=== PATIENT | male | born 1950 | race Caucasian/White ===

== ENCOUNTER 2018-08-20 12:26 | Inpatient (IN) ==
[2018-08-20] MEDS ORDERED: MoRPHine SULFATE 4 MG/ML 1 ML CARP\\VIAL IV STA (13:05)
[2018-08-20 13:11] LABS: Basophils # (auto) 0.02 K/uL (0-0.2); Basophils % (auto) 0.1 %; Eosinophils # (auto) 0.03 K/uL (0-0.5); Eosinophils % (auto) 0.2 %; Hematocrit (blood only) 45.1 % (42-52); Hemoglobin 15.3 g/dL (14.0-18.0); Immature Granulocytes # (auto) 0.03 K/uL (0.00-0.02); Immature Granulocytes % (auto) 0.2 %; Lymphocytes # (auto) 1.72 K/uL (1.2-3.4); Lymphocytes % (auto) 11.3 %; Mean Corpuscular Hgb Conc 33.9 g/dL (32-36); Mean Corpuscular Volume 96.8 fL (80-100); Mean Platelet Volume 10.2 fL (7.4-10.4); Monocytes % (auto) 5.9 %; Neutrophils # (auto) 12.49 K/uL (1.4-6.5); Neutrophils % (auto) 82.3 %; Platelet Count 286 K/uL (130-400); RDW Coefficient of Variation 13.5 % (11.5-14.5); RDW Standard Deviation 47.3 fL (36.4-46.3); Red Blood Count 4.66 M/uL (4.7-6.1); White Blood Count 15.19 K/uL (4.8-10.8)
[2018-08-20 13:22] LABS: Partial Thromboplastin Ratio 0.8; Partial Thromboplastin Time 21.7 Seconds (21.0-31.0); Prothrombin Time 10.6 Seconds (9.0-12.0)
[2018-08-20 13:24] LABS: BUN Creatinine Ratio 15.1 (10-20); Calcium 9.3 mg/dl (8.5-10.1); Est GFR (African American) 79.2; Est GFR (Non-African American) 68.3; Potassium 3.8 mmol/L (3.5-5.1)
[2018-08-20] MEDS ORDERED: HYDROmorphone INJ 0.5 MG/0.5 ML SYR IV STA (14:16)
[2018-08-20] MEDS ORDERED: HEPARIN 25000 UNIT/500 ML D5W IV ONE (14:28)
[2018-08-20] MEDS ORDERED: HEPARIN SOD 5,000 UNIT/0.5 ML VIAL ONE (14:29)
[2018-08-20] MEDS ORDERED: HEPARIN SOD (PORCINE) 1000 UNIT/ML 10 ML VIAL ONE ×2 (14:36→20:39)
--- NOTE | 2018-08-20 14:59 | Ultrasound Report ---
US arterial duplex LE RT CLINICAL HISTORY: h/o ?fem/pop stent, right leg numbness present COMPARISON STUDY: Right lower arterial Doppler study 02/02/2018. FINDINGS: The right common femoral artery is patent and demonstrates normal triphasic waveforms. The right profunda femoris artery is also patent and demonstrate normal triphasic waveforms. The proximal right superficial femoral artery is patent and demonstrates normal velocity triphasic waveforms. The re appears to be a stent within the mid right superficial femoral artery through the popliteal artery . This is completely occluded. There is an arterial collateral extending from the proximal right supe rficial femoral artery immediately proximal to the occluded stent. There may be trace flow within the right posterior tibial artery. No flow identified within the peroneal or dorsalis pedis arteries. Th e anterior tibial artery was not identified. IMPRESSION: Complete occlusion of the stent located within the right superficial femoral artery and popliteal artery. The majority of the calf arteries are also occluded. There may be trace flow within the posterior tibial artery. Electronically signed by: Kevin Poon M.D. 08/20/2018 2:58 PM
--- NOTE | 2018-08-20 15:33 | Emergency Department Note ---
Entered by Irasema Fernandez acting as a scribe for History of Present Illness General Chief complaint: Foot Injury/Pain Stated complaint: R FOOT NUMBNESS Time Seen by Provider: 08/20/18 12:44 Source: patient History of Present Illness Onset (ago): hour(s) 2 Location: right (foot) Radiation: other (just inferior to his right knee) Maximum Pain Intensity: 8 Quality: + other (right foot numbness) Associated symptoms: + other (Positive of tenderness to palpation over the right anterior side of his calf, coldness to his RLE. 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 He reports that 2 hours ago, he began having numbness in his RLE over his foot that has progressed up just inferior to his right knee. He complaints of tenderness to palpation over the right anterior side of his calf. He notes his RLE is cold. [facility] they were unable to obtain pulses using a Doppler ultrasound. 6 months ago he was evaluated at [facility] with a Doppler ultrasound showing a clot in the right leg. Pt was then referred to [facility] for stenting although there are no records at this time. All history is per the patient. He discontinued Plavix 1 week ago and has been on baby aspirin. Home Medications Home Medications Medication Instructions Recorded Confirmed Type aspirin 81 mg PO QAM 08/20/18 08/20/18 History atorvastatin 80 mg PO HS 08/20/18 08/20/18 History lisinopril-hydrochlorothiazide 1 tab PO QAM 08/20/18 08/20/18 History Allergies Allergy/AdvReac Type Severity Reaction Status Date / Time codeine Allergy Unknown Unknown Unverified 08/20/18 13:24 Past Med/Surg History Medical History H/O: HTN (hypertension) (Chronic) HLD (hyperlipidemia) (Chronic) Family History Other Family history non-contributory Social History Current Living Situation: Other Current Living Situation Comment: Care Home Feels Safe at Home: Yes Smoking Status: Current every day smoker Review of Systems See HPI for pertinent positives & negatives. and A total of 10 systems reviewed and were otherwise negative Physical Exam Vital Signs Vital Signs - 24 hr 08/20/18 12:29 08/20/18 14:27 Temperature 36.8 C Temperature Source Oral Sepsis Recent Fever Within 48 Hours No Sepsis New/Unexplained Change in Mental Status No Sepsis Action Taken by Nursing No Action Required Pulse Rate 101 H Pulse Rate [Apical] 89 Pulse Rhythm Regular Pulse Strength Normal Respiratory Rate 20 20 Respiratory Effort / Characteristics Non-Labored Spontaneous Respiratory Depth Normal Respiratory Pattern Regular Blood Pressure 168/90 H Blood Pressure [Right Arm] 133/87 Blood Pressure Mean 116 Blood Pressure Mean [Right Arm] 102 Pulse Oximetry 96 99 Oxygen Delivery Method Room Air Room Air GENERAL: Well appearing, well nourished, NAD, non-toxic. Wearing glasses. EYE EXAM: Normal conjunctiva. PERRL, no anisocoria and EOM's grossly intact w/o pain OROPHARYNX: Moist MM. NECK: Supple, no nuchal rigidity, no adenopathy, non-tender. No signs of meningismus LUNGS: Clear to auscultation. Normal chest wall mechanics. HEART: NSR, no MRG ABDOMEN: Abdomen soft, non-tender, normo-active bowel sounds, no masses, no rebound or guarding. BACK: No CVA TTP SKIN: No rashes and no bruising. UPPER EXTREMITIES: Upper extremities are grossly normal. LOWER EXTREMITIES: RLE cooler to touch compared to LLE. Pulses not palpable nor dopplerable. Decreased sensation to the DP/SP/TIB nerves. Good flexion and extension of the ankle and knee. NEURO EXAM: A and O x3. GCS 15. Moves all 4 extremities. Course 1316: Past medical records reviewed. The patient was evaluated in room A11, and a complete history and physical examination were performed. 1503: I reviewed the patient's case with Dr. Huerta, Vascular Surgery. He states the patient should be admitted and started on Heparin. Recommends a CTA of the RLE. 1511: I reviewed the patient's [facility] He will evaluate the patient for further management. Consultations Consultation #1: I reviewed the patient's case with Dr. Huerta, Vascular Surgery. He states the patient should be admitted and started on Heparin. Recommends a CTA of the RLE. Time: 15:03 Consultation #2: I reviewed the patient's case with Dr. Angy Harrison spitalist. He will evaluate the patient for further management. Time: 15:11 Administered Medications Discontinued Medications Heparin Sodium (Porcine) (Heparin Sodium (Porcine)) Confirm Administered Dose 10,000 units .ROUTE .STK-MED ONE Stop: 08/20/18 14:30 Last Admin: 08/20/18 14:45 Dose: Not Given Documented by: [id number] Heparin Sodium (Porcine) (Heparin Iv Bolus) Confirm Administered Dose 10,000 units .ROUTE .STK-MED ONE Stop: 08/20/18 14:37 Last Admin: 08/20/18 14:43 Dose: 6,000 units Documented by: [id number] Cosigned by: [id number] Heparin Sodium/Dextrose () 1 ea IV NOW STA; Protocol Stop: 08/20/18 14:17 Last Admin: 08/20/18 15:15 Dose: Not Given Documented by: [id number] Heparin Sodium/Dextrose (Heparin Sodium/Dextrose) Confirm Administered Dose 25,000 units IV .STK-MED ONE Stop: 08/20/18 14:29 Last Admin: 08/20/18 14:42 Dose: 1,450 units Documented by: [id number] Cosigned by: [id number] Hydromorphone HCl (Dilaudid) 0.5 mg IV NOW STA Stop: 08/20/18 14:17 Last Admin: 08/20/18 15:15 Dose: 0.5 mg Documented by: [id number] Morphine Sulfate (Morphine Sulfate) 4 mg IV NOW STA Stop: 08/20/18 13:06 Last Admin: 08/20/18 13:13 Dose: 4 mg Documented by: [id number] Medical Decision Making Medical Records Attestation: I reviewed the patient's medical records. Home Medications Current Medication List: was personally reviewed by me Laboratory Data Attestation: I reviewed the patient's lab results. Result diagrams: 08/20/18 12:30 08/20/18 12:30 Lab Results 08/20/18 08/20/18 08/20/18 Range/Units 12:30 12:30 12:30 WBC 15.19 H (4.8-10.8) K/uL RBC 4.66 L (4.7-6.1) M/uL Hgb 15.3 (14.0-18.0) g/dL Hct 45.1 (42-52) % MCV 96.8 (80-100) fL MCH 32.8 (25-34) pg MCHC 33.9 (32-36) g/dL RDW Std Deviation 47.3 H (36.4-46.3) fL RDW Coeff of Rinku 13.5 (11.5-14.5) % Plt Count 286 (130-400) K/uL MPV 10.2 (7.4-10.4) fL Immature Gran % (Auto) 0.2 % Neut % (Auto) 82.3 % Lymph % (Auto) 11.3 % Harper % (Auto) 5.9 % Eos % (Auto) 0.2 % Baso % (Auto) 0.1 % Immature Gran # (Auto) 0.03 H (0.00-0.02) K/uL Neut # (Auto) 12.49 H (1.4-6.5) K/uL Lymph # (Auto) 1.72 (1.2-3.4) K/uL Harper # (Auto) 0.90 H (0.11-0.59) K/uL Eos # (Auto) 0.03 (0-0.5) K/uL Baso # (Auto) 0.02 (0-0.2) K/uL PT 10.6 (9.0-12.0) Seconds INR 1.0 (0.9-1.1) APTT 21.7 (21.0-31.0) Seconds PTT Ratio 0.8 Sodium 139 (136-145) mmol/L Potassium 3.8 (3.5-5.1) mmol/L Chloride 105 (98-107) mmol/L Carbon Dioxide 27 (21-32) mmol/L Anion Gap 7.0 (3-11) BUN 17 (7-18) mg/dl Creatinine 1.11 (0.6-1.4) mg/dl Est Cr Clr Drug Dosing 73.0 ml/min Est GFR ( Amer) 79.2 Est GFR (Non-Af Amer) 68.3 BUN/Creatinine Ratio 15.1 (10-20) Glucose 115 H (70-99) mg/dl Calcium 9.3 (8.5-10.1) mg/dl Imaging Data Radiologist's Impression: Radiology results as stated below per my review and the radiologist's interpretation: US arterial duplex LE RT CLINICAL HISTORY: h/o ?fem/pop stent, right leg numbness present COMPARISON STUDY: Right lower arterial Doppler study 02/02/2018. FINDINGS: The right common femoral artery is patent and demonstrates normal triphasic waveforms. The right profunda femoris artery is also patent and demonstrate normal triphasic waveforms. The proximal right superficial femoral artery is patent and demonstrates normal velocity triphasic waveforms. There appears to be a stent within the mid right superficial femoral artery through the popliteal artery. This is completely occluded. There is an arterial co llateral extending from the proximal right superficial femoral artery immediately proximal to the occluded stent. There may be trace flow within the right posterior tibial artery. No flow identified within the peroneal or dorsalis pedis arteries. The anterior tibial artery was not identified. IMPRESSION: Complete occlusion of the stent located within the right superficial femoral artery and popliteal artery. The majority of the calf arteries are also occluded. There may be trace flow within the posterior tibial artery. Electronically signed by: Kevin Poon M.D. 08/20/2018 2:58 PM Blood Pressure Blood Pressure Findings: Elevated blood pressure Blood Pressure Disposition: further management by hospitalist [facility] Narrative Prior records/ancillary studies reviewed. Triage nursing notes reviewed. 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 Differential diagnosis: Etiologies such as arterial clot , DVT, musculoskeletal, infection, joint ef fusion, trauma, lymphedema, idiopathic, CHF, as well as others were entertained. Patient was seen and evaluated the bedside after being seen and evaluated by the resident physician. The patient does have a prior history of a femoral artery stent placed approximately 6 months prior. The patient reportedly was recently taken off Plavix for epistaxis. The patient noted that he was having some dec reased sensation and associated coolness to the right lower extremity. Pulses are not palpable and not dopplerable. The patient does have a cool right lower extremity compared to the left. The left is warm well perfused with good DP pulses. The patient does have some decreased sensation but does still have sensation intact to the DP, SP, and tibialis nerves. Patient did a blood work completed along with an an arterial ultrasound of the right lower extremity. Patient's blood work shows a white count of 15. The patient's coags are unremarkable. Platelet count within normal limits with a normal H&H. The patient has normal kidney function. Patient's ultrasound showed an occlusion of his stent with only trace flow potentially in the posterior tibial artery. Patient was placed on heparin. Vascular surgery was consulted who recommended heparin pain control and admission with a likely CT angios upon admission. I did speak the on-call hospitalist and relay vascular surgery's recommendations. The patient was subsequently admitted to the medicine service. Impression & Plan Femoral artery occlusion Critical Care Time I have personally spent greater than 55 minutes of critical care time in the direct management of this patient. This includes bedside care, interpretation of diagnostic studies, and testing, discussion with consultants, patient, and family members, and other required patient management activities. This 55 minutes is in excess of all separately billable procedures. Critical Care Time: Yes Total Critical Care Time: 55 Discharge Plan Visit Data Chief Complaint: Foot Injury/Pain Stated Complaint: R FOOT NUMBNESS ED Provider: Mayo Miranda ED Midlevel Provider: Micheal Miles Discharge Problem: Femoral artery occlusion Patient Disposition: Being Evaluated by Hospitalist Discharge Instructions Krames/Other Patient Handouts: ED Diet Soft, ED Abd Pain Gallstones W Colic Conf Activity Restrictions/Additional Instructions: Please call [facility] General Surgery to arrange an appointment for follow up- Forms Stand Alone Forms: My [facility] Prescriptions Prescriptions: No Action atorvastatin 80 mg Tablet 80 mg PO HS RF: 0 aspirin 81 mg Tablet,Chewable 81 mg PO QAM RF: 0 lisinopril-hydrochlorothiazide 10-12.5 mg Tablet 1 tab PO QAM RF: 0 Referrals Referrals: Hernesto S[facility] [Primary Care Provider] - The scribe's documentation has been prepared under my direction and personally reviewed by me in its entirety. I confirm that the note above accurately reflects all work, treatment, procedures, and medical decision making performed by me.
--- NOTE | 2018-08-20 15:48 | History & Physical Report ---
Date of Service August 20, 2018 Assessment & Plan (1) Femoral artery occlusion: Dr. Huerta has been consulted, heparin drip, CT angios of the aorta with runoff, n.p.o. except sips chips and meds. (2) Epistaxis: Continue aspirin, Plavix, and IV heparin, monitor for epistaxis (3) Hypertension: Continue lisinopril HCTZ (4) Peripheral arterial disease: CT of the aorta with runoff, aspirin, Plavix, IV heparin, vascular evaluation. (5) Hyperlipidemia: Patient on Lipitor (6) Leukocytosis: Likely reactive, will monitor History of Present Illness Primary Care Provider: [facility] Chief complaint: Cold and painful right lower extremity 68-year-old male with past medical history of hypertension and peripheral arterial disease who is on aspirin and Plavix, Plavix currently held for epistaxis presents the ER today with a cold right lower extremity. He said he started to get right foot numbness this morning. It then progressed to his RLE over his foot and his right knee. He also complaint of tenderness to palpation over the right calf. He said his RLE is now cold. While in the [facility] at the [facility], they were unable to obtain pulses using a Doppler ultrasound. 6 months ago he was evaluated at [facility] with a Doppler ultrasound showing a clot in the right leg. Pt was then referred to [facility] for stenting although there are no records at this time. He discontinued Plavix 1 week ago and has been on baby aspirin. A duplex scan of the lower extremity revealed complete occlusion of the stent located within the right superficial femoral artery and popliteal artery. The majority of the calf arteries are also occluded. There may be trace flow within the posterior tibial artery. Dr. Huerta from vascular surgery has been consulted, I was asked to admit the patient and order a CTA with runoff. ROS-No Headache, No Visual Changes, No Fever, No Chills, No Neck Pain or Stiffness, No Chest Pain, No Palpitations, No SOB, No WRIGHT, No Cough, No Sputum, No Wheezing, No Abdominal Pain, No Diarrhea, No Hematemesis, No Hemoptysis, No Unexpected Weight Loss, No Flank pain, No Melena, No Hematochezia, No Frequency, No Urgency, No Burning, No Hematuria, No Rashes, No Diaphoresis. Appetite is Normal, complains of painful right lower extremity from the tibial tuberosity down into the foot, complains of cold right lower extremity as well. Complains of numbness of the right lower extremity. Physical Exam Gen-AAO x 3, NAD, Afebrile Head-NCAT, EOMI, PERRLA, Anicteric Sclera, No Posterior Pharyngeal Erythema Neck-Supple, No JVD, No Thyromegaly, No Masses, No LAD, No Bruits Lungs-Clear to Auscultation Bilaterally, No Rales, No Rhonchi, No Wheezing, No Crepitus Chest-No S4, +S1, +S2, No S3, No Murmurs, No Rubs, No Gallops, No Ectopy Abdomen-Soft, Bowel Sounds Present, Non Tender, Non Distended, No Hepatomegaly, No Splenomegaly, No Palpable Masses, No Rebound, No Rigidity, No Guarding Musculoskeletal-Full Range of Motion Bilaterally, No CVAT Extremities-positive cold right lower extremity, tender, mildly cyanotic, mild mottling in the right foot, no Clubbing, No Edema positive capillary Refill Nuero-Cranial Nerves II-XII grossly intact, Motor WNL, DTRs WNL, Strength WNL, No Focal Psych-Normal Mood PMH-hypertension, peripheral arterial disease, epistaxis, hyperlipidemia, renal stones AIM-fwdloel-alqvfiofs stent right lower extremity, renal stones, hernia repair, vasectomy, nasal septoplasty FH-has 2 daughters are healthy, 2 brothers that are healthy and one sister is healthy, denies IV drug abuse SH-Inmate at [facility], pack a day smoker for 50 years, . Meds reviewed and Reconciled Labs Reviewed Allergies Allergy/AdvReac Type Severity Reaction Status Date / Time codeine Allergy Unknown Unknown Unverified 08/20/18 13:24 Home Medications Home Medications Medication Instructions Recorded Confirmed Type aspirin 81 mg PO QAM 08/20/18 08/20/18 History atorvastatin 80 mg PO HS 08/20/18 08/20/18 History lisinopril-hydrochlorothiazide 1 tab PO QAM 08/20/18 08/20/18 History Past Med/Surg History Medical History H/O: HTN (hypertension) (Chronic) HLD (hyperlipidemia) (Chronic) Family History Other Family history non-contributory Social History Current Living Situation: Other Current Living Situation Comment: Alf Feels Safe at Home: Yes Smoking Status: Current every day smoker Physical Exam Vital Signs (Past 24 Hours): Last Vital Signs Temp 36.8 C 08/20/18 12:29 Pulse 89 08/20/18 14:27 Resp 20 08/20/18 14:27 BP 133/87 08/20/18 14:27 Pulse Ox 99 08/20/18 14:27 Results & Data Laboratory Results Allergies codeine Allergy (Unknown, Unverified 08/20/18 13:24) Unknown Height/Weight/Isolation Height 6 ft 1 in Weight 82 kg Chemistry 08/20/18 12:30 Sodium 139 Potassium 3.8 Chloride 105 Carbon Dioxide 27 Anion Gap 7.0 BUN 17 Creatinine 1.11 Glucose 115 H
[2018-08-20] MEDS ORDERED: POLYETHYLENE (MIRALAX) 17 GM PACK PO PRN (16:48)
[2018-08-20] MEDS ORDERED: ONDANSETRON INJ 2 MG/ML 2 ML VIAL IV PRN ×2 (16:48→20:01)
[2018-08-20] MEDS ORDERED: ATORVASTATIN 40 MG TAB PO SCH (16:48)
[2018-08-20] MEDS ORDERED: OPTIRAY 320 125ml IV PRN (17:40)
[2018-08-20] MEDS: ASPIRIN 81 MG ECTAB PO SCH (18:07)
[2018-08-20] MEDS: LISINOPRIL/HCTZ 10/12.5MG TAB PO SCH (18:07)
[2018-08-20] MEDS: ACETAMINOPHEN 325 MG TAB PO PRN (18:08)
--- NOTE | 2018-08-20 18:27 | CT Scan Report ---
CT angio abd aorta runoff w con HISTORY: Right leg superficial femoral artery occlusion. TECHNIQUE: Multiaxial CT images of the abdomen, pelvis, bilateral lower extremities were performed fo llowing the use intravenous contrast to evaluate the arterial structures. Maximal intensity projectio n images were also obtained. COMPARISON STUDY: Right leg arterial Doppler study 08/20/2018. FINDINGS: Groundglass densities at the lung bases posteriorly favor dependent change/atelectasis. No fractures within the visualized osseous structures. The liver, gallbladder, pancreas, and spleen are unremarkable. Bilateral nephrolithiasis. No hydronephrosis. Left adrenal gland thickening. There are 2 hypodense nodules within the right adrenal gland with the largest measuring 9 mm. These are technic ally indeterminate. No retroperitoneal lymphadenopathy. Normal appendix. The bladder is unremarkable. No bowel wall thickening or obstruction. Moderate atherosclerotic plaque within the abdominal aorta. No abdominal aortic aneurysm. There is al so moderate atherosclerotic plaque within the bilateral common iliac arteries without significant kingsley nosis. The bilateral external iliac arteries are patent. Mild aneurysmal dilatation of the distal rig ht common iliac artery measuring 1.5 cm and the proximal left common iliac artery measuring 1.4 cm. T he celiac, superior mesenteric, and inferior mesenteric arteries are widely patent. No significant st enosis within the renal arteries. There is a beaded appearance to the mid right renal artery consiste nt with fibromuscular dysplasia. No evidence for dissection. No significant stenosis or occlusion wit hin the opacified left lower externally arterial system. Diminished flow within the distal calf arter ies may be due to the timing of contrast. The right common femoral and proximal right superficial fem oral arteries are patent. There is complete occlusion of the right superficial femoral artery and pop liteal artery stent. There appears to be reconstitution of flow within the distal popliteal artery du e to a small arterial collateral likely extending from the patent profunda femoris artery. The the pr oximal anterior tibial artery is small in caliber but patent. No contrast within a focus within the m id to distal right anterior tibia artery. Diminished flow within the distal peroneal and posterior ti bial artery arteries maybe due to the timing of contrast. No significant stenosis within the proximal to mid right peroneal and posterior tibial arteries. IMPRESSION: 1. There is complete occlusion of the right superficial femoral artery and popliteal artery stent. Th ere appears to be reconstitution of flow within the distal popliteal artery due to a small arterial c ollateral likely extending from the patent profunda femoris artery.. 2. There is a beaded appearance to the mid right renal artery consistent with fibromuscular dysplasia . No evidence for dissection or significant stenosis. 3. Bilateral nephrolithiasis. No hydronephrosis. 4. 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 5. No significant stenosis or occlusion within the visualized left lower extremity arterial structure s. Diminished flow within the distal left calf arteries may be due to the timing of contrast. 6. Additional findings as described above. Electronically signed by: Kevin Poon M.D. 08/20/2018 6:25 PM
[2018-08-20] MEDS ORDERED: HEPARIN (PORCINE) 1000 UNIT/ML 10 ML (CATH LAB USE ONLY) ONE (19:21)
[2018-08-20] MEDS ORDERED: CEFAZOLIN 250 MG/ML 1 GM VIAL ONE ×2 (19:22→20:14)
[2018-08-20] MEDS ORDERED: PAPAVERINE HCL INJ 30 MG/ML 2 ML VIAL ONE (19:22)
[2018-08-20] MEDS ORDERED: GELATIN SPONGE SZ 100 ONE (19:22)
[2018-08-20] MEDS ORDERED: THROMBIN 5000 UNITS KIT ONE (19:22)
[2018-08-20] MEDS ORDERED: LIDOCAINE HCL 1% 20 ML VIAL ONE (19:22)
[2018-08-20] MEDS ORDERED: BUPIVACAINE/EPINEPHRINE 0.5% MPF 1:200,000 30 ML VIAL ONE (19:22)
[2018-08-20] MEDS ORDERED: CEFAZOLIN 1000MG 1,000 MG/7.5 ML SYR IV ONE ×2 (19:27→19:30)
--- NOTE | 2018-08-20 19:27 | Consultation ---
Date of Consultation August 20, 2018 Assessment & Plan (1) Pain of right lower extremity due to ischemia: Doppler signals heard in the right foot. CTA shows occlusion of the stents in the right superficial femoral artery down through the distal popliteal.There may be a peroneal artery open beyond.At this point we recommend emergent revascularization.We will attempt to do endovascularly.If this does not accomplish it then we may need to go to a femoropopliteal bypass. I have discussed the risks options and benefits of the procedure with the patient. The patient understands the risks options and benefits and agrees to the procedure. History of Present Illness Reason for Consultation: Right leg pain Attending Physician: Kirill Travis DO History of Present Illness This is a 68-year-old gentleman who 6 months ago had stenting of his right superficial femoral and popliteal arteries. A little of a clock this morning he developed pain of his right lower extremity and foot. This came on suddenly. It got progressively worse. He did have numbness and tingling at that time in the foot.The numbness and tingling has resolved.The pain is much better at this point. The foot was also discolored at that time but has improved slightly.He was on Plavix and aspirin prior to this. Allergies Allergy/AdvReac Type Severity Reaction Status Date / Time codeine Allergy Unknown Unknown Unverified 08/20/18 13:24 Home Medications Home Medications Medication Instructions Recorded Confirmed Type aspirin 81 mg PO QAM 08/20/18 08/20/18 History atorvastatin 80 mg PO HS 08/20/18 08/20/18 History lisinopril-hydrochlorothiazide 1 tab PO QAM 08/20/18 08/20/18 History Patient History Medical History H/O: HTN (hypertension) (Chronic) HLD (hyperlipidemia) (Chronic) Family History Other Family history non-contributory Social History Preferred Language: Northern Irish Communication Ability: Effective Contact Clerk Required: No Beliefs That Will Affect Care: None Current Living Situation: Other Current Living Situation Comment: [facility]; [facility] Other Information That Helps Us Care for You: No Feels Safe at Home: Yes Smoking Status: Current every day smoker Hx Alcohol Use: No Hx Substance Use: No Review of Systems Other than the HPI the review of systems of 10 systems is negative. Physical Exam Vital Signs (Past 24 Hours): Last Vital Signs Temp 36.9 C 08/20/18 17:00 Pulse 76 08/20/18 17:00 Resp 18 08/20/18 17:00 BP 158/86 H 08/20/18 17:00 Pulse Ox 95 08/20/18 17:00 Constitutional: WD/WN, vitals as above well developed and well nourished; no acute distress Respiratory: normal respiratory effort, lungs clear to auscultation Cardiovascular: RRR, no murmur, no edema Vessels: posterior tibial pulses present (None on the Right) and dorsalis pedis pulses present (None on the right) Gastrointestinal (Abdomen): normal bowel sounds, soft, nontender, no hepatosplenomegaly Musculoskeletal: Extremities: extremities normal to inspection and strength 5/5 throughout Neurologic: normal touch/pain/proprioception and moves all extremities Psychiatric: Orientation: alert and oriented x 3
[2018-08-20] MEDS ORDERED: MIDAZOLAM HCL 1 MG/ML 2ML VIAL ONE (19:38)
[2018-08-20] MEDS ORDERED: PROPOFOL IV EMULSION 10 MG/ML 20 ML VIAL IV ONE (19:39)
[2018-08-20] MEDS ORDERED: fentaNYL citrate 100 MCG/2 ML VIAL ONE (19:39)
[2018-08-20] MEDS ORDERED: LIDOCAINE HCL 2% 2 ML VIAL/AMP(20MG/ML) INFIL ONE (19:39)
--- NOTE | 2018-08-20 19:50 | Anesthesiology Consultation ---
Date of Service August 20, 2018 Assessment & Plan (1) H/O: HTN (hypertension): (2) Encounter for pre-operative examination: Chart Review Chart Review: Acceptable Risk for Surgery and Patient NOT seen in Pre Admission Testing Consults Requested none ASA [id number] Proposed Anesthesia Anesthesia Type: MAC (consented for general as backup) Anesthesia Line Insertion: Arterial line (consented) Risk / Benefits Reviewed With: PT / POA / Parent / Guardian, Accepts Plan and Informed Consent Obtained NPO Date Last Intake of Fluids: 08/20/18 Time Last Intake of Fluids: 08:00 Last Intake of Fluids Comment: sips since admission Date Last Intake of Solids: 08/20/18 Time Last Intake of Solids: 08:00 History Surgery Operation Date: 08/20/18 19:10 Proposed Procedures p Femoral Popliteal Bypass Graft - Robinson Huerta MD Height/Weight Height: 6 ft 1 in Weight: 89 kg Allergies Allergy/AdvReac Type Severity Reaction Status Date / Time codeine Allergy Unknown Unknown Unverified 08/20/18 13:24 Medications Home Medications Medication Instructions Recorded Confirmed Last Taken aspirin 81 mg PO QAM 08/20/18 08/20/18 08/20/18 atorvastatin 80 mg PO HS 08/20/18 08/20/18 08/19/18 lisinopril-hydrochlorothiazide 1 tab PO QAM 08/20/18 08/20/18 08/20/18 Active Medications Generic Name Dose Route Start Last Admin Trade Name Freq PRN Reason Stop Dose Admin Acetaminophen 650 mg 08/20/18 16:48 08/20/18 18:08 Tylenol PO 09/19/18 16:47 650 mg Q4H PRN Administration pain/fever Aspirin 81 mg 08/20/18 17:15 08/20/18 18:07 Ecotrin Ectab PO 09/19/18 17:14 81 mg QAM TOOTIE Administration Lisinopril/HCTZ 1 tab 08/20/18 17:30 08/20/18 18:07 Prinzide 10/12.5mg PO 09/19/18 17:29 1 tab QAM TOOTIE Administration Ioversol 120 ml 08/20/18 17:40 08/20/18 17:40 Optiray 320 125ml IV 08/24/18 17:39 120 ml ONCE PRN Administration Interaction Checking Past Medical History Medical History H/O: HTN (hypertension) (Chronic) HLD (hyperlipidemia) (Chronic) Hernia Smoker Past Family History Family History Other Family history non-contributory Past Surgical History Surgical History H/O vasectomy History of vascular surgery R SFA stent, six months ago Past Anesthesia History No Hx of Anesthesia Complications and No Family Hx of Anesthesia Complications History of PONV No Motion Sickness Screening History of Motion Sickness: No Social History Smoking Status: Current every day smoker tobacco type: cigarettes Do You Dip or Chew Tobacco: No Hx Alcohol Use: No Hx Substance Use: No Exercise / Class Metabolic Activity II 4-5 Yardwork/Stairs/Walk up hill Review of Systems no chest pain or sob, patient complains of "cold R leg" Physical Exam Vital Signs Last Vital Signs Temp 36.9 C 08/20/18 17:00 Pulse 76 08/20/18 17:00 Resp 18 08/20/18 17:00 BP 158/86 H 08/20/18 17:00 Pulse Ox 95 08/20/18 17:00 ENMT Mouth: + dental caries and + poor dentition Thyromental Distance: > or= 3.5 Finger Breadths Mallampati Class: II Neck normal visual inspection Respiratory normal respiratory effort Cardiovascular Rate/Rhythm: regular rate and regular rhythm Musculoskeletal Spine: no pain with cervical ROM Neurologic moves all extremities Motor/Sensory: + sensory deficit (sensation loss R foot) Psychiatric Orientation: alert and oriented x 3 Testing Electrocardiogram Date: 08/20/18 Findings: + NSR @ (70 sinus arrhythmia) Laboratory Results 08/20/18 12:30 08/20/18 12:30 PT 10.6 Seconds (9.0-12.0) 08/20/18 12:30 INR 1.0 (0.9-1.1) 08/20/18 12:30 APTT 21.7 Seconds (21.0-31.0) 08/20/18 12:30
[2018-08-20] MEDS ORDERED: HEPARIN SOD (PORCINE) 5,000 UNITS/ML VIAL ONE (19:53)
[2018-08-20] MEDS ORDERED: LABETALOL HCL IV 5 MG/ML 20ML IV PRN (20:01)
[2018-08-20] MEDS ORDERED: HYDROmorphone INJ 1 MG/ML SYRINGE IV PRN (20:01)
[2018-08-20] MEDS ORDERED: PHENYLEPHRINE 100MCG/ML 5ML SYR IV PRN (20:01)
[2018-08-20] MEDS ORDERED: ATROPINE SULFATE 0.1 MG/ML 10ML SYR IV PRN (20:01)
[2018-08-20] MEDS ORDERED: MEPERIDINE HCL 25 MG/ML CARP IV PRN (20:01)
[2018-08-20] MEDS ORDERED: fentaNYL citrate 100 MCG/2 ML VIAL IV PRN (20:01)
[2018-08-20] MEDS ORDERED: ePHEDrine sulfate 50 MG/ML AMP IV PRN (20:01)
[2018-08-20] MEDS ORDERED: VISIPAQUE IV PRN (21:09)
--- NOTE | 2018-08-20 21:13 | Anesthesiology Progress Note ---
Date of Service August 20, 2018 Anesthesia Post Procedure Vital Signs Vital Signs: Temp Pulse Pulse Pulse Resp BP BP 08/20/18 17:00 36.9 C 76 18 178/106 H 08/20/18 15:58 92 H 20 140/89 08/20/18 14:27 89 20 08/20/18 12:29 36.8 C 101 H 20 168/90 H BP Pulse Ox 08/20/18 17:00 158/86 H 95 08/20/18 15:58 99 08/20/18 14:27 133/87 99 08/20/18 12:29 96 Pain Intensity Right Leg: Pain Intensity: 4 Notes Mental Status: alert / awake / arousable Patient Amnestic to Procedure: Yes Nausea / Vomiting: adequately controlled Pain: adequately controlled Airway Patency, RR, SpO2: stable & adequate BP & HR: stable & adequate Hydration State: stable & adequate Anesthetic Complications: no major complications apparent and Pt Satisfied with anesthetic care Notes: The patient is awake and his vitals are stable in the ICU. He has some mild leg pain over the surgical site.
--- NOTE | 2018-08-20 21:26 | Post Operative Brief Note ---
Immediate Post Op Note v1 Date of Surgery August 20, 2018 Pre & Post Diagnosis Operation Date: 08/20/18 19:10 Pre-Op Diagnosis: Ischemic Right Leg Post-Op Diagnosis: Ischemic Right Leg Operation Date: 08/21/18 08:00 <No data on this case meets the specified criteria> Procedure Operation Date: 08/20/18 19:10 Actual Procedures p Right Lower Extremity Angiogram, Infusion of thrombolytics(Right) - Robinson Huerta MD Operation Date: 08/21/18 08:00 <No data on this case meets the specified criteria> Surgeon Robinson Huerta MD Human Services Worker none Estimated Blood Loss 5 Findings Consistent with Post-Op Diagnosis Anesthesia Type MAC Complications none Disposition Accompanied Patient To Recovery: No Disposition: Recovery Room
--- NOTE | 2018-08-20 21:31 | Operative Report ---
Post Operative Report Pre & Post Diagnosis Operation Date: 08/20/18 19:10 Pre-Op Diagnosis: Ischemic Right Leg Post-Op Diagnosis: Ischemic Right Leg Operation Date: 08/21/18 08:00 <No data on this case meets the specified criteria> Procedure Operation Date: 08/20/18 19:10 Actual Procedures p Right Lower Extremity Angiogram, Infusion of thrombolytics(Right) - Robinson Huerta MD Operation Date: 08/21/18 08:00 <No data on this case meets the specified criteria> Surgeon Robinson Huerta MD Rn Infusion none Estimated Blood Loss 5 Findings Consistent with Post-Op Diagnosis Specimens None Anesthesia Type MAC Complications none Disposition Accompanied Patient To Recovery: No Disposition: Surgical ICU Indications This patient is a 68-year-old male who had stents placed in his right leg 6 months ago. Earlier this morning he developed pain of sudden onset in the right lower extremity with color changes. He was found to have occlusion of the stents. Intervention was recommended. I have discussed the risks options and benefits of the procedure with the patient. The patient understands the risks options and benefits and agrees to the procedure. Description of Procedure The patient was taken to the angiogram suite placed in supine position. Both groins were prepped and draped in a sterile manner. Patient was identified and a timeout was performed. Local anesthetic was administered to the left groin and percutaneous puncture was made in the left common femoral artery. Wire was inserted followed by a 5 Slovak sheath. Using a rim catheter notify wire in the right iliac was Cannulated from the left side. The rim catheter was advanced down into the external iliac. An injection was done at that point. The iliac and common femoral arteries as well as the profunda and superficial femoral artery origins were patent. There is occlusion of the stents. Wire was then advanced down through the rim catheter. Quick cross was inserted. This was passed down through the stents to the distal end of the stent. Wire was exchanged for a stiff Glidewire. The quick cross was removed. A 7 Slovak destination sheath was inserted and placed into the right common femoral from the left side. A longer quick cross was then inserted over the wire. Is placed in the infrapopliteal arteries. Hand injection showed no named vessels below the popliteal. There may have been a hint of a peroneal faintly visible in the mid calf. At this point it was decided to infuse TPA. The stiffening wire was reinserted. The quick cross was removed. 50 cm long catheter was then inserted and placed with the tip in the distal popliteal artery. The proximal portion of the infusion catheter was just above the beginning of the stent. Sterile dressings are applied to the wounds. Heparin was attached to the sheath and TPA will be running through the infusion catheter.The patient left the operation room in satisfactory condition and tolerated the procedure well. All needle and sponge counts were correct at the end of the procedure. I attest to the content of the Intraoperative Record and any orders documented therein. Any exceptions are noted below.
[2018-08-20 21:56] LABS: Basophils # (auto) 0.02 K/uL (0-0.2); Basophils % (auto) 0.2 %; Eosinophils # (auto) 0.08 K/uL (0-0.5); Eosinophils % (auto) 0.8 %; Hematocrit (blood only) 41.2 % (42-52); Hemoglobin 13.9 g/dL (14.0-18.0); Immature Granulocytes # (auto) 0.03 K/uL (0.00-0.02); Immature Granulocytes % (auto) 0.3 %; Lymphocytes # (auto) 3.33 K/uL (1.2-3.4); Lymphocytes % (auto) 32.8 %; Mean Corpuscular Volume 97.4 fL (80-100); Mean Platelet Volume 9.9 fL (7.4-10.4); Monocytes # (auto) 0.93 K/uL (0.11-0.59); Monocytes % (auto) 9.2 %; Neutrophils # (auto) 5.75 K/uL (1.4-6.5); Neutrophils % (auto) 56.7 %; Platelet Count 229 K/uL (130-400); RDW Coefficient of Variation 13.4 % (11.5-14.5); RDW Standard Deviation 47.5 fL (36.4-46.3); Red Blood Count 4.23 M/uL (4.7-6.1); White Blood Count 10.14 K/uL (4.8-10.8)
[2018-08-20] MEDS ORDERED: ALTEPLASE IV ONE (22:00)
[2018-08-20] MEDS ORDERED: HEPARIN SODIUM/DEXTROSE 25,000 UNIT/500 ML BAG IV SCH (22:00)
[2018-08-20] MEDS ORDERED: SODIUM CHLORIDE 0.9% IV ONE (22:00)
[2018-08-20] MEDS ORDERED: RECOMBINANT IV ONE (22:00)
[2018-08-20 22:05] LABS: Mean Corpuscular Hgb Conc 33.7 g/dL (32-36)
[2018-08-20] MEDS: HYDROmorphone INJ 1 MG/ML SYRINGE IV PRN (22:28)
--- NOTE | 2018-08-20 22:37 | Critical Care Consultation ---
Date of Consultation August 20, 2018 Assessment & Plan (1) Admitted to intensive care unit: Reason Critically Ill: 68-year-old male with acute arterial occlusion of a RIGHT sided femoral-popliteal bypass graft status post vascular intervention with TPA and heparin infusions running. NEURO - * CAM ICU: NEGATIVE * Monitor closely for any neurological changes in the setting of TPA/heparin drips. CARDIAC/VASCULAR - * Acute occlusion of RIGHT femoropopliteal bypass graft status post vascular intervention: * Currently with TPA and heparin infusing directly at site. * No dopplerable pulses to the RIGHT lower extremity. * Plan for repeat evaluation tomorrow and more extensive intervention if nec essary. * Defer to vascular surgery at this time. * Hypertension: * Continue home medications as tolerated. * Hyperlipidemia: * Continue home medications. * Monitor on telemetry. RESPIRATORY - * Daily smoker - smoking cessation encouraged. * Supplemental O2 as needed. GI/NUTRITION - * N.p.o. with intent for possible intervention tomorrow. * Prophylaxis: Will add Protonix RENAL/LYTES - * No significant electrolyte derangements. * Will monitor closely. Replace as necessary. - * No concerns at this time. ENDO - * No history of diabetes or thyroid disease. * BSGs per unit protocol. ISS --> gtt per unit policy. HEME - * Stable H&H. * Will monitor close for signs/symptoms of bleeding in the setting of TPA/heparin drips. * PTT per protocol. Defer to vascular surgery for desired infusion rate. ID - * Postoperative antibiotics to include Cefzil and. LINES/IV ACCESS - * PIVs x2 * LEFT femoral sheath. DVT PROPHYLAXIS - * Will hold on chemoprophylaxis in the setting of TPA/heparin drips. * SCDs I have personally spent 35 minutes of critical care time in the direct management of this patient. This is a life/limb threatening event. This includes time spent evaluating patient, direct bedside care, chart review, placing orders, interpretation of diagnostic studies, discussion with consultants, patient, and family members, as well as other required patient management activities. This time is exclusive of all separately billable procedures, and teaching time and separate from and in addition to any other critical care service time. Thank you for allowing us to participate in the care of this patient. Please refer to my attending physician's documentation for any further recommendations. (2) Femoral-popliteal bypass graft occlusion, right: (3) Pain of right lower extremity due to ischemia: (4) Hyperlipidemia: (5) Leukocytosis: (6) Peripheral arterial disease: (7) Hypertension: Supervising Physician Co-Signing Physician Notes I have seen and examined this patient with Misael Pickering. and agree with his assessment and plan of care. We are going to continue with current plan of care as prescribed. The patient currently overall remains stable and is not in any acute distress. Getting ready for the Fem-Popliteal Bypass this morning. In the mean time will continue with current plan of care as recommended. Dr. Brenda Waller. History of Present Illness Attending Physician: Kirill Travis DO Patient is a 68-year-old male with a significant past medical history of peripheral arterial disease, hypertension, and long-standing smoking history who had previously undergone RIGHT-sided femoropopliteal bypass approximately 6 months ago at [facility] for an acute arterial occlusion presented to the emergency department today with new acute occlusion of the grafting. Patient had diagnostic images including CTA and arterial Dopplers which were concerning for acute complete occlusion. Patient was taken to the OR where the lesion was explored. Sheath was placed and continued drips of heparin and TPA are directly instilled into the affected extremity per vascular surgery. Patient to be monitored overnight with the intent for reassessment tomorrow with possible need for graft repair versus possible eventual amputation. Upon arrival in the ICU, the patient is awake, alert, and oriented. He reports that previously he had little to no feeling in the RIGHT lower extremity, but at this point he is experiencing burning and pain to the foot and calf. He denies any current headaches, dizziness, lightheadedness, chest pain, palpitations, abdominal pain, nausea, vomiting, or other extremity pain. Allergies Allergy/AdvReac Type Severity Reaction Status Date / Time codeine Allergy Unknown Unknown Unverified 08/20/18 13:24 Home Medications Home Medications Medication Instructions Recorded Confirmed Type aspirin 81 mg PO QAM 08/20/18 08/20/18 History atorvastatin 80 mg PO HS 08/20/18 08/20/18 History lisinopril-hydrochlorothiazide 1 tab PO QAM 08/20/18 08/20/18 History Patient History Medical History H/O: HTN (hypertension) (Chronic) HLD (hyperlipidemia) (Chronic) COPD (chronic obstructive pulmonary disease) CVA (cerebral vascular accident) Hernia PVD (peripheral vascular disease) Smoker Surgical History H/O vasectomy History of vascular surgery R SFA stent, six months ago Family History Other Family history non-contributory Social History Preferred Language: Kiswahili Communication Ability: Effective Channel Opener Required: No Beliefs That Will Affect Care: None Current Living Situation: Other Current Living Situation Comment: [facility]; [place] Other Information That Helps Us Care for You: No Feels Safe at Home: Yes Smoking Status: Current every day smoker Hx Alcohol Use: No Hx Substance Use: No Review of Systems A complete 10 point review of systems was reviewed with the patient with pertinent positives and negatives as per history of present illness. All else were negative. Physical Exam Vital Signs (Past 24 Hours): Last Vital Signs Temp 36.9 C 08/20/18 21:35 Pulse 59 L 08/20/18 21:35 Resp 16 08/20/18 21:35 BP 120/80 08/20/18 21:35 Pulse Ox 95 08/20/18 21:35 Physical Exam: VITAL SIGNS - Vital signs and nursing notes were reviewed. GENERAL - 68-year-old male appearing his stated age who is in no acute distress. Communicates well with provider and answers questions appropriately. SKIN - Without rashes. Mottling of the RIGHT lower extremity from the knee down appreciated. HEAD - NC/AT. EYES - PERRL with EOMI bilaterally. Sclera anicteric. EARS - No deformities of external structures noted on gross examination bilaterally. NOSE - Midline and without cyanosis. No epistaxis or purulent drainage noted. MOUTH/OROPHARYNX - Without perioral cyanosis. Buccal mucosa pink and moist and without leukoplakia. NECK - Neck with FROM. LUNGS - Chest wall symmetric without accessory muscle use, intercostals retractions, or central cyanosis. Normal vesicular breath sounds CTA B/L. No wheezes, rales, or rhonchi appreciated. CARDIAC - RRR with S1/S2. No murmur, rubs, or gallops appreciated. ABDOMEN - Abdominal contour flat without pulsations or visible masses. BS normoactive all four quadrants. No tenderness, palpable masses, hepatosplenomegaly, or ascites noted. EXTREMITIES -mottling of the RIGHT lower extremity from the foot extending proxi ganesh to just below the knee. No dopplerable pulses appreciated to the RIGHT lower extremity. LEFT lower extremity without clubbing. Dopplerable pulses to the LEFT foot and posterior tibial area appreciated. NEUROLOGIC - Cranial nerves II through XII grossly intact. Little sensation appreciated to the RIGHT foot. Full sensation noted to the LEFT lower extremity and throughout the remaining body surface area. PSYCH - A&Ox3 and cooperates fully with examiner. Pt is very pleasant and interacts well with examiner.
[2018-08-20 23:01] LABS: Fibrinogen 319 mg/dl (184-400)
[2018-08-20 23:05] LABS: Partial Thromboplastin Time 136.2 Seconds (21.0-31.0)
[2018-08-20] MEDS: ATORVASTATIN 40 MG TAB PO SCH (23:58)
[2018-08-21] MEDS: HYDROmorphone INJ 1 MG/ML SYRINGE IV PRN (00:06)
[2018-08-21] MEDS ORDERED: LIDOCAINE 2% JELLY 5 ML TUBE EXT ONE (01:45)
[2018-08-21] MEDS: HYDROmorphone INJ 2 MG/ML SYR/VIAL IV PRN ×3 (01:49→23:15)
[2018-08-21 04:37] LABS: Basophils # (auto) 0.01 K/uL (0-0.2); Basophils % (auto) 0.1 %; Eosinophils # (auto) 0.01 K/uL (0-0.5); Eosinophils % (auto) 0.1 %; Hematocrit (blood only) 41.3 % (42-52); Immature Granulocytes # (auto) 0.04 K/uL (0.00-0.02); Immature Granulocytes % (auto) 0.3 %; Lymphocytes # (auto) 2.09 K/uL (1.2-3.4); Lymphocytes % (auto) 14.5 %; Mean Corpuscular Hgb Conc 33.9 g/dL (32-36); Mean Corpuscular Volume 98.1 fL (80-100); Mean Platelet Volume 9.9 fL (7.4-10.4); Monocytes # (auto) 1.09 K/uL (0.11-0.59); Monocytes % (auto) 7.5 %; Neutrophils # (auto) 11.22 K/uL (1.4-6.5); Neutrophils % (auto) 77.5 %; Platelet Count 248 K/uL (130-400); RDW Coefficient of Variation 13.4 % (11.5-14.5); Red Blood Count 4.21 M/uL (4.7-6.1); White Blood Count 14.46 K/uL (4.8-10.8)
[2018-08-21 04:57] LABS: BUN Creatinine Ratio 16.5 (10-20); Calcium 8.2 mg/dl (8.5-10.1); Creatinine Clr Calc Pharmacy 82.7 ml/min; Est GFR (African American) 92.1; Est GFR (Non-African American) 79.5; Magnesium 1.8 mg/dl (1.8-2.4)
[2018-08-21 04:58] LABS: Phosphorus 3.7 mg/dl (2.5-4.9)
[2018-08-21 04:59] LABS: Fibrinogen 341 mg/dl (184-400)
[2018-08-21 05:02] LABS: Partial Thromboplastin Ratio 1.2
--- NOTE | 2018-08-21 07:21 | Surgery Progress Note ---
Date of Service August 21, 2018 Assessment & Plan (1) Pain of right lower extremity due to ischemia: Patient for recheck of TPA with possible intervention and possible bypass. I have discussed the risks options and benefits of the procedure with the patient. The patient understands the risks options and benefits and agrees to the procedure. Subjective Patient having significant pain in right lower leg and foot. Physical Exam Vital Signs (Past 24 Hours): Last Vital Signs Temp 37.3 C 08/21/18 04:00 Pulse 64 08/21/18 06:00 Resp 18 08/21/18 06:00 BP 157/81 H 08/21/18 06:00 Pulse Ox 92 08/21/18 06:00 Right foot cyanotic and cool there is a doppler pulse now present in the right popliteal. No pedal pulses heard with doppler.
[2018-08-21] MEDS ORDERED: IODIXANOL (VISIPAQUE) 270 MG/ML 50ML ONE (07:43)
[2018-08-21] MEDS ORDERED: THROMBIN 5000 UNITS KIT ONE (07:43)
[2018-08-21] MEDS ORDERED: BUPIVACAINE/EPINEPHRINE 0.5% MPF 1:200,000 30 ML VIAL ONE (07:43)
[2018-08-21] MEDS ORDERED: PAPAVERINE HCL INJ 30 MG/ML 2 ML VIAL ONE (07:43)
[2018-08-21] MEDS ORDERED: CEFAZOLIN 250 MG/ML 1 GM VIAL ONE (07:43)
[2018-08-21] MEDS ORDERED: LIDOCAINE HCL 1% 20 ML VIAL ONE (07:43)
[2018-08-21] MEDS ORDERED: HEPARIN (PORCINE) 1000 UNIT/ML 10 ML (CATH LAB USE ONLY) ONE (07:43)
[2018-08-21] MEDS ORDERED: GELATIN SPONGE SZ 100 ONE (07:44)
--- NOTE | 2018-08-21 07:47 | Anesthesiology Consultation ---
Date of Service August 21, 2018 Assessment & Plan ASA ASA4E Proposed Anesthesia Anesthesia Type: General Anesthesia Line Insertion: Arterial line Risk / Benefits Reviewed With: PT / POA / Parent / Guardian, Accepts Plan and Informed Consent Obtained NPO Date Last Intake of Fluids: 08/20/18 Time Last Intake of Fluids: 08:00 Last Intake of Fluids Comment: sips since admission Date Last Intake of Solids: 08/20/18 Time Last Intake of Solids: 08:00 History Surgery Operation Date: 08/20/18 19:10 Proposed Procedures p Femoral Popliteal Bypass Graft - Robinson Huerta MD Operation Date: 08/21/18 08:00 Proposed Procedures p Angiogram Extremity Unilateral - Robinson Huerta MD Height/Weight Height: 6 ft 1 in Weight: 89 kg Allergies Allergy/AdvReac Type Severity Reaction Status Date / Time codeine Allergy Unknown Unknown Unverified 08/20/18 13:24 Medications Home Medications Medication Instructions Recorded Confirmed Last Taken aspirin 81 mg PO QAM 08/20/18 08/20/18 08/20/18 atorvastatin 80 mg PO HS 08/20/18 08/20/18 08/19/18 lisinopril-hydrochlorothiazide 1 tab PO QAM 08/20/18 08/20/18 08/20/18 Active Medications Generic Name Dose Route Start Last Admin Trade Name Freq PRN Reason Stop Dose Admin Acetaminophen 650 mg 08/20/18 16:48 08/20/18 18:08 Tylenol PO 09/19/18 16:47 650 mg Q4H PRN Administration pain/fever Aspirin 81 mg 08/20/18 17:15 08/20/18 18:07 Ecotrin Ectab PO 09/19/18 17:14 81 mg QAM TOOTIE Administration Atorvastatin Calcium 80 mg 08/20/18 21:00 08/20/18 23:58 Lipitor PO 09/19/18 20:59 Not Given HS TOOTIE Lisinopril/HCTZ 1 tab 08/20/18 17:30 08/20/18 18:07 Prinzide 10/12.5mg PO 09/19/18 17:29 1 tab QAM TOOTIE Administration Hydromorphone HCl 1 - 2 mg 08/21/18 01:26 08/21/18 07:27 Dilaudid IV 09/03/18 16:47 2 mg Q1H PRN Administration Pain Alteplase, Recombinant 14 mg/ 280 mls @ 20 mls/hr 08/20/18 22:00 08/21/18 07:16 Sodium Chloride IV 08/21/18 11:59 19 mls/hr NOW ONE Infusion Heparin Sodium/Dextrose 25,000 unit in 500 mls @ 12 mls/hr 08/20/18 22:00 08/21/18 07:16 Heparin Sodium/Dextrose IV 09/19/18 21:59 600 units/hr .Q24H TOOTIE 12 mls/hr Infusion 600 UNITS/HR Past Medical History Medical History H/O: HTN (hypertension) (Chronic) HLD (hyperlipidemia) (Chronic) COPD (chronic obstructive pulmonary disease) CVA (cerebral vascular accident) Hernia PVD (peripheral vascular disease) Smoker Past Family History Family History Other Family history non-contributory Past Surgical History Surgical History H/O vasectomy History of vascular surgery R SFA stent, six months ago Past Anesthesia History No Hx of Anesthesia Complications and No Family Hx of Anesthesia Complications History of PONV No Motion Sickness Screening History of Motion Sickness: No Social History Smoking Status: Current every day smoker tobacco type: cigarettes Do You Dip or Chew Tobacco: No Hx Alcohol Use: No Hx Substance Use: No Exercise / Class Metabolic Activity III < 4 Walking/Shop/Light housework Physical Exam Vital Signs Last Vital Signs Temp 37.3 C 08/21/18 04:00 Pulse 64 08/21/18 06:00 Resp 18 08/21/18 06:00 BP 157/81 H 08/21/18 06:00 Pulse Ox 92 08/21/18 06:00 Constitutional not obese ENMT Mouth: + dentition abnormality and + poor dentition Thyromental Distance: > or= 3.5 Finger Breadths Mallampati Class: II Neck normal visual inspection, trachea midline and + facial hair; neck extension not limited Respiratory normal respiratory effort Auscultation: lungs clear to auscultation bilaterally and + diminished lung sounds Cardiovascular Rate/Rhythm: regular rate and regular rhythm Heart Sounds: no murmur Vessels: + carotid bruit Musculoskeletal Spine: normal cervical ROM Neurologic moves all extremities Motor/Sensory: no sensory deficit Psychiatric Orientation: alert and oriented x 3 Testing Electrocardiogram Date: 08/20/18 Findings: + NSR @ (with sinus arrhythmia at 70) Laboratory Results 08/21/18 04:18 08/21/18 04:18 PT 10.6 Seconds (9.0-12.0) 08/20/18 12:30 INR 1.0 (0.9-1.1) 08/20/18 12:30 APTT 32.0 Seconds (21.0-31.0) H 08/21/18 04:18
[2018-08-21] MEDS ORDERED: CEFAZOLIN 1000MG 1,000 MG/7.5 ML SYR IV SCH (08:00)
[2018-08-21] MEDS ORDERED: LIDOCAINE HCL 2% 2 ML VIAL/AMP(20MG/ML) INFIL ONE (08:01)
[2018-08-21] MEDS ORDERED: ONDANSETRON INJ 2 MG/ML 2 ML VIAL ONE (08:01)
[2018-08-21] MEDS ORDERED: MIDAZOLAM HCL 1 MG/ML 2ML VIAL ONE (08:01)
[2018-08-21] MEDS ORDERED: PROPOFOL IV EMULSION 10 MG/ML 20 ML VIAL IV ONE (08:01)
[2018-08-21] MEDS ORDERED: ROCURONIUM BROMIDE 10 MG/ML 5 ML VIAL ONE (08:01)
[2018-08-21] MEDS ORDERED: fentaNYL citrate 100 MCG/2 ML VIAL ONE (08:02)
--- NOTE | 2018-08-21 08:35 | Critical Care Progress Note ---
Date of Service August 21, 2018 Assessment & Plan (1) Admitted to intensive care unit: The the patient was brought into the ICU for overnight monitoring after he was given TPA for his right sided femoral popliteal bypass graft occlusion. He has been receiving TPA and heparin. Currently he is going for the femoral- popliteal bypass surgery to the OR. Hemodynamically he is stable. He does not have any pulses in the right lower extremity. We will follow the recommendations from the surgery. The patient also continued to smoke. He is oxygenating well and not in any respiratory distress. He was strongly recommended to stop smoking. We also going to monitor his glucose with ICU glycemic protocol. He is not febrile nor elevated white count. He is on Cefzil which will be continued. For DVT prophylaxis currently he is on TPA as well as heparin drips. He is also on SCD on the left leg. I have spent greater than 35 minutes of critical care time. (2) Femoral-popliteal bypass graft occlusion, right: (3) Pain of right lower extremity due to ischemia: (4) Hyperlipidemia: (5) Leukocytosis: (6) Peripheral arterial disease: (7) Hypertension: Subjective From Ladan Douglas's Note. Patient is a 68-year-old male with a significant past medical history of peripheral arterial disease, hypertension, and long-standing smoking history who had previously undergone RIGHT-sided femoropopliteal bypass approximately 6 months ago at [facility] [address] for an acute arterial occlusion presented to the emergency department today with new acute occlusion of the grafting. Patient had diagnostic images including CTA and arterial Dopplers which were concerning for acute complete occlusion. Patient was taken to the OR where the lesion was explored. Sheath was placed and continued drips of heparin and TPA are directly instilled into the affected extremity per vascular surgery. Patient to be monitored overnight with the intent for reassessment tomorrow with possible need for graft repair versus possible eventual amputation. Upon arrival in the ICU, the patient is awake, alert, and oriented. He reports that previously he had little to no feeling in the RIGHT lower extremity, but at this point he is experiencing burning and pain to the foot and calf. He denies any current headaches, dizziness, lightheadedness, chest pain, palpitations, abdominal pain, nausea, vomiting, or other extremity pain. The patient is going for the surgery now. Physical Exam Vital Signs (Past 24 Hours): Last Vital Signs Temp 36.7 C 08/21/18 08:01 Pulse 67 08/21/18 08:01 Resp 13 08/21/18 08:01 BP 132/74 08/21/18 08:01 Pulse Ox 98 08/21/18 08:01 Physical Exam: VITAL SIGNS - Vital signs and nursing notes were reviewed. GENERAL - 68-year-old male appearing his stated age who is in no acute distress. Communicates well with provider and answers questions appropriately. SKIN - Without rashes. Mottling of the RIGHT lower extremity from the knee down appreciated. HEAD - NC/AT. EYES - PERRL with EOMI bilaterally. Sclera anicteric. Pupils equally reactive to light. EARS - No deformities of external structures noted on gross examination bilaterally. NOSE - No drainage or bleeding. MOUTH/OROPHARYNX - Without perioral cyanosis. Buccal mucosa pink and moist and without leukoplakia. NECK - Neck supple, no JVD or cervical or supraclavicular adenopathy. LUNGS - Bilaterally coarse breathing, no wheeze or rhonchi or crackles heard. CARDIAC - RRR with S1/S2. No murmur, rubs, or gallops appreciated. ABDOMEN - Abdominal contour flat without pulsations or visible masses. BS normoactive all four quadrants. No tenderness, palpable masses, hepatosplenomegaly, or ascites noted. EXTREMITIES -mottling of the RIGHT lower extremity from the foot extending proximally to just below the knee. No dopplerable pulses appreciated to the RIGHT lower extremity. LEFT lower extremity without clubbing. Dopplerable pulses to the LEFT foot and posterior tibial area appreciated. NEUROLOGIC - Cranial nerves II through XII grossly intact. Little sensation appreciated to the RIGHT foot. Full sensation noted to the LEFT lower extremity and throughout the remaining body surface area. He is moving all the extremities. PSYCH - A&Ox3 and cooperates fully with examiner. Results & Data Laboratory Results Abnormal lab results 08/20/18 08/20/18 08/20/18 Range/Units 12:30 12:30 21:48 WBC 15.19 H (4.8-10.8) K/uL RBC 4.66 L (4.7-6.1) M/uL Hgb (14.0-18.0) g/dL Hct (42-52) % RDW Std Deviation 47.3 H (36.4-46.3) fL Immature Gran # (Auto) 0.03 H (0.00-0.02) K/uL Neut # (Auto) 12.49 H (1.4-6.5) K/uL Williamson # (Auto) 0.90 H (0.11-0.59) K/uL APTT 136.2 H* (21.0-31.0) Seconds Glucose 115 H (70-99) mg/dl Calcium (8.5-10.1) mg/dl 08/20/18 08/21/18 08/21/18 Range/Units 21:49 04:18 04:18 WBC 14.46 H (4.8-10.8) K/uL RBC 4.23 L 4.21 L (4.7-6.1) M/uL Hgb 13.9 L (14.0-18.0) g/dL Hct 41.2 L 41.3 L (42-52) % RDW Std Deviation 47.5 H 48.0 H (36.4-46.3) fL Immature Gran # (Auto) 0.03 H 0.04 H (0.00-0.02) K/uL Neut # (Auto) 11.22 H (1.4-6.5) K/uL Williamson # (Auto) 0.93 H 1.09 H (0.11-0.59) K/uL APTT 32.0 H (21.0-31.0) Seconds Glucose (70-99) mg/dl Calcium (8.5-10.1) mg/dl 08/21/18 Range/Units 04:18 WBC (4.8-10.8) K/uL RBC (4.7-6.1) M/uL Hgb (14.0-18.0) g/dL Hct (42-52) % RDW Std Deviation (36.4-46.3) fL Immature Gran # (Auto) (0.00-0.02) K/uL Neut # (Auto) (1.4-6.5) K/uL Williamson # (Auto) (0.11-0.59) K/uL APTT (21.0-31.0) Seconds Glucose 141 H (70-99) mg/dl Calcium 8.2 L (8.5-10.1) mg/dl Diagnostic Findings CT ANGIO ABD AORTA RUNOFF W CONTRAST. IMPRESSION: 1. There is complete occlusion of the right superficial femoral artery and popliteal artery stent. There appears to be reconstitution of flow within the distal popliteal artery due to a small arterial collateral likely extending from the patent profunda femoris artery.. 2. There is a beaded appearance to the mid right renal artery consistent with fibromuscular dysplasia. No evidence for dissection or significant stenosis. 3. Bilateral nephrolithiasis. No hydronephrosis. 4. 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 5. No significant stenosis or occlusion within the visualized left lower extremity arterial structures. Diminished flow within the distal left calf arteries may be due to the timing of contrast. 6. Additional findings as described above. Electronically signed by: Kevin Poon M.D. 08/20/2018 6:25 PM US ARTERIAL DUPLEX LE RT: CLINICAL HISTORY: h/o ?fem/pop stent, right leg numbness present COMPARISON STUDY: Right lower arterial Doppler study 02/02/2018. FINDINGS: The right common femoral artery is patent and demonstrates normal triphasic waveforms. The right profunda femoris artery is also patent and demonstrate normal triphasic waveforms. The proximal right superficial femoral artery is patent and demonstrates normal velocity triphasic waveforms. There appears to be a stent within the mid right superficial femoral artery through the popliteal artery. This is completely occluded. There is an arterial collateral extending from the proximal right superficial femoral artery immediately proximal to the occluded stent. There may be trace flow within the right posterior tibial artery. No flow identified within the peroneal or dorsalis pedis arteries. The anterior tibial artery was not identified. IMPRESSION: Complete occlusion of the stent located within the right superficial femoral artery and popliteal artery. The majority of the calf arteries are also occluded. There may be trace flow within the posterior tibial artery. Electronically signed by: Kevin Poon M.D. 08/20/2018 2:58 PM Medications Administered Current Inpatient Medications Acetaminophen (Tylenol) 650 mg PO Q4H PRN PRN Reason: pain/fever Stop: 09/19/18 16:47 Last Admin: 08/20/18 18:08 Dose: 650 mg Documented by: Aspirin (Ecotrin Ectab) [facility] [place] Stop: 09/19/18 17:14 Last Admin: 08/20/18 18:07 Dose: 81 mg Documented by: Atorvastatin Calcium (Lipitor) 80 mg PO HS TOOTIE Stop: 09/19/18 20:59 Last Admin: 08/20/18 23:58 Dose: Not Given Documented by: Lisinopril/HCTZ (Prinzide 10/12.5mg) 1 tab PO QAM TOOTIE Stop: 09/19/18 17:29 Last Admin: 08/20/18 18:07 Dose: 1 tab Documented by: Hydromorphone HCl (Dilaudid) 1 - 2 mg IV Q1H PRN PRN Reason: Pain Stop: 09/03/18 16:47 Last Admin: 08/21/18 07:27 Dose: 2 mg Documented by: Alteplase, Recombinant 14 mg/ (Sodium Chloride) 280 mls @ 20 mls/hr IV NOW ONE Stop: 08/21/18 11:59 Last Infusion: 08/21/18 07:16 Dose: 19 mls/hr Documented by: Heparin Sodium/Dextrose (Heparin Sodium/Dextrose) 25,000 unit in 500 mls @ 12 mls/hr IV .Q24H TOOTIE Stop: 09/19/18 21:59 Last Infusion: 08/21/18 07:16 Dose: 600 units/hr, 12 mls/hr Documented by: Cefazolin Sodium (Ancef 1000mg) 1,000 mg in 7.5 mls @ 2.5 mls/min IV PREOP TOOTIE Stop: 08/21/18 23:59 Ondansetron HCl (Zofran) 4 mg IV Q6H PRN PRN Reason: Nausea Stop: 09/19/18 16:47 Polyethylene Glycol (Miralax Powder Packet) 17 gm PO DAILY PRN PRN Reason: Constipation Stop: 09/19/18 16:47
[2018-08-21] MEDS ORDERED: HEPARIN SOD (PORCINE) 5,000 UNITS/ML VIAL ONE (08:45)
--- NOTE | 2018-08-21 09:07 | Hospitalist Progress Note ---
Date of Service August 21, 2018 Assessment & Plan (1) Femoral artery occlusion: Dr. Huerta has seen the patient, heparin drip, CT angio of the aorta with runoff, n.p.o. for OR today, Alteplase CTA-Impression 1. There is complete occlusion of the right superficial femoral artery and popliteal artery stent. There appears to be reconstitution of flow within the distal popliteal artery due to a small arterial collateral likely extending from the patent profunda femoris artery.. 2. There is a beaded appearance to the mid right renal artery consistent with fibromuscular dysplasia. No evidence for dissection or significant stenosis. 3. Bilateral nephrolithiasis. No hydronephrosis. 4. 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 5. No significant stenosis or occlusion within the visualized left lower extremity arterial structures. Diminished flow within the distal left calf arteries may be due to the timing of contrast. 6. Additional findings as described above. (2) Epistaxis: Continue aspirin, Off Plavix, on IV heparin, monitor for epistaxis (3) Hypertension: Continue lisinopril/HCTZ (4) Peripheral arterial disease: CT of the aorta with runoff noted above, aspirin, IV heparin, vascular on case. (5) Hyperlipidemia: Patient on Lipitor (6) Leukocytosis: Likely reactive, still elevated, on Ancef Subjective 68-year-old male with past medical history of hypertension and peripheral arterial disease who is on aspirin and Plavix, Plavix currently held for epistaxis presents the ER today with a cold right lower extremity. He said he started to get right foot numbness this morning. It then progressed to his RLE over his foot and his right knee. He also complaint of tenderness to palpation over the right calf. He said his RLE is now cold. While in the infirmary at the [facility], they were unable to obtain pulses using a Doppler ultrasound. 6 months ago he was evaluated at [facility] with a Doppler ultrasound showing a clot in the right leg. Pt was then referred to [place] for stenting although there are no records at this time. He discontinued Plavix 1 week ago and has been on baby aspirin. A duplex scan of the lower extremity revealed complete occlusion of the stent located within the right superficial femoral artery and popliteal artery. The majority of the calf arteries are also occluded. There may be trace flow within the posterior tibial artery. Dr. Huerta from vascular surgery has been consulted, I was asked to admit the patient and order a CTA with runoff. ROS-No Headache, No Visual Changes, No Fever, No Chills, No Neck Pain or Stiffness, No Chest Pain, No Palpitations, No SOB, No WRIGHT, No Cough, No Sputum, No Wheezing, No Abdominal Pain, No Diarrhea, No Hematemesis, No Hemoptysis, No Unexpected Weight Loss, No Flank pain, No Melena, No Hematochezia, No Frequency, No Urgency, No Burning, No Hematuria, No Rashes, No Diaphoresis. Appetite is Normal, complains of painful right lower extremity from the tibial tuberosity down into the foot, complains of cold right lower extremity as well. Complains of numbness of the right lower extremity. Still c same issues Physical Exam Gen-AAO x 3, NAD, Afebrile Head-NCAT, EOMI, PERRLA, Anicteric Sclera, No Posterior Pharyngeal Erythema Neck-Supple, No JVD, No Thyromegaly, No Masses, No LAD, No Bruits Lungs-Clear to Auscultation Bilaterally, No Rales, No Rhonchi, No Wheezing, No Crepitus Chest-No S4, +S1, +S2, No S3, No Murmurs, No Rubs, No Gallops, No Ectopy Abdomen-Soft, Bowel Sounds Present, Non Tender, Non Distended, No Hepatomegaly, No Splenomegaly, No Palpable Masses, No Rebound, No Rigidity, No Guarding Musculoskeletal-Full Range of Motion Bilaterally, No CVAT Extremities-positive cold right lower extremity, tender, cyanotic, mottling in the right foot, no Clubbing, No Edema, decreased capillary Refill Nuero-Cranial Nerves II-XII grossly intact, Motor WNL, DTRs WNL, Strength WNL, No Focal Psych-Normal Mood Physical Exam Vital Signs (Past 24 Hours): Last Vital Signs Temp 36.7 C 08/21/18 08:01 Pulse 67 08/21/18 08:01 Resp 13 08/21/18 08:01 BP 132/74 08/21/18 08:01 Pulse Ox 98 08/21/18 08:01 Results & Data Laboratory Results Reviewed
[2018-08-21] MEDS ORDERED: HEPARIN SOD (PORCINE) 1000 UNIT/ML 10 ML VIAL ONE (11:25)
[2018-08-21] MEDS ORDERED: NEOSTIGMINE METHYLSULFATE 5 MG/5 ML SYR ONE (11:25)
[2018-08-21] MEDS ORDERED: PHENYLEPHRINE HCL 10 MG/ML VIAL ONE (11:25)
[2018-08-21] MEDS ORDERED: GLYCOPYRROLATE 0.2 MG/ML VIAL ONE (11:25)
--- NOTE | 2018-08-21 12:01 | Post Operative Brief Note ---
Immediate Post Op Note v1 Date of Surgery August 21, 2018 Pre & Post Diagnosis Operation Date: 08/20/18 19:10 Pre-Op Diagnosis: Ischemic Right Leg Post-Op Diagnosis: Ischemic Right Leg Operation Date: 08/21/18 08:00 Pre-Op Diagnosis: COLD RIGHT LOWER EXTREMITY,SFA STEND OCCLUDED Post-Op Diagnosis: COLD RIGHT LOWER EXTREMITY ,SFA STEND OCCLUDED Procedure Operation Date: 08/20/18 19:10 Actual Procedures p Right Lower Extremity Angiogram, Infusion of thrombolytics(Right) - Robinson Huerta MD Operation Date: 08/21/18 08:00 Actual Procedures p Recheck thrombolytics, Right Femoral Peroneal Prosthetic bypass mechanical c losure Left Femoral Artery - Robinson Huerta MD Surgeon Robinson Huerta MD Arc Trimmer none Estimated Blood Loss 200 Findings Consistent with Post-Op Diagnosis Anesthesia Type General Complications none Disposition Accompanied Patient To Recovery: No Disposition: Surgical ICU
[2018-08-21] MEDS ORDERED: FLUMAZENIL 0.1 MG/1 ML 10 ML VIAL IV PRN (12:11)
[2018-08-21] MEDS ORDERED: PROMETHAZINE HCL 12.5 MG in SODIUM CHLORIDE 0.9% 50 ML IV PRN (12:11)
[2018-08-21] MEDS ORDERED: fentaNYL citrate 100 MCG/2 ML VIAL IV PRN (12:11)
[2018-08-21] MEDS ORDERED: ONDANSETRON INJ 2 MG/ML 2 ML VIAL IV PRN (12:11)
[2018-08-21] MEDS ORDERED: ATROPINE SULFATE 0.1 MG/ML 10ML SYR IV PRN (12:11)
[2018-08-21] MEDS ORDERED: ePHEDrine sulfate 50 MG/ML AMP IV PRN (12:11)
[2018-08-21] MEDS ORDERED: NALOXONE HCL 0.4 MG/1 ML VIAL/CARP IV PRN (12:11)
[2018-08-21] MEDS ORDERED: CLOPIDOGREL BISULFATE 300 MG TAB PO STA (12:47)
[2018-08-21 13:22] LABS: Basophils # (auto) 0.01 K/uL (0-0.2); Basophils % (auto) 0.1 %; Eosinophils # (auto) 0.01 K/uL (0-0.5); Eosinophils % (auto) 0.1 %; Hematocrit (blood only) 38.8 % (42-52); Hemoglobin 12.9 g/dL (14.0-18.0); Immature Granulocytes # (auto) 0.02 K/uL (0.00-0.02); Immature Granulocytes % (auto) 0.2 %; Lymphocytes # (auto) 2.15 K/uL (1.2-3.4); Lymphocytes % (auto) 17.8 %; Mean Corpuscular Hgb Conc 33.2 g/dL (32-36); Mean Corpuscular Volume 98.2 fL (80-100); Mean Platelet Volume 9.7 fL (7.4-10.4); Monocytes # (auto) 1.29 K/uL (0.11-0.59); Monocytes % (auto) 10.7 %; Neutrophils # (auto) 8.63 K/uL (1.4-6.5); Neutrophils % (auto) 71.1 %; Platelet Count 225 K/uL (130-400); RDW Coefficient of Variation 13.6 % (11.5-14.5); RDW Standard Deviation 48.7 fL (36.4-46.3); Red Blood Count 3.95 M/uL (4.7-6.1); White Blood Count 12.11 K/uL (4.8-10.8)
--- NOTE | 2018-08-21 13:36 | Anesthesiology Progress Note ---
Date of Service August 21, 2018 Anesthesia Post Procedure Vital Signs Vital Signs: Temp Pulse Pulse Pulse Resp BP BP 08/21/18 12:40 36.3 C L 61 16 120/72 08/21/18 12:35 36.3 C L 81 19 119/87 08/21/18 12:30 74 14 107/82 08/21/18 12:28 36.4 C L 71 19 119/72 08/21/18 12:20 80 13 122/74 08/21/18 12:10 36.6 C 74 20 106/67 08/21/18 08:01 36.7 C 67 13 132/74 08/21/18 07:00 61 14 143/77 H 08/21/18 06:00 64 64 18 157/81 H 08/21/18 05:00 61 61 18 139/78 08/21/18 04:00 37.3 C 81 81 18 134/84 08/21/18 03:00 69 69 20 149/81 H 08/21/18 01:00 78 78 20 148/87 H 08/21/18 00:00 64 64 16 157/89 H 08/20/18 23:00 36.6 C 58 L 58 L 18 145/80 H 08/20/18 22:00 68 68 18 169/101 H 08/20/18 21:35 36.6 C 64 64 18 148/99 H 08/20/18 21:26 65 18 134/84 08/20/18 21:16 83 18 133/90 08/20/18 21:14 36.7 C 72 18 133/85 08/20/18 17:00 36.9 C 76 18 178/106 H 08/20/18 15:58 92 H 20 140/89 08/20/18 14:27 89 20 BP Pulse Ox 08/21/18 12:40 99 08/21/18 12:35 99 08/21/18 12:30 99 08/21/18 12:28 99 08/21/18 12:20 100 08/21/18 12:10 100 08/21/18 08:01 98 08/21/18 07:00 97 08/21/18 06:00 157/81 H 92 08/21/18 05:00 96 08/21/18 04:00 134/84 95 08/21/18 03:00 149/81 H 87 L 08/21/18 01:00 148/87 H 91 08/21/18 00:00 91 08/20/18 23:00 99 08/20/18 22:00 95 08/20/18 21:35 120/80 95 08/20/18 21:26 96 08/20/18 21:16 96 08/20/18 21:14 97 08/20/18 17:00 158/86 H 95 08/20/18 15:58 99 08/20/18 14:27 133/87 99 Pain Intensity Right Leg: Pain Intensity: 0 Notes Mental Status: alert / awake / arousable Patient Amnestic to Procedure: Yes Nausea / Vomiting: adequately controlled Pain: adequately controlled Airway Patency, RR, SpO2: stable & adequate BP & HR: stable & adequate Hydration State: stable & adequate Anesthetic Complications: no major complications apparent
[2018-08-21] MEDS: ASPIRIN 81 MG ECTAB PO SCH (14:08)
[2018-08-21] MEDS: LISINOPRIL/HCTZ 10/12.5MG TAB PO SCH (14:08)
[2018-08-21] MEDS: ACETAMINOPHEN 325 MG TAB PO PRN (17:36)
[2018-08-21] MEDS: CEFAZOLIN 2000MG 2,000 MG/15 ML SYR IV SCH (17:36)
[2018-08-21] MEDS ORDERED: SODIUM CHLORIDE 0.9% 500 ML IV SCH (18:45)
[2018-08-21] MEDS: SODIUM CHLORIDE 0.9% 1000ML 1,000 ML IV SCH (18:49)
[2018-08-21] MEDS: ATORVASTATIN 40 MG TAB PO SCH (20:29)
[2018-08-21] MEDS: OXYCODONE/ACETAMINOPHEN 5mg/325mg TAB PO PRN (20:29)
[2018-08-22] MEDS: CEFAZOLIN 2000MG 2,000 MG/15 ML SYR IV SCH ×2 (01:34→08:19)
[2018-08-22] MEDS: SODIUM CHLORIDE 0.9% 1000ML 1,000 ML IV SCH ×2 (04:13→08:20)
[2018-08-22 04:33] LABS: Basophils # (auto) 0.01 K/uL (0-0.2); Basophils % (auto) 0.1 %; Hematocrit (blood only) 34.3 % (42-52); Hemoglobin 11.2 g/dL (14.0-18.0); Immature Granulocytes # (auto) 0.04 K/uL (0.00-0.02); Immature Granulocytes % (auto) 0.3 %; Lymphocytes # (auto) 1.38 K/uL (1.2-3.4); Lymphocytes % (auto) 11.5 %; Mean Corpuscular Hgb Conc 32.7 g/dL (32-36); Mean Corpuscular Volume 97.7 fL (80-100); Mean Platelet Volume 10.1 fL (7.4-10.4); Monocytes % (auto) 11.7 %; Neutrophils # (auto) 9.17 K/uL (1.4-6.5); Neutrophils % (auto) 76.4 %; Platelet Count 196 K/uL (130-400); RDW Coefficient of Variation 13.8 % (11.5-14.5); RDW Standard Deviation 49.1 fL (36.4-46.3); Red Blood Count 3.51 M/uL (4.7-6.1)
[2018-08-22 04:56] LABS: BUN Creatinine Ratio 15.6 (10-20); Calcium 7.5 mg/dl (8.5-10.1); Creatinine Clr Calc Pharmacy 50.3 ml/min; Est GFR (African American) 50.5; Est GFR (Non-African American) 43.6; Magnesium 1.8 mg/dl (1.8-2.4); Phosphorus 3.3 mg/dl (2.5-4.9)
--- NOTE | 2018-08-22 07:18 | Critical Care Progress Note ---
Date of Service August 22, 2018 Physical Exam Vital Signs (Past 24 Hours): Last Vital Signs Temp 37 C 08/22/18 01:00 Pulse 86 08/22/18 06:00 Resp 18 08/22/18 06:00 BP 117/88 08/22/18 06:00 Pulse Ox 95 08/22/18 06:00
--- NOTE | 2018-08-22 07:44 | Anesthesiology Progress Note ---
Date of Service August 22, 2018 Anesthesia Post Procedure Vital Signs Vital Signs: Temp Pulse Pulse Pulse Resp BP BP 08/22/18 06:00 86 86 18 117/88 08/22/18 05:00 82 82 18 117/66 08/22/18 04:00 75 75 20 113/67 08/22/18 01:00 37 C 83 83 16 108/63 08/21/18 23:59 08/21/18 20:00 37 C 78 78 18 127/68 08/21/18 19:00 37.1 C 86 86 21 127/68 08/21/18 18:00 79 17 98/61 L 08/21/18 17:10 86 16 105/66 08/21/18 16:10 105 H 13 103/64 08/21/18 15:00 75 14 102/70 08/21/18 14:30 64 14 121/69 08/21/18 14:01 94 H 14 107/79 08/21/18 13:31 94 H 18 95/55 L 08/21/18 13:16 77 17 109/71 08/21/18 13:05 76 18 128/77 08/21/18 13:00 66 15 109/55 L 08/21/18 12:40 36.3 C L 61 16 120/72 08/21/18 12:35 36.3 C L 81 19 119/87 08/21/18 12:30 74 14 107/82 08/21/18 12:28 36.4 C L 71 19 119/72 08/21/18 12:20 80 13 122/74 08/21/18 12:10 36.6 C 74 20 106/67 08/21/18 08:01 36.7 C 67 13 132/74 BP Pulse Ox Pulse Ox 08/22/18 06:00 95 08/22/18 05:00 94 08/22/18 04:00 97 08/22/18 01:00 94 08/21/18 23:59 95 08/21/18 20:00 95 08/21/18 19:00 127/68 95 08/21/18 18:00 95 08/21/18 17:10 92 08/21/18 16:10 96 08/21/18 15:00 99 08/21/18 14:30 100 08/21/18 14:01 96 08/21/18 13:31 99 08/21/18 13:16 98 08/21/18 13:05 99 08/21/18 13:00 99 08/21/18 12:40 99 08/21/18 12:35 99 08/21/18 12:30 99 08/21/18 12:28 99 08/21/18 12:20 100 08/21/18 12:10 100 08/21/18 08:01 98 Pain Intensity Right Leg: Pain Intensity: 6 Notes Mental Status: alert / awake / arousable and participated in evaluation Patient Amnestic to Procedure: Yes Nausea / Vomiting: adequately controlled Pain: adequately controlled Airway Patency, RR, SpO2: stable & adequate BP & HR: stable & adequate Hydration State: stable & adequate Anesthetic Complications: no major complications apparent and Pt Satisfied with anesthetic care
--- NOTE | 2018-08-22 07:48 | Surgery Progress Note ---
Date of Service August 22, 2018 Assessment & Plan (1) Pain of right lower extremity due to ischemia: Patient for recheck of TPA with possible intervention and possible bypass. I have discussed the risks options and benefits of the procedure with the patient. The patient understands the risks options and benefits and agrees to the procedure. Subjective Complaining of mild numbness of right foot. No pain or motion deficits. Physical Exam Vital Signs (Past 24 Hours): Last Vital Signs Temp 37 C 08/22/18 01:00 Pulse 86 08/22/18 06:00 Resp 18 08/22/18 06:00 BP 117/88 08/22/18 06:00 Pulse Ox 95 08/22/18 06:00 Incisions all dry and clean. Excellent right DP to doppler and palpable. Urine output has picked up after fluid bolus
[2018-08-22] MEDS: ASPIRIN 81 MG ECTAB PO SCH (08:19)
[2018-08-22] MEDS: LISINOPRIL/HCTZ 10/12.5MG TAB PO SCH (08:19)
[2018-08-22] MEDS: CLOPIDOGREL BISULFATE 75 MG TAB PO SCH (08:19)
[2018-08-22] MEDS: ENOXAPARIN INJ 30 MG/0.3 ML SYR SQ SCH ×2 (08:19→20:15)
--- NOTE | 2018-08-22 09:33 | Hospitalist Progress Note ---
Date of Service August 22, 2018 Assessment & Plan (1) Femoral artery occlusion: Dr. Huerta is on the case, heparin drip, CT angio of the aorta with runoff, n.p.o. post op Fem Peroneal bypass 08/21, s/p Alteplase CTA-Impression 1. There is complete occlusion of the right superficial femoral artery and popliteal artery stent. There appears to be reconstitution of flow within the distal popliteal artery due to a small arterial collateral likely extending from the patent profunda femoris artery.. 2. There is a beaded appearance to the mid right renal artery consistent with fibromuscular dysplasia. No evidence for dissection or significant stenosis. 3. Bilateral nephrolithiasis. No hydronephrosis. 4. 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 5. No significant stenosis or occlusion within the visualized left lower extremity arterial structures. Diminished flow within the distal left calf arteries may be due to the timing of contrast. 6. Additional findings as described. (2) Epistaxis: Continue aspirin and Plavix, off IV heparin, monitor for epistaxis (3) Hypertension: Continue lisinopril/HCTZ (4) Peripheral arterial disease: CT of the aorta with runoff noted above, aspirin, Plavix, vascular on case. (5) Hyperlipidemia: Patient on Lipitor (6) Leukocytosis: Likely reactive, still elevated, on Ancef Physical Exam Vital Signs (Past 24 Hours): Last Vital Signs Temp 36.5 C 08/22/18 08:00 Pulse 78 08/22/18 08:00 Resp 16 08/22/18 08:00 BP 132/67 08/22/18 08:00 Pulse Ox 97 08/22/18 08:00 Results & Data Laboratory Results Reviewed
[2018-08-22 10:21] LABS: INR 1.1 (0.9-1.1); Prothrombin Time 11.6 Seconds (9.0-12.0)
[2018-08-22] MEDS ORDERED: WARFARIN SOD 10 MG TAB PO ONE (10:30)
[2018-08-22] MEDS: OXYCODONE/ACETAMINOPHEN 5mg/325mg TAB PO PRN ×2 (10:44→15:21)
[2018-08-22] MEDS: ATORVASTATIN 40 MG TAB PO SCH (20:17)
[2018-08-23] MEDS: OXYCODONE/ACETAMINOPHEN 5mg/325mg TAB PO PRN ×2 (04:25→08:58)
--- NOTE | 2018-08-23 08:46 | Hospitalist Progress Note ---
Date of Service August 23, 2018 Assessment & Plan (1) Femoral artery occlusion: Dr. Huerta is on the case, BID Lovenox, Warfarin started 08/22, post op Fem Peroneal bypass 08/21, s/p Alteplase CTA-Impression 1. There is complete occlusion of the right superficial femoral artery and popliteal artery stent. There appears to be reconstitution of flow within the distal popliteal artery due to a small arterial collateral likely extending from the patent profunda femoris artery.. 2. There is a beaded appearance to the mid right renal artery consistent with fibromuscular dysplasia. No evidence for dissection or significant stenosis. 3. Bilateral nephrolithiasis. No hydronephrosis. 4. 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 5. No significant stenosis or occlusion within the visualized left lower extremity arterial structures. Diminished flow within the distal left calf arteries may be due to the timing of contrast. 6. Additional findings as described. (2) Epistaxis: Continue aspirin and Plavix, off IV heparin, On Lovenox and Warfarin, monitor for epistaxis (3) Hypertension: Continue lisinopril/HCTZ (4) Peripheral arterial disease: As above (5) Hyperlipidemia: Patient on Lipitor (6) Leukocytosis: Likely reactive, still elevated, off Ancef Subjective 68-year-old male with past medical history of hypertension and peripheral arterial disease who is on aspirin and Plavix, Plavix currently held for epistaxis presents the ER today with a cold right lower extremity. He said he started to get right foot numbness this morning. It then progressed to his RLE over his foot and his right knee. He also complaint of tenderness to palpation over the right calf. He said his RLE is now cold. While in the infirmary at the [facility], they were unable to obtain pulses using a Doppler ultrasound. 6 months ago he was evaluated at [facility] with a Doppler ultrasound showing a clot in the right leg. Pt was then referred to [place] for stenting although there are no records at this time. He discontinued Plavix 1 week ago and has been on baby aspirin. A duplex scan of the lower extremity revealed complete occlusion of the stent located within the right superficial femoral artery and popliteal artery. The majority of the calf arteries are also occluded. There may be trace flow within the posterior tibial artery. Dr. Huerta from vascular surgery has been consulted, I was asked to admit the patient and order a CTA with runoff. On 08/21 he went to the OR c Dr Huerta for a Fem-Peroneal bypass, the flow was restored and his symptoms are slowly resolving. He is currently on a Lovenox/Warfarin Bridge ROS-No Headache, No Visual Changes, No Fever, No Chills, No Neck Pain or Stiffness, No Chest Pain, No Palpitations, No SOB, No WRIGHT, No Cough, No Sputum, No Wheezing, No Abdominal Pain, No Diarrhea, No Hematemesis, No Hemoptysis, No Unexpected Weight Loss, No Flank pain, No Melena, No Hematochezia, No Frequency, No Urgency, No Burning, No Hematuria, No Rashes, No Diaphoresis. Appetite is Normal, Complains of numbness, but better, of the right lower extremity. Physical Exam Gen-AAO x 3, NAD, Afebrile Head-NCAT, EOMI, PERRLA, Anicteric Sclera, No Posterior Pharyngeal Erythema Neck-Supple, No JVD, No Thyromegaly, No Masses, No LAD, No Bruits Lungs-Clear to Auscultation Bilaterally, No Rales, No Rhonchi, No Wheezing, No Crepitus Chest-No S4, +S1, +S2, No S3, No Murmurs, No Rubs, No Gallops, No Ectopy Abdomen-Soft, Bowel Sounds Present, Non Tender, Non Distended, No Hepatomegaly, No Splenomegaly, No Palpable Masses, No Rebound, No Rigidity, No Guarding Musculoskeletal-Full Range of Motion Bilaterally, No CVAT Extremities-positive warm right lower extremity, less tender, no Clubbing, No Edema, better capillary Refill Nuero-Cranial Nerves II-XII grossly intact, Motor WNL, DTRs WNL, Strength WNL, No Focal Psych-Normal Mood Physical Exam Vital Signs (Past 24 Hours): Last Vital Signs Temp 37.0 C 08/23/18 07:15 Pulse 95 H 08/23/18 07:15 Resp 18 08/23/18 07:15 BP 115/77 08/23/18 07:15 Pulse Ox 94 08/23/18 07:15 Results & Data Laboratory Results reviewed
[2018-08-23] MEDS: ENOXAPARIN INJ 30 MG/0.3 ML SYR SQ SCH (08:47)
[2018-08-23] MEDS: LISINOPRIL/HCTZ 10/12.5MG TAB PO SCH (08:47)
[2018-08-23] MEDS: CLOPIDOGREL BISULFATE 75 MG TAB PO SCH (08:47)
[2018-08-23] MEDS: ASPIRIN 81 MG ECTAB PO SCH (08:47)
[2018-08-23 09:36] LABS: Hematocrit (blood only) 33.6 % (42-52); Hemoglobin 11.2 g/dL (14.0-18.0); Mean Corpuscular Hgb Conc 33.3 g/dL (32-36); Mean Corpuscular Volume 96.6 fL (80-100); Mean Platelet Volume 10.4 fL (7.4-10.4); Platelet Count 195 K/uL (130-400); RDW Coefficient of Variation 13.7 % (11.5-14.5); RDW Standard Deviation 47.4 fL (36.4-46.3); Red Blood Count 3.48 M/uL (4.7-6.1)
[2018-08-23 09:46] LABS: INR 1.9 (0.9-1.1); Prothrombin Time 18.7 Seconds (9.0-12.0)
[2018-08-23 10:23] LABS: BUN Creatinine Ratio 14.7 (10-20); Calcium 8.2 mg/dl (8.5-10.1); Creatinine Clr Calc Pharmacy 67.5 ml/min; Est GFR (African American) 72.1; Est GFR (Non-African American) 62.2; Potassium 3.7 mmol/L (3.5-5.1)
--- NOTE | 2018-08-23 11:12 | Surgery Progress Note ---
Date of Service August 23, 2018 Assessment & Plan (1) S/P femoral-popliteal bypass surgery: Pt doing well pos top, witih palpable pulses distally. Stable for d/c to DOC today. Will need coumadin lifelong to maintain patency of BPG. Recommend plavix x 2 weeks. Will see in office in 2 weeks for staple removal. Present on Admission?: No (2) Femoral artery occlusion: Pt now s/p RLE fem-peroneal BPG. Doing well. Present on Admission?: Yes Subjective 68 yo m with hx of HTN, POD #2 after RLE fem-peroneal prosthetic BPG d/t RLE arterial occlusion that was not responsive to TPA, seen in f/u today. Pt admits pain in RLE, but states is tolerable with medications. Has been ambulating with walker. Denies any other new complaints and states is ready for d/c. Physical Exam Vital Signs (Past 24 Hours): Last Vital Signs Temp 37.0 C 08/23/18 07:15 Pulse 95 H 08/23/18 07:15 Resp 18 08/23/18 07:15 BP 115/77 08/23/18 07:15 Pulse Ox 94 08/23/18 07:15 Constitutional: WD/WN, vitals as above Respiratory: normal respiratory effort, lungs clear to auscultation Cardiovascular: RRR, no murmur, no edema Vessels: femoral pulses present, posterior tibial pulses present and dorsalis pedis pulses present Extr emities: + edema (RLE) Incisions C/D/I with axel. + local tenderness and edema. No ecchymosis, erythema or drainage noted. Gastrointestinal (Abdomen): normal bowel sounds, soft, nontender, no hepatosplenomegaly Musculoskeletal: no cyanosis or clubbing, extremities motor strength 5/5 Skin: no rashes, warm and dry
--- NOTE | 2018-08-23 11:50 | Discharge Summary ---
Date of Service August 23, 2018 Admission HPI Per Admitting Provider 68-year-old male with past medical history of hypertension and peripheral arterial disease who is on aspirin and Plavix, Plavix currently held for epistaxis presents the ER today with a cold right lower extremity. He said he started to get right foot numbness this morning. It then progressed to his RLE over his foot and his right knee. He also complaint of tenderness to palpation over the right calf. He said his RLE is now cold. While in the infirmary at the [facility], they were unable to obtain pulses using a Doppler ultrasound. 6 months ago he was evaluated at [facility] with a Doppler ultrasound showing a clot in the right leg. Pt was then referred to [place] for stenting although there are no records at this time. He discontinued Plavix 1 week ago and has been on baby aspirin. A duplex scan of the lower extremity revealed complete occlusion of the stent located within the right superficial femoral artery and popliteal artery. The majority of the calf arteries are also occluded. There may be trace flow within the posterior tibial artery. Dr. Huerta from vascular surgery has been consulted, I was asked to admit the patient and order a CTA with runoff. ROS-No Headache, No Visual Changes, No Fever, No Chills, No Neck Pain or Stiffness, No Chest Pain, No Palpitations, No SOB, No WRIGHT, No Cough, No Sputum, No Wheezing, No Abdominal Pain, No Diarrhea, No Hematemesis, No Hemoptysis, No Unexpected Weight Loss, No Flank pain, No Melena, No Hematochezia, No Frequency, No Urgency, No Burning, No Hematuria, No Rashes, No Diaphoresis. Appetite is Normal, complains of painful right lower extremity from the tibial tuberosity down into the foot, complains of cold right lower extremity as well. Complains of numbness of the right lower extremity. Physical Exam Gen-AAO x 3, NAD, Afebrile Head-NCAT, EOMI, PERRLA, Anicteric Sclera, No Posterior Pharyngeal Erythema Neck-Supple, No JVD, No Thyromegaly, No Masses, No LAD, No Bruits Lungs-Clear to Auscultation Bilaterally, No Rales, No Rhonchi, No Wheezing, No Crepitus Chest-No S4, +S1, +S2, No S3, No Murmurs, No Rubs, No Gallops, No Ectopy Abdomen-Soft, Bowel Sounds Present, Non Tender, Non Distended, No Hepatomegaly, No Splenomegaly, No Palpable Masses, No Rebound, No Rigidity, No Guarding Musculoskeletal-Full Range of Motion Bilaterally, No CVAT Extremities-positive cold right lower extremity, tender, mildly cyanotic, mild mottling in the right foot, no Clubbing, No Edema positive capillary Refill Nuero-Cranial Nerves II-XII grossly intact, Motor WNL, DTRs WNL, Strength WNL, No Focal Psych-Normal Mood PMH-hypertension, peripheral arterial disease, epistaxis, hyperlipidemia, renal stones LLT-gqwzthw-rpougxeno stent right lower extremity, renal stones, hernia repair, vasectomy, nasal septoplasty FH-has 2 daughters are healthy, 2 brothers that are healthy and one sister is healthy, denies IV drug abuse SH-Inmate at [facility], pack a day smoker for 50 years, . Meds reviewed and Reconciled Labs Reviewed Admission Exam Per Admitting Provider Constitutional: WD/WN, vitals as above well developed and well nourished; no acute distress Respiratory: normal respiratory effort, lungs clear to auscultation Cardiovascular: RRR, no murmur, no edema Vessels: posterior tibial pulses present (None on the Right) and dorsalis pedis pulses present (None on the right) Gastrointestinal (Abdomen): normal bowel sounds, soft, nontender, no hepatosplenomegaly Musculoskeletal: Extremities: extremities normal to inspection and strength 5/5 throughout Neurologic: normal touch/pain/proprioception and moves all extremities Psychiatric: Orientation: alert and oriented x 3 Principal Diagnosis 1. s/p RLE fem-peroneal prosthetic BPG 2. RLE angio with attempted thrombolysis 3. Acute arterial occlusion RLE Discharge Exam Constitutional WD/WN, vitals as above Respiratory normal respiratory effort, lungs clear to auscultation Cardiovascular RRR, no murmur, no edema Vessels: femoral pulses present, posterior tibial pulses present and dorsalis pedis pulses present Extremities: + edema (RLE) Gastrointestinal (Abdomen) normal bowel sounds, soft, nontender, no hepatosplenomegaly Musculoskeletal no cyanosis or clubbing, extremities motor strength 5/5 Skin no rashes, warm and dry Discharge Data Allergies Allergy/AdvReac Type Severity Reaction Status Date / Time codeine Allergy Unknown Unknown Unverified 08/20/18 13:24 Consultations 08/20/18 15:12 Consult Vascular Surgery Stat ED Decision to Admit Stat 08/20/18 16:48 Consult Case Management - Discharge Planning Routine 08/20/18 21:35 Consult Antitank Assault Gunner Routine 08/22/18 08:00 Consult Case Management - Discharge Planning Routine Procedures Performed Operation Date: 08/20/18 19:10 Actual Procedures p Right Lower Extremity Angiogram, Infusion of thrombolytics - Robinson Huerta MD Operation Date: 08/21/18 08:00 Actual Procedures p Recheck thrombolytics, Right Femoral Perineal Prosthetic bypass mechanical closure Left Femoral Artery - Robinson Huerta MD Ordered Studies 08/20/18 12:45 US arterial duplex LE RT Stat 08/20/18 16:48 CT angio abd aorta runof w con Stat 08/20/18 19:20 EV angio LE BI Routine 08/21/18 08:00 EV angio LE RT Routine Hospital Course (1) S/P femoral-popliteal bypass surgery: Pt doing well post op, with palpable pulses distally. Stable for d/c to DOC today. Will need coumadin lifelong to maintain patency of BPG. Recommend plavix x 2 weeks. Will see in office in 2 weeks for staple removal. (2) Femoral artery occlusion: Pt now s/p RLE fem-peroneal BPG. Doing well. Total Time Total Time Spent Total Time Spent (In Minutes): 15 minutes Total Time Includes: Examination of the Patient, Discharge Planning and Medication Reconciliation Discharge Plan Discharge Items [facility]position[facility] Reason For Visit: COLD RLE,SFA STEND OCCLUDED Discharge Diagnosis: 1. s/p RLE fem-peroneal prosthetic BPG 2. RLE acute arterial occlusion 3. Severe PAD Condition: Good Discharge Goals: Therapeutic intervention Activity: Per 'Additional Instructions' section Lifting: Gradually increase as tolerated Bathing Comment: May shower, no bathing. Dry wounds well. Non-emergency contact: Primary Care Provider and Surgeon Call non-emergency contact if: you have any medication questions, your pain is worsening, your temperature is above 101, your wound has increased redness and your wound has increased drainage Follow-up/Referrals: Hernesto SIN [Primary Care Provider] - Diet: Heart Healthy Add Provider Instructions: 1. No dressings to wounds unless drainage occurs, then place dry dressing to area. 2. May ambulate as tolerated with walker 3. Needs office appt with Dr Huerta or Wilda Veras PA-C, in 2 weeks for staple removal. 4. Keep INR between 2.0 and 2.5 Prescriptions: New clopidogrel 75 mg Tablet 75 mg PO QAM 14 Days Qty: 14 RF: 0 oxycodone-acetaminophen [Percocet] 5-325 mg Tablet 1 - 2 tab PO Q4H PRN (Reason: Pain) 7 Days Qty: 30 RF: 0 warfarin [Coumadin] 5 mg Tablet 5 mg PO DAILY@1600 30 Days Qty: 30 RF: 0 Continued atorvastatin 80 mg Tablet 80 mg PO HS RF: 0 aspirin 81 mg Tablet,Chewable 81 mg PO QAM RF: 0 lisinopril-hydrochlorothiazide 10-12.5 mg Tablet 1 tab PO QAM RF: 0 Stand-Alone Forms: [facility] Discharge Orders: Discharge Order (Routine); Ordered 08/23/18 Ordered By: Wilda Veras Admission Data Admit Date/Time: 08/20/18 15:29 Attending Provider: Kirill Travis Admit Provider: Kirill Travis Primary Care Provider: Hernesto SIN Other Providers: Robinson Huerta ; Kirill Travis ; Adonis Bahena ; Gunnar Edmonds ; Fabian Valdez ; Misael Pickering ; Pedro Chambers ; Austin Gautam ; Leisa Ott ; Cem Laguerre ; Seble Waller ; Daren Barajas ; Alexandr Urbano ; Moises Bee Service: Medical
[2018-08-23] MEDS ORDERED: WARFARIN SOD 5 MG TAB PO SCH (16:00)
--- NOTE | 2018-08-24 10:21 | Operative Report ---
Post Operative Report Pre & Post Diagnosis Operation Date: 08/20/18 19:10 Pre-Op Diagnosis: Ischemic Right Leg Post-Op Diagnosis: Ischemic Right Leg Operation Date: 08/21/18 08:00 Pre-Op Diagnosis: COLD RIGHT LOWER EXTREMITY,SFA STEND OCCLUDED Post-Op Diagnosis: COLD RIGHT LOWER EXTREMITY ,SFA STEND OCCLUDED Procedure Operation Date: 08/20/18 19:10 Actual Procedures p Right Lower Extremity Angiogram, Infusion of thrombolytics - Robinson Huerta MD Operation Date: 08/21/18 08:00 Actual Procedures p Recheck thrombolytics, Right Femoral Perineal Prosthetic bypass mechanical closure Left Femoral Artery - Robinson Huerta MD Surgeon Robinson Huerta MD Psychometrician none Estimated Blood Loss 200 I attest to the content of the Intraoperative Record and any orders documented therein. Any exceptions are noted below.
--- NOTE | 2018-09-15 13:35 | Operative Report ---
Post Operative Report Pre & Post Diagnosis Operation Date: 08/20/18 19:10 Pre-Op Diagnosis: Ischemic Right Leg Post-Op Diagnosis: Ischemic Right Leg Operation Date: 08/21/18 08:00 Pre-Op Diagnosis: COLD RIGHT LOWER EXTREMITY,SFA STEND OCCLUDED Post-Op Diagnosis: COLD RIGHT LOWER EXTREMITY ,SFA STEND OCCLUDED Procedure Operation Date: 08/20/18 19:10 Actual Procedures p Right Lower Extremity Angiogram, Infusion of thrombolytics - Robinson Huerta MD Operation Date: 08/21/18 08:00 Actual Procedures p Recheck thrombolytics, Right Femoral Perineal Prosthetic bypass mechanical closure Left Femoral Artery - Robinson Huerta MD Surgeon Robinson Huerta MD Systems Project Manager none Estimated Blood Loss 200 Findings Consistent with Post-Op Diagnosis Specimens None Anesthesia Type General Complications none Disposition Accompanied Patient To Recovery: No Disposition: Recovery Room Indications This is a 68-year-old male who occlusion of his right lower extremity stent. He is undergoing TPA infusion is brought back now for a recheck. I have discussed the risks options and benefits of the procedure with the patient. The patient understands the risks options and benefits and agrees to the procedure. Description of Procedure Patient was brought back from the ICU and placed in supine position. Patient was identified and a timeout done. The catheter in her left groin was then prepped and draped in a sterile manner. The wire was pulled out of the infusion catheter. Arteriography was performed through the infusion catheter. There is no significant decrease in clot burden in the right lower extremity. Due to ischemia the leg was decided to do a bypass at this time. Patient was placed under general anesthesia. The catheter was pulled from the left groin. The sheath was left in place and hooked up to arterial line for monitoring. The right lower extremity and right groin were also prepped and draped in a sterile manner. Longitudinal incision was made in the right groin. The common femoral arteries identified. It was fairly soft and usable for an anastomosis. Another incision was made in the medial aspect of the calf in the midportion. This was dissected down past posterior tibial artery which was heavily calcified. The peroneal artery was identified in the upper third of the leg. It was soft and of good caliber and usable for bypass. The saphenous vein at that level was fairly small and not usable for bypass. Being that this was limb salvage was decided to use a prosthetic graft. A 6 mm propatent graft was brought to the operative field. Patient was heparinized at that time. Using a tunneling device a subsartorial tunnel was made coursing from the lower extremity incision between the heads of the gastrocnemius muscle subsartorially to the groin. Once this was done the the propatent graft was passed down through the tunneler. The distal end was beveled and end-to-side anastomosis was accomplished with a 6-0 Prolene suture. This was done in the usual vascular fashion. At that point the clamps were removed from the peroneal artery. This the hemostasis was noted of the suture line. A clamp was then placed on the propatent graft at that level. Common femoral artery was clamped proximally distally. Longitudinal arteriotomy was then made. Mild plaque was noted. The [place] graft was then beveled in the appropriate fashion and end-to-side anastomosis accomplished in the usual vascular fashion using a 5-0 Prolene suture.. Prior to completing the closure backbleeding and forward bleeding was allowed to occur. The final few sutures were then placed and securely tied. Clamps were removed excellent flow was seen to the graft. There is good Doppler signals heard in the peroneal artery beyond the anastomosis. Doppler signals are also audible on the foot. The wound was also inspected and found to have adequate hemostasis. Using micropuncture technique the graft was then punctured in the groin and the micropuncture sheath was inserted. A completion arteriogram was performed which showed the distal anastomosis to be widely patent with excellent flow down to the foot. The micropuncture sheath was pulled. The puncture was closed with interrupted Prolene suture. Wounds were then closed in usual fashion using a 2-0 Vicryl for the femoral sheath 3-0 Vicryl for all the subcutaneous layers and axel for the skin. Sterile dressings were applied to the wound.The patient left the operation room in satisfactory condition and tolerated the procedure well. All needle and sponge counts were correct at the end of the procedure. I attest to the content of the Intraoperative Record and any orders documented therein. Any exceptions are noted below.
== END 2018-08-23 15:02 | DRG 316 ==
LOC: EDBD → ED 12:26 → MERGE 12:26 → 3E 15:29 → 1E 21:06 → 3W 08-22 09:19

== ENCOUNTER 2018-12-22 13:13 | Inpatient (IN) ==
[2018-12-22] MEDS ORDERED: HYDROmorphone INJ 0.5 MG/0.5 ML SYR IV STA ×2 (14:03→15:55)
[2018-12-22] MEDS ORDERED: ONDANSETRON INJ 2 MG/ML 2 ML VIAL IV STA (14:03)
[2018-12-22 14:32] LABS: Basophils # (auto) 0.03 K/uL (0-0.2); Basophils % (auto) 0.3 %; Eosinophils # (auto) 0.08 K/uL (0-0.5); Eosinophils % (auto) 0.8 %; Hematocrit (blood only) 47.3 % (42-52); Hemoglobin 15.8 g/dL (14.0-18.0); Immature Granulocytes # (auto) 0.01 K/uL (0.00-0.02); Immature Granulocytes % (auto) 0.1 %; Lymphocytes # (auto) 2.29 K/uL (1.2-3.4); Mean Corpuscular Hgb Conc 33.4 g/dL (32-36); Mean Corpuscular Volume 95.6 fL (80-100); Mean Platelet Volume 11.2 fL (7.4-10.4); Monocytes # (auto) 0.88 K/uL (0.11-0.59); Monocytes % (auto) 8.8 %; Neutrophils # (auto) 6.66 K/uL (1.4-6.5); Platelet Count 266 K/uL (130-400); RDW Coefficient of Variation 13.9 % (11.5-14.5); RDW Standard Deviation 47.9 fL (36.4-46.3); Red Blood Count 4.95 M/uL (4.7-6.1); White Blood Count 9.95 K/uL (4.8-10.8)
[2018-12-22 14:40] LABS: Alanine Aminotransferase 45 U/L (12-78); Albumin Level 3.8 gm/dl (3.4-5.0); Aspartate Aminotransferase 28 U/L (15-37); Blood Urea Nitrogen 23 mg/dl (7-18); Calcium 9.3 mg/dl (8.5-10.1); Carbon Dioxide 25 mmol/L (21-32); Chloride 106 mmol/L (98-107); Est GFR (African American) 60.9; Est GFR (Non-African American) 52.5; Glucose 155 mg/dl (70-99); Potassium 4.4 mmol/L (3.5-5.1); Sodium 138 mmol/L (136-145)
[2018-12-22 14:42] LABS: Albumin Globulin Ratio 1.1 (0.9-2); Alkaline Phosphatase 121 U/L (45-117); Bilirubin,Total 0.3 mg/dl (0.2-1); Globulin 3.4 gm/dl (2.5-4.0); Total Protein 7.2 gm/dl (6.4-8.2)
[2018-12-22 14:45] LABS: INR 2.2 (0.9-1.1); Partial Thromboplastin Ratio 1.1; Partial Thromboplastin Time 29.2 Seconds (21.0-31.0); Prothrombin Time 21.3 Seconds (9.0-12.0)
--- NOTE | 2018-12-22 15:35 | Ultrasound Report ---
ULTRASOUND RIGHT LOWER EXTREMITY ARTERIAL CLINICAL HISTORY: Cold right leg. COMPARISON STUDY: Right lower extremity arterial ultrasound dated 08/20/2018. TECHNIQUE: Real-time, grayscale, and color Doppler sonography of the arteries of the right lower extr emity is performed from the inguinal crease to the foot. Ankle-brachial indices could not be assessed . FINDINGS: Atherosclerotic plaque and irregularity is seen throughout the arteries of the right lower extremity. The common femoral artery is patent and demonstrates normal triphasic arterial waveforms. Velocities in the common femoral artery measure up to 94 cm/s. The profunda femoris artery is patent with velocities measuring up to 74 cm/s. A bypass graft is identified which extends from the proximal thigh to the proximal calf. This is thrombosed. There is thrombosis of the [place] superficial femora l artery and the [place] popliteal artery. A stent is seen within the region of the [place] popliteal a rtery which is thrombosed. There is trace monophasic flow identified within the anterior tibial arter y. No flow seen within the dorsalis pedis artery. There is no flow identified within the posterior ti bial or peroneal arteries. IMPRESSION: 1. There is complete thrombosis of the [place] superficial femoral, popliteal, peroneal, posterior tib ial, and dorsalis pedis arteries. 2. A bypass graft extending from the mid thigh to the calf is occluded. 3. The stent in the [place] popliteal artery is occluded. Electronically signed by: Adonis Chew M.D. 12/22/2018 3:34 PM
[2018-12-22] MEDS ORDERED: LACTATED RINGER'S 1,000 ML IV SCH (16:00)
--- NOTE | 2018-12-22 16:24 | History & Physical Report ---
Date of Service December 22, 2018 Assessment & Plan (1) Femoral-popliteal bypass graft occlusion, right: Patient for emergency thrombectomy of his right leg bypass graft. I have discussed the risks options and benefits of the procedure with the patient. The patient understands the risks options and benefits and agrees to the procedure. History of Present Illness Chief Complaint: thrombosed right leg bypass, ischemic right lower extremity Primary Care Provider: MERRICK mary This is a 68-year-old gentleman who 4 months ago had thrombolytic therapy for an occluded fem distal bypass. Prior to that he had stenting of his right superficial femoral and popliteal arteries. Around 11 this morning he developed pain of his right lower extremity and foot. This came on suddenly. It got progressively worse. He did have numbness and tingling at that time in the foot. The pain still persists. He is on coumadin and is therapeutic. Allergies Allergy/AdvReac Type Severity Reaction Status Date / Time codeine Allergy Unknown Unknown Unverified 12/22/18 15:32 Home Medications Home Medications Medication Instructions Recorded Confirmed Type aspirin 81 mg PO QAM 08/20/18 12/22/18 History atorvastatin 80 mg PO HS 08/20/18 12/22/18 History lisinopril-hydrochlorothiazide 1 tab PO QAM 08/20/18 12/22/18 History warfarin 2 mg PO HS 12/22/18 12/22/18 History warfarin 2.5 mg PO HS 12/22/18 12/22/18 History Past Med/Surg History Medical History H/O: HTN (hypertension) (Chronic) HLD (hyperlipidemia) (Chronic) COPD (chronic obstructive pulmonary disease) CVA (cerebral vascular accident) Hernia PVD (peripheral vascular disease) Smoker Surgical History H/O vasectomy History of vascular surgery R SFA stent, six months ago Family History Other Family history non-contributory Social History Preferred Language: Lao Communication Ability: Effective Beliefs That Will Affect Care: None Current Living Situation: Other Current Living Situation Comment: Yevgeniy; [place] Feels Safe at Home: Yes Smoking Status: Former smoker Tobacco Type: cigarettes Hx Alcohol Use: No Hx Substance Use: No Review of Systems All systems reviewed & are unremarkable except as noted in HPI & below Physical Exam Neck: trachea midline Respiratory: normal respiratory effort, lungs clear to auscultation Cardiovascular: RRR, no murmur, no edema Vessels: femoral pulses present; + posterior tibial pulses abnormal (on right), + dorsalis pedis pulses abnormal (on right) and + popliteal pulses abnormal (on right) Extremities: + abnormal capillary refill (none) Gastrointestinal (Abdomen): normal bowel sounds, soft, nontender, no hepatosplenomegaly Skin: right foot mottled Neurologic: decreased sensation of right foot Psychiatric: A+Ox3, euthymic affect Results & Data Vital Signs (Past 12 Hours) Vital Signs Temp Pulse Pulse Resp BP BP Pulse Ox 12/22/18 14:00 82 11 L 142/92 H 98 12/22/18 13:44 78 22 139/73 97 12/22/18 13:19 37 C 87 18 133/104 H 96
[2018-12-22] MEDS ORDERED: fentaNYL citrate 100 MCG/2 ML VIAL ONE (16:43)
[2018-12-22] MEDS ORDERED: MIDAZOLAM HCL 1 MG/ML 2ML VIAL ONE (16:43)
[2018-12-22] MEDS ORDERED: CEFAZOLIN 250 MG/ML 1 GM VIAL ONE (16:45)
[2018-12-22] MEDS ORDERED: HEPARIN (PORCINE) 1000 UNIT/ML 10 ML (CATH LAB USE ONLY) ONE (16:45)
[2018-12-22] MEDS ORDERED: CEFAZOLIN 1000MG 1,000 MG/7.5 ML SYR IV SCH (16:45)
[2018-12-22] MEDS ORDERED: IODIXANOL (VISIPAQUE) 270 MG/ML 50ML ONE (16:45)
[2018-12-22] MEDS ORDERED: GELATIN SPONGE SZ 100 ONE (16:45)
[2018-12-22] MEDS ORDERED: THROMBIN 5000 UNITS KIT ONE (16:45)
--- NOTE | 2018-12-22 16:55 | Anesthesiology Consultation ---
Date of Service December 22, 2018 Assessment & Plan (1) Encounter for pre-operative examination: Chart Review Chart Review: Acceptable Risk for Surgery and Patient NOT seen in Pre Admission Testing type and screen pending. Consults Requested none History Surgery Operation Date: 12/22/18 16:30 Proposed Procedures p Right Leg Open Thrombectomy - Robinson Huerta MD Height/Weight Height: 6 ft 1 in Allergies Allergy/AdvReac Type Severity Reaction Status Date / Time codeine Allergy Unknown Unknown Unverified 12/22/18 15:32 Medications Home Medications Medication Instructions Recorded Confirmed Last Taken aspirin 81 mg PO QAM 08/20/18 12/22/18 12/22/18 atorvastatin 80 mg PO HS 08/20/18 12/22/18 12/21/18 lisinopril-hydrochlorothiazide 1 tab PO QAM 08/20/18 12/22/18 12/22/18 warfarin 2 mg PO HS 12/22/18 12/22/18 12/21/18 warfarin 2.5 mg PO HS 12/22/18 12/22/18 12/21/18 Past Medical History Medical History H/O: HTN (hypertension) (Chronic) HLD (hyperlipidemia) (Chronic) COPD (chronic obstructive pulmonary disease) CVA (cerebral vascular accident) Hernia PVD (peripheral vascular disease) Smoker Past Family History Family History Other Family history non-contributory Past Surgical History Surgical History H/O vasectomy History of vascular surgery R SFA stent, six months ago Right leg thrombectomy, fem-pop. 08/2018. GETA with a-line. Past Anesthesia History No Hx of Anesthesia Complications and No Family Hx of Anesthesia Complications History of PONV No Hx of PONV and No Hx of Motion Sickness Social History Smoking Status: Former smoker tobacco type: cigarettes Hx Alcohol Use: No Hx Substance Use: No Physical Exam Vital Signs Last Vital Signs Temp 37 C 12/22/18 13:19 Pulse 82 12/22/18 14:00 Resp 11 L 12/22/18 14:00 BP 132/88 12/22/18 16:30 Pulse Ox 95 12/22/18 16:32 Testing Laboratory Results 12/22/18 13:26 12/22/18 13:26 PT 21.3 Seconds (9.0-12.0) H 12/22/18 13:26 INR 2.2 (0.9-1.1) H 12/22/18 13:26 APTT 29.2 Seconds (21.0-31.0) 12/22/18 13:26 Electrocardiogram Date: 08/20/18 Findings: + NSR @ (70)
[2018-12-22] MEDS ORDERED: THROMBIN FOR SOLN 20000 UNIT KIT ONE (17:19)
--- NOTE | 2018-12-22 17:36 | Emergency Department Note ---
Entered by Paulina Shen acting as a scribe for History of Present Illness General Chief complaint: Leg Injury/Pain Stated complaint: lower legs/pain, numbness / sci [place] Source: patient Limitations: no limitations History of Present Illness Provider complaint: Right leg pain Onset (ago): hour(s) 3 Location: knee, ankle, foot and right Radiation: extremity (right knee to ankle) Severity: severe Pain Consistency: + constant Maximum Pain Intensity: 10 Current Pain Intensity: 10 Quality: + sharp Relieved By: + none Exacerbated By: + none Associated symptoms: + diaphoresis, + nausea/vomiting and + other (-abdominal pain); no fever/chills Treatments prior to arrival: none The patient is a 68 year old male who presents to the Emergency Department with complaints of lower right leg pain. Symptoms began today 3 hours ago when the patient experienced numbness in his right toes. The pain starts at his right knee and radiates down to his foot which is numb. The patient states the pain is similar to his prior episodes. The patient also was feeling nauseous and sweating this morning. The patient denies any fever, abdominal pain, or vom iting. He takes Coumadin daily. The patient has had two stents as well as had an occlusion of the right leg. Home Medications Home Medications Medication Instructions Recorded Confirmed Type aspirin 81 mg PO QAM 08/20/18 12/22/18 History atorvastatin 80 mg PO HS 08/20/18 12/22/18 History lisinopril-hydrochlorothiazide 1 tab PO QAM 08/20/18 12/22/18 History warfarin 2 mg PO HS 12/22/18 12/22/18 History warfarin 2.5 mg PO 12/22/18 12/22/18 History Allergies Allergy/AdvReac Type Severity Reaction Status Date / Time codeine Allergy Unknown Unknown Unverified 12/22/18 15:32 Past Med/Surg History Medical History H/O: HTN (hypertension) (Chronic) HLD (hyperlipidemia) (Chronic) COPD (chronic obstructive pulmonary disease) CVA (cerebral vascular accident) Hernia PVD (peripheral vascular disease) Smoker Surgical History H/O vasectomy History of vascular surgery R SFA stent, six months ago Right leg thrombectomy, fem-pop. 08/2018. GETA with a-line. Family History Other Family history non-contributory Social History Preferred Language: Italian Communication Ability: Effective Beliefs That Will Affect Care: None Current Living Situation: Other Current Living Situation Comment: [facility] Feels Safe at Home: Yes Smoking Status: Former smoker Tobacco Type: cigarettes Hx Alcohol Use: No Hx Substance Use: No Review of Systems See HPI for pertinent positives & negatives. and A total of 10 systems reviewed and were otherwise negative Physical Exam Vital Signs Vital Signs - 24 hr 12/22/18 13:19 12/22/18 13:44 12/22/18 14:00 Temperature 37 C Temperature Source Oral Sepsis Recent Fever Within 48 Hours No Sepsis New/Unexplained Change in Mental Status No Sepsis Action Taken by Nursing No Action Required Pulse Rate 87 82 Pulse Rate [Apical] Pulse Rate [Left Finger] 78 Pulse Rate from SpO2 Sensor 82 Pulse Rhythm [Apical] Respiratory Rate 18 22 11 L Respiratory Effort / Characteristics Respiratory Depth Respiratory Pattern Blood Pressure 133/104 H 142/92 H Blood Pressure [Left Arm] 139/73 Blood Pressure [Right Arm] Blood Pressure Mean 113 108 Blood Pressure Mean [Left Arm] 95 Blood Pressure Mean [Right Arm] Blood Pressure Position [Right Arm] Pulse Oximetry 96 97 98 Oxygen Delivery Method Room Air Room Air 12/22/18 15:59 12/22/18 16:00 12/22/18 16:02 Temperature Temperature Source Sepsis Recent Fever Within 48 Hours Sepsis New/Unexplained Change in Mental Status Sepsis Action Taken by Nursing Pulse Rate Pulse Rate [Apical] Pulse Rate [Left Finger] Pulse Rate from SpO2 Sensor 78 95 H 91 H Pulse Rhythm [Apical] Respiratory Rate Respiratory Effort / Characteristics Respiratory Depth Respiratory Pattern Blood Pressure 146/81 H 141/86 H Blood Pressure [Left Arm] Blood Pressure [Right Arm] Blood Pressure Mean 102 104 Blood Pressure Mean [Left Arm] Blood Pressure Mean [Right Arm] Blood Pressure Position [Right Arm] Pulse Oximetry 95 95 94 Oxygen Delivery Method 12/22/18 16:30 12/22/18 16:32 12/22/18 16:54 Temperature 37.1 C Temperature Source Temporal Artery Scan Sepsis Recent Fever Within 48 Hours Sepsis New/Unexplained Change in Mental Status Sepsis Action Taken by Nursing Pulse Rate Pulse Rate [Apical] 75 Pulse Rate [Left Finger] Pulse Rate from SpO2 Sensor 78 78 Pulse Rhythm [Apical] Regular Respiratory Rate 18 Respiratory Effort / Characteristics Non-Labored Spontaneous Respiratory Depth Normal Respiratory Pattern Regular Blood Pressure 132/88 Blood Pressure [Left Arm] Blood Pressure [Right Arm] 141/94 H Blood Pressure Mean 102 Blood Pressure Mean [Left Arm] Blood Pressure Mean [Right Arm] 109 Blood Pressure Position [Right Arm] Sitting Pulse Oximetry 94 95 96 Oxygen Delivery Method Room Air Constitutional: Vital signs reviewed. Eyes: Pupils are equal round reactive to light. Conjunctiva are noninjected. ENT: Pharynx is clear without erythema or exudate. Mucous membranes are moist. Neck supple without meningeal signs. Respiratory: Clear to auscultation bilaterally. Breath sounds are equal bilaterally. Cardiovascular: Regular rate and rhythm. No rubs or gallops. GI: Soft, nondistended and nontender. Bowel sounds are present. Musculoskeletal: No peripheral edema. Cyanosis and decreased temperature to the right foot. Capillary refill is 3 seconds in the right toes, very faint possible DP Pulse. No calf tenderness. Integumentary: As above. Neurological: The patient is awake and alert. No focal deficits. Psychiatric: Normal affect. Course 1354: The patient was seen in room A2. A physical examination was performed. 1547: I paged Dr. Huerta, Vascular surgeon, to speak with him about the patient's case. 1555: The patient is still having pain, his physical exam is unchanged. I spoke with him about the test results. 1605: I spoke with Dr. Huerta, Vascular surgeon, about the patient's case and he agreed to accept the patient for further examination. 1610: The patient has been admitted. Administered Medications Discontinued Medications Hydromorphone HCl (Dilaudid) 0.5 mg IV NOW STA Stop: 12/22/18 14:04 Last Admin: 12/22/18 14:15 Dose: 0.5 mg Documented by: [id number] Hydromorphone HCl (Dilaudid) 0.5 mg IV NOW STA Stop: 12/22/18 15:56 Last Admin: 12/22/18 15:59 Dose: 0.5 mg Documented by: [id number] Ondansetron HCl (Zofran) 4 mg IV NOW STA Stop: 12/22/18 14:04 Last Admin: 12/22/18 14:15 Dose: 4 mg Documented by: [id number] Medical Decision Making Differential Diagnosis Differential Diagnosis: IMP, PAD, stent occlusion, limb ischemia, radiculopathy, DVT Medical Records Attestation: I reviewed the patient's medical records. I did perform a limited focused review of portions of the patient's old chart on the electronic medical record. The patient was seen in August 2018 for occlusion of the right leg stent. Dr. Huerta used Thrombolytics to open it up again. Home Medications Current Medication List: was personally reviewed by me Laboratory Data Attestation: I reviewed the patient's lab results. Result diagrams: 12/22/18 13:26 12/22/18 13:26 Lab Results 12/22/18 12/22/18 12/22/18 Range/Units 13:26 13:26 13:26 WBC 9.95 (4.8-10.8) K/uL RBC 4.95 (4.7-6.1) M/uL Hgb 15.8 (14.0-18.0) g/dL Hct 47.3 (42-52) % MCV 95.6 (80-100) fL MCH 31.9 (25-34) pg MCHC 33.4 (32-36) g/dL RDW Std Deviation 47.9 H (36.4-46.3) fL RDW Coeff of Rinku 13.9 (11.5-14.5) % Plt Count 266 (130-400) K/uL MPV 11.2 H (7.4-10.4) fL Immature Gran % (Auto) 0.1 % Neut % (Auto) 67.0 % Lymph % (Auto) 23.0 % [place] % (Auto) 8.8 % Eos % (Auto) 0.8 % Baso % (Auto) 0.3 % Immature Gran # (Auto) 0.01 (0.00-0.02) K/uL Neut # (Auto) 6.66 H (1.4-6.5) K/uL Lymph # (Auto) 2.29 (1.2-3.4) K/uL [place] # (Auto) 0.88 H (0.11-0.59) K/uL Eos # (Auto) 0.08 (0-0.5) K/uL Baso # (Auto) 0.03 (0-0.2) K/uL PT 21.3 H (9.0-12.0) Seconds INR 2.2 H (0.9-1.1) APTT 29.2 (21.0-31.0) Seconds PTT Ratio 1.1 Sodium 138 (136-145) mmol/L Potassium 4.4 (3.5-5.1) mmol/L Chloride 106 (98-107) mmol/L Carbon Dioxide 25 (21-32) mmol/L Anion Gap 7.0 (3-11) BUN 23 H (7-18) mg/dl Creatinine 1.38 (0.6-1.4) mg/dl Est Cr Clr Drug Dosing Not Reportable Est GFR ( Amer) 60.9 Est GFR (Non-Af Amer) 52.5 BUN/Creatinine Ratio 17.0 (10-20) Glucose 155 H (70-99) mg/dl Calcium 9.3 (8.5-10.1) mg/dl Total Bilirubin 0.3 (0.2-1) mg/dl AST 28 (15-37) U/L ALT 45 (12-78) U/L Alkaline Phosphatase 121 H (45-117) U/L Total Protein 7.2 (6.4-8.2) gm/dl Albumin 3.8 (3.4-5.0) gm/dl Globulin 3.4 (2.5-4.0) gm/dl Albumin/Globulin Ratio 1.1 (0.9-2) Specimen Hemolysis Imaging Data Attestation: I personally reviewed and interpreted this imaging study as follows: Radiologist's Impression: Radiology results as stated below per my review and the radiologist's interpretation: ULTRASOUND RIGHT LOWER EXTREMITY ARTERIAL CLINICAL HISTORY: Cold right leg. COMPARISON STUDY: Right lower extremity arterial ultrasound dated 08/20/2018. TECHNIQUE: Real-time, grayscale, and color Doppler sonography of the arteries of the right lower extremity is performed from the inguinal crease to the foot. Ankle-brachial indices could not be assessed. FINDINGS: Atherosclerotic plaque and irregularity is seen throughout the arteries of the right lower extremity. The common femoral artery is patent and demonstrates normal triphasic arterial waveforms. Velocities in the common femoral artery measure up to 94 cm/s. The profunda femoris artery is patent with velocities measuring up to 74 cm/s. A bypass graft is identified which extends from the proximal thigh to the proximal calf. This is thrombosed. There is thrombosis of the [place] superficial femoral artery and the [place] popliteal artery. A stent is seen within the region of the [place] popliteal artery which is thrombosed. There is trace monophasic flow identified within the anterior t ibial artery. No flow seen within the dorsalis pedis artery. There is no flow identified within the posterior tibial or peroneal arteries. IMPRESSION: 1. There is complete thrombosis of the [place] superficial femoral, popliteal, peroneal, posterior tibial, and dorsalis pedis arteries. 2. A bypass graft extending from the mid thigh to the calf is occluded. 3. The stent in the [place] popliteal artery is occluded. Electronically signed by: Adonis Chew M.D. 12/22/2018 3:34 PM Blood Pressure Blood Pressure Findings: Elevated blood pressure Blood Pressure Disposition: Referred to patients primary care provider [facility] Narrative I did evaluate the patient as noted above. The patient is presenting with right leg pain with numbness to the right foot and coolness and cyanosis. My concern was for ischemic limb. He has a prior history of this. IV access was established. I did treat the patient with IV Dilaudid and Zofran. I did order and review the patient's blood work as noted in the electronic medical record. CBC does not show an elevation of the white count or anemia. Electrolytes are unremarkable. INR is 2.2. I did order a stat arterial duplex of the right leg. I did review the images myself as well as the radiology report as described above. He has occlusion of his graft, stent and all of the [place] vessels. I did discuss the test results with the patient. I did give him additional IV Dilaudid for pain control. I did discuss the case with Dr. Huerta of vascular surgery. He did immediately take the patient to the operating room. Impression & Plan Limb ischemia, Anticoagulated Discharge Plan Visit Data *Final* Discharge Date/Time: 12/22/18 16:43 Chief Complaint: Leg Injury/Pain Stated Complaint: lower legs/pain, numbness / [facility] ED Provider: Andrea Ralph Discharge Problem: Limb ischemia, Anticoagulated Patient Disposition: Being Evaluated by Hospitalist Discharge Instructions Interventions: ED Discharge Assessment Last Done: 12/22/18 16:43 The scribe's documentation has been prepared under my direction and personally reviewed by me in its entirety. I confirm that the note above accurately reflects all work, treatment, procedures, and medical decision making performed by me.
[2018-12-22] MEDS ORDERED: HEPARIN SOD (PORCINE) 1000 UNIT/ML 10 ML VIAL ONE (18:01)
[2018-12-22] MEDS ORDERED: PROPOFOL IV EMULSION 10 MG/ML 20 ML VIAL IV ONE (18:04)
[2018-12-22] MEDS ORDERED: ONDANSETRON INJ 2 MG/ML 2 ML VIAL ONE (18:04)
[2018-12-22] MEDS ORDERED: LIDOCAINE HCL 2% 2 ML VIAL/AMP(20MG/ML) INFIL ONE (18:04)
[2018-12-22] MEDS ORDERED: SUCCINYLCHOLINE CHLORIDE 20 MG/ML 10 ML VIAL ONE (18:04)
[2018-12-22] MEDS ORDERED: DEXAMETHASONE SOD INJ 4 MG/ML VIAL ONE (18:04)
[2018-12-22] MEDS ORDERED: ROCURONIUM BROMIDE 10 MG/ML 5 ML VIAL ONE (18:20)
[2018-12-22] MEDS ORDERED: GLYCOPYRROLATE 0.2 MG/ML VIAL ONE (18:22)
[2018-12-22] MEDS ORDERED: ePHEDrine sulfate 50 MG/ML SYR ONE (18:22)
[2018-12-22] MEDS ORDERED: NEOSTIGMINE METHYLSULFATE 5 MG/5 ML SYR ONE (18:22)
[2018-12-22] MEDS ORDERED: CEFAZOLIN 1000MG 1,000 MG/7.5 ML SYR IV ONE (18:23)
[2018-12-22] MEDS ORDERED: SURGICEL ABSORB HEMOSTAT 2IN X 14IN TOP ONE (18:26)
[2018-12-22] MEDS ORDERED: ONDANSETRON INJ 2 MG/ML 2 ML VIAL IV PRN ×2 (18:32→19:04)
[2018-12-22] MEDS ORDERED: fentaNYL citrate 100 MCG/2 ML VIAL IV PRN (18:32)
[2018-12-22] MEDS ORDERED: ATROPINE SULFATE 0.1 MG/ML 10ML SYR IV PRN (18:32)
[2018-12-22] MEDS ORDERED: ePHEDrine sulfate 50 MG/ML AMP IV PRN (18:32)
[2018-12-22] MEDS ORDERED: HYDROmorphone INJ 1 MG/ML SYRINGE IV PRN (18:32)
[2018-12-22] MEDS ORDERED: MoRPHine SULFATE 4 MG/ML 1 ML CARP\\VIAL IV PRN (19:04)
[2018-12-22] MEDS ORDERED: Heparin IV Standard *NO* Bolus IV ONE (19:04)
--- NOTE | 2018-12-22 19:04 | Post Operative Brief Note ---
Immediate Post Op Note v1 Date of Surgery December 22, 2018 Pre & Post Diagnosis Operation Date: 12/22/18 16:30 Pre-Op Diagnosis: Lower Leg Pain and Numbness, Occluded right fem peroneal bypass Post-Op Diagnosis: Lower Leg Pain and Numbness, occluded right femoral peroneal bypass Procedure Operation Date: 12/22/18 16:30 Actual Procedures p Right Leg Open Thrombectomy of femoral peroneal bypass(Right) - Robinson Huerta MD Surgeon Robinson Huerta MD Toys Inspector none Estimated Blood Loss 200 Findings Consistent with Post-Op Diagnosis Drains Gutierrez Catheter Anesthesia Type General Complications none Disposition Accompanied Patient To Recovery: No Disposition: Recovery Room
[2018-12-22] MEDS ORDERED: HEPARIN 25000 UNIT/500 ML D5W IV ONE (19:38)
--- NOTE | 2018-12-22 19:42 | Anesthesiology Progress Note ---
Date of Service December 22, 2018 Anesthesia Post Procedure Vital Signs Vital Signs: Temp Pulse Pulse Pulse Resp BP BP 12/22/18 19:35 76 17 12/22/18 19:25 82 20 12/22/18 19:18 36.2 C L 84 16 12/22/18 16:54 37.1 C 75 18 12/22/18 16:32 12/22/18 16:30 132/88 12/22/18 16:02 12/22/18 16:00 141/86 H 12/22/18 15:59 146/81 H 12/22/18 14:00 82 11 L 142/92 H 12/22/18 13:44 78 22 139/73 12/22/18 13:19 37 C 87 18 133/104 H BP Pulse Ox 12/22/18 19:35 135/72 100 12/22/18 19:25 122/84 99 12/22/18 19:18 157/74 H 98 12/22/18 16:54 141/94 H 96 12/22/18 16:32 95 12/22/18 16:30 94 12/22/18 16:02 94 12/22/18 16:00 95 12/22/18 15:59 95 12/22/18 14:00 98 12/22/18 13:44 97 12/22/18 13:19 96 Pain Intensity Right Lower Leg: Pain Intensity: 5 Transfer of Care Handoff Completed per policy Notes Mental Status: alert / awake / arousable and participated in evaluation Patient Amnestic to Procedure: Yes Nausea / Vomiting: adequately controlled Pain: adequately controlled Airway Patency, RR, SpO2: stable & adequate BP & HR: stable & adequate Hydration State: stable & adequate Anesthetic Complications: no major complications apparent and Pt Satisfied with anesthetic care
[2018-12-22] MEDS ORDERED: MoRPHine SULFATE 2 MG/ML CARP IV PRN (20:15)
[2018-12-22 20:31] LABS: Basophils # (auto) 0.01 K/uL (0-0.2); Basophils % (auto) 0.1 %; Eosinophils # (auto) 0.02 K/uL (0-0.5); Eosinophils % (auto) 0.2 %; Hematocrit (blood only) 40.3 % (42-52); Hemoglobin 13.5 g/dL (14.0-18.0); Immature Granulocytes # (auto) 0.03 K/uL (0.00-0.02); Immature Granulocytes % (auto) 0.2 %; Lymphocytes # (auto) 1.63 K/uL (1.2-3.4); Lymphocytes % (auto) 12.8 %; Mean Corpuscular Hgb Conc 33.5 g/dL (32-36); Mean Corpuscular Volume 96.2 fL (80-100); Mean Platelet Volume 10.2 fL (7.4-10.4); Monocytes # (auto) 0.45 K/uL (0.11-0.59); Monocytes % (auto) 3.5 %; Neutrophils # (auto) 10.59 K/uL (1.4-6.5); Neutrophils % (auto) 83.2 %; Platelet Count 226 K/uL (130-400); RDW Standard Deviation 48.9 fL (36.4-46.3); Red Blood Count 4.19 M/uL (4.7-6.1); White Blood Count 12.73 K/uL (4.8-10.8)
[2018-12-22] MEDS ORDERED: ICU PROTOCOL FOR HYPERGLYCEMIA PRN (20:31)
--- NOTE | 2018-12-22 20:35 | Critical Care Consultation ---
Date of Consultation December 22, 2018 Assessment & Plan (1) S/P femoral-popliteal bypass surgery: Reason Critically Ill: 68-year-old male presents postoperatively for right leg thrombectomy after developing femoralpopliteal graft occlusion this a.m. Right femoral/popliteal bypass graft occlusionstatus post right fem-pop thrombectomy -Continue heparin infusion, will restart Coumadin therapy -Routine PT/INRs -Continue ASA, statin -Frequent Doppler of pedal and dorsalis pulses -Follow-up with surgical team for recs Neuro - CAM ICU: Negative Cardiac - HTNcontinue home dose lisinoprilhydrochlorothiazide HLDcontinue home dose statin Respiratory - COPDno home meds, maintaining saturation on room air GI - Heart healthy diet RENAL/LYTES - Stable, routine BMPs - Gutierrez inserted, strict I's and O's ENDO - Euglycemic, ICU hyperglycemic protocol HEME - H&H stable, monitor routine CBCs ID - Cefazolin x2 dose postop No indication for infectious process at this time LINES/IV ACCESS - Peripheral IVs, Gutierrez DVT PROPHYLAXIS - Heparin drip I have personally spent 50 minutes of critical care time in the direct management of this patient. This is a life/limb threatening event. This includes time spent evaluating patient, direct bedside care, chart review, placing orders, interpretation of diagnostic studies, discussion with consultants, patient, and family members, as well as other required patient management activities. This time is exclusive of all separately billable procedures, and teaching time and separate from and in addition to any other critical care service time. Thank you for allowing us to participate in the care of this patient. Please refer to my attending physician's documentation for any further recommendations. (2) Limb ischemia: (3) Femoral-popliteal bypass graft occlusion, right: (4) Admitted to intensive care unit: (5) Hyperlipidemia: (6) Hypertension: (7) COPD (chronic obstructive pulmonary disease): (8) Femoral artery occlusion: Supervising Physician Co-Signing Physician Notes I agree with the assessment and plan of Ishaan HARTMANN History of Present Illness Attending Physician: Robinson Huerta MD History of Present Illness Mr. Gonzalez is a 68-year-old male prisoner with past medical history HTN, HLD, COPD, CVA, fempop bypass with previous graft occlusion requiring thrombolytic therapy. This morning he presented to the emergency department with complaints of tingling and numbness of the right lower extremity ongoing for 3 hours, which appeared ischemic. He now presents to the ICU after undergoing right leg thrombectomy of graft occlusion. The patient is alert and oriented on arrival and only complains of pain at both surgical incisions of right lower extremity. He denies current numbness or tingling pain in the right foot. Right lower extremity is warm to touch and pedal and dorsalis pulses are present with Doppler. There is no swelling of the right lower extremity. Right upper and lower extremity surgical sites are without swelling or erythema and bandages dry and intact. Patient denies headache, dizziness, chest pain, palpitations, shortness of breath, abdominal pain, or muscle weakness. Update 12/22/182124: Nursing found the patient have bleeding from surgical site with saturated bandages. Heparin was held and Dr. Huerta was paged. Recommendation to hold heparin 4 hours and apply pressure dressing to surgical sites. Manual pressure was held until bleeding subsided from both surgical sites, which compression dressings were then applied. Right lower extremity remains warm and dorsalis and pedal pulses dopplered. Coags and H&H rechecked and stable. Will continue to hold heparin drip for 4 hours and restart pending recheck of coags. Will monitor closely. Allergies Allergy/AdvReac Type Severity Reaction Status Date / Time codeine Allergy Unknown Unknown Unverified 12/22/18 15:32 Home Medications Home Medications Medication Instructions Recorded Confirmed Type aspirin 81 mg PO QAM 08/20/18 12/22/18 History atorvastatin 80 mg PO HS 08/20/18 12/22/18 History lisinopril-hydrochlorothiazide 1 tab PO QAM 08/20/18 12/22/18 History warfarin 2 mg PO HS 12/22/18 12/22/18 History warfarin 2.5 mg PO HS 12/22/18 12/22/18 History Patient History Medical History H/O: HTN (hypertension) (Chronic) HLD (hyperlipidemia) (Chronic) COPD (chronic obstructive pulmonary disease) CVA (cerebral vascular accident) Hernia PVD (peripheral vascular disease) Smoker Surgical History H/O vasectomy History of vascular surgery R SFA stent, six months ago Right leg thrombectomy, fem-pop. 08/2018. GETA with a-line. Family History Other Family history non-contributory Social History Preferred Language: Austrian Communication Ability: Effective Beliefs That Will Affect Care: None Current Living Situation: Other Current Living Situation Comment: [facility] Feels Safe at Home: Yes Smoking Status: Former smoker Tobacco Type: cigarettes Second Hand Exposure: No Hx Alcohol Use: No Hx Substance Use: No Review of Systems Review of Systems: All systems reviewed & are unremarkable except as noted in HPI & below Physical Exam Constitutional: WD/WN, vitals as above Eyes: PERRL, conjunctivae normal, anicteric sclerae Respiratory: normal respiratory effort, lungs clear to auscultation Cardiovascular: RRR, no murmur, no edema Rate/Rhythm: regular rate and regular rhythm Heart Sounds: normal S1 and normal S2 Vessels: no JVD Gastrointestinal (Abdomen): normal bowel sounds, soft, nontender, no hepatosplenomegaly Skin: no rashes, warm and dry Neurologic: PERRL, EOMI, accommodation nl, no face palsy, no dysarthria Psychiatric: A+Ox3, euthymic affect Genitourinary: Gutierrez inserted, adequate urine output Results & Data Vital Signs (Past 12 Hours) Vital Signs Temp Pulse Pulse Pulse Resp BP BP 12/22/18 20:30 87 22 12/22/18 20:25 85 18 153/102 H 12/22/18 20:20 84 46 H 137/80 12/22/18 20:15 82 20 154/94 H 12/22/18 20:00 76 17 187/149 H 12/22/18 19:55 36.2 C L 76 22 12/22/18 19:45 74 17 12/22/18 19:35 76 17 12/22/18 19:25 82 20 12/22/18 19:18 36.2 C L 84 16 12/22/18 16:54 37.1 C 75 18 12/22/18 16:32 12/22/18 16:30 132/88 12/22/18 16:02 12/22/18 16:00 141/86 H 12/22/18 15:59 146/81 H 12/22/18 14:00 82 11 L 142/92 H 12/22/18 13:44 78 22 139/73 12/22/18 13:19 37 C 87 18 133/104 H BP Pulse Ox 12/22/18 20:30 96 12/22/18 20:25 94 12/22/18 20:20 93 12/22/18 20:15 92 12/22/18 20:00 93 12/22/18 19:55 159/93 H 92 12/22/18 19:45 139/75 93 12/22/18 19:35 135/72 100 12/22/18 19:25 122/84 99 12/22/18 19:18 157/74 H 98 12/22/18 16:54 141/94 H 96 12/22/18 16:32 95 12/22/18 16:30 94 12/22/18 16:02 94 12/22/18 16:00 95 12/22/18 15:59 95 12/22/18 14:00 98 12/22/18 13:44 97 12/22/18 13:19 96 PG Care Time/CCT Total # of Minutes Spent Total Time Spent with Patient: Total time spent is greater than 50% in coordination of care (as documented) at patient's floor/unit and/or counseling patient: Critical Care Time: Yes Total Critical Care Time: 50
[2018-12-22] MEDS ORDERED: WARFARIN SOD 2.5 MG TAB PO SCH (21:00)
[2018-12-22] MEDS ORDERED: WARFARIN SOD 2 MG TAB PO SCH (21:00)
[2018-12-22] MEDS: ATORVASTATIN 40 MG TAB PO SCH (21:19)
[2018-12-22] MEDS: Heparin Adult STANDARD Wt-Based Dextrose 5% 25,000 units/500 mL IV SCH (21:20)
[2018-12-22 21:56] LABS: Hematocrit (blood only) 42.7 % (42-52); Hemoglobin 14.1 g/dL (14.0-18.0)
[2018-12-22 22:05] LABS: INR 2.3 (0.9-1.1); Prothrombin Time 22.5 Seconds (9.0-12.0)
[2018-12-22] MEDS ORDERED: COUGH DROP (SUGAR FREE) LOZ 24 LOZ/1 BOX BUCCAL ONE (22:19)
[2018-12-22] MEDS ORDERED: COUGH DROP (SUGAR FREE) LOZ 24 LOZ/1 BOX BUCCAL PRN (22:29)
[2018-12-22] MEDS ORDERED: Nursing to Pharmacy Communication ONE (22:32)
[2018-12-22 23:15] LABS: Partial Thromboplastin Ratio > 5.1
[2018-12-22 23:42] LABS: Partial Thromboplastin Time > 139.0 Seconds (21.0-31.0)
[2018-12-23] MEDS: HYDROCODONE/ACETAMOPHEN 5/325MG TAB PO PRN ×5 (00:10→23:20)
[2018-12-23] MEDS: CEFAZOLIN 1000MG 1,000 MG/7.5 ML SYR IV SCH ×2 (01:35→10:18)
[2018-12-23 01:46] LABS: INR 2.1 (0.9-1.1); Partial Thromboplastin Ratio 1.2; Partial Thromboplastin Time 32.5 Seconds (21.0-31.0); Prothrombin Time 20.7 Seconds (9.0-12.0)
[2018-12-23 05:08] LABS: Basophils # (auto) 0.01 K/uL (0-0.2); Basophils % (auto) 0.1 %; Hematocrit (blood only) 40.4 % (42-52); Hemoglobin 13.3 g/dL (14.0-18.0); Immature Granulocytes # (auto) 0.04 K/uL (0.00-0.02); Immature Granulocytes % (auto) 0.3 %; Lymphocytes # (auto) 1.73 K/uL (1.2-3.4); Lymphocytes % (auto) 12.2 %; Mean Corpuscular Hgb Conc 32.9 g/dL (32-36); Mean Corpuscular Volume 95.1 fL (80-100); Mean Platelet Volume 10.1 fL (7.4-10.4); Monocytes # (auto) 0.97 K/uL (0.11-0.59); Monocytes % (auto) 6.9 %; Neutrophils # (auto) 11.41 K/uL (1.4-6.5); Neutrophils % (auto) 80.5 %; Platelet Count 240 K/uL (130-400); RDW Coefficient of Variation 13.8 % (11.5-14.5); RDW Standard Deviation 48.2 fL (36.4-46.3); Red Blood Count 4.25 M/uL (4.7-6.1); White Blood Count 14.16 K/uL (4.8-10.8)
[2018-12-23 05:26] LABS: BUN Creatinine Ratio 16.6 (10-20); Calcium 8.1 mg/dl (8.5-10.1); Creatinine Clr Calc Pharmacy 65.3 ml/min; Est GFR (African American) 69.3; Est GFR (Non-African American) 59.8; Potassium 4.5 mmol/L (3.5-5.1)
[2018-12-23 05:28] LABS: Partial Thromboplastin Ratio 2.7
[2018-12-23 05:32] LABS: Partial Thromboplastin Time 74.1 Seconds (21.0-31.0)
[2018-12-23] MEDS: ASPIRIN 81 MG ECTAB PO SCH (07:53)
[2018-12-23] MEDS: LISINOPRIL/HCTZ 10/12.5MG TAB PO SCH (07:53)
--- NOTE | 2018-12-23 08:24 | Critical Care Progress Note ---
Date of Service December 23, 2018 Assessment & Plan (1) Admitted to intensive care unit: Reason Critically Ill: 68-year-old male presents postoperatively for right leg thrombectomy after developing femoralpopliteal graft occlusion this a.m. Right femoral/popliteal bypass graft occlusionstatus post right fem-pop thrombectomy -Holding heparin infusion for 4 hrs (start 10AM) 2/2 continued bleeding from sx site this AM -Routine PT/INRs. Last PTT 74 -Continue ASA, statin -Frequent Doppler of pedal and dorsalis pulses -Follow-up with surgical team for recs Neuro - [facility] ICU: Negative Cardiac - HTNcontinue home dose lisinoprilhydrochlorothiazide HLDcontinue home dose statin Respiratory - COPDno home meds, maintaining saturation on room air GI - Heart healthy diet RENAL/LYTES - Stable, routine BMPs - Gutierrez inserted, strict I's and O's ENDO - Euglycemic, ICU hyperglycemic protocol HEME - H&H stable, monitor routine CBCs ID - Cefazolin x2 dose postop No indication for infectious process at this time LINES/IV ACCESS - Peripheral IVs, Gutierrez DVT PROPHYLAXIS - Heparin drip held, will restart at 1400 Full Code Dispo: Stable for downgrade out of ICU Supervising Physician Co-Signing Physician Notes Dr. Arthur was resident physician during care of patient. I separately evaluated patient for koehler portions of the history and the exam. I was present during the critical portion of medical decision making, and I discussed the case with the resident. I generally agree with the findings and plan. Patient was discussed in multidisciplinary rounds. Seen by vascular surgery service and will be downgraded out of ICU. Subjective 68 y/o M found in bed this AM resting comfortably in NAD. Overnight reports of profuse bleeding from distal R leg incision site. Pressure applied and heparin dc'd for 4 hrs. Repeat episode this AM as pt was getting ready for transport. Again pressure applied and heparin will be dc'd for 4 hrs. Pt reports little R LE pain, 6/10. Otherwise denies CP, SOB. Tolerating PO intake. No other acute concerns or complaints. Review of Systems Review of Systems: All systems reviewed & are unremarkable except as noted in HPI & below Physical Exam Constitutional: WD/WN, vitals as above Eyes: PERRL, conjunctivae normal, anicteric sclerae ENMT: external ear and nose normal, oropharynx normal Respiratory: normal respiratory effort, lungs clear to auscultation Cardiovascular: RRR, no murmur, no edema Gastrointestinal (Abdomen): normal bowel sounds, soft, nontender, no hepatosplenomegaly Skin: no rashes, warm and dry R LE incision with intact axel. At time of transfer, overlying dressing C/D/I Psychiatric: A+Ox3, euthymic affect Results & Data Vital Signs (Past 12 Hours) Vital Signs Temp Pulse Pulse Resp BP BP Pulse Ox 12/23/18 06:00 84 23 117/78 94 12/23/18 05:00 74 16 132/81 94 12/23/18 04:00 36.5 C 74 20 128/70 96 12/23/18 03:00 70 15 127/74 96 12/23/18 02:00 73 15 131/79 95 12/23/18 01:00 82 13 113/71 93 12/23/18 00:30 73 12 122/74 94 12/23/18 00:00 37 C 97 H 69 17 120/67 92 12/22/18 23:59 12/22/18 23:30 70 13 110/69 93 12/22/18 23:00 82 13 127/75 92 12/22/18 22:30 89 15 117/77 93 12/22/18 21:30 112 H 15 121/74 95 12/22/18 21:23 99 H 15 154/90 H 95 12/22/18 21:20 91 H 17 154/94 H 93 12/22/18 20:30 87 22 96 12/22/18 20:25 85 18 153/102 H 94 Pulse Ox 12/23/18 06:00 12/23/18 05:00 12/23/18 04:00 12/23/18 03:00 12/23/18 02:00 12/23/18 01:00 12/23/18 00:30 12/23/18 00:00 12/22/18 23:59 96 12/22/18 23:30 12/22/18 23:00 12/22/18 22:30 12/22/18 21:30 12/22/18 21:23 12/22/18 21:20 12/22/18 20:30 12/22/18 20:25 Laboratory Results Laboratory Results - last 24 hr 12/22/18 12/22/18 12/22/18 13:26 13:26 13:26 WBC 9.95 RBC 4.95 Hgb 15.8 Hct 47.3 MCV 95.6 MCH 31.9 MCHC 33.4 RDW Std Deviation 47.9 H RDW Coeff of Rinku 13.9 Plt Count 266 MPV 11.2 H Immature Gran % (Auto) 0.1 Neut % (Auto) 67.0 Lymph % (Auto) 23.0 Titus % (Auto) 8.8 Eos % (Auto) 0.8 Baso % (Auto) 0.3 Immature Gran # (Auto) 0.01 Neut # (Auto) 6.66 H Lymph # (Auto) 2.29 Titus # (Auto) 0.88 H Eos # (Auto) 0.08 Baso # (Auto) 0.03 PT 21.3 H INR 2.2 H APTT 29.2 PTT Ratio 1.1 Sodium 138 Potassium 4.4 Chloride 106 Carbon Dioxide 25 Anion Gap 7.0 BUN 23 H Creatinine 1.38 Est Cr Clr Drug Dosing Not Reportable Est GFR ( Amer) 60.9 Est GFR (Non-Af Amer) 52.5 BUN/Creatinine Ratio 17.0 Glucose 155 H POC Glucose Calcium 9.3 Total Bilirubin 0.3 AST 28 ALT 45 Alkaline Phosphatase 121 H Total Protein 7.2 Albumin 3.8 Globulin 3.4 Albumin/Globulin Ratio 1.1 Specimen Hemolysis Nasal Screen MRSA (PCR) Blood Type Antibody Screen 12/22/18 12/22/18 12/22/18 16:47 20:17 20:20 WBC 12.73 H RBC 4.19 L Hgb 13.5 L Hct 40.3 L MCV 96.2 MCH 32.2 MCHC 33.5 RDW Std Deviation 48.9 H RDW Coeff of Rinku 14.0 Plt Count 226 MPV 10.2 Immature Gran % (Auto) 0.2 Neut % (Auto) 83.2 Lymph % (Auto) 12.8 Titus % (Auto) 3.5 Eos % (Auto) 0.2 Baso % (Auto) 0.1 Immature Gran # (Auto) 0.03 H Neut # (Auto) 10.59 H Lymph # (Auto) 1.63 Titus # (Auto) 0.45 Eos # (Auto) 0.02 Baso # (Auto) 0.01 PT INR APTT PTT Ratio Sodium Potassium Chloride Carbon Dioxide Anion Gap BUN Creatinine Est Cr Clr Drug Dosing Est GFR ( Amer) Est GFR (Non-Af Amer) BUN/Creatinine Ratio Glucose POC Glucose Calcium Total Bilirubin AST ALT Alkaline Phosphatase Total Protein Albumin Globulin Albumin/Globulin Ratio Specimen Hemolysis Nasal Screen MRSA (PCR) Negative Blood Type O Positive Antibody Screen NEGATIVE 12/22/18 12/22/18 12/22/18 21:49 21:49 21:49 WBC RBC Hgb 14.1 Hct 42.7 MCV MCH MCHC RDW Std Deviation RDW Coeff of Rinku Plt Count MPV Immature Gran % (Auto) Neut % (Auto) Lymph % (Auto) Titus % (Auto) Eos % (Auto) Baso % (Auto) Immature Gran # (Auto) Neut # (Auto) Lymph # (Auto) Titus # (Auto) Eos # (Auto) Baso # (Auto) PT 22.5 H INR 2.3 H APTT > 139.0 H* PTT Ratio > 5.1 Sodium Potassium Chloride Carbon Dioxide Anion Gap BUN Creatinine Est Cr Clr Drug Dosing Est GFR ( Amer) Est GFR (Non-Af Amer) BUN/Creatinine Ratio Glucose POC Glucose Calcium Total Bilirubin AST ALT Alkaline Phosphatase Total Protein Albumin Globulin Albumin/Globulin Ratio Specimen Hemolysis Nasal Screen MRSA (PCR) Blood Type Antibody Screen 12/22/18 12/23/18 12/23/18 22:22 01:27 04:47 WBC 14.16 H RBC 4.25 L Hgb 13.3 L Hct 40.4 L MCV 95.1 MCH 31.3 MCHC 32.9 RDW Std Deviation 48.2 H RDW Coeff of Rinku 13.8 Plt Count 240 MPV 10.1 Immature Gran % (Auto) 0.3 Neut % (Auto) 80.5 Lymph % (Auto) 12.2 Titus % (Auto) 6.9 Eos % (Auto) 0.0 Baso % (Auto) 0.1 Immature Gran # (Auto) 0.04 H Neut # (Auto) 11.41 H Lymph # (Auto) 1.73 Titus # (Auto) 0.97 H Eos # (Auto) 0.00 Baso # (Auto) 0.01 PT 20.7 H INR 2.1 H APTT 32.5 H PTT Ratio 1.2 Sodium Potassium Chloride Carbon Dioxide Anion Gap BUN Creatinine Est Cr Clr Drug Dosing Est GFR ( Amer) Est GFR (Non-Af Amer) BUN/Creatinine Ratio Glucose POC Glucose 155 H Calcium Total Bilirubin AST ALT Alkaline Phosphatase Total Protein Albumin Globulin Albumin/Globulin Ratio Specimen Hemolysis Nasal Screen MRSA (PCR) Blood Type Antibody Screen 12/23/18 12/23/18 12/23/18 04:47 04:47 05:39 WBC RBC Hgb Hct MCV MCH MCHC RDW Std Deviation RDW Coeff of Rinku Plt Count MPV Immature Gran % (Auto) Neut % (Auto) Lymph % (Auto) Titus % (Auto) Eos % (Auto) Baso % (Auto) Immature Gran # (Auto) Neut # (Auto) Lymph # (Auto) Titus # (Auto) Eos # (Auto) Baso # (Auto) PT INR APTT 74.1 H* PTT Ratio 2.7 Sodium 136 Potassium 4.5 Chloride 102 Carbon Dioxide 29 Anion Gap 5.0 BUN 21 H Creatinine 1.24 Est Cr Clr Drug Dosing 65.3 Est GFR ( Amer) 69.3 Est GFR (Non-Af Amer) 59.8 BUN/Creatinine Ratio 16.6 Glucose 144 H POC Glucose 149 H Calcium 8.1 L Total Bilirubin AST ALT Alkaline Phosphatase Total Protein Albumin Globulin Albumin/Globulin Ratio Specimen Hemolysis Nasal Screen MRSA (PCR) Blood Type Antibody Screen Medications Administered Current Inpatient Medications Hydrocodone Bitart/Acetaminophen ([place] 5/325) 1 - 2 tab PO Q4H PRN PRN Reason: Moderate Pain Stop: 01/05/19 19:03 Last Admin: 12/23/18 04:21 Dose: 2 tab Documented by: Aspirin (Ecotrin Ectab) 81 [facility] [place] Stop: 01/22/19 08:59 Last Admin: 12/23/18 07:53 Dose: 81 mg Documented by: Atorvastatin Calcium (Lipitor) 80 mg PO [facility] Stop: 01/21/19 20:59 Last Admin: 12/22/18 21:19 Dose: 80 mg Documented by: Lisinopril/HCTZ (Prinzide 10/12.5mg) 1 tab PO QAM [facility] Stop: 01/22/19 08:59 Last Admin: 12/23/18 07:53 Dose: 1 tab Documented by: Heparin Sodium/Dextrose (Heparin Sodium/Dextrose) 25,000 units in 500 mls @ 0 mls/hr IV .Q0M [facility]; Protocol Stop: 01/21/19 19:44 Last Titration: 12/23/18 10:02 Dose: 0 units/hr, 0 mls/hr Documented by: Menthol (Nice) 1 jose guadalupe BUCCAL PRN PRN PRN Reason: Sore Throat Stop: 01/21/19 22:28 Miscellaneous (Icu Protocol For Hyperglycemia) 1 ea N/A PRN PRN; Protocol PRN Reason: Hyperglycemia Protocol Stop: 12/24/18 20:30 Morphine Sulfate (Morphine Sulfate) 3 - 4 mg IV Q2H PRN PRN Reason: Severe Pain Stop: 01/05/19 19:03 Last Admin: 12/22/18 21:17 Dose: 4 mg Documented by: Morphine Sulfate (Morphine Sulfate) 1 - 2 mg IV Q2H PRN PRN Reason: Severe Pain Stop: 01/05/19 20:14 Last Admin: 12/23/18 01:35 Dose: 1 mg Documented by: Ondansetron HCl (Zofran) 4 mg IV Q6H PRN PRN Reason: Nausea And Vomiting Stop: 01/21/19 19:03 Warfarin Sodium (Coumadin) 2.5 mg PO HS [facility] Stop: 01/21/19 20:59 Last Admin: 12/22/18 21:18 Dose: 2.5 mg Documented by: Warfarin Sodium (Coumadin) 2 mg PO HS [place] Stop: 01/21/19 20:59 Last Admin: 12/22/18 21:18 Dose: 2 mg Documented by: Resident Activity Tracking Resident Involvement: Resident Care Provided Care Provided: Adult Hospital Medicine
--- NOTE | 2018-12-23 08:39 | Surgery Progress Note ---
Date of Service December 23, 2018 Assessment & Plan (1) Femoral-popliteal bypass graft occlusion, right: Pt now s/p RLE fem-peroneal BPG open thrombectomy. This is the second thrombosis of his BPG in past 4 months. Current admission notes RLE graft thrombosis with INR of 2.2. D/T concern for future events, will have pt at increased INR range of 2.5-3.5 and also plan to initiate low dose xarelto therapy in addition. Pt expresses understanding. Currently, pt is stable and will transfer to med/surg. May be OOB per orders. Continue hep drip until discharge. Patient was seen, examined, and chart reviewed. Agree with exam and treatment plan of the Vascular PA. Present on Admission?: Yes Subjective 68 yo m with hx of PAD and RLE fem-peroneal BPG done at a different institution, known to Dr Huerta for thrombolysis of BPG 4 months ago d/t acute occlusion and limb ischemia, seen in f/u today after undergoing open thrombectomy of RLE BPG after acute occlusion yesterday. Pt states pain well controlled. No pain in toes/foot, just in incisions. Some numbness/tingling to R foot remains. Has not yet been OOB, but thinks he can walk on it. States he had significant bleeding last night, but likely d/t multiple anticoagulants. Denies OQUENDO, fever, chills, chest pain, SOB, N/V, other complaints. Review of Systems Review of Systems: All systems reviewed & are unremarkable except as noted in HPI & below Physical Exam Constitutional: WD/WN, vitals as above well developed and well nourished; no acute distress Respiratory: normal respiratory effort, lungs clear to auscultation Cardiovascular: Rate/Rhythm: regular rate and regular rhythm Vessels: + abnormal peripheral pulses (+ dopplerable RLE and LLE) Extremities: + edema (Mild edema RLE); + abnormal capillary refill (increased at 5 seconds RLE) Gastrointestinal (Abdomen): normal bowel sounds, soft, nontender, no hepatosplenomegaly Musculoskeletal: no cyanosis or clubbing, extremities motor strength 5/5 Skin: no rashes, warm and dry + incision (RLE groin incision intact, + local soft hematoma, +tender, no active bleed) RLE distal incision intact, + local tenderness and soft hematoma Neurologic: moves all extremities; no focal motor deficits Psychiatric: A+Ox3, euthymic affect Results & Data Vital Signs (Past 12 Hours) Vital Signs Temp Pulse Pulse Resp BP Pulse Ox Pulse Ox 12/23/18 06:00 84 23 117/78 94 12/23/18 05:00 74 16 132/81 94 12/23/18 04:00 36.5 C 74 20 128/70 96 12/23/18 03:00 70 15 127/74 96 12/23/18 02:00 73 15 131/79 95 12/23/18 01:00 82 13 113/71 93 12/23/18 00:30 73 12 122/74 94 12/23/18 00:00 37 C 97 H 69 17 120/67 92 12/22/18 23:59 96 12/22/18 23:30 70 13 110/69 93 12/22/18 23:00 82 13 127/75 92 12/22/18 22:30 89 15 117/77 93 12/22/18 21:30 112 H 15 121/74 95 12/22/18 21:23 99 H 15 154/90 H 95 12/22/18 21:20 91 H 17 154/94 H 93 12/22/18 20:30 87 22 96
[2018-12-23 12:04] LABS: Partial Thromboplastin Ratio 1.3; Partial Thromboplastin Time 34.5 Seconds (21.0-31.0)
[2018-12-23] MEDS: Heparin Adult STANDARD Wt-Based Dextrose 5% 25,000 units/500 mL IV SCH (14:16)
--- NOTE | 2018-12-23 14:19 | Anesthesiology Progress Note ---
Date of Service December 23, 2018 Anesthesia Post Procedure Vital Signs Vital Signs: Temp Pulse Pulse Pulse Resp BP BP 12/23/18 10:09 36.8 C 91 H 18 111/76 12/23/18 09:00 87 18 126/85 12/23/18 08:00 73 117 H 16 120/89 12/23/18 07:00 37 C 72 20 109/70 12/23/18 06:00 84 23 117/78 12/23/18 05:00 74 16 132/81 12/23/18 04:00 36.5 C 74 20 128/70 12/23/18 03:00 70 15 127/74 12/23/18 02:00 73 15 131/79 12/23/18 01:00 82 13 113/71 12/23/18 00:30 73 12 122/74 12/23/18 00:00 37 C 97 H 69 17 120/67 12/22/18 23:59 12/22/18 23:30 70 13 110/69 12/22/18 23:00 82 13 127/75 12/22/18 22:30 89 15 117/77 12/22/18 21:30 112 H 15 121/74 12/22/18 21:23 99 H 15 154/90 H 12/22/18 21:20 91 H 17 154/94 H 12/22/18 20:30 87 22 12/22/18 20:25 85 18 153/102 H 12/22/18 20:20 84 46 H 137/80 12/22/18 20:15 82 20 154/94 H 12/22/18 20:12 36.7 C 90 20 155/91 H 12/22/18 20:00 76 17 187/149 H 12/22/18 19:55 36.2 C L 76 22 159/93 H 12/22/18 19:45 74 17 139/75 12/22/18 19:35 76 17 135/72 12/22/18 19:25 82 20 122/84 12/22/18 19:18 36.2 C L 84 16 157/74 H 12/22/18 16:54 37.1 C 75 18 141/94 H 12/22/18 16:32 12/22/18 16:30 132/88 12/22/18 16:02 12/22/18 16:00 141/86 H 12/22/18 15:59 146/81 H Pulse Ox Pulse Ox 12/23/18 10:09 94 12/23/18 09:00 94 12/23/18 08:00 95 12/23/18 07:00 96 12/23/18 06:00 94 12/23/18 05:00 94 12/23/18 04:00 96 12/23/18 03:00 96 12/23/18 02:00 95 12/23/18 01:00 93 12/23/18 00:30 94 12/23/18 00:00 92 12/22/18 23:59 96 12/22/18 23:30 93 12/22/18 23:00 92 12/22/18 22:30 93 12/22/18 21:30 95 12/22/18 21:23 95 12/22/18 21:20 93 12/22/18 20:30 96 12/22/18 20:25 94 12/22/18 20:20 93 12/22/18 20:15 92 12/22/18 20:12 92 12/22/18 20:00 93 12/22/18 19:55 92 12/22/18 19:45 93 12/22/18 19:35 100 12/22/18 19:25 99 12/22/18 19:18 98 12/22/18 16:54 96 12/22/18 16:32 95 12/22/18 16:30 94 12/22/18 16:02 94 12/22/18 16:00 95 12/22/18 15:59 95 Pain Intensity Right Lower Leg: Pain Intensity: 4 Notes Mental Status: alert / awake / arousable Patient Amnestic to Procedure: Yes Nausea / Vomiting: adequately controlled Pain: adequately controlled Airway Patency, RR, SpO2: stable & adequate BP & HR: stable & adequate Hydration State: stable & adequate Anesthetic Complications: no major complications apparent and Pt Satisfied with anesthetic care
[2018-12-23] MEDS: ATORVASTATIN 40 MG TAB PO SCH (20:26)
[2018-12-23] MEDS ORDERED: WARFARIN SOD 5 MG TAB PO SCH (21:00)
[2018-12-24] MEDS: HYDROCODONE/ACETAMOPHEN 5/325MG TAB PO PRN (04:14)
[2018-12-24] MEDS: LISINOPRIL/HCTZ 10/12.5MG TAB PO SCH (08:30)
[2018-12-24] MEDS: ASPIRIN 81 MG ECTAB PO SCH (08:30)
[2018-12-24 08:31] LABS: INR 2.9 (0.9-1.1); Prothrombin Time 27.6 Seconds (9.0-12.0)
--- NOTE | 2018-12-24 09:08 | Surgery Progress Note ---
Date of Service December 24, 2018 Assessment & Plan (1) Limb ischemia: His bypass of his right lower extremity is patent. His foot is viable with no pain. This point he can be discharged back to the [facility] institution. We will keep his INR between 2-1/2-3-1/2 and start him on low-dose Xarelto. Subjective Patient with no complaints. He says his foot feels much better. He has normal feeling in his toes. Physical Exam Physical Exam: Incisions are dry and clean today. He does have some spotting on the dressing since yesterday when he had his bleeding from his calf incision. There is mild swelling of the right lower extremity from the surgical procedure. Is a good Doppler signals in his foot and his toes are pink with good capillary refill. Results & Data Vital Signs (Past 12 Hours) Vital Signs Temp Pulse Resp BP BP Pulse Ox 12/24/18 08:29 107/66 12/24/18 07:01 36.7 C 80 15 112/62 94 12/23/18 23:28 36.8 C 98 H 16 111/71 93
[2018-12-24] MEDS ORDERED: RIVAROXABAN 2.5 MG TAB PO SCH (09:45)
--- NOTE | 2019-01-03 10:31 | Operative Report ---
Post Operative Report Pre & Post Diagnosis Operation Date: 12/22/18 16:30 Pre-Op Diagnosis: Lower Leg Pain and Numbness Post-Op Diagnosis: Lower Leg Pain and Numbness Procedure Operation Date: 12/22/18 16:30 Actual Procedures p Right Leg Open Thrombectomy(Right) - Robinson Huerta MD Surgeon Robinson Huerta MD Logistical Engineer none Estimated Blood Loss 200 Findings Consistent with Post-Op Diagnosis Specimens none Anesthesia Type General Complications none Disposition Accompanied Patient To Recovery: No Disposition: Recovery Room Indications Patient is a 68 year old male with a right femoral to distal bypass. This had thrombosed in the past and was thrombectomized with TPA. He developed sudden onset of right leg pain earlier today with discoloration of his right foot. He was seen in the ED with decrease motor function and decreased sensation in his right foot. Open thrombectomy was recommended along with possible revision or endovascular intervention. I have discussed the risks options and benefits of the procedure with the patient. The patient understands the risks options and benefits and agrees to the procedure. Description of Procedure The patient was taken to the Operating room and placed in the supine position. The right leg was prepped and draped in a sterile manner. The patient was identified and a timeout performed. A longitudintal groin incision was then made. This was carried down the gortex graft. The patient was then adequately heparinized. Proximal and distal control of the graft was obtained. A transverse graftotomy was performed. Using a #3 and #4 milton catheter, clot was removed from the graft proximally and distally. Good inflow was seen. Poor backbleeding was noted. We then decided to open the graft below the knee. A longitudinal below the knee incision was then made on the medial calf. The graft was identifed. Proximal and distal control of the graft was obtained. A transverse graftotomy was performed and the #3 milton catheter was passed distally. Clot was removed. The #4 milton was then passed proximally. No clot was seen with this. The two graftotomies were closed with CV 6 gortex sutures. Clamps were then removed from the graft. Good doppler signals were heard at the ankle at that point. The toes pinked up nicely. Adequate hemostasis was obtained and the wounds closed with 3-0Vicryl suture for the subcutaneous layer and axel for the skin. The patient left the operation room in satisfactory condition and tolerated the procedure well. All needle and sponge counts were correct at the end of the procedure. I attest to the content of the Intraoperative Record and any orders documented therein. Any exceptions are noted below.
--- NOTE | 2019-01-03 10:50 | Discharge Summary ---
Date of Service December 22, 2018 Admission HPI Per Admitting Provider Assessment & Plan (1) Femoral-popliteal bypass graft occlusion, right: Patient for emergency thrombectomy of his right leg bypass graft. I have discussed the risks options and benefits of the procedure with the patient. The patient understands the risks options and benefits and agrees to the procedure. History of Present Illness Chief Complaint: thrombosed right leg bypass, ischemic right lower extremity Primary Care Provider: MERRICK Eric This is a 68-year-old gentleman who 4 months ago had thrombolytic therapy for an occluded fem distal bypass. Prior to that he had stenting of his right s uperficial femoral and popliteal arteries. Around 11 this morning he developed pain of his right lower extremity and foot. This came on suddenly. It got progressively worse. He did have numbness and tingling at that time in the foot. The pain still persists. He is on coumadin and is therapeutic. Allergies Allergy/AdvReac Type Severity Reaction Status Date / Time codeine Allergy Unknown Unknown Unverified 12/22/18 15:32 Home Medications Home Medications Medication Instructions Recorded Confirmed Type aspirin 81 mg PO QAM 08/20/18 12/22/18 History atorvastatin 80 mg PO HS 08/20/18 12/22/18 History lisinopril-hydrochlorothiazide 1 tab PO QAM 08/20/18 12/22/18 History warfarin 2 mg PO HS 12/22/18 12/22/18 History warfarin 2.5 mg PO HS 12/22/18 12/22/18 History Past Med/Surg History Medical History H/O: HTN (hypertension) (Chronic) HLD (hyperlipidemia) (Chronic) COPD (chronic obstructive pulmonary disease) CVA (cerebral vascular accident) Hernia PVD (peripheral vascular disease) Smoker Surgical History H/O vasectomy History of vascular surgery R SFA stent, six months ago Family History Other Family history non-contributory Social History Preferred Language: Zambian Communication Ability: Effective Beliefs That Will Affect Care: None Current Living Situation: Other Current Living Situation Comment: Senior Living; [facility] Feels Safe at Home: Yes Smoking Status: Former smoker Tobacco Type: cigarettes Hx Alcohol Use: No Hx Substance Use: No Review of Systems All systems reviewed & are unremarkable except as noted in HPI & below Physical Exam Neck: trachea midline Respiratory: normal respiratory effort, lungs clear to auscultation Cardiovascular: RRR, no murmur, no edema Vessels: femoral pulses present; + posterior tibial pulses abnormal (on right), + dorsalis pedis pulses abnormal (on right) and + popliteal pulses abnormal (on right) Extremities: + abnormal capillary refill (none) Gastrointestinal (Abdomen): normal bowel sounds, soft, nontender, no hepatosplenomegaly Skin: right foot mottled Neurologic: decreased sensation of right foot Psychiatric: A+Ox3, euthymic affect Principal Diagnosis 0 Discharge Exam Neck trachea midline Respiratory normal respiratory effort, lungs clear to auscultation Cardiovascular RRR, no murmur, no edema Vessels: femoral pulses present and posterior tibial pulses present; + dorsalis pedis pulses abnormal (on right) Gastrointestinal (Abdomen) normal bowel sounds, soft, nontender, no hepatosplenomegaly Psychiatric A+Ox3, euthymic affect Discharge Data Allergies Allergy/AdvReac Type Severity Reaction Status Date / Time codeine Allergy Unknown Unknown Verified 12/25/18 22:10 Consultations 12/22/18 19:05 Consult Abatement Worker Routine 12/22/18 20:32 Consult Case Management - Discharge Planning Routine Procedures Performed Operation Date: 12/22/18 16:30 Actual Procedures p Right Leg Open Thrombectomy(Right) - Robinson Huerta MD Ordered Studies 12/22/18 14:03 arterial duplex LE RT Stat Hospital Course (1) Femoral-popliteal bypass graft occlusion, right: Pt now s/p RLE fem-peroneal BPG open thrombectomy. This is the second thrombosis of his BPG in past 4 months. Current admission notes RLE graft thrombosis with INR of 2.2. D/T concern for future events, will have pt at increased INR range of 2.5-3.5 and also plan to initiate low dose xarelto therapy in addition. Pt expresses understanding. Currently, pt is stable and will transfer to med/surg. May be OOB per orders. Continue hep drip until discharge. Patient was seen, examined, and chart reviewed. Agree with exam and treatment plan of the Vascular PA. Total Time Total Time Spent Total Time Spent (In Minutes): unknown Discharge Plan Discharge Items Patient Disposition: Correctional Facility Reason For Visit: OCCLUDED RIGHT FEMORAL PERONEAL BYPASS Discharge Diagnosis: Thrombosed right femoral peroneal bypass Discharge Goals: Therapeutic intervention Activity: Per 'Additional Instructions' section Lifting: None Bathing: May shower/bathe in 3 days Exercise/Sports: Gradually increase as tolerated Weightbearing: Left weightbearing and Right weightbearing Non-emergency contact: Surgeon Call non-emergency contact if: you have any medication questions, your symptoms worsen, your pain is not controlled, your pain is worsening, your pain is unusual for you, your pain is concerning for you, your temperature is above 101.5, your wound has increased redness, your wound has increased drainage and your wound pain has increased Follow-up/Referrals: Hernesto SIN [Primary Care Provider] - Diet: Heart Healthy Addtl Provider Instructions: ACTIVITY RECOMMENDATIONS: See Above SPECIAL CARE INSTRUCTIONS: Call your doctor if: * Temperature above 101 degrees * Pain not relieved by pain medicine ordered * There is increased drainage or redness from any incision * You have any unanswered questions or concerns. Call [phone] to schedule a follow up appointment if one not already scheduled. Keep INR between 2.5 and 3.5 Start low dose Xarelto 2.5 bid Prescriptions: New Xarelto 2.5 mg tablet 2.5 mg PO BID Qty: 60 RF: 11 Continued warfarin 2.5 mg Tablet 2.5 mg PO HS RF: 0 warfarin 2 mg Tablet 2 mg PO HS RF: 0 atorvastatin 80 mg Tablet 80 mg PO HS RF: 0 aspirin 81 mg Tablet,Chewable 81 mg PO QAM RF: 0 lisinopril-hydrochlorothiazide 10-12.5 mg Tablet 1 tab PO QAM RF: 0 No Action acetaminophen [Tylenol Extra Strength] 500 mg Tablet 1,000 mg PO TID RF: 0 sodium chloride [Deep Sea Nasal] 0.65 % Aerosol,[place] 2 spray INTRANASAL QID PRN (Reason: Dry Nasal Passages) RF: 0 docusate sodium [Colace] 100 mg capsule 100 mg PO BID Qty: 20 RF: 0 Stand-Alone Forms: [facility], Opioid Pain Management Discharge Orders: Discharge Order (Routine); Ordered 12/24/18 Ordered By: Robinson Huerta Admission Data Admit Date/Time: 12/22/18 19:05 Attending Provider: Robinson Huerta Admit Provider: Robinson Huerta Primary Care Provider: Hernesto SIN Other Providers: Fabian Valdez Service: Surgical Services Other Interventions: Discharge Summary Assessment (RN) Last Done: 12/24/18 11:22 DC Date/Time DO NOT enter until pt leaves facility: 12/24/18 13:38
== END 2018-12-24 13:38 | DRG 254 ==
LOC: ED 13:13 → OR 16:43 → 1E 19:05 → 3N 12-23 10:05

== ENCOUNTER 2018-12-25 21:06 | Observation (INO) ==
[2018-12-25 21:48] LABS: INR 2.6 (0.9-1.1); Partial Thromboplastin Ratio 1.3; Partial Thromboplastin Time 36.3 Seconds (21.0-31.0); Prothrombin Time 25.1 Seconds (9.0-12.0)
[2018-12-25 22:02] LABS: BUN Creatinine Ratio 33.2 (10-20); Calcium 8.7 mg/dl (8.5-10.1); Creatinine Clr Calc Pharmacy 55.1 ml/min; Est GFR (African American) 56.4; Est GFR (Non-African American) 48.7
[2018-12-25 22:16] LABS: Basophils # (auto) 0.01 K/uL (0-0.2); Basophils % (auto) 0.1 %; Eosinophils # (auto) 0.15 K/uL (0-0.5); Eosinophils % (auto) 1.4 %; Hematocrit (blood only) 26.9 % (42-52); Hemoglobin 9.2 g/dL (14.0-18.0); Immature Granulocytes # (auto) 0.03 K/uL (0.00-0.02); Immature Granulocytes % (auto) 0.3 %; Lymphocytes % (auto) 21.8 %; Mean Corpuscular Hgb Conc 34.2 g/dL (32-36); Mean Corpuscular Volume 92.1 fL (80-100); Mean Platelet Volume 10.3 fL (7.4-10.4); Monocytes # (auto) 1.67 K/uL (0.11-0.59); Monocytes % (auto) 15.9 %; Neutrophils # (auto) 6.37 K/uL (1.4-6.5); Neutrophils % (auto) 60.5 %; Platelet Count 231 K/uL (130-400); RDW Coefficient of Variation 13.8 % (11.5-14.5); RDW Standard Deviation 46.3 fL (36.4-46.3); Red Blood Count 2.92 M/uL (4.7-6.1); White Blood Count 10.53 K/uL (4.8-10.8)
[2018-12-26] MEDS ORDERED: OXYCODONE/ACETAMINOPHEN 5mg/325mg TAB PO PRN (00:07)
[2018-12-26] MEDS ORDERED: ACETAMINOPHEN 500 MG TAB PO PRN (00:08)
[2018-12-26] MEDS ORDERED: SODIUM CHLORIDE 0.65% NA SOLN 45 ML (OCEAN) PRN (00:13)
--- NOTE | 2018-12-26 01:50 | Emergency Department Note ---
Entered by Kvng Arthur acting as a scribe for Migel Boudreaux DO History of Present Illness General Chief complaint: Bleeding Stated complaint: BLEEDING FROM SURGERY SITE Source: patient Limitations: no limitations History of Present Illness Onset (ago): day(s) 2 Location: right (leg) Pain Consistency: + constant and + intermittent Maximum Pain Intensity: 3 Quality: + other (leaking blood) Associated symptoms: + other (right foot numbness) The patient is a 68 white male w/ PMHx COPD, HLD, and HTN who presents to the ED w/ CC of constant bleeding stemming from a wound on the right leg beginning 2 days ago. The patient states he had a bypass surgery done 2 months ago. He states he had a surgery done 4 days ago that cleared out some blood clots. He states 2 days ago he felt something pop in his leg and then it started leaking blood. He notes it has not gotten any better. He notes he has little numbness in his right foot. He notes he was on a heparin drip but has recently stopped that. No other exacerbating or remitting factors. No tingling or numbness. Home Medications Home Medications Medication Instructions Recorded Confirmed Type aspirin 81 mg PO QAM 08/20/18 12/25/18 History atorvastatin 80 mg PO HS 08/20/18 12/25/18 History lisinopril-hydrochlorothiazide 1 tab PO QAM 08/20/18 12/25/18 History warfarin 2 mg PO HS 12/22/18 12/25/18 History warfarin 2.5 mg PO HS 12/22/18 12/25/18 History rivaroxaban [Xarelto] 2.5 mg PO BID #60 tab 12/24/18 12/25/18 Rx acetaminophen [Tylenol Extra 1,000 mg PO TID 12/25/18 12/25/18 History Strength] sodium chloride [Deep Sea Nasal] 2 spray INTRANASAL QID PRN 12/25/18 12/25/18 History Allergies Allergy/AdvReac Type Severity Reaction Status Date / Time codeine Allergy Unknown Unknown Verified 12/25/18 22:10 Past Med/Surg History Medical History H/O: HTN (hypertension) (Chronic) HLD (hyperlipidemia) (Chronic) COPD (chronic obstructive pulmonary disease) CVA (cerebral vascular accident) Hernia PVD (peripheral vascular disease) Smoker Surgical History H/O vasectomy History of vascular surgery R SFA stent, six months ago Right leg thrombectomy, fem-pop. 08/2018. GETA with a-line. Family History Other Family history non-contributory Social History Preferred Language: [place] Citizen Communication Ability: Effective Beliefs That Will Affect Care: None Current Living Situation: Other Current Living Situation Comment: [facility] Feels Safe at Home: Yes Smoking Status: Former smoker Tobacco Type: cigarettes Second Hand Exposure: No Hx Alcohol Use: No Hx Substance Use: No Review of Systems See HPI for pertinent positives & negatives. and A total of 10 systems reviewed and were otherwise negative Physical Exam Vital Signs Vital Signs - 24 hr 12/25/18 21:13 12/25/18 22:35 Temperature 37.2 C Temperature Source Oral Sepsis Recent Fever Within 48 Hours No Sepsis Action Taken by Nursing No Action Required Pulse Rate 95 H Pulse Rate [Right] 84 Pulse Rhythm Regular Pulse Rhythm [Right] Regular Pulse Strength Normal Pulse Strength [Right] Normal Respiratory Rate 18 16 Respiratory Effort / Characteristics Non-Labored Spontaneous Non-Labored Spontaneous Respiratory Depth Normal Normal Blood Pressure 94/72 L Blood Pressure [Right Arm] 125/78 Blood Pressure Mean 79 Blood Pressure Mean [Right Arm] 93 Blood Pressure Position Lying Blood Pressure Position [Right Arm] Sitting Pulse Oximetry 95 98 Oxygen Delivery Method Room Air Room Air GENERAL: alert, well nourished, non-toxic. Sitting up in bed. In long-term [facility] EYE EXAM: normal conjunctiva OROPHARYNX: no exudate, no erythema, lips, buccal mucosa, and tongue normal and mucous membranes are moist NECK: supple, no nuchal rigidity, no adenopathy, non-tender LUNGS: Clear to auscultation. Normal chest wall mechanics HEART: no murmurs, S1 normal and S2 normal ABDOMEN: abdomen soft, non-tender, normo-active bowel sounds, no masses, no rebound or guarding. BACK: Back is symmetrical on inspection and there is no deformity, no midline tenderness, no CVA tenderness. SKIN: no rashes and no bruising UPPER EXTREMITIES: upper extremities are grossly normal. LOWER EXTREMITIES: No pitting edema. Right groin incision with bruising, clean, dry, and intact. Uehling present. Right mid calf has persistent venous oozing with axel in place and surrounding bruising. DP and PT 2/4. Gross sensation intact. NEURO EXAM: Normal sensorium, cranial nerves II-XII grossly intact, normal speech, no gross weakness of arms, no gross weakness of legs. Course ED COURSE: Vital signs were reviewed. Vitals are normal. The patients medical record was reviewed The above diagnostic studies were performed and reviewed. ED treatments and interventions as stated above. 2135: The patient was evaluated in room C7. A complete history and physical examination was performed. 2235: I reevaluated the patient. He is still having blood come out the wound site. 2241: I discussed the patient's case with Dr. Huerta - Vascular Surgery. He will evaluate the patient for further management 2248: Upon reevaluation, the patient is getting admitted. I discussed my findings with the patient and he understands and agrees with the treatment plan. Based on the patients age, coexisting illnesses, exam and lab findings the decision to treat as an inpatient was made. The patient remained stable while under my care. The patient will be evaluated for further management. Administered Medications Acetaminophen (Tylenol) 1,000 mg PO TID PRN PRN Reason: Pain Stop: 01/25/19 00:07 Last Admin: 12/26/18 01:09 Dose: 1,000 mg Documented by: [id number] Medical Decision Making Differential Diagnosis Differential diagnosis includes etiologies such as cellulitis, abscess, MRSA infection, DVT, necrotizing fasciitis, dermatitis, drug eruption, as well as others were entertained. Medical Records Attestation: I reviewed the patient's medical records. Home Medications Current Medication List: was personally reviewed by me Laboratory Data Attestation: I reviewed the patient's lab results. Result diagrams: 12/25/18 21:17 12/25/18 21: Lab Results 12/25/18 12/25/18 12/25/18 Range/Units 21:17 21: 21: WBC 10.53 (4.8-10.8) K/uL RBC 2.92 L (4.7-6.1) M/uL Hgb 9.2 L (14.0-18.0) g/dL Hct 26.9 L (42-52) % MCV 92.1 (80-100) fL MCH 31.5 (25-34) pg MCHC 34.2 (32-36) g/dL RDW Std Deviation 46.3 (36.4-46.3) fL RDW Coeff of Rinku 13.8 (11.5-14.5) % Plt Count 231 (130-400) K/uL MPV 10.3 (7.4-10.4) fL Immature Gran % (Auto) 0.3 % Neut % (Auto) 60.5 % Lymph % (Auto) 21.8 % [place] % (Auto) 15.9 % Eos % (Auto) 1.4 % Baso % (Auto) 0.1 % Immature Gran # (Auto) 0.03 H (0.00-0.02) K/uL Neut # (Auto) 6.37 (1.4-6.5) K/uL Lymph # (Auto) 2.30 (1.2-3.4) K/uL [place] # (Auto) 1.67 H (0.11-0.59) K/uL Eos # (Auto) 0.15 (0-0.5) K/uL Baso # (Auto) 0.01 (0-0.2) K/uL PT 25.1 H (9.0-12.0) Seconds INR 2.6 H (0.9-1.1) APTT 36.3 H (21.0-31.0) Seconds PTT Ratio 1.3 Sodium 137 (136-145) mmol/L Potassium 4.0 (3.5-5.1) mmol/L Chloride 104 (98-107) mmol/L Carbon Dioxide 26 (21-32) mmol/L Anion Gap 7.0 (3-11) BUN 49 H (7-18) mg/dl Creatinine 1.47 H (0.6-1.4) mg/dl Est Cr Clr Drug Dosing 55.1 ml/min Est GFR ( Amer) 56.4 Est GFR (Non-Af Amer) 48.7 BUN/Creatinine Ratio 33.2 H (10-20) Glucose 125 H (70-99) mg/dl Calcium 8.7 (8.5-10.1) mg/dl Blood Pressure Blood Pressure Findings: Normal blood pressure Blood Pressure Disposition: further management by hospitalist ANTELMO Narrative Patient is a 68-year-old male status postop Right Leg Open Thrombectomy of femoral peroneal bypass by Dr. Huerta. This occurred on . He has had persistent bleeding from the right mid calf. Labs were obtained and showed no significant leukocytosis. Hemoglobin was 9.2 down from 13. INR therapeutic at 2.3. BMP with a creatinine 1.47. Pulses were intact. Following blood work 2 separate dressings which soaked through. Discussed with Dr. Huerta who recommended Otoniel wrap and instructed nursing to perform this. He notes he will admit the patient and monitor overnight. Patient was updated bedside. Patient was given IV fluids. Resting comfortably on the ER. Impression & Plan Post-op bleeding, Anemia, Anticoagulated Discharge Plan Visit Data *Final* Discharge Date/Time: 12/25/18 23:27 Chief Complaint: Bleeding Stated Complaint: BLEEDING FROM SURGERY SITE ED Provider: Migel Boudreaux Discharge Problem: Post-op bleeding, Anemia, Anticoagulated Patient Disposition: Being Evaluated by Surgeon Discharge Instructions Interventions: ED Discharge Assessment Last Done: 12/25/18 23:27 Discharge Problem: Post-op bleeding Qualifiers: Surgical complication system/body Area: circulatory system Procedure type: circulatory, unspecified Qualified Code(s): I97.618 - Postprocedural hemorrhage of a circulatory system organ or structure following other circulatory system procedure Anemia Qualifiers: Anemia type: unspecified type Qualified Code(s): D64.9 - Anemia, unspecified The scribe's documentation has been prepared under my direction and personally reviewed by me in its entirety. I confirm that the note above accurately reflects all work, treatment, procedures, and medical decision making performed by me.
[2018-12-26 07:35] LABS: Hematocrit (blood only) 25.7 % (42-52); Hemoglobin 8.7 g/dL (14.0-18.0)
[2018-12-26 07:48] LABS: INR 2.8 (0.9-1.1); Prothrombin Time 26.3 Seconds (9.0-12.0)
[2018-12-26] MEDS ORDERED: ASPIRIN 81 MG CHEW PO SCH (09:00)
[2018-12-26] MEDS ORDERED: LISINOPRIL/HCTZ 10/12.5MG TAB PO SCH (09:00)
[2018-12-26] MEDS ORDERED: RIVAROXABAN 2.5 MG TAB PO SCH (09:00)
[2018-12-26] MEDS ORDERED: BISACODYL 10 MG SUPP PR ONE (09:31)
--- NOTE | 2018-12-26 09:46 | History & Physical Report ---
Date of Service December 26, 2018 Assessment & Plan (1) Post-op bleeding: Will order arterial non invasives. Can be d/c later today if study normal. Continue dressing changes. Procedure type: circulatory, unspecified Surgical complication system/body Area: circulatory system Qualified Code(s): I97.618 - Postprocedural hemorrhage of a circulatory system organ or structure following other circulatory system procedure History of Present Illness Primary Care Provider: [facility] History of Present Illness Chief Complaint: Post thrombectomy right leg bypass with post op bleeding Primary Care Provider: [facility] This is a 68-year-old gentleman who 4 months ago had thrombolytic therapy for an occluded fem distal bypass. Prior to that he had stenting of his right superficial femoral and popliteal arteries. He came in on december 22 with severe ischemia of the leg with an occluded bypass. He underwent open thrombectomy. He was D/C on POD 3. He returned last pm with bleeding from the lower incision. He had bleed from the lower incision while in the hospital when he got out of bed. He did have a hematoma of both incisions post op. The blood was dark in color. He is on coumadin and low dose xarelto. Allergies Allergy/AdvReac Type Severity Reaction Status Date / Time codeine Allergy Unknown Unknown Verified 12/25/18 22:10 Home Medications Home Medications Medication Instructions Recorded Confirmed Type aspirin 81 mg PO QAM 08/20/18 12/25/18 History atorvastatin 80 mg PO HS 08/20/18 12/25/18 History lisinopril-hydrochlorothiazide 1 tab PO QAM 08/20/18 12/25/18 History warfarin 2 mg PO HS 12/22/18 12/25/18 History warfarin 2.5 mg PO HS 12/22/18 12/25/18 History rivaroxaban [Xarelto] 2.5 mg PO BID #60 tab 12/24/18 12/25/18 Rx acetaminophen [Tylenol Extra 1,000 mg PO TID 12/25/18 12/25/18 History Strength] sodium chloride [Deep Sea Nasal] 2 spray INTRANASAL QID PRN 12/25/18 12/25/18 History Past Med/Surg History Medical History H/O: HTN (hypertension) (Chronic) HLD (hyperlipidemia) (Chronic) COPD (chronic obstructive pulmonary disease) CVA (cerebral vascular accident) Hernia PVD (peripheral vascular disease) Smoker Surgical History H/O vasectomy History of vascular surgery R SFA stent, six months ago Right leg thrombectomy, fem-pop. 08/2018. GETA with a-line. Family History Other Family history non-contributory Social History Preferred Language: Romanian Communication Ability: Effective Beliefs That Will Affect Care: None Current Living Situation: Other Current Living Situation Comment: [facility] Feels Safe at Home: Yes Smoking Status: Former smoker Tobacco Type: cigarettes Second Hand Exposure: No Hx Alcohol Use: No Hx Substance Use: No Review of Systems All systems reviewed & are unremarkable except as noted in HPI & below Physical Exam Constitutional: WD/WN, vitals as above Respiratory: normal respiratory effort, lungs clear to auscultation Cardiovascular: RRR, no murmur, no edema Extremities: normal capillary refill and + edema (mild left lower extremity) Gastrointestinal (Abdomen): normal bowel sounds, soft, nontender, no hepatosplenomegaly Skin: no rashes, warm and dry + incision (minimal bleeding from lower leg incision of very dark blood. ) no expanding hematoma noted. Neurologic: CN's II-XI intact bilaterally, normal sensation to monofilament and moves all extremities; no focal motor deficits Psychiatric: A+Ox3, euthymic affect Results & Data Vital Signs (Past 12 Hours) Vital Signs Temp Pulse Pulse Resp BP BP Pulse Ox 12/26/18 06:55 36.7 C 88 20 121/78 94 12/25/18 23:27 84 16 125/75 98 12/25/18 22:35 84 16 125/78 98
[2018-12-26] MEDS ORDERED: DOCUSATE SODIUM 100 MG CAP PO SCH (10:00)
--- NOTE | 2018-12-26 10:10 | Discharge Summary ---
Date of Service December 26, 2018 Admission HPI Per Admitting Provider This is a 68-year-old gentleman who 4 months ago had thrombolytic therapy for an occluded fem distal bypass. Prior to that he had stenting of his right superficial femoral and popliteal arteries. Around 11 this morning he developed pain of his right lower extremity and foot. This came on suddenly. It got progressively worse. He did have numbness and tingling at that time in the foot. The pain still persists. He is on coumadin and is therapeutic. Admission Exam Per Admitting Provider Neck: trachea midline Respiratory: normal respiratory effort, lungs clear to auscultation Cardiovascular: RRR, no murmur, no edema Vessels: femoral pulses present; + posterior tibial pulses abnormal (on right), + dorsalis pedis pulses abnormal (on right) and + popliteal pulses abnormal (on right) Extremities: + abnormal capillary refill (none) Gastrointestinal (Abdomen): normal bowel sounds, soft, nontender, no hepatosplenomegaly Skin: right foot mottled Neurologic: decreased sensation of right foot Psychiatric: A+Ox3, euthymic affect Principal Diagnosis 1.s/p RLE open thrombectomy of bPG 2. Occluded RLE Fem-distal BPG 3. RLE ischemia Discharge Exam Constitutional WD/WN, vitals as above well developed, well nourished, cooperative and comfortable; not in distress Respiratory normal respiratory effort, lungs clear to auscultation Cardiovascular Rate/Rhythm: regular rate and regular rhythm Vessels: femoral pulses present, posterior tibial pulses present and dorsalis p geovanni pulses present Extremities: normal capillary refill and + edema (RLE) Gastrointestinal (Abdomen) normal bowel sounds, soft, nontender, no hepatosplenomegaly Musculoskeletal no cyanosis or clubbing, extremities motor strength 5/5 Skin no rashes, warm and dry Neurologic awake; no focal motor deficits and not confused Psychiatric A+Ox3, euthymic affect Affect: euthymic affect Discharge Data Allergies Allergy/AdvReac Type Severity Reaction Status Date / Time codeine Allergy Unknown Unknown Verified 12/25/18 22:10 Consultations 12/25/18 22:46 ED Decision to Admit Stat Ordered Studies 12/26/18 09:28 US arterial duplex LE RT Routine Hospital Course (1) Limb ischemia: His bypass of his right lower extremity is patent. His foot is viable with no pain. POD #3 [facility]. We will keep his INR between 2-1/2-3-1/2 and start him on low-dose Xarelto. Total Time Total Time Spent Total Time Spent (In Minutes): 15 minutes Total Time Includes: Examination of the Patient, Discharge Planning and Medication Reconciliation Discharge Plan Discharge Items [facility] Disposition: [facility] Reason For Visit: POST OP HEMATOMA Discharge Diagnosis: Post operative wound bleeding Discharge Goals: Therapeutic intervention Activity: Per 'Additional Instructions' section Lifting: No more than 25 pounds Bathing: May shower/bathe in 3 days Exercise/Sports: Gradually increase as tolerated Driving/Machine Use: Resume 3 days after discharge Weightbearing: Left weightbearing and Right weightbearing Non-emergency contact: Surgeon Call non-emergency contact if: you have any medication questions, your symptoms worsen, your pain is not controlled, your pain is worsening, your pain is unusual for you, your pain is concerning for you, your temperature is above 101.5, your wound has increased redness, your wound has increased drainage and your wound pain has increased Follow-up/Referrals: Hernesto SIN [Primary Care Provider] - Diet: Heart Healthy Add Provider Instructions: ACTIVITY RECOMMENDATIONS: See Above SPECIAL CARE INSTRUCTIONS: Call your doctor if: * Temperature above 101 degrees * Pain not relieved by pain medicine ordered * There is increased drainage or redness from any incision * You have any unanswered questions or concerns. Call [phone] to schedule a follow up appointment if one not already scheduled. Prescriptions: New docusate sodium [Colace] 100 mg capsule 100 mg PO BID Qty: 20 RF: 0 Continued warfarin 2.5 mg Tablet 2.5 mg PO HS RF: 0 warfarin 2 mg Tablet 2 mg PO HS RF: 0 Xarelto 2.5 mg tablet 2.5 mg PO BID Qty: 60 RF: 11 acetaminophen [Tylenol Extra Strength] 500 mg Tablet 1,000 mg PO TID RF: 0 sodium chloride [Deep Sea Nasal] 0.65 % Aerosol,Evarts 2 spray INTRANASAL QID PRN (Reason: Dry Nasal Passages) RF: 0 atorvastatin 80 mg Tablet 80 mg PO HS RF: 0 aspirin 81 mg Tablet,Chewable 81 mg PO QAM RF: 0 lisinopril-hydrochlorothiazide 10-12.5 mg Tablet 1 tab PO QAM RF: 0 Stand-Alone Forms: My [facility] Admission Data Admit Date/Time: 12/25/18 22:51 Attending Provider: Robinson Huerta Admit Provider: Robinson Huerta Primary Care Provider: Hernesto SIN Other Providers: Robinson Huerta Service: Surgical Services
--- NOTE | 2018-12-26 12:07 | Ultrasound Report ---
US arterial duplex LE RT CLINICAL HISTORY: 68 years-old Male presenting with RLE BPG, lower leg hematoma. TECHNIQUE: Real-time grayscale and color and spectral Doppler ultrasound imaging of the right lower e xtremity arteries was performed. Measurements calculated based on NASCET criteria. COMPARISON: 12/22/2018. FINDINGS: RIGHT: Common femoral artery: Patent. Monophasic waveforms. Peak systolic velocity (PSV) 80-109 cm/s. Deep femoral artery: Patent. Triphasic waveforms. PSV 86 cm/s. Superficial femoral artery: Patent. Monophasic waveforms. PSV 55-84 cm/s proximally, PSV 61-81 cm/s i n the midportion, and PSV 39-64 cm/s distally. Popliteal artery: Patent. Monophasic waveforms. PSV 53-71 cm/s. Anterior tibial artery: Patent. Monophasic waveforms. PSV 24-54 cm/s. Posterior tibial artery: Not well visualized. Peroneal artery: Patent. Monophasic waveforms. PSV 49-50 cm/s. Dorsalis pedis: Patent. Monophasic waveforms. PSV 59-70 cm/s. Other: Extensive hypoechoic collection extending from the right groin to the calf and surrounding the traversing artery. The collection is avascular. This measures 7.3 x 4.0 cm in maximal axial dimensio n. IMPRESSION: 1. Extensive lower extremity hematoma. 2. Patent right lower extremity vessels to the level of the dorsalis pedis. Electronically signed by: Gunnar Medellin M.D. 12/26/2018 12:06 PM
[2018-12-26] MEDS ORDERED: BISACODYL 5 MG TABEC PO ONE (12:15)
[2018-12-26] MEDS ORDERED: WARFARIN SOD 2.5 MG TAB PO SCH (16:00)
[2018-12-26] MEDS ORDERED: WARFARIN SOD 2 MG TAB PO SCH (16:00)
[2018-12-26] MEDS ORDERED: ATORVASTATIN 40 MG TAB PO SCH (21:00)
--- NOTE | 2018-12-27 13:12 | Discharge Summary ---
Date of Service December 27, 2018 Admission HPI Per Admitting Provider 68-year-old gentleman who 4 months ago had thrombolytic therapy for an occluded fem distal bypass. Prior to that he had stenting of his right superficial femoral and popliteal arteries. He was noted to have occlusion of his fem- distal BPG and underwent open thrombectomy last week. He was d/c on POD #3. The following day, medical personnel became concerned about the amount of bleeding from his distal incision and sent him to [facility] ED for eval. Pt was admitted for observation. Pt admits post surgical pain and edema of RLE. Denies [place]O, fever, chills, chest pain, abd pain, N/V, rest pain, other complaints. Admission Exam Per Admitting Provider Constitutional: WD/WN, vitals as above Respiratory: normal respiratory effort, lungs clear to auscultation Cardiovascular: RRR, no murmur, no edema Extremities: normal capillary refill and + edema (mild left lower extremity) Gastrointestinal (Abdomen): normal bowel sounds, soft, nontender, no hepatosplenomegaly Skin: no rashes, warm and dry + incision (minimal bleeding from lower leg incision of very dark blood. ) no expanding hematoma noted. Neurologic: CN's II-XI intact bilaterally, normal sensation to monofilament and moves all extremities; no focal motor deficits Psychiatric: A+Ox3, euthymic affect Principal Diagnosis 1. Post-op bleeding 2. s/p RLE open thromebctomy of fem-distal BPG Discharge Exam Constitutional WD/WN, vitals as above well developed, well nourished, cooperative and comfortable; not in distress Respiratory normal respiratory effort, lungs clear to auscultation Cardiovascular Rate/Rhythm: regular rate and regular rhythm Vessels: femoral pulses present, posterior tibial pulses present and dorsalis pedis pulses present Extremities: normal capillary refill and + edema (RLE) Gastrointestinal (Abdomen) normal bowel sounds, soft, nontender, no hepatosplenomegaly Musculoskeletal no cyanosis or clubbing, extremities motor strength 5/5 Skin no rashes, warm and dry Neurologic awake; no focal motor deficits and not confused Psychiatric A+Ox3, euthymic affect Affect: euthymic affect Discharge Data Allergies Allergy/AdvReac Type Severity Reaction Status Date / Time codeine Allergy Unknown Unknown Verified 12/25/18 22:10 Consultations 12/25/18 22:46 ED Decision to Admit Stat Ordered Studies 12/26/18 09:28 US arterial duplex LE RT Routine Hospital Course (1) Post-op bleeding: Arterial US ordered to eval for active bleeding from surgical sites and possible pseudoaneurysm. No abnormal bleeding was noted. Post op bleeding felt to be hematoma d/t recent surgery and full anticoagulation. Recommended continuing dressing changes and follow up outpt. Total Time Total Time Spent Total Time Spent (In Minutes): 15 minutes Total Time Includes: Examination of the Patient, Discharge Planning and Medication Reconciliation Discharge Plan Discharge Items Patient Disposition: [facility] Reason For Visit: POST OP HEMATOMA Discharge Diagnosis: Post operative wound bleeding Discharge Goals: Therapeutic intervention Activity: Per 'Additional Instructions' section Lifting: No more than 25 pounds Bathing: May shower/bathe in 3 days Exercise/Sports: Gradually increase as tolerated Driving/Machine Use: Resume 3 days after discharge Weightbearing: Left weightbearing and Right weightbearing Non-emergency contact: Surgeon Call non-emergency contact if: you have any medication questions, your symptoms worsen, your pain is not controlled, your pain is worsening, your pain is unusual for you, your pain is concerning for you, your temperature is above 101.5, your wound has increased redness, your wound has increased drainage and your wound pain has increased Follow-up/Referrals: Hernesto SIN [Primary Care Provider] - Diet: Heart Healthy Addtl Provider Instructions: ACTIVITY RECOMMENDATIONS: See Above SPECIAL CARE INSTRUCTIONS: Call your doctor if: * Temperature above 101 degrees * Pain not relieved by pain medicine ordered * There is increased drainage or redness from any incision * You have any unanswered questions or concerns. Call [phone] to schedule a follow up appointment if one not already scheduled. Prescriptions: New docusate sodium [Colace] 100 mg capsule 100 mg PO BID Qty: 20 RF: 0 Continued warfarin 2.5 mg Tablet 2.5 mg PO HS RF: 0 warfarin 2 mg Tablet 2 mg PO HS RF: 0 Xarelto 2.5 mg tablet 2.5 mg PO BID Qty: 60 RF: 11 acetaminophen [Tylenol Extra Strength] 500 mg Tablet 1,000 mg PO TID RF: 0 sodium chloride [Deep Sea Nasal] 0.65 % Aerosol,[place] 2 spray INTRANASAL QID PRN (Reason: Dry Nasal Passages) RF: 0 atorvastatin 80 mg Tablet 80 mg PO HS RF: 0 aspirin 81 mg Tablet,Chewable 81 mg PO QAM RF: 0 lisinopril-hydrochlorothiazide 10-12.5 mg Tablet 1 tab PO QAM RF: 0 Stand-Alone Forms: [employer] [facility] [employer]/Other Patient Handouts: Coumadin, DVT Prevent Admission Data Admit Date/Time: 12/25/18 22:51 Attending Provider: Robinson Huerta Admit Provider: Robinson Huerta Primary Care Provider: Hernesto SIN Other Providers: Robinson Huerta Service: Surgical Services Other Interventions: Discharge Summary Assessment (RN) Last Done: 12/26/18 13:41 DC Date/Time DO NOT enter until pt leaves facility: 12/26/18 15:15
== END 2018-12-26 15:15 ==
LOC: ED 21:06 → 3W 22:51 → INTOOBSV 22:51 → 3W 23:27

== ENCOUNTER 2019-01-25 10:24 | Inpatient (IN) ==
--- NOTE | 2019-01-23 13:49 | Anesthesiology Consultation ---
Date of Service January 23, 2019 Assessment & Plan (1) Encounter for pre-operative examination: Chart Review Chart Review: Acceptable Risk for Surgery and Patient NOT seen in Pre Admission Testing Consults Requested none History Surgery Operation Date: 01/25/19 12:00 Proposed Procedures p Right Leg Evacuation Hematoma, Possible Wound Vac - Robinson Huerta MD Height/Weight Height: 6 ft 1 in Weight: 84.822 kg Allergies Allergy/AdvReac Type Severity Reaction Status Date / Time codeine Allergy Unknown Unknown Verified 01/19/19 16:34 Medications Home Medications Medication Instructions Recorded Confirmed Last Taken aspirin 81 mg PO QAM 08/20/18 01/19/19 12/25/18 atorvastatin 80 mg PO HS 08/20/18 01/19/19 12/25/18 lisinopril-hydrochlorothiazide 1 tab PO QAM 08/20/18 01/19/19 12/25/18 warfarin 2 mg PO HS 12/22/18 01/19/19 12/25/18 warfarin 2.5 mg PO HS 12/22/18 01/19/19 12/25/18 acetaminophen [Tylenol Extra 1,000 mg PO TID 12/25/18 01/19/19 12/25/18 Strength] sodium chloride [Deep Sea Nasal] 2 spray INTRANASAL QID PRN 12/25/18 01/19/19 Unknown docusate sodium 250 mg PO BID 01/19/19 01/19/19 Unknown Past Medical History Medical History HLD (hyperlipidemia) (Chronic) COPD (chronic obstructive pulmonary disease) CVA (cerebral vascular accident) HTN (hypertension) Hernia PVD (peripheral vascular disease) Smoker Past Family History Family History Other Family history non-contributory Past Surgical History Surgical History H/O vasectomy History of femoropopliteal bypass Rt History of surgery History of vascular surgery R SFA stent, Right leg thrombectomy, fem-pop. 08/2018. GETA with a-line. Right leg open thrombectomy 12/22/2018 [facility] Social History Smoking Status: Former smoker tobacco type: cigarettes Hx Alcohol Use: No Hx Substance Use: No Testing Laboratory Results Laboratory Tests 12/25/18 12/25/18 12/25/18 21:17 21:17 21:17 WBC 10.53 Hgb Plt Count 231 PT INR APTT 36.3 H Sodium 137 Potassium 4.0 Chloride 104 Carbon Dioxide 26 BUN 49 H Creatinine 1.47 H Glucose 125 H 12/26/18 12/26/18 06:55 06:55 WBC Hgb 8.7 L Plt Count PT 26.3 H INR 2.8 H APTT Sodium Potassium Chloride Carbon Dioxide BUN Creatinine Glucose Electrocardiogram Date: 08/20/18 Normal sinus rhythm with sinus arrhythmia, rate 70 bpm Normal ECG No previous ECGs available Confirmed by YENNY CHILDERS ([id number]) on 08/21/2018 8:18:23 PM Chest X-Ray Date: 01/18/19 Findings: + NAD
[~2019-01-25 10:24] MED LIST: CEFAZOLIN 2000MG 2,000 MG/15 ML SYR IV SCH; LR 15ML/HR IV SCH
[2019-01-25] MEDS ORDERED: ATROPINE SULFATE 0.1 MG/ML 10ML SYR IV PRN (10:52)
[2019-01-25] MEDS ORDERED: ePHEDrine sulfate 50 MG/ML AMP IV PRN (10:52)
[2019-01-25] MEDS ORDERED: ONDANSETRON INJ 2 MG/ML 2 ML VIAL IV PRN ×2 (10:52→14:16)
[2019-01-25 11:10] LABS: Hematocrit (blood only) 36.7 % (42-52); Hemoglobin 12.3 g/dL (14.0-18.0); Mean Corpuscular Volume 93.9 fL (80-100); Mean Platelet Volume 9.4 fL (7.4-10.4); Platelet Count 309 K/uL (130-400); RDW Coefficient of Variation 14.3 % (11.5-14.5); RDW Standard Deviation 48.9 fL (36.4-46.3); Red Blood Count 3.91 M/uL (4.7-6.1); White Blood Count 7.76 K/uL (4.8-10.8)
[2019-01-25] MEDS: LACTATED RINGER'S 1,000 ML IV SCH ×2 (11:11→21:03)
[2019-01-25 11:19] LABS: Mean Corpuscular Hgb Conc 33.5 g/dL (32-36)
[2019-01-25 11:21] LABS: INR 1.8 (0.9-1.1); Partial Thromboplastin Ratio 1.1; Partial Thromboplastin Time 30.2 Seconds (21.0-31.0)
--- NOTE | 2019-01-25 11:22 | History & Physical Report ---
Date of Service January 25, 2019 History of Present Illness Primary Care Provider: MERRICK Eric Assessment & Plan (1) Femoral-popliteal bypass graft thrombectomy with post op hematoma Patient for evacuation of hematomas of right lower extremity. I have discussed the risks options and benefits of the procedure with the patient. The patient understands the risks options and benefits and agrees to the procedure. History of Present Illness Chief Complaint: Hematoma right leg incisions Primary Care Provider: MERRICK Eric This is a 68-year-old gentleman who 4 months ago had thrombolytic therapy for an occluded fem distal bypass. Prior to that he had stenting of his right superficial femoral and popliteal arteries. He underwent another thrombectomy last month and now developed hematoma of the incisions of the right leg due to the need of anticoagulation. Physical Exam Neck: trachea midline Respiratory: normal respiratory effort, lungs clear to auscultation Cardiovascular: RRR, no murmur, no edema Vessels: femoral pulses present; + posterior tibial pulses (on right), Extremities: normal capillary refill (none) Extremities: right leg has two large hematomas of the incisions with the lower one draining through a small open area Gastrointestinal (Abdomen): normal bowel sounds, soft, nontender, no hepatosplenomegaly Skin: right foot mottled Neurologic: decreased sensation of right foot Psychiatric: A+Ox3, euthymic affect Allergies Allergy/AdvReac Type Severity Reaction Status Date / Time codeine Allergy Unknown Unknown Verified 01/25/19 10:53 Home Medications Home Medications Medication Instructions Recorded Confirmed Type aspirin 81 mg PO QAM 08/20/18 01/25/19 History atorvastatin 80 mg PO HS 08/20/18 01/25/19 History lisinopril-hydrochlorothiazide 1 tab PO QAM 08/20/18 01/25/19 History warfarin 2 mg PO HS 12/22/18 01/19/19 History warfarin 2.5 mg PO HS 12/22/18 01/19/19 History acetaminophen [Tylenol Extra 1,000 mg PO TID 12/25/18 01/25/19 History Strength] sodium chloride [Deep Sea Nasal] 2 spray INTRANASAL QID PRN 12/25/18 01/25/19 History docusate sodium 250 mg PO BID 01/19/19 01/19/19 History Past Med/Surg History Medical History HLD (hyperlipidemia) (Chronic) COPD (chronic obstructive pulmonary disease) CVA (cerebral vascular accident) HTN (hypertension) Hernia PVD (peripheral vascular disease) Smoker Surgical History H/O vasectomy History of femoropopliteal bypass Rt History of surgery History of vascular surgery R SFA stent, Right leg thrombectomy, fem-pop. 08/2018. GETA with a-line. Right leg open thrombectomy 12/22/2018 [facility] Family History Other Family history non-contributory Social History Preferred Language: Azerbaijani Communication Ability: Effective Bread Racker Required: No Beliefs That Will Affect Care: None Current Living Situation: Other Current Living Situation Comment: [facility] Smoking Status: Former smoker Tobacco Type: cigarettes ; Second Hand Exposure: No ; Hx Alcohol Use: No Hx Substance Use: No Review of Systems All systems reviewed & are unremarkable except as noted in HPI & below Results & Data Vital Signs (Past 12 Hours) Vital Signs Temp Pulse Resp BP Pulse Ox 01/25/19 10:59 36.9 C 91 H 18 119/80 98
[2019-01-25] MEDS ORDERED: MIDAZOLAM HCL 1 MG/ML 2ML VIAL ONE (11:26)
[2019-01-25] MEDS ORDERED: fentaNYL citrate 100 MCG/2 ML VIAL ONE (11:26)
--- NOTE | 2019-01-25 12:03 | History & Physical Bridge Note ---
Date of Service January 25, 2019 History & Physical Bridge Note I have examined the patient, reviewed the History & Physical and in the interval since the performance of the History & Physical I have noted the following changes of clinical significance: no changes noted
[2019-01-25] MEDS ORDERED: BACITRACIN INJ 50,000 UNIT VIAL ONE (12:16)
[2019-01-25] MEDS ORDERED: PROPOFOL IV EMULSION 10 MG/ML 20 ML VIAL IV ONE (12:39)
[2019-01-25] MEDS ORDERED: LIDOCAINE HCL 2% 2 ML VIAL/AMP(20MG/ML) INFIL ONE (12:39)
[2019-01-25] MEDS ORDERED: DEXAMETHASONE SOD INJ 4 MG/ML VIAL ONE (12:39)
[2019-01-25] MEDS ORDERED: ONDANSETRON INJ 2 MG/ML 2 ML VIAL ONE (12:39)
[2019-01-25] MEDS ORDERED: PHENYLEPHRINE HCL 10 MG/ML VIAL ONE (12:55)
[2019-01-25] MEDS ORDERED: ePHEDrine sulfate 50 MG/ML SYR ONE (12:55)
--- NOTE | 2019-01-25 13:00 | Post Operative Brief Note ---
Immediate Post Op Note v1 Date of Surgery January 25, 2019 Pre & Post Diagnosis Operation Date: 01/25/19 12:00 Pre-Op Diagnosis: Status Post Right Leg Femoral-Popliteal Bypass Graft Thrombectomy with Post Operative Hematoma Post-Op Diagnosis: Status Post Right Leg Femoral-Popliteal Bypass Graft Thrombectomy with Post Operative Hematoma Procedure Operation Date: 01/25/19 12:00 Actual Procedures p Evacuation of Hematoma Right Calf with Application of Wound VAC (10x3x3.5)(Right) - Robinson Huerta MD Surgeon Robinson Huerta MD Lens Polisher MD Ze Estimated Blood Loss 5 Findings Consistent with Post-Op Diagnosis Anesthesia Type General Complications none Disposition Accompanied Patient To Recovery: No Disposition: Recovery Room
--- NOTE | 2019-01-25 13:04 | Operative Report ---
Post Operative Report Pre & Post Diagnosis Operation Date: 01/25/19 12:00 Pre-Op Diagnosis: Status Post Right Leg Femoral-Popliteal Bypass Graft Thrombectomy with Post Operative Hematoma Post-Op Diagnosis: Status Post Right Leg Femoral-Popliteal Bypass Graft Thrombectomy with Post Operative Hematoma Procedure Operation Date: 01/25/19 12:00 Actual Procedures p Evacuation of Hematoma Right Calf with Application of Wound VAC(Right) - Robinson Huerta MD Surgeon Robinson Huerta MD Architect [employer] Madison Palm MD Estimated Blood Loss 5 Findings Consistent with Post-Op Diagnosis Fluids 500cc Specimens none Anesthesia Type General Complications none Disposition Accompanied Patient To Recovery: No Disposition: Recovery Room Indications right lower extremity hematoma Description of Procedure The patient was brought to the operating suite. He was placed in the supine position. The patient's identity was verified. A time-out was performed. The patient's right leg was prepped and draped in the usual sterile fashion. An incision along the length of his prior right lower extremity surgical incision was made. Using blunt dissection and cautery we dissected down to the base of the wound. There was old clot present in the base of the wound. No significant ongoing bleeding was noted; he only had some bleeding from skin edges at the site of the incision. In the middle of the base of the wound, there was an about 2-cm in diameter hole which appeared to tunnel deep. I was able to gently place a finger in here and did not feel graft. We performed blunt and sharp debridement of the wound until only healthy-appearing tissue was present. The wound measured 10 x 3 x 3.5 cm.We used the pulsivac to wash out the wound. A wound vac with a silver sponge was placed into the wound and set to -125mm Hg. No leaks from the wound vac were noted. The needle, sponge, and instrument counts at the end of the case were correct. The patient tolerated the procedure well with no apparent immediate complications. He was taken to the recovery room in satisfactory condition. Dr. Huerta was present and scrubbed for the entire procedure. I attest to the content of the Intraoperative Record and any orders documented therein. Any exceptions are noted below.
[2019-01-25] MEDS: fentaNYL citrate 100 MCG/2 ML VIAL IV PRN ×2 (13:24→13:29)
--- NOTE | 2019-01-25 13:24 | Anesthesiology Progress Note ---
Date of Service January 25, 2019 Anesthesia Post Procedure Vital Signs Vital Signs: Temp Pulse Resp BP Pulse Ox 01/25/19 10:59 98.4 F 91 H 18 119/80 98 Pain Intensity Right Leg: Pain Intensity: 4 Transfer of Care Handoff Completed per policy Notes Mental Status: alert / awake / arousable and participated in evaluation Patient Amnestic to Procedure: Yes Nausea / Vomiting: adequately controlled Pain: adequately controlled Airway Patency, RR, SpO2: stable & adequate BP & HR: stable & adequate Hydration State: stable & adequate Anesthetic Complications: no major complications apparent and Pt Satisfied with anesthetic care
[2019-01-25] MEDS ORDERED: SODIUM CHLORIDE 0.65% NA SOLN 45 ML (OCEAN) PRN (14:16)
[2019-01-25] MEDS ORDERED: ACETAMINOPHEN 500 MG TAB PO SCH (14:16)
[2019-01-25] MEDS: SODIUM CHLORIDE 0.9% 500 ML IV SCH ×2 (17:51→17:55)
[2019-01-25] MEDS: CEFAZOLIN 2000MG 2,000 MG/15 ML SYR IV SCH (20:55)
[2019-01-25] MEDS: WARFARIN SOD 2 MG TAB PO SCH (20:58)
[2019-01-25] MEDS: WARFARIN SOD 2.5 MG TAB PO SCH (20:59)
[2019-01-25] MEDS: ATORVASTATIN 40 MG TAB PO SCH (20:59)
[2019-01-25] MEDS: DOCUSATE CALCIUM 240 MG CAPSULE PO SCH (20:59)
[2019-01-25] MEDS: OXYCODONE/ACETAMINOPHEN 5mg/325mg TAB PO PRN (21:06)
[2019-01-26] MEDS: CEFAZOLIN 2000MG 2,000 MG/15 ML SYR IV SCH (03:47)
[2019-01-26] MEDS: OXYCODONE/ACETAMINOPHEN 5mg/325mg TAB PO PRN (08:03)
[2019-01-26] MEDS: DOCUSATE CALCIUM 240 MG CAPSULE PO SCH ×2 (08:03→20:56)
[2019-01-26] MEDS: ASPIRIN 81 MG ECTAB PO SCH (08:03)
[2019-01-26] MEDS: LISINOPRIL/HCTZ 10/12.5MG TAB PO SCH (08:03)
[2019-01-26 08:55] LABS: INR 1.5 (0.9-1.1); Prothrombin Time 14.8 Seconds (9.0-12.0)
--- NOTE | 2019-01-26 14:13 | Surgery Progress Note ---
Date of Service January 26, 2019 Assessment & Plan (1) Hematoma of right lower extremity: This patient is doing well after evacuation hematoma of the right calf and application of wound VAC. He can be discharged back to [facility] as soon as the wound VAC is available. Subjective Patient's awake and alert. He is has minimal incisional discomfort. Physical Exam Physical Exam: On exam his right leg is not ischemic. And has good capillary refill.There is no edema of the lower extremity. Wound VAC is in place and working well. Results & Data Vital Signs (Past 12 Hours) Vital Signs Temp Pulse Resp BP BP Pulse Ox 01/26/19 11:05 36.6 C 68 18 124/76 95 01/26/19 07:00 36.8 C 62 18 95/60 L 96 01/26/19 03:49 36.5 C 60 16 101/66 98
[2019-01-26] MEDS: WARFARIN SOD 2 MG TAB PO SCH (15:24)
[2019-01-26] MEDS: WARFARIN SOD 2.5 MG TAB PO SCH (15:25)
[2019-01-26] MEDS: ATORVASTATIN 40 MG TAB PO SCH (20:56)
[2019-01-27 08:23] LABS: INR 1.6 (0.9-1.1); Prothrombin Time 16.1 Seconds (9.0-12.0)
[2019-01-27] MEDS: DOCUSATE CALCIUM 240 MG CAPSULE PO SCH (09:27)
[2019-01-27] MEDS: LISINOPRIL/HCTZ 10/12.5MG TAB PO SCH (09:28)
[2019-01-27] MEDS: ASPIRIN 81 MG ECTAB PO SCH (09:28)
[2019-01-27] MEDS: OXYCODONE/ACETAMINOPHEN 5mg/325mg TAB PO PRN (09:30)
--- NOTE | 2019-01-27 10:03 | Surgery Progress Note ---
Date of Service January 27, 2019 Assessment & Plan (1) Hematoma of right lower extremity: This patient is doing well after evacuation hematoma of the right calf and application of wound VAC. Wound vac available at [facility]. Can be d/c'd today Subjective Patient's awake and alert. He is has minimal incisional discomfort. No foot pain or numbness Physical Exam Physical Exam: Right leg without problems. Vac working well. Results & Data Vital Signs (Past 12 Hours) Vital Signs Temp Pulse Resp BP Pulse Ox 01/27/19 07:32 37 C 71 18 118/78 94 01/26/19 23:05 36.8 C 74 20 108/60 97
--- NOTE | 2019-01-30 09:44 | Discharge Summary ---
Date of Service January 30, 2019 Admission HPI Per Admitting Provider This is a 68-year-old gentleman who 4 months ago had thrombolytic therapy for an occluded fem distal bypass. Prior to that he had stenting of his right superficial femoral and popliteal arteries. He underwent another thrombectomy last month and now developed hematoma of the incisions of the right leg due to the need of anticoagulation. Admission Exam Per Admitting Provider Neck: trachea midline Respiratory: normal respiratory effort, lungs clear to auscultation Cardiovascular: RRR, no murmur, no edema Vessels: femoral pulses present; + posterior tibial pulses (on right), Extremities: normal capillary refill (none) Extremities: right leg has two large hematomas of the incisions with the lower one draining through a small open area Gastrointestinal (Abdomen): normal bowel sounds, soft, nontender, no hepatosplenomegaly Skin: right foot mottled Neurologic: decreased sensation of right foot Psychiatric: A+Ox3, euthymic affect Principal Diagnosis 1. s/p evacuation of R calf hematoma 2. RLE hematoma s/p thrombectomy/throbolysis of RLE BPG Discharge Exam Constitutional WD/WN, vitals as above Respiratory normal respiratory effort, lungs clear to auscultation Cardiovascular Rate/Rhythm: regular rate and regular rhythm Vessels: posterior tibial pulses present and dorsalis pedis pulses present Extremities: + edema (RLE mild edema. wound vac noted) Gastrointestinal (Abdomen) normal bowel sounds, soft, nontender, no hepatosplenomegaly Musculoskeletal no cyanosis or clubbing, extremities motor strength 5/5 Neurologic CN's II-XI intact bilaterally; no focal motor deficits and not confused Psychiatric A+Ox3, euthymic affect Discharge Data Allergies Allergy/AdvReac Type Severity Reaction Status Date / Time codeine Allergy Unknown Unknown Verified 01/25/19 10:53 Consultations 01/25/19 14:16 Consult Case Management - Discharge Planning Routine Procedures Performed Operation Date: 01/25/19 12:00 Actual Procedures p Evacuation of Hematoma Right Calf with Application of Wound VAC(Right) - Robinson Huerta MD Hospital Course (1) Hematoma of right lower extremity: This patient is doing well after evacuation hematoma of the right calf and application of wound VAC. Wound vac available at [facility]. Can be d/c'd today Total Time Total Time Spent Total Time Spent (In Minutes): 10 min Total Time Includes: Examination of the Patient, Discharge Planning and Medication Reconciliation Discharge Plan Discharge Items Patient Disposition: [facility] Reason For Visit: Post-Op Wound Hematoma Discharge Diagnosis: Post op hematoma right calf Discharge Goals: Therapeutic intervention Activity: Resume your previous activity Lifting: Gradually increase as tolerated Bathing Comment: may take a bath if right leg stays dry Weightbearing: Left weightbearing and Right weightbearing Non-emergency contact: Surgeon Call non-emergency contact if: you have any medication questions, your pain is not controlled, your pain is worsening, your pain is unusual for you, your temperature is above 101.5, your wound has increased redness, your wound has increased drainage and your wound pain has increased Follow-up/Referrals: Hernesto SIN [Primary Care Provider] - Diet: Heart Healthy Addtl Provider Instructions: ACTIVITY RECOMMENDATIONS: See Above SPECIAL CARE INSTRUCTIONS: Call your doctor if: * Temperature above 101 degrees * Pain not relieved by pain medicine ordered * There is increased drainage or redness from any incision * You have any unanswered questions or concerns. apply wound vac to continuous suction at 125mmHg, Change wed each week Call [phone] to schedule a follow up appointment if one not already scheduled. Prescriptions: New warfarin [Coumadin] 5 mg tablet 5 mg PO DAILY Qty: 30 RF: 0 Continued acetaminophen [Tylenol Extra Strength] 500 mg Tablet 1,000 mg PO TID RF: 0 sodium chloride [Deep Sea Nasal] 0.65 % Aerosol,[place] 2 spray INTRANASAL QID PRN (Reason: Dry Nasal Passages) RF: 0 docusate sodium 250 mg Capsule 250 mg PO BID RF: 0 atorvastatin 80 mg Tablet 80 mg PO HS RF: 0 aspirin 81 mg Tablet,Chewable 81 mg PO QAM RF: 0 lisinopril-hydrochlorothiazide 10-12.5 mg Tablet 1 tab PO QAM RF: 0 Discontinued warfarin 2.5 mg Tablet 2.5 mg PO HS RF: 0 warfarin 2 mg Tablet 2 mg PO HS RF: 0 Stand-Alone Forms: [facility], [facility]–1983 Discharge Orders: Discharge Order (Routine); Ordered 01/27/19 Ordered By: Robinson Huerta Admission Data Admit Date/Time: 01/25/19 13:00 Attending Provider: Robinson Huerta Admit Provider: Robinson Huerta Primary Care Provider: Hernesto SIN Service: Surgical Services Other Interventions: Discharge Summary Assessment (RN) Last Done: 01/27/19 12:03 DC Date/Time DO NOT enter until pt leaves facility: 01/27/19 13:02
== END 2019-01-27 13:02 | DRG 909 ==
LOC: ASU 10:24 → 3W 13:00
DX: Z79.899 Other long term (current) drug therapy; I97.638 Postprocedural hematoma of a circulatory system organ or structure following other circulatory system procedure; E78.5 Hyperlipidemia, unspecified; Z79.82 Long term (current) use of aspirin; Z87.891 Personal history of nicotine dependence; Y83.2 Surgical operation with anastomosis, bypass or graft as the cause of abnormal reaction of the patient, or of later complication, without mention of misadventure at the time of the procedure; Y71.8 Miscellaneous cardiovascular devices associated with adverse incidents, not elsewhere classified; Z79.01 Long term (current) use of anticoagulants; I10 Essential (primary) hypertension

== ENCOUNTER 2019-02-03 10:55 | Inpatient (IN) ==
[2019-02-03] MEDS ORDERED: ONDANSETRON INJ 2 MG/ML 2 ML VIAL IV STA (11:04)
[2019-02-03] MEDS ORDERED: fentaNYL citrate 100 MCG/2 ML VIAL IV PRN (11:04)
--- NOTE | 2019-02-03 11:10 | Emergency Department Note ---
Entered by Melissa Aguirre acting as a scribe for González Kendall DO History of Present Illness General Chief complaint: Bleeding Time Seen by Provider: 02/03/19 10:56 Source: patient and EMS Mode of arrival: EMS Limitations: no limitations History of Present Illness Provider complaint: Bleeding Onset (ago): hour(s) (today) Location: lower extremity and right Radiation: non-radiation Severity: similar to prior episodes Pain Consistency: + other (worsening) Quality: + other (bleeding) Associated symptoms: + other (Additional symptoms: burning in right lower extremity, right foot numbness) Treatments prior to arrival: none The patient is a 68 year old male prisoner with a history of hypertension, hyperlipidemia, PVD, CVA, COPD, and two right leg hematomas who presents to the Emergency Room with complaints of worsening bleeding from his right leg starting today. The patient reports that he had a bypass of the right leg performed by Dr. Huerta about 5 months ago. EMS adds that he now has a wound vac in his leg. The patient states that he got another blood clot last month and has since returned to the ED multiple times for uncontrollable bleeding. He notes that he was last in the ED 9 days ago. The patient reports that he has experienced a significant amount of bleeding today, and EMS states that his bed sheets were entirely soaked with blood. The patient indicates that there were clots in his blood as well. He also complains of a burning sensation in his right lower extremity and numbness in his right foot. The patient notes that he takes Coumadin. He denies ever receiving a blood transfusion. Home Medications Home Medications Medication Instructions Recorded Confirmed Type aspirin 81 mg PO QAM 08/20/18 02/03/19 History atorvastatin 80 mg PO HS 08/20/18 02/03/19 History lisinopril-hydrochlorothiazide 1 tab PO QAM 08/20/18 02/03/19 History acetaminophen [Tylenol Extra 1,000 mg PO TID 12/25/18 02/03/19 History Strength] sodium chloride [Deep Sea Nasal] 2 spray INTRANASAL QID PRN 12/25/18 02/03/19 History docusate sodium 250 mg PO BID 01/19/19 02/03/19 History warfarin [Coumadin] 5 mg PO DAILY #30 tab 01/27/19 02/03/19 Rx Allergies Allergy/AdvReac Type Severity Reaction Status Date / Time codeine Allergy Unknown Unknown Verified 02/03/19 11:53 Past Med/Surg History Medical History Hematoma (Acute) right leg x2 HLD (hyperlipidemia) (Chronic) COPD (chronic obstructive pulmonary disease) CVA (cerebral vascular accident) HTN (hypertension) Hernia PVD (peripheral vascular disease) Smoker Surgical History H/O vasectomy History of femoropopliteal bypass Rt History of surgery History of vascular surgery R SFA stent, Right leg thrombectomy, fem-pop. 08/2018. GETA with a-line. Right leg open thrombectomy 12/22/2018 [facility] Family History Other Family history non-contributory Social History Preferred Language: Tajik Communication Ability: Effective Satellite Television Installer Required: No Beliefs That Will Affect Care: Zoroastrian Zoroastrian Beliefs: Scientologist Current Living Situation: Other Current Living Situation Comment: [facility] Feels Safe at Home: Yes Safety Concerns: Feels Safe At This Time Smoking Status: Former smoker Tobacco Type: cigarettes ; Cigarettes Per Day: 12/12/2018 ; Do You Dip or Chew Tobacco: No ; Second Hand Exposure: No ; Hx Alcohol Use: No Hx Substance Use: No Review of Systems See HPI for pertinent positives & negatives. and A total of 10 systems reviewed and were otherwise negative Physical Exam Vital Signs Vital Signs - 24 hr 02/03/19 11:05 02/03/19 11:10 02/03/19 11:12 Temperature 38.9 C H Temperature Source Oral Sepsis Recent Fever Within 48 Hours Yes Sepsis New/Unexplained Change in Mental Status No Sepsis Action Taken by Nursing No Action Required Pulse Rate 126 H 126 H 128 H Pulse Rate from SpO2 Sensor 128 H Pulse Rhythm Regular Respiratory Rate 16 16 13 Respiratory Depth Normal Blood Pressure 114/73 114/73 Blood Pressure Mean 86 86 Pulse Oximetry 95 95 96 Oxygen Delivery Method Room Air Room Air Room Air 02/03/19 12:10 02/03/19 12:30 02/03/19 13:00 Temperature Temperature Source Sepsis Recent Fever Within 48 Hours Sepsis New/Unexplained Change in Mental Status Sepsis Action Taken by Nursing Pulse Rate 99 H 102 H 103 H Pulse Rate from SpO2 Sensor 98 H 102 H 103 H Pulse Rhythm Respiratory Rate 18 22 12 Respiratory Depth Blood Pressure 128/79 122/75 109/69 Blood Pressure Mean 95 90 82 Pulse Oximetry 97 98 97 Oxygen Delivery Method Room Air Room Air Room Air 02/03/19 14:14 02/03/19 14:15 02/03/19 15:00 Temperature 37.6 C H Temperature Source Oral Sepsis Recent Fever Within 48 Hours Sepsis New/Unexplained Change in Mental Status Sepsis Action Taken by Nursing Pulse Rate 100 H 117 H Pulse Rate from SpO2 Sensor 101 H 120 H Pulse Rhythm Respiratory Rate 15 13 Respiratory Depth Blood Pressure 118/82 111/74 Blood Pressure Mean 94 86 Pulse Oximetry 100 96 Oxygen Delivery Method Room Air Room Air 02/03/19 15:30 02/03/19 16:00 Temperature Temperature Source Sepsis Recent Fever Within 48 Hours Sepsis New/Unexplained Change in Mental Status Sepsis Action Taken by Nursing Pulse Rate 112 H 120 H Pulse Rate from SpO2 Sensor 111 H 121 H Pulse Rhythm Respiratory Rate 8 L 4 L Respiratory Depth Blood Pressure 108/79 109/74 Blood Pressure Mean 88 85 Pulse Oximetry 97 98 Oxygen Delivery Method Room Air Room Air GENERAL: The patient is awake and alert. He is very anxious appearing and appears to be very uncomfortable. EYES: The conjunctivae are clear. The pupils are round and reactive. EARS, NOSE, MOUTH AND THROAT: The nose is without any evidence of any deformity. Mucous membranes are moist tongue is midline NECK: The neck is nontender and supple. RESPIRATORY: Normal respiratory effort is noted there is no evidence of wheezing rhonchi or rales CARDIOVASCULAR: Regular rate and rhythm noted there no murmurs rubs or gallops normal S1 normal S2 GASTROINTESTINAL: The abdomen is soft. Bowel sounds are present in all quadrants. Abdomen is nontender MUSCULOSKELETAL/EXTREMITIES: There is no evidence of gross deformity full range of motion is noted in the hips and shoulders SKIN: There is no obvious evidence of any rash. The right lower extremity is cool and cyanotic. There is no palpable pulse in the right foot. Capillary refill is diminished. There is a large pressure dressing on the right calf. It is saturated with blood. Compress dressing was removed by vascular and there is a post-operative non-healing wound on the right medial calf. A small amount of oozing was noted by no pulsatile bleeding. Capillary refill is significantly improved in right lower extremity. NEUROLOGIC: Patient is awake alert and oriented x3. Course 1103: The patient was evaluated in room B2, and a complete history and physical examination were performed. 1110: I reviewed the patient's case with Dr. Aguirre - Vladislav Barraza. He recommends a stat ultrasound of the right lower extremity. 1135: I checked on the patient and updated him on his results. Compress dressing on his right lower extremity was removed by vascular so I examined it. See exam notes for details. 1542: Vladislav Tilley PA-C came to evaluate the patient on behalf of Dr. Huerta - [facility]. Dr. Huerta will evaluate the patient for further management. 1618: The patient started bleeding agin so we applied a pressure dressing. Consultations Consultation #1: I reviewed the patient's case with Vladislav Regan. He recommends a stat ultrasound of the right lower extremity. Time: 11:10 Consultation #2: Vladislav Tilley PA-C came to evaluate the patient on behalf of Dr. Huerta - [facility]. Dr. Huerta will evaluate the patient for further management. Time: 15:42 Administered Medications Ioversol (Optiray 320 125ml) 120 ml IV ONCE PRN PRN Reason: Interaction Checking Stop: 02/07/19 13:32 Last Admin: 02/03/19 13:33 Dose: 120 ml Documented by: [id number] Discontinued Medications Acetaminophen (Tylenol) 650 mg PO NOW STA Stop: 02/03/19 15:47 Last Admin: 02/03/19 17:27 Dose: Not Given Documented by: [id number] Fentanyl Citrate (Fentanyl Citrate) 50 mcg IV Q15M PRN PRN Reason: Pain Stop: 02/17/19 11:03 Last Admin: 02/03/19 11:53 Dose: 50 mcg Documented by: [id number] Sodium Chloride (Nss 1000ml) 1,000 mls @ 999 mls/hr IV .Q1H1M TOOTIE Stop: 02/03/19 12:15 Last Infusion: 02/03/19 13:14 Dose: 0 mls/hr Documented by: [id number] Admin: 02/03/19 11:52 Dose: 999 mls/hr Documented by: [id number] Ondansetron HCl (Zofran) 4 mg IV NOW STA Stop: 02/03/19 11:05 Last Admin: 02/03/19 11:53 Dose: 4 mg Documented by: [id number] Medical Decision Making Differential Diagnosis Differential diagnosis: Etiologies such as DVT, musculoskeletal, infection, joint effusion, trauma, lymphedema, idiopathic, CHF, as well as others were entertained. Medical Records Attestation: I reviewed the patient's medical records. Home Medications Current Medication List: was personally reviewed by me Laboratory Data Attestation: I reviewed the patient's lab results. Result diagrams: 02/03/19 11:28 02/03/19 11:28 Lab Results 02/03/19 02/03/19 02/03/19 Range/Units 11:28 11:28 11:28 WBC 10.48 (4.8-10.8) K/uL RBC 3.37 L (4.7-6.1) M/uL Hgb 10.2 L (14.0-18.0) g/dL Hct 31.5 L (42-52) % MCV 93.5 (80-100) fL MCH 30.3 (25-34) pg MCHC 32.4 (32-36) g/dL RDW Std Deviation 48.8 H (36.4-46.3) fL RDW Coeff of Rinku 14.3 (11.5-14.5) % Plt Count 364 (130-400) K/uL MPV 9.5 (7.4-10.4) fL Immature Gran % (Auto) 0.2 % Neut % (Auto) 76.1 % Lymph % (Auto) 10.6 % [place] % (Auto) 12.7 % Eos % (Auto) 0.2 % Baso % (Auto) 0.2 % Immature Gran # (Auto) 0.02 (0.00-0.02) K/uL Neut # (Auto) 7.98 H (1.4-6.5) K/uL Lymph # (Auto) 1.11 L (1.2-3.4) K/uL [place] # (Auto) 1.33 H (0.11-0.59) K/uL Eos # (Auto) 0.02 (0-0.5) K/uL Baso # (Auto) 0.02 (0-0.2) K/uL PT 26.0 H (9.0-12.0) Seconds INR 2.7 H (0.9-1.1) APTT 34.2 H (21.0-31.0) Seconds PTT Ratio 1.3 Sodium 137 (136-145) mmol/L Potassium 4.2 (3.5-5.1) mmol/L Chloride 106 (98-107) mmol/L Carbon Dioxide 24 (21-32) mmol/L Anion Gap 7.0 (3-11) BUN 20 H (7-18) mg/dl Creatinine 1.20 (0.6-1.4) mg/dl Est Cr Clr Drug Dosing 65.6 ml/min Est GFR ( Amer) 72.1 Est GFR (Non-Af Amer) 62.2 BUN/Creatinine Ratio 16.9 (10-20) Glucose 131 H (70-99) mg/dl Calcium 8.3 L (8.5-10.1) mg/dl Total Bilirubin 0.3 (0.2-1) mg/dl AST 13 L (15-37) U/L ALT 22 (12-78) U/L Alkaline Phosphatase 92 (45-117) U/L Total Protein 6.4 (6.4-8.2) gm/dl Albumin 2.7 L (3.4-5.0) gm/dl Globulin 3.7 (2.5-4.0) gm/dl Albumin/Globulin Ratio 0.7 L (0.9-2) Lipase 85 (73-393) U/L Urine Color Urine Appearance (Clear) Urine pH (4.5-7.5) Ur Specific [place] (1.000-1.030) Urine Protein (Negative) Urine Glucose (UA) (Negative) Urine Ketones (Negative) Urine Blood (Negative) Urine Nitrite (Negative) Urine Bilirubin (Negative) Urine Urobilinogen (Negative) Ur Leukocyte Esterase (Negative) Blood Type Antibody Screen 02/03/19 02/03/19 Range/Units 11:28 14:50 WBC (4.8-10.8) K/uL RBC (4.7-6.1) M/uL Hgb (14.0-18.0) g/dL Hct (42-52) % MCV (80-100) fL MCH (25-34) pg MCHC (32-36) g/dL RDW Std Deviation (36.4-46.3) fL RDW Coeff of Rinku (11.5-14.5) % Plt Count (130-400) K/uL MPV (7.4-10.4) fL Immature Gran % (Auto) % Neut % (Auto) % Lymph % (Auto) % [place] % (Auto) % Eos % (Auto) % Baso % (Auto) % Immature Gran # (Auto) (0.00-0.02) K/uL Neut # (Auto) (1.4-6.5) K/uL Lymph # (Auto) (1.2-3.4) K/uL [place] # (Auto) (0.11-0.59) K/uL Eos # (Auto) (0-0.5) K/uL Baso # (Auto) (0-0.2) K/uL PT (9.0-12.0) Seconds INR (0.9-1.1) APTT (21.0-31.0) Seconds PTT Ratio Sodium (136-145) mmol/L Potassium (3.5-5.1) mmol/L Chloride (98-107) mmol/L Carbon Dioxide (21-32) mmol/L Anion Gap (3-11) BUN (7-18) mg/dl Creatinine (0.6-1.4) mg/dl Est Cr Clr Drug Dosing ml/min Est GFR ( Amer) Est GFR (Non-Af Amer) BUN/Creatinine Ratio (10-20) Glucose (70-99) mg/dl Calcium (8.5-10.1) mg/dl Total Bilirubin (0.2-1) mg/dl AST (15-37) U/L ALT (12-78) U/L Alkaline Phosphatase (45-117) U/L Total Protein (6.4-8.2) gm/dl Albumin (3.4-5.0) gm/dl Globulin (2.5-4.0) gm/dl Albumin/Globulin Ratio (0.9-2) Lipase (73-393) U/L Urine Color Yellow Urine Appearance Clear (Clear) Urine pH 5.0 (4.5-7.5) Ur Specific [place] > 1.045 H (1.000-1.030) Urine Protein Negative (Negative) Urine Glucose (UA) Negative (Negative) Urine Ketones Negative (Negative) Urine Blood Negative (Negative) Urine Nitrite Negative (Negative) Urine Bilirubin Negative (Negative) Urine Urobilinogen Negative (Negative) Ur Leukocyte Esterase Negative (Negative) Blood Type O Positive Antibody Screen NEGATIVE Blood Pressure Blood Pressure Findings: Normal blood pressure MDM Narrative The patient is a 68-year-old male who presented to the emergency department for an evaluation of right leg pain. The patient has a history of a bypass in his right lower extremity for arterial occlusion. The right lower leg has an open wound which is slowly healing but today started bleeding profusely. A pressure dressing was placed at the half-way. The patient had decreased pulses in his foot but this improved once the pressure dressing was removed. He was evaluated in the emergency department by the vascular surgeon group. He had further laboratory and radiographic studies obtained. The patient was felt to be a good candidate for inpatient management. He had significant bleeding while he was in the emergency department well. The patient had good hemostasis with another wound dressing. I discussed the patient's laboratory and radiographic studies with him. At this time he did not require blood transfusion although this may be the case given his current anticoagulation use. It would be difficult to reverse patient's anticoagulation given his history of occluded arterial bypass. Impression & Plan Post-operative hemorrhage, Hematoma of right lower extremity, Arterial occlusion Discharge Plan Visit Data Chief Complaint: Bleeding ED Provider: González Kendall Discharge Problem: Post-operative hemorrhage, Hematoma of right lower extremity, Arterial occlusion Patient Disposition: Admitted As Inpatient Discharge Instructions Interventions: ED Discharge Assessment Last Done: 02/03/19 16:57 Discharge Problem: Post-operative hemorrhage Qualifiers: Surgical complication system/body Area: musculoskeletal system Procedure type: non-musculoskeletal Qualified Code(s): M96.831 - Postprocedural hemorrhage of a musculoskeletal structure following other procedure Hematoma of right lower extremity Qualifiers: Encounter type: initial encounter Qualified Code(s): S80.11XA - Contusion of right lower leg, initial encounter The scribe's documentation has been prepared under my direction and personally reviewed by me in its entirety. I confirm that the note above accurately reflects all work, treatment, procedures, and medical decision making performed by me.
[2019-02-03] MEDS ORDERED: SODIUM CHLORIDE 0.9% 1000ML 1,000 ML IV SCH (11:15)
[2019-02-03 11:44] LABS: Basophils # (auto) 0.02 K/uL (0-0.2); Basophils % (auto) 0.2 %; Eosinophils # (auto) 0.02 K/uL (0-0.5); Eosinophils % (auto) 0.2 %; Hematocrit (blood only) 31.5 % (42-52); Hemoglobin 10.2 g/dL (14.0-18.0); Immature Granulocytes # (auto) 0.02 K/uL (0.00-0.02); Immature Granulocytes % (auto) 0.2 %; Lymphocytes # (auto) 1.11 K/uL (1.2-3.4); Lymphocytes % (auto) 10.6 %; Mean Corpuscular Hgb Conc 32.4 g/dL (32-36); Mean Corpuscular Volume 93.5 fL (80-100); Mean Platelet Volume 9.5 fL (7.4-10.4); Monocytes # (auto) 1.33 K/uL (0.11-0.59); Monocytes % (auto) 12.7 %; Neutrophils # (auto) 7.98 K/uL (1.4-6.5); Neutrophils % (auto) 76.1 %; Platelet Count 364 K/uL (130-400); RDW Coefficient of Variation 14.3 % (11.5-14.5); RDW Standard Deviation 48.8 fL (36.4-46.3); Red Blood Count 3.37 M/uL (4.7-6.1); White Blood Count 10.48 K/uL (4.8-10.8)
[2019-02-03 12:00] LABS: INR 2.7 (0.9-1.1); Partial Thromboplastin Ratio 1.3; Partial Thromboplastin Time 34.2 Seconds (21.0-31.0)
[2019-02-03 12:05] LABS: Albumin Level 2.7 gm/dl (3.4-5.0); BUN Creatinine Ratio 16.9 (10-20); Calcium 8.3 mg/dl (8.5-10.1); Creatinine Clr Calc Pharmacy 65.6 ml/min; Est GFR (African American) 72.1; Est GFR (Non-African American) 62.2; Potassium 4.2 mmol/L (3.5-5.1)
[2019-02-03 12:07] LABS: Albumin Globulin Ratio 0.7 (0.9-2); Bilirubin,Total 0.3 mg/dl (0.2-1); Globulin 3.7 gm/dl (2.5-4.0); Total Protein 6.4 gm/dl (6.4-8.2)
--- NOTE | 2019-02-03 12:09 | Consultation ---
Date of Consultation February 03, 2019 Assessment & Plan (1) Hematoma of right lower extremity: Pt with mild bleeding noted at this time. Arterial US performed in room demonstrated significantly increased flow to foot after removing large pressure dressing. Pt's sx of severe pain resolved as well. According to arterial US results, pt's BPG is patent and does have a localized hematoma which may be slightly compressing the BPG. After discussion with Dr Yates, he recommends pt have CTA of RLE to eval for possible bleeding as well as to assess compression. Awaiting INR results as well. INR therapeutic. No further significant bleeding noted through current dressing. CTA indicates no active bleeding and a small partial thrombus in BPG. Pt currently stable. After discussion with Dr Yates, recommends pt be admitted for observation to med/surg with likely discharge tomorrow. Present on Admission?: Yes History of Present Illness Reason for Consultation: bleeding from RLE, cold foot Attending Physician: Robinson Yates MD History of Present Illness 68 yo incarcerated male with multiple medical problems, known to Dr Yates for previous surgeries, seen in consultation today for bleeding from R lower leg wound. Pt had RLE fem-pop BPG performed at a different facility in remote past, and then underwent emergent thrombectomy in 09/[address] Yates d/t acute occlusion of his BPG. Pt did well until about 1 month ago when he suffered another acute occlusion of his BPG despite being therapeutic on coumadin. He had a second thrombectomy at that time and had recommendations to keep his therapeutic range higher (INR 2.5-3.5) upon discharge. D/T requiring signi ficant anticoagulation, pt developed large hematomas at incisions in groin and lower leg and required evacuation of his calf hematoma by Dr Yates last week. He had a wound vac placed and was discharged. According to pt, his wound vac was removed yesterday d/t blood noted under the dressing. Staff noted increased bleeding from wound this morning and placed multi-layered pressure dressing to area. Pt then developed severe pain and coolness to his R foot and was sent to ED. Pt currently states 10/10 pain in R lower leg and foot. Also admits mild nausea. Denies fever, chills, chest pain, SOB, abd pain, vomiting, other complaints. Allergies Allergy/AdvReac Type Severity Reaction Status Date / Time codeine Allergy Unknown Unknown Verified 02/03/19 11:53 Home Medications Home Medications Medication Instructions Recorded Confirmed Type aspirin 81 mg PO QAM 08/20/18 02/03/19 History atorvastatin 80 mg PO HS 08/20/18 02/03/19 History lisinopril-hydrochlorothiazide 1 tab PO QAM 08/20/18 02/03/19 History acetaminophen [Tylenol Extra 1,000 mg PO TID 12/25/18 02/03/19 History Strength] sodium chloride [Deep Sea Nasal] 2 spray INTRANASAL QID PRN 12/25/18 02/03/19 History docusate sodium 250 mg PO BID 01/19/19 02/03/19 History warfarin [Coumadin] 5 mg PO DAILY #30 tab 01/27/19 02/03/19 Rx Patient History Medical History Hematoma (Acute) right leg x2 HLD (hyperlipidemia) (Chronic) COPD (chronic obstructive pulmonary disease) CVA (cerebral vascular accident) HTN (hypertension) Hernia PVD (peripheral vascular disease) Smoker Surgical History H/O vasectomy History of femoropopliteal bypass Rt History of surgery History of vascular surgery R SFA stent, Right leg thrombectomy, fem-pop. 08/2018. GETA with a-line. 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 Required: No Beliefs That Will Affect Care: None Current Living Situation: Other Current Living Situation Comment: [facility] at [facility] Feels Safe at Home: Yes Smoking Status: Never smoker Tobacco Type: cigarettes ; Second Hand Exposure: No ; Hx Alcohol Use: No Hx Substance Use: No Review of Systems Review of Systems: All systems reviewed & are unremarkable except as noted in HPI & below Physical Exam Constitutional: WD/WN, vitals as above well developed, well nourished, healthy appearing, well groomed, + disheveled, cooperative and + in distress (mild distress d/t anxiety and pain); not combative Eyes: PERRL, conjunctivae normal, anicteric sclerae ENMT: external ear and nose normal, oropharynx normal Ears: no hearing impairment Throat: no posterior oropharynx abnormality Neck: trachea midline, no thyromegaly Respiratory: normal respiratory effort, lungs clear to auscultation no cough Cardiovascular: Rate/Rhythm: regular rhythm and + tachycardic Vessels: femoral pulses present, posterior tibial pulses present (with doppler after dressing removal), dorsalis pedis pulses present (with doppler after dressing removal), brachial pulses present and radial pulses present; + abnormal peripheral pulses Extremities: normal capillary refill (after dressing removal) Gastrointestinal (Abdomen): normal bowel sounds, soft, nontender, no hepatosplenomegaly Inspection/Auscultation: abdomen normal to inspection Musculoskeletal: Head/Neck/Chest: normocephalic and head atraumatic Extremities: + foot abnormality Right (RLE foot cyanotic and cool, delayed cap refill when dressing in place, normal when dressing removed.) Skin: no rashes, warm and dry normal turgor, + mottling (while dressing in place, resolved with dressing removal) and + incision (see below); no rashes, no lesions and no ulcers RLE lower leg wound with excellent granulation noted, moderate slow bleeding noted in wound, not pulsatile. Clot noted proximally in wound bed, not disturbed Neurologic: moves all extremities and awake; no focal motor deficits Motor/Sensory: no sensory deficit Psychiatric: Orientation: alert, oriented x 3 and cooperative Apperance: appropriately dressed Affect: + anxious affect Thought Process: goal directed thought process and linear/logical thought process Cognition: recent memory grossly intact, remote memory grossly intact, attention grossly intact and language grossly intact Estimated Intelligence: average estimated intelligence Results & Data Vital Signs (Past 12 Hours) Vital Signs Temp Pulse Resp BP Pulse Ox 02/03/19 11:10 126 H 16 95 02/03/19 11:05 38.9 C H 126 H 16 114/73 95
--- NOTE | 2019-02-03 12:32 | Ultrasound Report ---
US arterial duplex LE RT CLINICAL HISTORY: bleeding. Lower leg hematoma. COMPARISON STUDY: Right lower extremity arterial duplex study 12/26/2018. FINDINGS: Monophasic but normal velocity waveforms seen within the right anterior tibial, posterior t ibial, peroneal, dorsalis pedis arteries. There is again noted an arterial graft within the popliteal fossa. There is a 3.3 cm hematoma surrounding the graft which has decreased in size. This appears to compress the graft resulting in hemodynamically significant stenosis with a peak systolic velocity o f 213 cm/s. However, the graft appears patent. The right common femoral artery is patent. IMPRESSION: The patient's arterial graft within the popliteal fossa is patent but partially compress ed by the surrounding hematoma resulting in elevated peak systolic velocities consistent with an area of stenosis. The 3.3 cm hematoma at the popliteal fossa has decreased in size. Electronically signed by: Kevin Poon M.D. 02/03/2019 12:31 PM
[2019-02-03] MEDS ORDERED: OPTIRAY 320 125ml IV PRN (13:33)
--- NOTE | 2019-02-03 14:06 | CT Scan Report ---
CT angio LE RT wo/w or w/only HISTORY: 68 years-old Male bleeding from incision acute bleeding about the right lower extremity wit h stent of the superficial femoral artery. COMPARISON: Duplex arterial study of the right lower extremity of same day and also 12/26/2018 TECHNIQUE: CTA of the right lower extremity was obtained both with and without the use of 120 mL Opti ray 320 IV contrast. All measurements were obtained according to NASCET criteria. 3-D coronal and sag ittal MIPS were obtained from the axial data set and were submitted for review. A dose lowering techn ique was used consistent with the principals of SANTOSH. FINDINGS: CTA: Mixed plaque formation is noted about the bilateral iliac arteries with multifocal stenoses noted abo ut the bilateral internal iliac branches. Lung segment stent with occlusion of the [place] superficial femoral artery. There is a patent graft of the superficial femoral and popliteal arteries with appro ximately 90% focal narrowing about the distal aspect of the graft at the level of the popliteal fossa on image 576 series 5 from intraluminal filling defect. High-grade stenosis versus occlusion of the proximal aspect of the anterior tibial artery with multifocal areas of high-grade narrowing. Three-ve ssel flow of the lower extremity is noted to the level of the ankle. CT: No acute process of the imaged intrapelvic structures. Prostamegaly. No bowel obstruction. Mildly pro minent 9 mm right iliac chain lymph node. Additionally, there is a 2.0 x 1.2 cm right inguinal chain lymph node present on image 126 of series 3. There is stranding of the right inguinal tissues with a soft tissue attenuating 2.8 x 1.6 cm ovoid lesion adjacent to the femoral graft on image 170 series 5 possibly reflective of hematoma. There is a large skin and soft tissue defect noted about the drier feeder ior medial right upper leg with hematoma noted superiorly and deep to the soft tissue defect measurin g up to 3.0 x 3.1 x 4.1 cm (image 557 of series 3). Caudal to this hematoma there is a peripherally e nhancing 1.6 x 3.9 x 3.9 cm collection seen on image 600 of series 5. Skin thickening with subcutaneo us trace edema noted about the soft tissue defect. No acute fracture, dislocation or bony erosive changes. Mild check compartment osteoarthritis about t he knee. Degenerative changes also seen about the foot and ankle. IMPRESSION: 1. Stented [place] superficial femoral artery demonstrates long segment occlusion. There is a patent g raft of the superficial femoral and popliteal arteries with a focal area of high-grade stenosis about the popliteal portion of the graft with intraluminal filling defect suggestive of probable thrombus. 2. Hematoma deep to a skin defect about the medial upper leg measures up to 4.1 cm and encases the po pliteal stent graft likely causing a degree of mass effect. This is at the level of high-grade stenos is as above. 3. Peripherally enhancing intermediate attenuating collection deep to the soft tissue defect is also noted measuring up to 3.9 cm. Additional hematoma versus abscess are differential considerations. Cor relate clinically. 4. No acute fracture identified. 5. Prostamegaly. The above report was generated using voice recognition software. It may contain grammatical, syntax o r spelling errors. Electronically signed by: Reynaldo Acosta M.D. 02/03/2019 2:05 PM
[2019-02-03 15:10] LABS: Appearance Urine Clear (Clear); Bilirubin Urine Negative (Negative); Blood Urine Negative (Negative); Color Urine Yellow; Glucose Urine UA Negative (Negative); Ketones Urine Negative (Negative); Leukocyte Esterase Urine Negative (Negative); Nitrite Urine Negative (Negative); Protein Urine Negative (Negative); Specific Gravity Urine > 1.045 (1.000-1.030); Urobilinogen Urine Negative (Negative)
[2019-02-03] MEDS ORDERED: ACETAMINOPHEN 325 MG TAB PO PRN (15:42)
[2019-02-03] MEDS ORDERED: ONDANSETRON INJ 2 MG/ML 2 ML VIAL IV PRN (15:42)
[2019-02-03] MEDS ORDERED: ALUMINUM/MAGNESIUM SUSP 30 ML UDC PO PRN (15:42)
[2019-02-03] MEDS ORDERED: ACETAMINOPHEN 325 MG TAB PO STA (15:46)
[2019-02-03] MEDS ORDERED: ACETAMINOPHEN 500 MG TAB PO PRN (15:50)
[2019-02-03] MEDS ORDERED: SODIUM CHLORIDE 0.65% NA SOLN 45 ML (OCEAN) PRN (15:50)
--- NOTE | 2019-02-03 16:02 | History & Physical Report ---
Date of Service February 03, 2019 Assessment & Plan (1) Hematoma of right lower extremity: Pt with mild bleeding noted at this time. Arterial US performed in room demonstrated significantly increased flow to foot after removing large pressure dressing. Pt's sx of severe pain resolved as well. According to arterial US results, pt's BPG is patent and does have a localized hematoma which may be slightly compressing the BPG. After discussion with Dr Yates, he recommends pt have CTA of RLE to eval for possible bleeding as well as to assess compression. Awaiting INR results as well. INR therapeutic. No further significant bleeding noted through current dressing. CTA indicates no active bleeding and a small partial thrombus in BPG. Pt currently stable. After discussion with Dr Yates, recommends pt be admitted for observation to med/surg with likely discharge tomorrow. Patient was seen, examined, and chart reviewed. Agree with exam and treatment plan of the Vascular PA. History of Present Illness Primary Care Provider: [facility] Reason for Consultation: bleeding from RLE, cold foot Attending Physician: Robinson Yates MD History of Present Illness 68 yo incarcerated male with multiple medical problems, known to Dr Yates for previous surgeries, seen in consultation today for bleeding from R lower leg wound. Pt had RLE fem-pop BPG performed at a different facility in remote past, and then underwent emergent thrombectomy in 09/[address] Yates d/t acute occlusion of his BPG. Pt did well until about 1 month ago when he suffered another acute occlusion of his BPG despite being therapeutic on coumadin. He had a second thrombectomy at that time and had recommendations to keep his therapeutic range higher (INR 2.5-3.5) upon discharge. D/T requiring signifi cant anticoagulation, pt developed large hematomas at incisions in groin and lower leg and required evacuation of his calf hematoma by Dr Yates last week. He had a wound vac placed and was discharged. According to pt, his wound vac was removed yesterday d/t blood noted under the dressing. Staff noted increased bleeding from wound this morning and placed multi-layered pressure dressing to area. Pt then developed severe pain and coolness to his R foot and was sent to ED. Pt currently states 10/10 pain in R lower leg and foot. Also admits mild nausea. Denies fever, chills, chest pain, SOB, abd pain, vomiting, other complaints. Allergies Allergy/AdvReac Type Severity Reaction Status Date / Time codeine Allergy Unknown Unknown Verified 02/03/19 11:53 Home Medications Home Medications Medication Instructions Recorded Confirmed Type aspirin 81 mg PO QAM 08/20/18 02/03/19 History atorvastatin 80 mg PO HS 08/20/18 02/03/19 History lisinopril-hydrochlorothiazide 1 tab PO QAM 08/20/18 02/03/19 History acetaminophen [Tylenol Extra 1,000 mg PO TID 12/25/18 02/03/19 History Strength] sodium chloride [Deep Sea Nasal] 2 spray INTRANASAL QID PRN 12/25/18 02/03/19 History docusate sodium 250 mg PO BID 01/19/19 02/03/19 History warfarin [Coumadin] 5 mg PO DAILY #30 tab 01/27/19 02/03/19 Rx Past Med/Surg History Medical History Hematoma (Acute) right leg x2 HLD (hyperlipidemia) (Chronic) COPD (chronic obstructive pulmonary disease) CVA (cerebral vascular accident) HTN (hypertension) Hernia PVD (peripheral vascular disease) Smoker Surgical History H/O vasectomy History of femoropopliteal bypass Rt History of surgery History of vascular surgery R SFA stent, Right leg thrombectomy, fem-pop. 08/2018. GETA with a-line. 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 Required: No Beliefs That Will Affect Care: Mandaen Mandaen Beliefs: Muslim Current Living Situation: Other Current Living Situation Comment: [facility] at [facility] Feels Safe at Home: Yes Safety Concerns: Feels Safe At This Time Smoking Status: Former smoker Tobacco Type: cigarettes ; Cigarettes Per Day: 12/12/2018 ; Do You Dip or Chew Tobacco: No ; Second Hand Exposure: No ; Hx Alcohol Use: No Hx Substance Use: No Review of Systems All systems reviewed & are unremarkable except as noted in HPI & below Physical Exam Constitutional: WD/WN, vitals as above well developed, well nourished, healthy appearing, well groomed, + disheveled, cooperative and + in distress (mild distress d/t anxiety and pain); not combative Eyes: PERRL, conjunctivae normal, anicteric sclerae ENMT: external ear and nose normal, oropharynx normal Ears: no hearing impairment Throat: no posterior oropharynx abnormality Neck: trachea midline, no thyromegaly Respiratory: normal respiratory effort, lungs clear to auscultation no cough Cardiovascular: Rate/Rhythm: regular rhythm and + tachycardic Vessels: femoral pulses present, posterior tibial pulses present (with doppler after dressing removal), dorsalis pedis pulses present (with doppler after dressing removal), brachial pulses present and radial pulses present; + abnormal perip heral pulses Extremities: normal capillary refill (after dressing removal) Gastrointestinal (Abdomen): normal bowel sounds, soft, nontender, no hepatosplenomegaly Inspection/Auscultation: abdomen normal to inspection Musculoskeletal: Head/Neck/Chest: normocephalic and head atraumatic Extremities: + foot abnormality Skin: no rashes, warm and dry normal turgor, + mottling (while dressing in place, resolved with dressing removal) and + incision (see below); no rashes, no lesions and no ulcers Neurologic: moves all extremities and awake; no focal motor deficits Motor/Sensory: no sensory deficit Psychiatric: Orientation: alert, oriented x 3 and cooperative Apperance: appropriately dressed Affect: + anxious affect Thought Process: goal directed thought process and linear/logical thought process Cognition: recent memory grossly intact, remote memory grossly intact, attention grossly intact and language grossly intact Estimated Intelligence: average estimated intelligence Results & Data Vital Signs (Past 12 Hours) Vital Signs Temp Pulse Resp BP Pulse Ox 02/03/19 15:30 112 H 8 L 108/79 97 02/03/19 15:00 117 H 13 111/74 96 02/03/19 14:15 37.6 C H 02/03/19 14:14 100 H 15 118/82 100 02/03/19 13:00 103 H 12 109/69 97 02/03/19 12:30 102 H 22 122/75 98 02/03/19 12:10 99 H 18 128/79 97 02/03/19 11:12 128 H 13 114/73 96 02/03/19 11:10 126 H 16 95 02/03/19 11:05 38.9 C H 126 H 16 114/73 95 Code Status & VTE Plan VTE Prophylaxis Plan VTE Prophylaxis will be ordered: Yes
[2019-02-03] MEDS: WARFARIN SOD 5 MG TAB PO SCH (18:55)
[2019-02-03] MEDS: DOCUSATE SODIUM 100 MG CAP PO SCH (20:13)
[2019-02-03] MEDS: ATORVASTATIN 40 MG TAB PO SCH (20:13)
[2019-02-03] MEDS: ACETAMINOPHEN 325 MG TAB PO PRN (20:13)
[2019-02-03] MEDS ORDERED: COUGH DROP (SUGAR FREE) LOZ 24 LOZ/1 BOX BUCCAL ONE (20:16)
[2019-02-04] MEDS: ASPIRIN 81 MG CHEW PO SCH (08:13)
[2019-02-04] MEDS: LISINOPRIL/HCTZ 10/12.5MG TAB PO SCH (08:13)
[2019-02-04] MEDS: DOCUSATE SODIUM 100 MG CAP PO SCH ×2 (08:13→19:48)
[2019-02-04] MEDS ORDERED: VANCOMYCIN CONSULT ACTIVE PRN ×2 (08:51→08:52)
[2019-02-04] MEDS ORDERED: VANCOMYCIN HCL 1,750 MG in SODIUM CHLORIDE 0.9% 500 ML IV ONE (09:15)
--- NOTE | 2019-02-04 09:17 | Surgery Progress Note ---
Date of Service February 04, 2019 Assessment & Plan (1) Hematoma of right lower extremity: No further bleeding is noted at this time. (2) Bacteremia: He did have 2+ blood cultures with gram-positive cocci.Preliminary report called to the floor did say it was MRSAOn 1 of the cultures. We did start him on vancomycin IV.We also consult infectious disease. If the final report does show MRSA I do not see any other source for the possible infection Except for his right leg bypass. We therefore may recommend to remove the graft. He does get fairly ischemic once his graft is nonfunctioning. We therefore may have to do a limb salvage extra anatomical bypass to salvage the leg once this prosthetic graft is removed. Subjective Patient denies any further bleeding from his right leg. He has no other complaints other than constipation. Physical Exam Physical Exam: On exam he has good flow to his right foot. The dressing is dry and intact of the right lower extremity. Constitutional: WD/WN, vitals as above Results & Data Vital Signs (Past 12 Hours) Vital Signs Temp Pulse Pulse Resp BP Pulse Ox 02/04/19 07:10 37.0 C 89 19 106/68 98 02/04/19 03:01 37.2 C 109 H 18 119/65 97 02/03/19 23:47 37.1 C 100 H 18 113/71 96 02/03/19 23:31 107 H
--- NOTE | 2019-02-04 09:56 | Infectious Disease Consult ---
Date of Consultation February 04, 2019 Assessment & Plan (1) Bacteremia due to Staphylococcus: 68-year-old male with staphylococcal bacteremia, final ID and sensitivity pending. For now vancomycin appropriate therapy. Agree with Dr. Huerta about worry of infected prosthetic graft, and may need removal. Will follow. (2) Femoral-popliteal bypass graft occlusion, right: History of Present Illness Reason for Consultation: Bacteremia,? Infected prosthetic leg graft Attending Physician: Robinson Huerta MD History of Present Illness 68-year-old male prisoner, with history of hypertension, severe arterial disease, status post right femoropopliteal bypass graft earlier this year. Developed subsequent occlusion requiring thrombectomy, which subsequently then reoccurred despite therapeutic anticoagulation. Again underwent surgery, but subsequently developed significant hematoma with bleeding requiring evacuation of hematoma 1 week ago with placement of a wound VAC. Patient was now readmitted with progressively worsening pain and coolness of his right foot with bleeding into his wound with fever, and blood cultures now reported positive for gram-positive cocci in clusters. Patient has been started on vancomycin. Allergies Allergy/AdvReac Type Severity Reaction Status Date / Time codeine Allergy Unknown Unknown Verified 02/03/19 11:53 Home Medications Home Medications Medication Instructions Recorded Confirmed Type aspirin 81 mg PO QAM 08/20/18 02/03/19 History atorvastatin 80 mg PO HS 08/20/18 02/03/19 History lisinopril-hydrochlorothiazide 1 tab PO QAM 08/20/18 02/03/19 History acetaminophen [Tylenol Extra 1,000 mg PO TID 12/25/18 02/03/19 History Strength] sodium chloride [Deep Sea Nasal] 2 spray INTRANASAL QID PRN 12/25/18 02/03/19 History docusate sodium 250 mg PO BID 01/19/19 02/03/19 History warfarin [Coumadin] 5 mg PO DAILY #30 tab 01/27/19 02/03/19 Rx Patient History Medical History Hematoma (Acute) right leg x2 HLD (hyperlipidemia) (Chronic) COPD (chronic obstructive pulmonary disease) CVA (cerebral vascular accident) HTN (hypertension) Hernia PVD (peripheral vascular disease) Smoker Surgical History H/O vasectomy History of femoropopliteal bypass Rt History of surgery History of vascular surgery R SFA stent, Right leg thrombectomy, fem-pop. 08/2018. GETA with a-line. Right leg open thrombectomy 12/22/2018 [facility] Family History Other Family history non-contributory Social History Preferred Language: Cook Islander Communication Ability: Effective Public Relations Account Supervisor Required: No Beliefs That Will Affect Care: Jainism Jainism Beliefs: Church Current Living Situation: Other Current Living Situation Comment: [facility] at [facility] Feels Safe at Home: Yes Safety Concerns: Feels Safe At This Time Smoking Status: Former smoker Tobacco Type: cigarettes ; Cigarettes Per Day: 12/12/2018 ; Do You Dip or Chew Tobacco: No ; Second Hand Exposure: No ; Hx Alcohol Use: No Hx Substance Use: No Review of Systems Review of Systems: All systems reviewed & are unremarkable except as noted in HPI & below Physical Exam Constitutional: WD/WN, vitals as above comfortable and + in distress Eyes: PERRL, conjunctivae normal, anicteric sclerae ENMT: external ear and nose normal, oropharynx normal Neck: trachea midline, no thyromegaly neck nontender Respiratory: normal respiratory effort, lungs clear to auscultation normal percussion; does not use accessory muscles Cardiovascular: Rate/Rhythm: regular rate and regular rhythm Heart Sounds: normal S1 and normal S2; no gallop, no murmur and no cardiac rub Vessels: popliteal pulses present; no JVD Gastrointestinal (Abdomen): normal bowel sounds, soft, nontender, no hepatosplenomegaly Musculoskeletal: no cyanosis or clubbing, extremities motor strength 5/5 Spine: thoracic spine normal to inspection and lumbar spine normal to inspection; no cervical spinal tenderness Skin: no rashes, warm and dry normal turgor and + wound (Right groin with dressing in place) Neurologic: patellar DTR's 2+ bilat, sensation intact no focal motor deficits Psychiatric: A+Ox3, euthymic affect Orientation: cooperative Lymphatic: no cervical or axillary lymphadenopathy no inguinal lymphadenopathy Results & Data Vital Signs (Past 12 Hours) Vital Signs Temp Pulse Pulse Resp BP Pulse Ox 02/04/19 08:00 107 H 02/04/19 07:10 37.0 C 89 19 106/68 98 02/04/19 03:01 37.2 C 109 H 18 119/65 97 02/03/19 23:47 37.1 C 100 H 18 113/71 96 02/03/19 23:31 107 H Laboratory Results Short CBC 02/03/19 Range/Units 11:28 WBC 10.48 (4.8-10.8) K/uL Hgb 10.2 L (14.0-18.0) g/dL Hct 31.5 L (42-52) % Plt Count 364 (130-400) K/uL BMP 02/03/19 11:28 Sodium 137 Potassium 4.2 Chloride 106 Carbon Dioxide 24 BUN 20 H Creatinine 1.20 Glucose 131 H Calcium 8.3 L Liver Function 02/03/19 Range/Units 11:28 Total Bilirubin 0.3 (0.2-1) mg/dl AST 13 L (15-37) U/L ALT 22 (12-78) U/L Alkaline Phosphatase 92 (45-117) U/L Albumin 2.7 L (3.4-5.0) gm/dl Urine 02/03/19 Range/Units 14:50 Urine Color Yellow Urine Appearance Clear (Clear) Urine pH 5.0 (4.5-7.5) Ur Specific [place] > 1.045 H (1.000-1.030) Urine Protein Negative (Negative) Urine Glucose (UA) Negative (Negative) Diagnostic Findings Microbiology 02/03/19 12:04 Blood Anaerobic Blood Culture - Preliminary Gram positive cocci clusters 02/03/19 11:55 Blood Aerobic Blood Culture - Preliminary Gram positive cocci clusters 02/03/19 11:55 Blood Anaerobic Blood Culture - Preliminary Gram positive cocci clusters cc: ~ CT angio LE RT wo/w or w/only HISTORY: 68 years-old Male bleeding from incision acute bleeding about the right lower extremity with stent of the superficial femoral artery. COMPARISON: Duplex arterial study of the right lower extremity of same day and also 12/26/2018 TECHNIQUE: CTA of the right lower extremity was obtained both with and without the use of 120 mL Optiray 320 IV contrast. All measurements were obtained according to NASCET criteria. 3-D coronal and sagittal MIPS were obtained from the axial data set and were submitted for review. A dose lowering technique was used consistent with the principals of SANTOSH. FINDINGS: CTA: Mixed plaque formation is noted about the bilateral iliac arteries with multifocal stenoses noted about the bilateral internal iliac branches. Lung segment stent with occlusion of the [place] superficial femoral artery. There is a patent graft of the superficial femoral and popliteal arteries with approximately 90% focal narrowing about the distal aspect of the graft at the level of the popliteal fossa on image 576 series 5 from intraluminal filling defect. High-grade stenosis versus occlusion of the proximal aspect of the anterior tibial artery with multifocal areas of high-grade narrowing. Three- vessel flow of the lower extremity is noted to the level of the ankle. CT: No acute process of the imaged intrapelvic structures. Prostamegaly. No bowel obstruction. Mildly prominent 9 mm right iliac chain lymph node. Additionally, there is a 2.0 x 1.2 cm right inguinal chain lymph node present on image 126 of series 3. There is stranding of the right inguinal tissues with a soft tissue attenuating 2.8 x 1.6 cm ovoid lesion adjacent to the femoral graft on image 170 series 5 possibly reflective of hematoma. There is a large skin and soft tissue defect noted about the posterior medial right upper leg with hematoma noted superiorly and deep to the soft tissue defect measuring up to 3.0 x 3.1 x 4.1 cm (image 557 of series 3). Caudal to this hematoma there is a peripherally enhancing 1.6 x 3.9 x 3.9 cm collection seen on image 600 of series 5. Skin thickening with subcutaneous trace edema noted about the soft tissue defect. No acute fracture, dislocation or bony erosive changes. Mild check compartment osteoarthritis about the knee. Degenerative changes also seen about the foot and ankle. IMPRESSION: 1. Stented [place] superficial femoral artery demonstrates long segment occlusion. There is a patent graft of the superficial femoral and popliteal arteries with a focal area of high-grade stenosis about the popliteal portion of the graft with intraluminal filling defect suggestive of probable thrombus. 2. Hematoma deep to a skin defect about the medial upper leg measures up to 4.1 cm and encases the popliteal stent graft likely causing a degree of mass effect. This is at the level of high-grade stenosis as above. 3. Peripherally enhancing intermediate attenuating collection deep to the soft tissue defect is also noted measuring up to 3.9 cm. Additional hematoma versus abscess are differential considerations. Correlate clinically. 4. No acute fracture identified. 5. Prostamegaly. The above report was generated using voice recognition software. It may contain grammatical, syntax or spelling errors. Electronically signed by: Reynaldo Acosta M.D. 02/03/2019 2:05 PM Dictated: 02/03/19 1349 Transcribed: 02/03/19 1349 PG Care Time/CCT Total # of Minutes Spent Total Time Spent with Patient: Total time spent is greater than 50% in coordination of care (as documented) at patient's floor/unit and/or counseling patient:
--- NOTE | 2019-02-04 12:10 | Pharmacy Report ---
Pharmacy Abx Initial Consult - Date of Service February 04, 2019 - Pharmacy Dosing Scope Date of Consult: 02/04/19 Consultation requested by: Dr. Huerta Pharmacy is consulted to initiate Vancomycin IV/PO dosing therapy, order appropriate labs and adjust drug dose/frequency. - Subjective The patient is a 68 year old M admitted on 02/04/19 09:11. - Objective Height: 6 ft Weight: 86.1 kg Vital Signs (Past 12hrs): Vital Signs Temp Pulse Pulse Resp BP Pulse Ox 02/04/19 11:08 36.9 C 107 H 20 139/73 98 02/04/19 08:00 107 H 02/04/19 07:10 37.0 C 89 19 106/68 98 02/04/19 03:01 37.2 C 109 H 18 119/65 97 Lab Results (24hrs): Laboratory Tests (24 Hours) 02/03/19 11:28 Creatinine 1.20 Est Cr Clr Drug Dosing 65.6 Micro Results: 02/03/19 12:04 Aerobic Blood Culture - Pending Blood - Risk Factors for Resistance * Resident in an inmate facility * Hospitalization for 48 hours or more within the past 90 days * Antimicrobial use within the last 90 days - Assessment & Plan Assessment 68 year old M being treated for bacteremia. * 2 of 2 blood cultures growing gram positive cocci * Baseline Scr ~1-1.2 Plan Vancomycin for treatment of bacteremia Vancomycin IV * Estimated PK Parameters: Vd 0.7 L/kg, [place] 0.059 hr-1, t1/2 12 hr * Loading dose: 1750 mg (20 mg/kg) * Maintenance dose: 1500 mg IV (17 mg/kg) every 14 hours * Goal trough level for bacteremia : ~20 mcg/mL * Trough level ordered for 02/05/19@1930 * Dosing is a bit aggressive since pt is only on vanc at this point. Dose may need decreased or interval extended once volume is filled. Trough level ordered prior to Css to ensure appropriate levels are achieved without going supratherapeutic. Pharmacy will continue to follow and will adjust dose/frequency as necessary. Thank you.
[2019-02-04 12:46] LABS: Est GFR (African American) 76.7; Est GFR (Non-African American) 66.2
--- NOTE | 2019-02-04 13:13 | Ultrasound Report ---
BILATERAL LOWER EXTREMITY VENOUS MAPPING CLINICAL HISTORY: Preoperative evaluation. COMPARISON STUDY: No previous studies for comparison. FINDINGS: The bilateral greater and lesser saphenous veins were patent. Right greater saphenous calib er was 5.5 mm at the level of the groin, 4.1 mm within the proximal thigh, 3.6 mm within the mid thig h, 4 mm within the distal thigh, 4.7 mm at the level of the knee, 4 mm within the proximal calf, 3.6 mm within the mid calf and 3.5 mm within the distal right calf. Right lesser saphenous measured 2.7 m m at the level of the posterior knee, 4.6 mm at the level the proximal calf, 3.5 mm within the mid ca lf and 3.7 mm within the distal right calf. Note was made of a small hematoma versus complex right po pliteal cyst. Left greater saphenous caliber was 5.6 mm within the groin, 3.8 mm within the proximal thigh, 3.1 mm within the mid thigh, 3 mm within the distal thigh, 2.3 mm at the level of the knee, 2 mm at the leve l of the proximal calf, 1.6 mm within the mid calf and 1.4 mm within the distal left calf. Left lesse r saphenous vein measured 2.8 mm in caliber at the level the knee, 2.5 mm within the proximal calf, 3 .1 mm within the mid calf and 2.8 mm within the distal calf. IMPRESSION: 1. Patent bilateral greater and lesser saphenous veins, with detailed measurements above. 2. Small right popliteal complex cyst versus hematoma. Electronically signed by: Dimas Bah M.D. 02/04/2019 1:10 PM
[2019-02-04] MEDS: MAGNESIUM HYDROXIDE SUSP 30 ML UDC PO PRN (14:55)
[2019-02-04] MEDS: VANCOMYCIN HCL 1,500 MG in SODIUM CHLORIDE 0.9% 500 ML IV SCH (15:37)
[2019-02-04] MEDS: WARFARIN SOD 5 MG TAB PO SCH (15:38)
[2019-02-04] MEDS: ATORVASTATIN 40 MG TAB PO SCH (19:48)
[2019-02-05] MEDS: VANCOMYCIN HCL 1,500 MG in SODIUM CHLORIDE 0.9% 500 ML IV SCH ×2 (05:49→20:30)
[2019-02-05 07:59] LABS: Creatinine Clr Calc Pharmacy 78.7 ml/min; Est GFR (African American) 89.9; Est GFR (Non-African American) 77.5
[2019-02-05] MEDS: DOCUSATE SODIUM 100 MG CAP PO SCH ×2 (08:06→20:30)
[2019-02-05] MEDS: ASPIRIN 81 MG CHEW PO SCH (08:06)
[2019-02-05] MEDS: LISINOPRIL/HCTZ 10/12.5MG TAB PO SCH (08:06)
--- NOTE | 2019-02-05 09:33 | Surgery Progress Note ---
Date of Service February 05, 2019 Assessment & Plan (1) Bacteremia due to Staphylococcus: Cultures now show staph aureus. Sensitivities are not back at this point in time. We will continue him on vancomycin at this point. (2) Hematoma of right lower extremity: At this time we recommended we debride and irrigate the wound of the old hematoma present. No plan on taking out the graft at this time. If the graft falls apart and bleeding occurs during the irrigation debridement then removal will be done. At this point would like to just remove all infected tissue and irrigate the wound and see exactly if and how much of the graft is exposed. This is planned to be done tomorrow morning. Subjective Patient has no complaints other than he did have a small amount of bleeding this morning which stopped quickly. It occurred when he stood up. Physical Exam Physical Exam: On exam the dressing the right leg is intact. There is no evidence of bleeding at this time.The graft itself appears patent with a good flow to the foot. Constitutional: WD/WN, vitals as above Results & Data Vital Signs (Past 12 Hours) Vital Signs Temp Pulse Pulse Resp BP Pulse Ox 02/05/19 07:06 37.0 C 81 19 109/67 97 02/05/19 03:38 36.9 C 89 18 93/60 L 98 02/05/19 01:37 91 H 02/04/19 23:42 37.1 C 97 H 18 111/70 99 (1) Hematoma of right lower extremity Encounter type: initial encounter Qualified Code(s): S80.11XA - Contusion of right lower leg, initial encounter
--- NOTE | 2019-02-05 15:47 | Infectious Disease Progress Nt ---
Date of Service February 05, 2019 Assessment & Plan (1) MRSA bacteremia: 68-year-old male with severe peripheral arterial disease, status post right femoral-popliteal bypass grafting, with subsequent multiple combinations with thrombosis and bleeding, now with MRSA bacteremia, worry about infected graft. Patient to have exploration tomorrow, and will continue patient on vancomycin pending operative findings. Will follow. Subjective Patient has no complaints other than he did have a small amount of bleeding this morning which stopped quickly. No other new complaints. Blood cultures identified as MRSA. Review of Systems Review of Systems: All systems reviewed & are unremarkable except as noted in HPI & below Physical Exam Constitutional: WD/WN, vitals as above comfortable; no acute distress Eyes: PERRL, conjunctivae normal, anicteric sclerae ENMT: external ear and nose normal, oropharynx normal Neck: trachea midline, no thyromegaly neck nontender Respiratory: normal respiratory effort, lungs clear to auscultation normal percussion; does not use accessory muscles Cardiovascular: Rate/Rhythm: regular rate and regular rhythm Heart Sounds: normal S1 and normal S2; no gallop, no murmur and no cardiac rub Vessels: p opliteal pulses present; no JVD Gastrointestinal (Abdomen): normal bowel sounds, soft, nontender, no hepatosplenomegaly Musculoskeletal: no cyanosis or clubbing, extremities motor strength 5/5 Spine: thoracic spine normal to inspection and lumbar spine normal to inspection; no cervical spinal tenderness Skin: no rashes, warm and dry normal turgor and + wound (Right groin with dressing in place) Neurologic: patellar DTR's 2+ bilat, sensation intact no focal motor deficits Psychiatric: A+Ox3, euthymic affect Orientation: cooperative Lymphatic: no cervical or axillary lymphadenopathy no inguinal lymphadenopathy Results & Data Vital Signs (Past 12 Hours) Vital Signs Temp Pulse Pulse Resp BP Pulse Ox 02/05/19 15:24 36.9 C 76 18 109/60 99 02/05/19 10:49 36.9 C 82 19 102/64 98 02/05/19 08:00 91 H 02/05/19 07:06 37.0 C 81 19 109/67 97 Laboratory Results [facility] 02/05/19 06:56 Creatinine 1.00 Diagnostic Findings Microbiology 02/03/19 12:04 Blood Aerobic Blood Culture - Preliminary Staphylococcus aureus 02/03/19 12:04 Blood Anaerobic Blood Culture - Preliminary Staphylococcus aureus 02/03/19 11:55 Blood Aerobic Blood Culture - Preliminary Staphylococcus aureus 02/03/19 11:55 Blood Anaerobic Blood Culture - Preliminary Staphylococcus aureus PG Care Time/CCT Total # of Minutes Spent Total Time Spent with Patient: Total time spent is greater than 50% in coordination of care (as documented) at patient's floor/unit and/or counseling patient:
[2019-02-05] MEDS ORDERED: VANCOMYCIN TROUGH ONE (19:30)
[2019-02-05] MEDS: ATORVASTATIN 40 MG TAB PO SCH (20:25)
--- NOTE | 2019-02-05 21:30 | Pharmacy Report ---
Pharmacy Abx Dose Short Note - Date of Service February 05, 2019 - Assessment & Plan Assessment * 68 year old M receiving VANCOMYCIN for treatment of MRSA BACTEREMIA * Day #2 of antimicrobial therapy. Plan Vancomycin * Trough level of 10.3 mcg/mL is subtherapeutic * Change to 1500 mg IV every 12 hours * Goal trough level: 15 to 20 mcg/mL * Trough ordered for: 02/07 @0730 Pharmacy will continue to follow and will adjust dose/frequency as necessary. Thank you.
[2019-02-06 06:00] LABS: INR 2.8 (0.9-1.1); Prothrombin Time 26.9 Seconds (9.0-12.0)
[2019-02-06 06:18] LABS: Creatinine Clr Calc Pharmacy 78.7 ml/min; Est GFR (African American) 89.9; Est GFR (Non-African American) 77.5
[2019-02-06] MEDS ORDERED: BACITRACIN INJ 50,000 UNIT VIAL ONE (07:45)
[2019-02-06] MEDS: VANCOMYCIN HCL 1,500 MG in SODIUM CHLORIDE 0.9% 500 ML IV SCH ×2 (08:03→19:57)
[2019-02-06] MEDS: ASPIRIN 81 MG CHEW PO SCH (08:09)
[2019-02-06] MEDS: LISINOPRIL/HCTZ 10/12.5MG TAB PO SCH (08:09)
[2019-02-06] MEDS: DOCUSATE SODIUM 100 MG CAP PO SCH ×2 (08:10→20:07)
[2019-02-06] MEDS ORDERED: fentaNYL citrate 100 MCG/2 ML VIAL ONE (09:06)
[2019-02-06] MEDS ORDERED: ONDANSETRON INJ 2 MG/ML 2 ML VIAL ONE (09:06)
[2019-02-06] MEDS ORDERED: PROPOFOL IV EMULSION 10 MG/ML 20 ML VIAL IV ONE (09:06)
[2019-02-06] MEDS ORDERED: DEXAMETHASONE SOD INJ 4 MG/ML VIAL ONE (09:06)
[2019-02-06] MEDS ORDERED: LIDOCAINE HCL 2% 2 ML VIAL/AMP(20MG/ML) INFIL ONE (09:06)
[2019-02-06] MEDS ORDERED: MIDAZOLAM HCL 1 MG/ML 2ML VIAL ONE (09:06)
--- NOTE | 2019-02-06 09:11 | History & Physical Bridge Note ---
Date of Service February 06, 2019 History & Physical Bridge Note Patient for debridement and irrigation of right leg wound. I have discussed the risks options and benefits of the procedure with the patient. The patient understands the risks options and benefits and agrees to the procedure. I have examined the patient, reviewed the History & Physical and in the interval since the performance of the History & Physical I have noted the following changes of clinical significance: no changes noted
--- NOTE | 2019-02-06 09:41 | Anesthesiology Consultation ---
Date of Service February 06, 2019 Assessment & Plan Chart Review Chart Review: Acceptable Risk for Surgery Consults Requested none History Surgery Operation Date: 02/06/19 07:10 Proposed Procedures p Incision and Drainage Right Calf Wound - Robinson Huerta MD Height/Weight Height: 6 ft Weight: 86.9 kg Allergies Allergy/AdvReac Type Severity Reaction Status Date / Time codeine Allergy Unknown Unknown Verified 02/03/19 11:53 Medications Home Medications Medication Instructions Recorded Confirmed Last Taken aspirin 81 mg PO QAM 08/20/18 02/03/19 01/24/19 07:00 atorvastatin 80 mg PO HS 08/20/18 02/03/19 01/24/19 18:30 lisinopril-hydrochlorothiazide 1 tab PO QAM 08/20/18 02/03/19 01/25/19 07:00 acetaminophen [Tylenol Extra 1,000 mg PO TID 12/25/18 02/03/19 01/24/19 07:00 Strength] sodium chloride [Deep Sea Nasal] 2 spray INTRANASAL QID PRN 12/25/18 02/03/19 Unknown docusate sodium 250 mg PO BID 01/19/19 02/03/19 01/24/19 18:30 warfarin [Coumadin] 5 mg PO DAILY #30 tab 01/27/19 02/03/19 Unknown Active Medications Generic Name Dose Route Start Last Admin Trade Name Freq PRN Reason Stop Dose Admin Acetaminophen 1,000 mg 02/03/19 15:50 02/05/19 10:33 Tylenol PO 03/05/19 20:59 1,000 mg TID PRN Administration Pain or Fever Acetaminophen 325 mg 02/03/19 18:05 02/03/19 20:13 Tylenol PO 03/05/19 18:04 325 mg Q4H PRN Administration Headache Aspirin 81 mg 02/04/19 09:00 02/06/19 08:09 Aspirin Chew PO 03/06/19 08:59 Not Given QAM TOOTIE Atorvastatin Calcium 80 mg 02/03/19 21:00 02/05/19 20:25 Lipitor PO 03/05/19 20:59 80 mg HS TOOTIE Administration Docusate Sodium 200 mg 02/03/19 21:00 02/06/19 08:10 Colace PO 03/05/19 20:59 Not Given BID TOOTIE Lisinopril/HCTZ 1 tab 02/04/19 09:00 02/06/19 08:09 Prinzide 10/12.5mg PO 03/06/19 08:59 Not Given QAM TOOTIE Vancomycin HCl 1,500 mg/ 530 mls @ 200 mls/hr 02/06/19 08:00 02/06/19 08:03 Sodium Chloride IV 02/20/19 07:59 200 mls/hr Q12H TOOTIE Administration Ioversol 120 ml 02/03/19 13:33 02/03/19 13:33 Optiray 320 125ml IV 02/07/19 13:32 120 ml ONCE PRN Administration Interaction Checking Magnesium Hydroxide 30 ml 02/04/19 09:08 02/04/19 14:55 Milk Of Magnesia PO 03/06/19 09:07 30 ml Q6H PRN Administration Constipation Warfarin Sodium 5 mg 02/03/19 17:30 02/04/19 15:38 Coumadin PO 03/05/19 17:29 5 mg DAILY@1600 TOOTIE Administration Past Medical History Medical History Hematoma (Acute) right leg x2 HLD (hyperlipidemia) (Chronic) COPD (chronic obstructive pulmonary disease) CVA (cerebral vascular accident) HTN (hypertension) Hernia PVD (peripheral vascular disease) Smoker Past Family History Family History Other Family history non-contributory Past Surgical History Surgical History H/O vasectomy History of femoropopliteal bypass Rt History of surgery History of vascular surgery R SFA stent, Right leg thrombectomy, fem-pop. 08/2018. GETA with a-line. Right leg open thrombectomy 12/22/2018 [facility] Social History Smoking Status: Former smoker tobacco type: cigarettes Smoking cigarettes per day: 12/12/2018 Do You Dip or Chew Tobacco: No Hx Alcohol Use: No Hx Substance Use: No Physical Exam Vital Signs Last Vital Signs Temp 37 C 02/06/19 07:59 Pulse 82 02/06/19 07:59 Resp 18 02/06/19 07:59 BP 106/67 02/06/19 07:59 Pulse Ox 96 02/06/19 07:59 Testing Laboratory Results 02/03/19 11:28 02/06/19 05:38 PT 26.9 Seconds (9.0-12.0) H 02/06/19 05:38 INR 2.8 (0.9-1.1) H 02/06/19 05:38 APTT 34.2 Seconds (21.0-31.0) H 02/03/19 11:28 Urine Color Yellow 02/03/19 14:50 Urine Appearance Clear (Clear) 02/03/19 14:50 Urine pH 5.0 (4.5-7.5) 02/03/19 14:50 Ur Specific [place] > 1.045 (1.000-1.030) H 02/03/19 14:50 Urine Protein Negative (Negative) 02/03/19 14:50 Urine Glucose (UA) Negative (Negative) 02/03/19 14:50 Urine Ketones Negative (Negative) 02/03/19 14:50 Urine Nitrite Negative (Negative) 02/03/19 14:50 Ur Leukocyte Esterase Negative (Negative) 02/03/19 14:50 Blood Type O Positive 02/03/19 11:28 Antibody Screen NEGATIVE 02/03/19 11:28 02/03/19 12:04 Aerobic Blood Culture - Final Blood Staph aureus MRSA Anaerobic Blood Culture - Final Staph aureus MRSA 02/03/19 11:55 Aerobic Blood Culture - Final Blood Staph aureus MRSA Anaerobic Blood Culture - Final Staph aureus MRSA
[2019-02-06] MEDS ORDERED: ONDANSETRON INJ 2 MG/ML 2 ML VIAL IV PRN (09:49)
[2019-02-06] MEDS ORDERED: METOCLOPRAMIDE HCL INJ 5 MG/ML 2 ML VIAL IV PRN (09:49)
[2019-02-06] MEDS ORDERED: ePHEDrine sulfate 50 MG/ML AMP IV PRN (09:49)
[2019-02-06] MEDS ORDERED: PROMETHAZINE HCL 12.5 MG in SODIUM CHLORIDE 0.9% 50 ML IV PRN (09:49)
[2019-02-06] MEDS ORDERED: ATROPINE SULFATE 0.1 MG/ML 10ML SYR IV PRN (09:49)
--- NOTE | 2019-02-06 10:56 | Post Operative Brief Note ---
Immediate Post Op Note v1 Date of Surgery February 06, 2019 Pre & Post Diagnosis Operation Date: 02/06/19 07:10 Pre-Op Diagnosis: Right Lower Extremity Infection Post-Op Diagnosis: Right Lower Extremity Infection Procedure Operation Date: 02/06/19 07:10 Actual Procedures p Incision and Drainage Right Calf Wound, Removal of Infected Prosthetic Graft(Right) - Robinson Huerta MD Surgeon Robinson Huerta MD Flush Tester MD Ze Estimated Blood Loss 30 Findings Consistent with Post-Op Diagnosis Anesthesia Type General Complications none Disposition Accompanied Patient To Recovery: No Disposition: Recovery Room
--- NOTE | 2019-02-06 11:01 | Operative Report ---
Post Operative Report Pre & Post Diagnosis Operation Date: 02/06/19 07:10 Pre-Op Diagnosis: Right Lower Extremity Infection Post-Op Diagnosis: Right Lower Extremity Infection Procedure Operation Date: 02/06/19 07:10 Actual Procedures p Incision and Drainage Right Calf Wound, Removal of Infected Prosthetic Graft(Right) - Robinson Huerta MD Surgeon Robinson Huerta MD Rv Repair Technician Madison Palm MD Estimated Blood Loss 30 Findings Consistent with Post-Op Diagnosis Fluids 700cc crystalloid Specimens excised graft sent for culture Drains none Anesthesia Type General Complications none Disposition Accompanied Patient To Recovery: No Disposition: Recovery Room Indications right lower extremity bypass infection Description of Procedure The patient was taken to the operating room and placed in the supine position. The patient's identity and the surgical site were verified. The right leg from mid thigh to mid calf was prepped in the usual sterile fashion. A timeout was performed. An incision was made to extend the open area of the wound about 10cm proximally. We dissected down to the open cavity adjoining the open wound protecting the bypass by using the bovie over a finger. As we opened the cavity more proximally there was pulsatile bleeding from the mid-portion of the o riginal wound over the area of exposed graft. We clamped the graft both proximally and distally and were able to open up the soft tissues over this segment of the graft. We noted an about 0.5cm hole in the graft material. We excised this portion of the graft and oversewed both the proximal and distal ends with 4-0 prolene. We then washed out the wound with a pulsivac. We assessed the foot and noted decent capillary refill and a faint monophasic AT signal. We packed the wound with 8 betadine soaked sponges, placed 2 abd pads over this and wrapped with kerlix gauze. Dr. Huerta was present and scrubbed for the entire procedure. The patient tolerated the procedure well. At the conclusion of the case all instrument, needle, and sponge counts were correct. The patient was taken to the recovery room in satisfactory condition. I attest to the content of the Intraoperative Record and any orders documented therein. Any exceptions are noted below.
[2019-02-06] MEDS: fentaNYL citrate 100 MCG/2 ML VIAL IV PRN ×4 (11:20→11:35)
[2019-02-06] MEDS: HYDROmorphone INJ 2 MG/ML SYR/VIAL IV PRN ×2 (11:42→11:55)
[2019-02-06 12:58] LABS: Basophils # (auto) 0.01 K/uL (0-0.2); Basophils % (auto) 0.1 %; Eosinophils # (auto) 0.05 K/uL (0-0.5); Eosinophils % (auto) 0.6 %; Hematocrit (blood only) 23.9 % (42-52); Hemoglobin 7.7 g/dL (14.0-18.0); Immature Granulocytes # (auto) 0.01 K/uL (0.00-0.02); Immature Granulocytes % (auto) 0.1 %; Lymphocytes % (auto) 9.6 %; Mean Corpuscular Volume 94.1 fL (80-100); Mean Platelet Volume 9.1 fL (7.4-10.4); Monocytes # (auto) 0.25 K/uL (0.11-0.59); Neutrophils # (auto) 7.18 K/uL (1.4-6.5); Neutrophils % (auto) 86.6 %; Platelet Count 386 K/uL (130-400); RDW Coefficient of Variation 14.3 % (11.5-14.5); RDW Standard Deviation 48.9 fL (36.4-46.3); Red Blood Count 2.54 M/uL (4.7-6.1)
[2019-02-06 12:59] LABS: Mean Corpuscular Hgb Conc 32.2 g/dL (32-36)
[2019-02-06] MEDS ORDERED: Heparin IV Standard *NO* Bolus ONE (13:00)
[2019-02-06] MEDS: HEPARIN SODIUM/DEXTROSE 25,000 UNITS/500 ML BAG IV SCH (13:10)
[2019-02-06] MEDS: MoRPHine SULFATE 4 MG/ML 1 ML CARP\\VIAL IV PRN ×2 (13:11→15:43)
[2019-02-06 13:22] LABS: Giant Platelets 1+
[2019-02-06] MEDS: TRAMADOL HCL 50 MG TABLET PO PRN ×2 (14:19→20:50)
--- NOTE | 2019-02-06 14:29 | Critical Care Consultation ---
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 Neuro - [facility] ICU: Negative Cardiac - PADunderwent femoralpopliteal bypass surgery earlier this year, popliteal bypass became infected with MRSA and removed today -Patient s/P drainage of right calf wound with removal of stent, with plan to replace stent once infection clears -Currently no Doppler pulses in right lower extremity, surgical team aware -We will continue heparin drip -Continue ASA, atorvastatin -See treatment of infection below HTNcontinue home meds HLDcontinue atorvastatin Respiratory - Maintaining sats on room air, no symptoms at this time GI -heart healthy diet RENAL/LYTES - Creatinine stable, monitor electrolytes and replete as necessary - Strict I's and O's ENDO - No history diabetes or thyroid disease ICU hyperglycemic protocol HEME - Acute blood loss anemiasecondary to hematoma at surgical site of right lower extremity -We will monitor H&H and transfuse as necessary ID - MRSA bacteremiaunderwent washout and removal of infected graft to right lower extremity -Continue vancomycin -Trend WBCs LINES/IV ACCESS - Peripheral IVs DVT PROPHYLAXIS - heparin drip Thank you for allowing us to participate in the care of this patient. Please refer to my attending physician's documentation for any further recommendations. (2) MRSA bacteremia: (3) Hematoma of right lower extremity: (4) Arterial occlusion: (5) Hypertension: Supervising Physician Co-Signing Physician Notes I have personally evaluated and examined this patient. I agree with assessment and plan of Ishaan BERNSTEIN. I discussed the case with Dr. Huerta. Patient's pain moderately to well- controlled, no significant signs of acute ischemia at this time. History of Present Illness Attending Physician: Robinson Huerta MD History of Present Illness Mr. Gonzalez is a 68-year old male from the long-term with past medical history HTN, peripheral arterial disease, status post right femoral-popliteal bypass complicated by an occlusion requiring thrombectomy, who was admitted for bleeding and hematoma of surgical wound with infection requiring wound VAC. Cultures are positive for MRSA. He now presents to the ICU postoperatively for incision and drainage of the right calf wound with removal of infected prosthetic graft. He currently does not have dopplerable pulses to the right foot and it is cooler to touch than the left. He also complains of numbness to the right lower extremity. It is believed that the patient maintains some collateral flow of the vessels, as the right lower extremity does not appear cyanotic. Plan is for patient to undergo restenting after infection has resolved. Patient denies headache, dizziness, confusion, syncope, chest pain, shortness of breath, abdominal pain. He does report numbness to left lower extremity but is able to feel dull sensation. Allergies Allergy/AdvReac Type Severity Reaction Status Date / Time codeine Allergy Unknown Unknown Verified 02/03/19 11:53 Home Medications Home Medications Medication Instructions Recorded Confirmed Type aspirin 81 mg PO QAM 08/20/18 02/03/19 History atorvastatin 80 mg PO HS 08/20/18 02/03/19 History lisinopril-hydrochlorothiazide 1 tab PO QAM 08/20/18 02/03/19 History acetaminophen [Tylenol Extra 1,000 mg PO TID 12/25/18 02/03/19 History Strength] sodium chloride [Deep Sea Nasal] 2 spray INTRANASAL QID PRN 12/25/18 02/03/19 History docusate sodium 250 mg PO BID 01/19/19 02/03/19 History warfarin [Coumadin] 5 mg PO DAILY #30 tab 01/27/19 02/03/19 Rx Patient History Medical History Hematoma (Acute) right leg x2 HLD (hyperlipidemia) (Chronic) COPD (chronic obstructive pulmonary disease) CVA (cerebral vascular accident) HTN (hypertension) Hernia PVD (peripheral vascular disease) Smoker Surgical History H/O vasectomy History of femoropopliteal bypass Rt History of incision and drainage 02/06/2019 History of surgery History of vascular surgery R SFA stent, Right leg thrombectomy, fem-pop. 08/2018. GETA with a-line. Right leg open thrombectomy 12/22/2018 [facility] Family History Other Family history non-contributory Social History Preferred Language: Kinyarwanda Communication Ability: Effective Parliamentary Librarian Required: No Beliefs That Will Affect Care: Restorationist Restorationist Beliefs: Buddhist Current Living Situation: Other Current Living Situation Comment: [facility] Feels Safe at Home: Yes Safety Concerns: Feels Safe At This Time Smoking Status: Former smoker Tobacco Type: cigarettes ; Cigarettes Per Day: 12/12/2018 ; Do You Dip or Chew Tobacco: No ; Second Hand Exposure: No ; Hx Alcohol Use: No Hx Substance Use: No Review of Systems Review of Systems: All systems reviewed & are unremarkable except as noted in HPI & below Physical Exam Eyes: PERRL, conjunctivae normal, anicteric sclerae ENMT: external ear and nose normal, oropharynx normal Neck: trachea midline, no thyromegaly Respiratory: normal respiratory effort, lungs clear to auscultation Cardiovascular: RRR, no murmur, no edema Heart Sounds: normal S1 and normal S2 Vessels: no JVD Extremities: no edema No palpable pedal or dorsalis pedis pulses in right lower extremity Gastrointestinal (Abdomen): normal bowel sounds, soft, nontender, no hepatosplenomegaly Skin: Right lower extremity cool to touch Neurologic: PERRL, EOMI, accommodation nl, no face palsy, no dysarthria Psychiatric: A+Ox3, euthymic affect Results & Data Vital Signs (Past 12 Hours) Vital Signs Temp Pulse Pulse Pulse Pulse Resp BP 02/06/19 12:13 37.1 C 02/06/19 12:11 62 21 114/68 02/06/19 12:10 73 13 02/06/19 12:06 73 20 02/06/19 12:05 63 20 131/71 02/06/19 12:01 69 19 02/06/19 12:00 82 20 129/90 02/06/19 11:56 57 L 13 02/06/19 11:55 63 11 L 133/77 02/06/19 11:51 62 14 02/06/19 11:50 70 16 147/79 H 02/06/19 11:46 61 15 02/06/19 11:45 55 L 13 138/77 02/06/19 11:40 62 13 139/77 02/06/19 11:36 59 L 15 02/06/19 11:35 58 L 12 142/80 H 02/06/19 11:31 66 16 02/06/19 11:30 64 17 138/90 02/06/19 11:26 77 16 02/06/19 11:25 80 30 H 140/91 02/06/19 11:20 68 18 142/55 H 02/06/19 11:16 64 15 02/06/19 11:15 70 21 139/82 02/06/19 11:11 79 18 137/118 H 02/06/19 11:10 68 13 02/06/19 11:05 37.0 C 80 68 23 151/90 H 02/06/19 09:43 36.7 C 80 18 02/06/19 07:59 37 C 82 18 02/06/19 07:00 81 02/06/19 04:38 36.6 C 84 18 BP Pulse Ox 02/06/19 12:13 100 02/06/19 12:11 100 02/06/19 12:10 100 02/06/19 12:06 100 02/06/19 12:05 100 02/06/19 12:01 100 02/06/19 12:00 100 02/06/19 11:56 100 02/06/19 11:55 100 02/06/19 11:51 100 02/06/19 11:50 100 02/06/19 11:46 100 02/06/19 11:45 100 02/06/19 11:40 100 02/06/19 11:36 100 02/06/19 11:35 100 02/06/19 11:31 100 02/06/19 11:30 100 02/06/19 11:26 100 02/06/19 11:25 100 02/06/19 11:20 100 02/06/19 11:16 100 02/06/19 11:15 100 02/06/19 11:11 100 02/06/19 11:10 100 02/06/19 11:05 151/90 H 100 02/06/19 09:43 125/65 99 02/06/19 07:59 106/67 96 02/06/19 07:00 02/06/19 04:38 99/62 L 99 Laboratory Results Laboratory Results - last 24 hr 02/05/19 02/06/19 02/06/19 19:38 05:38 05:38 WBC RBC Hgb Hct MCV MCH MCHC RDW Std Deviation RDW Coeff of Rinku Plt Count MPV Immature Gran % (Auto) Neut % (Auto) Lymph % (Auto) [place] % (Auto) Eos % (Auto) Baso % (Auto) Immature Gran # (Auto) Neut # (Auto) Lymph # (Auto) [place] # (Auto) Eos # (Auto) Baso # (Auto) Giant Platelets PT 26.9 H INR 2.8 H Creatinine 1.00 Est Cr Clr Drug Dosing 78.7 Est GFR ( Amer) 89.9 Est GFR (Non-Af Amer) 77.5 Nasal Screen MRSA (PCR) Vancomycin Trough 10.3 02/06/19 02/06/19 12:33 12:48 WBC 8.30 RBC 2.54 L Hgb 7.7 L Hct 23.9 L MCV 94.1 MCH 30.3 MCHC 32.2 RDW Std Deviation 48.9 H RDW Coeff of Rinku 14.3 Plt Count 386 MPV 9.1 Immature Gran % (Auto) 0.1 Neut % (Auto) 86.6 Lymph % (Auto) 9.6 [place] % (Auto) 3.0 Eos % (Auto) 0.6 Baso % (Auto) 0.1 Immature Gran # (Auto) 0.01 Neut # (Auto) 7.18 H Lymph # (Auto) 0.80 L [place] # (Auto) 0.25 Eos # (Auto) 0.05 Baso # (Auto) 0.01 Giant Platelets 1+ PT INR Creatinine Est Cr Clr Drug Dosing Est GFR ( Amer) Est GFR (Non-Af Amer) Nasal Screen MRSA (PCR) Negative Vancomycin Trough Medications Administered Home Medications aspirin 81 mg PO QAM 08/20/18 [History Confirmed 02/03/19] atorvastatin 80 mg PO HS 08/20/18 [History Confirmed 02/03/19] lisinopril-hydrochlorothiazide 1 tab PO QAM 08/20/18 [History Confirmed 02/03/19] acetaminophen [Tylenol Extra Strength] 1,000 mg PO TID 12/25/18 [History Confirmed 02/03/19] sodium chloride [Deep Sea Nasal] 2 spray INTRANASAL QID PRN 12/25/18 [History Confirmed 02/03/19] docusate sodium 250 mg PO BID 01/19/19 [History Confirmed 02/03/19] warfarin [Coumadin] 5 mg PO DAILY #30 tab 01/27/19 [Rx Confirmed 02/03/19] Active Medications Acetaminophen (Tylenol) 1,000 mg PO TID PRN PRN Reason: Pain or Fever Stop: 03/05/19 20:59 Last Admin: 02/05/19 10:33 Dose: 1,000 mg Documented by: Acetaminophen (Tylenol) 325 mg PO Q4H PRN PRN Reason: Headache Stop: 03/05/19 18:04 Last Admin: 02/03/19 20:13 Dose: 325 mg Documented by: Al Hydrox/Mg Hydrox/Simethicone (Maalox) 30 ml PO Q6H PRN PRN Reason: Dyspepsia Stop: 03/05/19 15:41 Aspirin (Aspirin Chew) 81 mg PO QAM [facility] Stop: 03/06/19 08:59 Last Admin: 02/06/19 08:09 Dose: Not Given Documented by: Atorvastatin Calcium (Lipitor) 80 mg PO HS [facility] Stop: 03/05/19 20:59 Last Admin: 02/05/19 20:25 Dose: 80 mg Documented by: Docusate Sodium (Colace) 200 mg PO BID [facility] Stop: 03/05/19 20:59 Last Admin: 02/06/19 08:10 Dose: Not Given Documented by: Lisinopril/HCTZ (Prinzide 10/12.5mg) 1 tab PO [facility] Stop: 03/06/19 08:59 Last Admin: 02/06/19 08:09 Dose: Not Given Documented by: Vancomycin HCl 1,500 mg/ (Sodium Chloride) 530 mls @ 200 mls/hr IV Q12H [facility] Stop: 02/20/19 07:59 Last Infusion: 02/06/19 12:38 Dose: Infused Documented by: Heparin Sodium/Dextrose (Heparin Sodium/Dextrose) 25,000 units in 500 mls @ 29 mls/hr IV .[id number] [facility]; Protocol Stop: 03/08/19 12:37 Last Admin: 02/06/19 13:10 Dose: 1,450 units/hr, 29 mls/hr Documented by: Ioversol (Optiray 320 125ml) 120 ml IV ONCE PRN PRN Reason: Interaction Checking Stop: 02/07/19 13:32 Last Admin: 02/03/19 13:33 Dose: 120 ml Documented by: Magnesium Hydroxide (Milk Of Magnesia) 30 ml PO Q6H PRN PRN Reason: Constipation Stop: 03/06/19 09:07 Last Admin: 02/04/19 14:55 Dose: 30 ml Documented by: Miscellaneous Information (Consult) 1 ea N/A UD PRN PRN Reason: Consult Stop: 03/06/19 08:51 Morphine Sulfate (Morphine Sulfate) 1 - 2 mg IV Q2H PRN PRN Reason: Severe Pain Stop: 02/20/19 12:37 Morphine Sulfate (Morphine Sulfate) 3 - 4 mg IV Q2H PRN PRN Reason: Severe Pain Stop: 02/20/19 13:00 Last Admin: 02/06/19 13:11 Dose: 4 mg Documented by: Ondansetron HCl (Zofran) 4 mg IV Q6H PRN PRN Reason: Nausea Stop: 03/05/19 15:41 Sodium Chloride (Ford Nasal) 2 sprays NA QID PRN PRN Reason: DRYNESS Stop: 03/05/19 15:49 Tramadol HCl (Ultram) 50 - 100 mg PO Q6H PRN PRN Reason: Moderate Pain Stop: 03/08/19 12:37 Last Admin: 02/06/19 14:19 Dose: 100 mg Documented by: Warfarin Sodium (Coumadin) 5 mg PO DAILY@1600 [place] Stop: 03/05/19 17:29 Last Admin: 02/04/19 15:38 Dose: 5 mg Documented by: PG Care Time/CCT Total # of Minutes Spent Total Time Spent with Patient: Total time spent is greater than 50% in coordination of care (as documented) at patient's floor/unit and/or counseling patient: (1) Hematoma of right lower extremity Encounter type: initial encounter Qualified Code(s): S80.11XA - Contusion of right lower leg, initial encounter
--- NOTE | 2019-02-06 14:32 | Infectious Disease Progress Nt ---
Date of Service February 06, 2019 Assessment & Plan (1) MRSA bacteremia: Patient with MRSA bacteremia with likely infected prosthetic bypass graft now status post removal. Patient to continue on IV vancomycin, will require at least several weeks of IV antibiotics. Will follow. (2) Infection of vascular bypass graft: Subjective Patient seen in follow-up for MRSA bacteremia and right thigh infection. Patient now status post surgical exploration and removal of infected graft. Has been afebrile and hemodynamically stable postoperatively. Review of Systems Review of Systems: All systems reviewed & are unremarkable except as noted in HPI & below Physical Exam Constitutional: WD/WN, vitals as above comfortable; no acute distress Eyes: PERRL, conjunctivae normal, anicteric sclerae ENMT: external ear and nose normal, oropharynx normal Neck: trachea midline, no thyromegaly neck nontender Respiratory: normal respiratory effort, lungs clear to auscultation normal percussion; does not use accessory muscles Cardiovascular: Rate/Rhythm: regular rate and regular rhythm Heart Sounds: normal S1 and normal S2; no gallop, no murmur and no cardiac rub Vessels: normal peripheral pulses; no JVD Gastrointestinal (Abdomen): normal bowel sounds, soft, nontender, no hepatosplenomegaly Musculoskeletal: no cyanosis or clubbing, extremities motor strength 5/5 Spine: thoracic spine normal to inspection and lumbar spine normal to inspection; no cervical spinal tenderness Skin: no rashes, warm and dry normal turgor, + lesion and + wound (surical dressing intact) Neurologic: patellar DTR's 2+ bilat, sensation intact no focal motor d eficits Psychiatric: A+Ox3, euthymic affect Orientation: cooperative Lymphatic: no cervical or axillary lymphadenopathy no inguinal lymphadenopathy Results & Data Vital Signs (Past 12 Hours) Vital Signs Temp Pulse Pulse Pulse Pulse Resp BP 02/06/19 12:13 37.1 C 02/06/19 12:11 62 21 114/68 02/06/19 12:10 73 13 02/06/19 12:06 73 20 02/06/19 12:05 63 20 131/71 02/06/19 12:01 69 19 02/06/19 12:00 82 20 129/90 02/06/19 11:56 57 L 13 02/06/19 11:55 63 11 L 133/77 02/06/19 11:51 62 14 02/06/19 11:50 70 16 147/79 H 02/06/19 11:46 61 15 02/06/19 11:45 55 L 13 138/77 02/06/19 11:40 62 13 139/77 02/06/19 11:36 59 L 15 02/06/19 11:35 58 L 12 142/80 H 02/06/19 11:31 66 16 02/06/19 11:30 64 17 138/90 02/06/19 11:26 77 16 02/06/19 11:25 80 30 H 140/91 02/06/19 11:20 68 18 142/55 H 02/06/19 11:16 64 15 02/06/19 11:15 70 21 139/82 02/06/19 11:11 79 18 137/118 H 02/06/19 11:10 68 13 02/06/19 11:05 37.0 C 80 68 23 151/90 H 02/06/19 09:43 36.7 C 80 18 02/06/19 07:59 37 C 82 18 02/06/19 07:00 81 02/06/19 04:38 36.6 C 84 18 BP Pulse Ox 02/06/19 12:13 100 02/06/19 12:11 100 02/06/19 12:10 100 02/06/19 12:06 100 02/06/19 12:05 100 02/06/19 12:01 100 02/06/19 12:00 100 02/06/19 11:56 100 02/06/19 11:55 100 02/06/19 11:51 100 02/06/19 11:50 100 02/06/19 11:46 100 02/06/19 11:45 100 02/06/19 11:40 100 02/06/19 11:36 100 02/06/19 11:35 100 02/06/19 11:31 100 02/06/19 11:30 100 02/06/19 11:26 100 02/06/19 11:25 100 02/06/19 11:20 100 02/06/19 11:16 100 02/06/19 11:15 100 02/06/19 11:11 100 02/06/19 11:10 100 02/06/19 11:05 151/90 H 100 02/06/19 09:43 125/65 99 02/06/19 07:59 106/67 96 02/06/19 07:00 02/06/19 04:38 99/62 L 99 Laboratory Results Short CBC 02/06/19 Range/Units 12:48 WBC 8.30 (4.8-10.8) K/uL Hgb 7.7 L (14.0-18.0) g/dL Hct 23.9 L (42-52) % Plt Count 386 (130-400) K/uL BMP 02/06/19 05:38 Creatinine 1.00 Diagnostic Findings Microbiology 02/06/19 Unknown Leg,Right Gram Stain - Final 02/03/19 12:04 Blood Aerobic Blood Culture - Final Staph aureus MRSA 02/03/19 12:04 Blood Anaerobic Blood Culture - Final Staph aureus MRSA 02/03/19 11:55 Blood Aerobic Blood Culture - Final Staph aureus MRSA 02/03/19 11:55 Blood Anaerobic Blood Culture - Final Staph aureus MRSA PG Care Time/CCT Total # of Minutes Spent Total Time Spent with Patient: Total time spent is greater than 50% in coordination of care (as documented) at patient's floor/unit and/or counseling patient:
--- NOTE | 2019-02-06 19:19 | Anesthesiology Consultation ---
Date of Service February 06, 2019 Assessment & Plan (1) Encounter for pre-operative examination: Chart Review Chart Review: Acceptable Risk for Surgery and Patient NOT seen in Pre Admission Testing typed and crossmatched for 2 units Consults Requested none History Surgery Operation Date: 02/06/19 07:10 Proposed Procedures p Incision and Drainage Right Calf Wound - Robinson Huerta MD Operation Date: 02/07/19 12:00 Proposed Procedures p Left Greater Saphenous Vein Harvesting; - Robinson Huerta MD s Right Redo Femoral to Distal Anterior Tibial Extraanatomical Bypass - Robinson Hureta MD Height/Weight Height: 6 ft Weight: 86.9 kg Allergies Allergy/AdvReac Type Severity Reaction Status Date / Time codeine Allergy Unknown Unknown Verified 02/03/19 11:53 Medications Home Medications Medication Instructions Recorded Confirmed Last Taken aspirin 81 mg PO QAM 08/20/18 02/03/19 01/24/19 07:00 atorvastatin 80 mg PO HS 08/20/18 02/03/19 01/24/19 18:30 lisinopril-hydrochlorothiazide 1 tab PO QAM 08/20/18 02/03/19 01/25/19 07:00 acetaminophen [Tylenol Extra 1,000 mg PO TID 12/25/18 02/03/19 01/24/19 07:00 Strength] sodium chloride [Deep Sea Nasal] 2 spray INTRANASAL QID PRN 12/25/18 02/03/19 Unknown docusate sodium 250 mg PO BID 01/19/19 02/03/19 01/24/19 18:30 warfarin [Coumadin] 5 mg PO DAILY #30 tab 01/27/19 02/03/19 Unknown Active Medications Generic Name Dose Route Start Last Admin Trade Name Freq PRN Reason Stop Dose Admin Acetaminophen 1,000 mg 02/03/19 15:50 02/05/19 10:33 Tylenol PO 03/05/19 20:59 1,000 mg TID PRN Administration Pain or Fever Acetaminophen 325 mg 02/03/19 18:05 02/03/19 20:13 Tylenol PO 03/05/19 18:04 325 mg Q4H PRN Administration Headache Aspirin 81 mg 02/04/19 09:00 02/06/19 08:09 Aspirin Chew PO 03/06/19 08:59 Not Given QAM [facility] Atorvastatin Calcium 80 mg 02/03/19 21:00 02/05/19 20:25 Lipitor PO 03/05/19 20:59 80 mg HS [facility] Administration Docusate Sodium 200 mg 02/03/19 21:00 02/06/19 08:10 Colace PO 03/05/19 20:59 Not Given BID [facility] Lisinopril/HCTZ 1 tab 02/04/19 09:00 02/06/19 08:09 Prinzide 10/12.5mg PO 03/06/19 08:59 Not Given QAM [facility] Vancomycin HCl 1,500 mg/ 530 mls @ 200 mls/hr 02/06/19 08:00 02/06/19 12:38 Sodium Chloride IV 02/20/19 07:59 Infused Q12H [facility] Infusion Heparin Sodium/Dextrose 25,000 units in 500 mls @ 29 mls/hr 02/06/19 12:38 02/06/19 19:10 Heparin Sodium/Dextrose IV 03/08/19 12:37 1,450 units/hr .[id number] [place] 29 mls/hr Titration Protocol 1,450 UNITS/HR Ioversol 120 ml 02/03/19 13:33 02/03/19 13:33 Optiray 320 125ml IV 02/07/19 13:32 120 ml ONCE PRN Administration Interaction Checking Magnesium Hydroxide 30 ml 02/04/19 09:08 02/04/19 14:55 Milk Of Magnesia PO 03/06/19 09:07 30 ml Q6H PRN Administration Constipation Morphine Sulfate 3 - 4 mg 02/06/19 13:01 02/06/19 15:43 Morphine Sulfate IV 02/20/19 13:00 4 mg Q2H PRN Administration Severe Pain Tramadol HCl 50 - 100 mg 02/06/19 12:38 02/06/19 14:19 Ultram PO 03/08/19 12:37 100 mg Q6H PRN Administration Moderate Pain Warfarin Sodium 5 mg 02/03/19 17:30 02/04/19 15:38 Coumadin PO 03/05/19 17:29 5 mg DAILY@1600 TOOTIE Administration NPO Date Last Intake of Fluids: 02/05/19 Time Last Intake of Fluids: 20:00 Date Last Intake of Solids: 02/05/19 Time Last Intake of Solids: 18:00 Past Medical History Medical History Hematoma (Acute) right leg x2 HLD (hyperlipidemia) (Chronic) COPD (chronic obstructive pulmonary disease) CVA (cerebral vascular accident) HTN (hypertension) Hernia PVD (peripheral vascular disease) Smoker Past Family History Family History Other Family history non-contributory Past Surgical History Surgical History History of incision and drainage 02/06/2019 H/O vasectomy History of femoropopliteal bypass Rt History of surgery History of vascular surgery R SFA stent, Right leg thrombectomy, fem-pop. 08/2018. GETA with a-line. Right leg open thrombectomy 12/22/2018 [facility] Past Anesthesia History No Hx of Anesthesia Complications and No Family Hx of Anesthesia Complications History of PONV No Hx of PONV and No Hx of Motion Sickness Social History Smoking Status: Former smoker tobacco type: cigarettes Smoking cigarettes per day: 12/12/2018 Do You Dip or Chew Tobacco: No Hx Alcohol Use: No Hx Substance Use: No Physical Exam Vital Signs Last Vital Signs Temp 37.1 C 02/06/19 12:13 Pulse 101 H 02/06/19 19:00 Resp 16 02/06/19 19:00 BP 140/88 02/06/19 19:00 Pulse Ox 95 02/06/19 19:00 Testing Laboratory Results 02/06/19 12:48 02/06/19 05:38 PT 26.9 Seconds (9.0-12.0) H 02/06/19 05:38 INR 2.8 (0.9-1.1) H 02/06/19 05:38 APTT 34.2 Seconds (21.0-31.0) H 02/03/19 11:28 Urine Color Yellow 02/03/19 14:50 Urine Appearance Clear (Clear) 02/03/19 14:50 Urine pH 5.0 (4.5-7.5) 02/03/19 14:50 Ur Specific [place] > 1.045 (1.000-1.030) H 02/03/19 14:50 Urine Protein Negative (Negative) 02/03/19 14:50 Urine Glucose (UA) Negative (Negative) 02/03/19 14:50 Urine Ketones Negative (Negative) 02/03/19 14:50 Urine Nitrite Negative (Negative) 02/03/19 14:50 Ur Leukocyte Esterase Negative (Negative) 02/03/19 14:50 Blood Type O Positive 02/03/19 11:28 Antibody Screen NEGATIVE 02/03/19 11:28 02/06/19 Unknown Gram Stain - Final Leg,Right 02/03/19 12:04 Aerobic Blood Culture - Final Blood Staph aureus MRSA Anaerobic Blood Culture - Final Staph aureus MRSA 02/03/19 11:55 Aerobic Blood Culture - Final Blood Staph aureus MRSA Anaerobic Blood Culture - Final Staph aureus MRSA Electrocardiogram Date: 08/20/18 Findings: + NSR @ (with sinus arrhythmia at 71)
[2019-02-06] MEDS ORDERED: SODIUM CHLORIDE 0.9% 250 ML IV PRN (19:21)
[2019-02-06] MEDS: ATORVASTATIN 40 MG TAB PO SCH (19:57)
[2019-02-06 20:11] LABS: Partial Thromboplastin Ratio 2.8
[2019-02-06 20:16] LABS: Partial Thromboplastin Time 76.7 Seconds (21.0-31.0)
[2019-02-06] MEDS: MoRPHine SULFATE 2 MG/ML CARP IV PRN (21:33)
[2019-02-07] MEDS: MoRPHine SULFATE 2 MG/ML CARP IV PRN ×3 (01:18→05:52)
[2019-02-07 02:47] LABS: Basophils # (auto) 0.01 K/uL (0-0.2); Basophils % (auto) 0.1 %; Hematocrit (blood only) 21.7 % (42-52); Hemoglobin 7.1 g/dL (14.0-18.0); Immature Granulocytes # (auto) 0.03 K/uL (0.00-0.02); Immature Granulocytes % (auto) 0.3 %; Lymphocytes # (auto) 1.61 K/uL (1.2-3.4); Lymphocytes % (auto) 16.1 %; Mean Corpuscular Hgb Conc 32.7 g/dL (32-36); Mean Corpuscular Volume 92.7 fL (80-100); Mean Platelet Volume 9.2 fL (7.4-10.4); Monocytes # (auto) 1.01 K/uL (0.11-0.59); Monocytes % (auto) 10.1 %; Neutrophils # (auto) 7.37 K/uL (1.4-6.5); Neutrophils % (auto) 73.4 %; Platelet Count 448 K/uL (130-400); RDW Coefficient of Variation 14.2 % (11.5-14.5); RDW Standard Deviation 47.5 fL (36.4-46.3); Red Blood Count 2.34 M/uL (4.7-6.1); White Blood Count 10.03 K/uL (4.8-10.8)
[2019-02-07 03:10] LABS: Creatinine Clr Calc Pharmacy 65.6 ml/min; Est GFR (African American) 72.1; Est GFR (Non-African American) 62.2; Partial Thromboplastin Ratio 3.1; Prothrombin Time 28.2 Seconds (9.0-12.0)
[2019-02-07 03:15] LABS: Partial Thromboplastin Time 85.1 Seconds (21.0-31.0)
[2019-02-07 03:19] LABS: RBC Morphology Unremarkable
--- NOTE | 2019-02-07 06:01 | Critical Care Progress Note ---
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 with MRSA Neuro - [facility] ICU: Negative Cardiac - Peripheral artery disease Status post right femoropopliteal bypass surgery with explantation of right graft due 02/06/2019 due to hematoma and MRSA bacteremia Vascular consulted, PT pulse absent to Doppler -Right foot with worsening ischemia, patient to undergo bypass with attempted limb salvage today -We will continue heparin drip -Continue ASA, atorvastatin -Antibiotics as below HTN Continue lisinopril/hydrochlorothiazide p.o. daily HLD Continue atorvastatin 80 mg p.o. nightly Respiratory - No prior oxygen requirement or lung disease SPO2 greater than 88% on room air GI N.p.o. in anticipation of surgical intervention as above RENAL/LYTES - Sodium, potassium normal this morning Creatinine 1.04 Phosphorus and magnesium within normal limits BMP daily, replace electrolytes per protocol - Gutierrez catheter in place, I: 1879 mL, oh: 1050 mL last 24 hours Strict I's and O's ENDO - No history diabetes or thyroid disease ICU hyperglycemic protocol HEME - Acute blood loss anemia 2/2 bleeding at right femoropopliteal graft site Hemoglobin 7.1 from 7.7 CBC daily or if he has recurrent clinically significant bleeding Transfusion hemoglobin threshold 7.0 g/dL ID - MRSA bacteremia Source control with explantation of infected graft Continue vancomycin daily Afebrile No repeat cultures at this time LINES/IV ACCESS - PIV's intact DVT PROPHYLAXIS - heparin drip Thank you for allowing us to participate in the care of this patient. Please refer to Dr. Valdez's documentation for any further recommendations. (2) MRSA bacteremia: (3) Hematoma of right lower extremity: (4) Arterial occlusion: (5) Femoral-popliteal bypass graft occlusion, right: (6) S/P femoral-popliteal bypass surgery: (7) Limb ischemia: (8) Hypertension: (9) Peripheral arterial disease: (10) Hyperlipidemia: Supervising Physician Co-Signing Physician Notes Dr. Heller was resident physician during care of patient. I separately evaluated patient for koehler portions of the history and the exam. I was present during the critical portion of medical decision making, and I discussed the case with the resident. I generally agree with the findings and plan. Patient went back to operating room with Dr. Huerta this morning. Continuing heparin infusion at this time. Subjective Melo reports he feels similar today than yesterday, but is concerned by color change in his foot. His pain overnight has been as bad as an 8/10 but improves to 5/10 tolerable with morphine. He notes his pain was increased from his normal baseline this morning and he required a increased dose of morphine. He is also concerned that his stones have a cooler, greenish color compared to prior. He endorses decreased sensation in the right foot this morning. Denies fever, chills, night sweats. Denies shortness of breath, difficulty breathing, chest pain, chest pressure, syncope, presyncope. Denies lightheadedness, dizziness. Denies pain outside of his right leg. Denies nausea, vomiting, diarrhea, constipation. Is anxious to know when he will have surgery today. No other questions or concerns at time of visit. Review of Systems Review of Systems: Constitutional: Denies fever, chills, malaise Eyes: Denies double vision, vision change ENT: Denies cough, sore throat, sinus pain Cardiovascular: Denies chest pain, chest pressure, palpitations, extremity swelling Respiratory: Denies shortness of breath, sputum production, difficulty breathing Gastrointestinal: Denies abdominal pain, nausea, vomiting, constipation, diarrhea Genitourinary: Denies pain with urination Musculoskeletal: Endorses right lower extremity numbness, pain as noted in HPI. Otherwise denies pain focal weakness this morning. Endorses difficulty flexing his toes at baseline but is able to plantar dorsiflex his right ankle without difficulty. Integumentary: Endorses coolness of his right lower leg, greenish color change of his right foot. Neurological: Denies headache, numbness, tingling. Physical Exam Physical Exam: General: A&Ox3. NAD. Cooperative. HEENT: Atraumatic, normocephalic. No scleral icterus. Pupils equal reactive to light and accommodation. EOM intact, no nystagmus. Acuity grossly intact. Pulm: CTAB A&P. -wheezes, -rales, -rhonchi. Symmetrical chest rise. No increase work of breathing. No respiratory distress. Cardiac: RRR, -mrg. Radial pulses intact and symmetrical. Abdominal: Nontender, nondistended, soft. BS present. Extremity: Right lower extremity cool, dusky appearance of the toes. Right PT pulse not appreciated. Sensation to proprioception and soft touch absent in right foot. Sensation in left foot intact, left PT pulse palpable. Ankle plantar flexion/dorsiflexion 5/5 strength bilaterally. Results & Data Vital Signs (Past 12 Hours) Vital Signs Temp Pulse Resp BP Pulse Ox 02/07/19 05:00 65 14 106/55 L 95 02/07/19 04:00 36.9 C 64 15 103/54 L 97 02/07/19 03:00 62 12 95/50 L 96 02/07/19 02:00 61 17 118/60 95 02/07/19 01:00 95 H 20 139/76 97 02/07/19 00:00 37.0 C 96 H 17 142/75 H 96 02/06/19 23:00 65 20 135/75 95 02/06/19 22:00 72 14 132/67 99 02/06/19 21:00 82 17 129/72 97 02/06/19 20:00 37.0 C 77 21 117/80 96 02/06/19 19:00 101 H 16 140/88 95 02/06/19 18:15 71 14 120/70 96 PG Care Time/CCT Total # of Minutes Spent Total Time Spent with Patient: Total time spent is greater than 50% in coordination of care (as documented) at patient's floor/unit and/or counseling patient: Resident Activity Tracking Resident Involvement: Resident Care Provided Care Provided: Adult Hospital Medicine (1) Hematoma of right lower extremity Encounter type: initial encounter Qualified Code(s): S80.11XA - Contusion of right lower leg, initial encounter
[2019-02-07] MEDS: HEPARIN SODIUM/DEXTROSE 25,000 UNITS/500 ML BAG IV SCH (06:10)
[2019-02-07] MEDS ORDERED: VANCOMYCIN TROUGH ONE (07:30)
[2019-02-07] MEDS ORDERED: MoRPHine SULFATE 4 MG/ML 1 ML CARP\\VIAL ONE (07:37)
[2019-02-07] MEDS: MoRPHine SULFATE 4 MG/ML 1 ML CARP\\VIAL IV PRN ×5 (07:40→23:36)
[2019-02-07] MEDS ORDERED: SODIUM CHLORIDE 0.9% 250 ML IV PRN ×4 (07:40→14:53)
--- NOTE | 2019-02-07 07:40 | Surgery Progress Note ---
Date of Service February 07, 2019 Assessment & Plan (1) Infection of vascular bypass graft: This patient underwent partial removal of his infected prosthetic graft in his right calf. His foot is ischemic at this point. We recommended a limb salvage extra anatomical bypass attempt. This will be done this morning. I have discussed the risks options and benefits of the procedure with the patient. The patient understands the risks options and benefits and agrees to the procedure. Subjective Patient claims that his foot feels worse today. He is worried about color changes in the fourth and fifth toes also. He does have decreased sensation according to the patient. Physical Exam Physical Exam: On exam the right foot is cool. There is cyanotic discoloration of fourth and fifth toes. There is minimal movement of the toes. I cannot appreciate Doppler signals in the foot. Results & Data Vital Signs (Past 12 Hours) Vital Signs Temp Pulse Resp BP Pulse Ox 02/07/19 06:00 57 L 12 111/59 L 95 02/07/19 05:00 65 14 106/55 L 95 02/07/19 04:00 36.9 C 64 15 103/54 L 97 02/07/19 03:00 62 12 95/50 L 96 02/07/19 02:00 61 17 118/60 95 02/07/19 01:00 95 H 20 139/76 97 02/07/19 00:00 37.0 C 96 H 17 142/75 H 96 02/06/19 23:00 65 20 135/75 95 02/06/19 22:00 72 14 132/67 99 02/06/19 21:00 82 17 129/72 97 02/06/19 20:00 37.0 C 77 21 117/80 96
[2019-02-07] MEDS: LISINOPRIL/HCTZ 10/12.5MG TAB PO SCH (07:41)
[2019-02-07] MEDS: ASPIRIN 81 MG CHEW PO SCH (07:46)
[2019-02-07] MEDS: DOCUSATE SODIUM 100 MG CAP PO SCH ×2 (07:46→21:40)
--- NOTE | 2019-02-07 08:06 | Anesthesiology Progress Note ---
Date of Service February 07, 2019 Anesthesia Post Procedure Vital Signs Vital Signs: Temp Pulse Pulse Pulse Resp BP BP 02/07/19 06:00 57 L 12 111/59 L 02/07/19 05:00 65 14 106/55 L 02/07/19 04:00 36.9 C 64 15 103/54 L 02/07/19 03:00 62 12 95/50 L 02/07/19 02:00 61 17 118/60 02/07/19 01:00 95 H 20 139/76 02/07/19 00:00 37.0 C 96 H 17 142/75 H 02/06/19 23:00 65 20 135/75 02/06/19 22:00 72 14 132/67 02/06/19 21:00 82 17 129/72 02/06/19 20:00 37.0 C 77 21 117/80 02/06/19 19:00 101 H 16 140/88 02/06/19 18:15 71 14 120/70 02/06/19 18:00 90 18 120/83 02/06/19 17:46 108 H 25 H 02/06/19 17:45 105 H 22 135/87 02/06/19 17:31 99 H 20 02/06/19 17:30 100 H 19 129/78 02/06/19 17:15 83 19 127/74 02/06/19 17:01 114 H 14 02/06/19 17:00 113 H 17 153/102 H 02/06/19 16:45 104 H 19 121/77 02/06/19 16:30 114 H 25 H 132/83 02/06/19 16:15 91 H 12 131/75 02/06/19 16:01 100 H 21 130/83 02/06/19 16:00 116 H 18 02/06/19 15:45 120 H 24 127/56 L 02/06/19 15:31 104 H 16 02/06/19 15:30 113 H 20 107/63 02/06/19 15:15 107 H 17 111/78 02/06/19 15:01 124 H 18 02/06/19 15:00 111 H 22 119/75 02/06/19 14:45 96 H 22 141/80 H 02/06/19 14:31 97 H 15 02/06/19 14:30 98 H 18 130/83 02/06/19 14:15 74 11 L 127/76 02/06/19 14:00 86 11 L 135/72 02/06/19 13:45 93 H 17 155/84 H 02/06/19 13:31 73 12 02/06/19 13:30 67 14 138/71 02/06/19 13:15 82 18 111/52 L 02/06/19 13:01 68 17 02/06/19 13:00 67 21 144/71 H 02/06/19 12:45 68 14 115/63 02/06/19 12:31 69 17 02/06/19 12:30 68 17 125/71 02/06/19 12:27 67 18 117/69 02/06/19 12:23 74 16 134/71 02/06/19 12:13 37.1 C 02/06/19 12:11 62 21 114/68 02/06/19 12:10 73 13 02/06/19 12:06 73 20 02/06/19 12:05 63 20 131/71 02/06/19 12:01 69 19 02/06/19 12:00 82 20 129/90 02/06/19 11:56 57 L 13 02/06/19 11:55 63 11 L 133/77 02/06/19 11:51 62 14 02/06/19 11:50 70 16 147/79 H 02/06/19 11:46 61 15 02/06/19 11:45 55 L 13 138/77 02/06/19 11:40 62 13 139/77 02/06/19 11:36 59 L 15 02/06/19 11:35 58 L 12 142/80 H 02/06/19 11:31 66 16 02/06/19 11:30 64 17 138/90 02/06/19 11:26 77 16 02/06/19 11:25 80 30 H 140/91 02/06/19 11:20 68 18 142/55 H 02/06/19 11:16 64 15 02/06/19 11:15 70 21 139/82 02/06/19 11:11 79 18 137/118 H 02/06/19 11:10 68 13 02/06/19 11:05 37.0 C 80 68 23 151/90 H 151/90 H 02/06/19 09:43 36.7 C 80 18 125/65 Pulse Ox 02/07/19 06:00 95 02/07/19 05:00 95 02/07/19 04:00 97 02/07/19 03:00 96 02/07/19 02:00 95 02/07/19 01:00 97 02/07/19 00:00 96 02/06/19 23:00 95 02/06/19 22:00 99 02/06/19 21:00 97 02/06/19 20:00 96 02/06/19 19:00 95 02/06/19 18:15 96 02/06/19 18:00 94 02/06/19 17:46 97 02/06/19 17:45 97 02/06/19 17:31 96 02/06/19 17:30 94 02/06/19 17:15 95 02/06/19 17:01 97 02/06/19 17:00 96 02/06/19 16:45 95 02/06/19 16:30 96 02/06/19 16:15 95 02/06/19 16:01 95 02/06/19 16:00 97 02/06/19 15:45 96 02/06/19 15:31 93 02/06/19 15:30 92 02/06/19 15:15 96 02/06/19 15:01 95 02/06/19 15:00 96 02/06/19 14:45 99 02/06/19 14:31 99 02/06/19 14:30 99 02/06/19 14:15 95 02/06/19 14:00 95 02/06/19 13:45 96 02/06/19 13:31 92 02/06/19 13:30 93 02/06/19 13:15 97 02/06/19 13:01 93 02/06/19 13:00 95 02/06/19 12:45 94 02/06/19 12:31 97 02/06/19 12:30 97 02/06/19 12:27 96 02/06/19 12:23 97 02/06/19 12:13 100 02/06/19 12:11 100 02/06/19 12:10 100 02/06/19 12:06 100 02/06/19 12:05 100 02/06/19 12:01 100 02/06/19 12:00 02/06/19 11:56 02/06/19 11:55 02/06/19 11:51 02/06/19 11:50 02/06/19 11:46 02/06/19 11:45 02/06/19 11:40 02/06/19 11:36 02/06/19 11:35 02/06/19 11:31 02/06/19 11:30 02/06/19 11:26 02/06/19 11:25 02/06/19 11:20 02/06/19 11:16 02/06/19 11:15 02/06/19 11:11 02/06/19 11:10 02/06/19 11:05 02/06/19 09:43 99 Pain Intensity Left Calf: Pain Intensity: 4 Notes Mental Status: alert / awake / arousable and participated in evaluation Patient Amnestic to Procedure: Yes Nausea / Vomiting: adequately controlled Pain: adequately controlled Airway Patency, RR, SpO2: stable & adequate BP & HR: stable & adequate Hydration State: stable & adequate Anesthetic Complications: no major complications apparent and Pt Satisfied with anesthetic care
[2019-02-07 08:25] LABS: BUN Creatinine Ratio 15.4 (10-20); Calcium 8.3 mg/dl (8.5-10.1); Creatinine Clr Calc Pharmacy 75.7 ml/min; Est GFR (African American) 85.7; Est GFR (Non-African American) 73.9; Magnesium 2.2 mg/dl (1.8-2.4); Phosphorus 2.9 mg/dl (2.5-4.9); Potassium 3.9 mmol/L (3.5-5.1)
[2019-02-07] MEDS: VANCOMYCIN HCL 1,500 MG in SODIUM CHLORIDE 0.9% 500 ML IV SCH ×2 (08:35→17:50)
[2019-02-07] MEDS ORDERED: CEFAZOLIN 1000MG 1,000 MG/7.5 ML SYR IV ONE (10:00)
[2019-02-07] MEDS ORDERED: CEFAZOLIN 2000MG 2,000 MG/15 ML SYR IV SCH (10:00)
[2019-02-07 10:34] LABS: Partial Thromboplastin Ratio 2.6
[2019-02-07 10:40] LABS: Partial Thromboplastin Time 71.6 Seconds (21.0-31.0)
[2019-02-07] MEDS ORDERED: VANCOMYCIN HCL 1,500 MG in SODIUM CHLORIDE 0.9% 500 ML IV SCH (11:00)
[2019-02-07] MEDS: CEFEPIME 2,000 MG in SYRINGE 7.5 ML IV SCH ×2 (11:34→17:50)
[2019-02-07] MEDS ORDERED: LIDOCAINE HCL 1% 20 ML VIAL ONE (11:53)
[2019-02-07] MEDS ORDERED: GELATIN SPONGE 12-7MM ONE (11:53)
[2019-02-07] MEDS ORDERED: PAPAVERINE HCL INJ 30 MG/ML 2 ML VIAL ONE (11:53)
[2019-02-07] MEDS ORDERED: HEPARIN (PORCINE) 1000 UNIT/ML 10 ML (CATH LAB USE ONLY) ONE (11:53)
[2019-02-07] MEDS ORDERED: ATROPINE SULFATE 0.1 MG/ML 10ML SYR IV PRN (11:54)
[2019-02-07] MEDS ORDERED: THROMBIN 5000 UNITS KIT ONE (11:54)
[2019-02-07] MEDS ORDERED: BUPIVACAINE/EPINEPHRINE 0.5% MPF 1:200,000 30 ML VIAL ONE (11:54)
[2019-02-07] MEDS ORDERED: IODIXANOL (VISIPAQUE) 270 MG/ML 50ML ONE (11:54)
[2019-02-07] MEDS ORDERED: ONDANSETRON INJ 2 MG/ML 2 ML VIAL IV PRN (11:54)
[2019-02-07] MEDS ORDERED: LABETALOL HCL IV 5 MG/ML 20ML IV PRN (11:54)
[2019-02-07] MEDS ORDERED: HYDROmorphone INJ 1 MG/ML SYRINGE IV PRN (11:54)
[2019-02-07] MEDS ORDERED: CEFAZOLIN 250 MG/ML 1 GM VIAL ONE ×4 (11:54→16:21)
[2019-02-07] MEDS ORDERED: GELATIN SPONGE SZ 100 ONE (11:55)
[2019-02-07] MEDS ORDERED: ROCURONIUM BROMIDE 10 MG/ML 5 ML VIAL ONE ×2 (12:03→14:58)
[2019-02-07] MEDS ORDERED: NEOSTIGMINE METHYLSULFATE 5 MG/5 ML SYR ONE (12:03)
[2019-02-07] MEDS ORDERED: MIDAZOLAM HCL 1 MG/ML 2ML VIAL ONE (12:03)
[2019-02-07] MEDS ORDERED: fentaNYL citrate 100 MCG/2 ML VIAL ONE (12:03)
[2019-02-07] MEDS ORDERED: LIDOCAINE HCL 2% 2 ML VIAL/AMP(20MG/ML) INFIL ONE (12:03)
[2019-02-07] MEDS ORDERED: PROPOFOL IV EMULSION 10 MG/ML 20 ML VIAL IV ONE (12:03)
[2019-02-07] MEDS ORDERED: ONDANSETRON INJ 2 MG/ML 2 ML VIAL ONE ×2 (12:03→14:58)
[2019-02-07] MEDS ORDERED: GLYCOPYRROLATE 0.2 MG/ML VIAL ONE (12:03)
[2019-02-07] MEDS ORDERED: DEXAMETHASONE SOD INJ 4 MG/ML VIAL ONE (12:03)
[2019-02-07] MEDS ORDERED: HEPARIN SOD (PORCINE) 1000 UNIT/ML 10 ML VIAL ONE (12:04)
[2019-02-07] MEDS ORDERED: ePHEDrine sulfate 50 MG/ML SYR ONE ×2 (13:57→14:58)
--- NOTE | 2019-02-07 14:49 | Pharmacy Report ---
Pharmacy Abx Dose Short Note - Date of Service February 07, 2019 - Assessment & Plan Assessment 68 year old M receiving vancomycin/cefepime for treatment of MRSA bacteremia/infected graft Day # 4 of antimicrobial therapy. Plan Vancomycin * Trough level of 13 mcg/mL is slightly subtherapeutic * Change to 1500 mg IV every 10 hours * Goal trough level 15-20 mcg/mL * Trough ordered for 02/08 @ 1330 Pharmacy will continue to follow and will adjust dose/frequency as necessary. Thank you.
[2019-02-07] MEDS ORDERED: THROMBIN FOR SOLN 20000 UNIT KIT ONE (15:05)
[2019-02-07] MEDS ORDERED: SODIUM CHLORIDE 0.9% INJ 10 ML VIAL ONE (16:21)
[2019-02-07] MEDS ORDERED: LABETALOL HCL IV 5 MG/ML 20ML IV ONE (17:20)
--- NOTE | 2019-02-07 17:22 | Post Operative Brief Note ---
Immediate Post Op Note v1 Date of Surgery February 07, 2019 Pre & Post Diagnosis Operation Date: 02/06/19 07:10 Pre-Op Diagnosis: Right Lower Extremity Infection Post-Op Diagnosis: Right Lower Extremity Infection Operation Date: 02/07/19 12:00 Pre-Op Diagnosis: Infection of Vascular Bypass Graft Post-Op Diagnosis: Infection of Vascular Bypass Graft Procedure Operation Date: 02/06/19 07:10 Actual Procedures p Incision and Drainage Right Calf Wound, Removal of Infected Prosthetic Graft(Right) - Robinson Huerta MD Operation Date: 02/07/19 12:00 Actual Procedures p Left Greater Saphenous Vein Harvesting;(Left) - Robinson Huerta MD s Partial fibulectomy Right leg, Right redo Femoral to Distal peroneal transposed- Extraanatomical insitu Bypass with completion angiogram(Right) - Robinson Huerta MD Surgeon Robinson Huerta MD Emergency Preparedness Coordinator Kathrin,PAC Estimated Blood Loss 150 Findings Consistent with Post-Op Diagnosis Drains Govea Catheter (pt came to OR with govea in place) Anesthesia Type General Complications none Disposition Accompanied Patient To Recovery: No Disposition: Surgical ICU
--- NOTE | 2019-02-07 18:07 | Anesthesiology Progress Note ---
Date of Service February 07, 2019 Anesthesia Post Procedure Vital Signs Vital Signs: Temp Pulse Resp BP Pulse Ox 02/07/19 15:37 37 C 78 20 112/63 99 02/07/19 12:30 80 15 112/63 94 02/07/19 12:15 36.9 C 69 19 122/58 L 97 02/07/19 12:00 66 17 108/59 L 90 02/07/19 11:45 37 C 78 20 123/67 94 02/07/19 11:30 36.7 C 58 L 6 L 127/64 93 02/07/19 11:15 37.1 C 63 20 118/58 L 90 02/07/19 11:00 80 19 122/68 86 L 02/07/19 10:00 85 19 114/59 L 91 02/07/19 09:00 70 14 112/61 95 02/07/19 08:00 36.9 C 88 27 H 128/73 90 02/07/19 07:00 66 16 113/63 93 02/07/19 06:00 57 L 12 111/59 L 95 02/07/19 05:00 65 14 106/55 L 95 02/07/19 04:00 36.9 C 64 15 103/54 L 97 02/07/19 03:00 62 12 95/50 L 96 02/07/19 02:00 61 17 118/60 95 02/07/19 01:00 95 H 20 139/76 97 02/07/19 00:00 37.0 C 96 H 17 142/75 H 96 02/06/19 23:00 65 20 135/75 95 02/06/19 22:00 72 14 132/67 99 02/06/19 21:00 82 17 129/72 97 02/06/19 20:00 37.0 C 77 21 117/80 96 02/06/19 19:00 101 H 16 140/88 95 02/06/19 18:15 71 14 120/70 96 Pain Intensity Left Calf: Pain Intensity: 4 Transfer of Care Handoff Completed per policy Notes Mental Status: alert / awake / arousable Patient Amnestic to Procedure: Yes Nausea / Vomiting: adequately controlled Pain: adequately controlled Airway Patency, RR, SpO2: stable & adequate BP & HR: stable & adequate Hydration State: stable & adequate Anesthetic Complications: no major complications apparent
[2019-02-07] MEDS ORDERED: MoRPHine SULFATE 4 MG/ML 1 ML CARP\\VIAL IV PRN (18:14)
[2019-02-07 18:20] LABS: Partial Thromboplastin Ratio 3.3
[2019-02-07 18:28] LABS: Partial Thromboplastin Time 88.7 Seconds (21.0-31.0)
[2019-02-07 18:55] LABS: Hematocrit (blood only) 29.4 % (42-52); Hemoglobin 9.7 g/dL (14.0-18.0); Mean Corpuscular Volume 92.7 fL (80-100); Mean Platelet Volume 8.9 fL (7.4-10.4); Platelet Count 357 K/uL (130-400); RDW Coefficient of Variation 14.6 % (11.5-14.5); RDW Standard Deviation 49.8 fL (36.4-46.3); Red Blood Count 3.17 M/uL (4.7-6.1); White Blood Count 13.55 K/uL (4.8-10.8)
[2019-02-07 19:12] LABS: BUN Creatinine Ratio 10.2 (10-20); Calcium 8.1 mg/dl (8.5-10.1); Creatinine Clr Calc Pharmacy 68.4 ml/min; Est GFR (African American) 75.9; Est GFR (Non-African American) 65.5; Potassium 4.3 mmol/L (3.5-5.1)
[2019-02-07 19:30] LABS: Basophils # (auto) 0.01 K/uL (0-0.2); Basophils % (auto) 0.1 %; Immature Granulocytes # (auto) 0.06 K/uL (0.00-0.02); Immature Granulocytes % (auto) 0.4 %; Lymphocytes # (auto) 0.97 K/uL (1.2-3.4); Lymphocytes % (auto) 7.2 %; Monocytes # (auto) 1.11 K/uL (0.11-0.59); Monocytes % (auto) 8.2 %; Neutrophils % (auto) 84.1 %
[2019-02-07] MEDS: TRAMADOL HCL 50 MG TABLET PO PRN (21:40)
[2019-02-07] MEDS: ATORVASTATIN 40 MG TAB PO SCH (21:46)
[2019-02-08] MEDS: MoRPHine SULFATE 2 MG/ML CARP IV PRN ×3 (01:13→07:32)
[2019-02-08 01:44] LABS: Hematocrit (blood only) 27.6 % (42-52); Hemoglobin 9.1 g/dL (14.0-18.0); Mean Corpuscular Volume 92.3 fL (80-100); Mean Platelet Volume 9.2 fL (7.4-10.4); Nucleated RBC # (auto) 0.02 K/uL (0-0); Nucleated RBC % (auto) 0.2 %; Platelet Count 336 K/uL (130-400); RDW Coefficient of Variation 15.1 % (11.5-14.5); RDW Standard Deviation 51.1 fL (36.4-46.3); Red Blood Count 2.99 M/uL (4.7-6.1); White Blood Count 12.11 K/uL (4.8-10.8)
[2019-02-08 02:00] LABS: BUN Creatinine Ratio 11.3 (10-20); Calcium 7.8 mg/dl (8.5-10.1); Creatinine Clr Calc Pharmacy 71.5 ml/min; Est GFR (African American) 80.1; Est GFR (Non-African American) 69.1; Magnesium 1.9 mg/dl (1.8-2.4); Phosphorus 3.4 mg/dl (2.5-4.9); Potassium 4.1 mmol/L (3.5-5.1)
[2019-02-08 02:04] LABS: Partial Thromboplastin Ratio 1.8
[2019-02-08 02:08] LABS: Partial Thromboplastin Time 48.7 Seconds (21.0-31.0)
[2019-02-08 02:10] LABS: Basophils # (auto) 0.02 K/uL (0-0.2); Basophils % (auto) 0.2 %; Eosinophils # (auto) 0.01 K/uL (0-0.5); Eosinophils % (auto) 0.1 %; Immature Granulocytes # (auto) 0.04 K/uL (0.00-0.02); Immature Granulocytes % (auto) 0.3 %; Lymphocytes # (auto) 1.77 K/uL (1.2-3.4); Lymphocytes % (auto) 14.6 %; Monocytes # (auto) 1.27 K/uL (0.11-0.59); Monocytes % (auto) 10.5 %; Neutrophils % (auto) 74.3 %
[2019-02-08] MEDS: VANCOMYCIN HCL 1,500 MG in SODIUM CHLORIDE 0.9% 500 ML IV SCH ×3 (03:58→23:37)
[2019-02-08] MEDS: CEFEPIME 2,000 MG in SYRINGE 7.5 ML IV SCH ×3 (03:58→19:44)
--- NOTE | 2019-02-08 05:45 | Critical Care Progress Note ---
Date of Service February 08, 2019 Assessment & Plan (1) Infection of vascular bypass graft: Reason Critically Ill: 68-year-old male [facility] for management of an infected right femoral popliteal bypass graft with MRSA positive bacteremia status post explantation. with MRSA Neuro - [facility] ICU: Negative Cardiac - Peripheral artery disease Status post right femoropopliteal bypass surgery with explantation of right graft due 02/06/2019 due to hematoma and MRSA bacteremia Status post right graft femoropopliteal revision 02/07/2019 with improvement in color and warmth of right lower extremity. Tibialis posterior pulses present on Doppler this morning. -Heparin drip converted to rivaroxaban as below -Continue ASA, atorvastatin -Antibiotics as below HTN Continue lisinopril/hydrochlorothiazide p.o. daily HLD Continue atorvastatin 80 mg p.o. nightly Respiratory - No prior oxygen requirement or lung disease SPO2 greater than 88% on room air GI Heart healthy diet RENAL/LYTES - Sodium, potassium normal this morning Creatinine 1.10 Phosphorus and magnesium within normal limits BMP daily, replace electrolytes per protocol - Gutierrez catheter in place, 1380 cc output over 24 hours Strict I's and O's, I: 2.1 L, O: 1.3 L net 796/20 4 hours ENDO - No history diabetes or thyroid disease ICU hyperglycemic protocol HEME - Acute blood loss anemia 2/2 bleeding at right femoropopliteal graft site Hemoglobin 9.1 CBC daily or if he has recurrent clinically significant bleeding Transfusion hemoglobin threshold 7.0 g/dL ID - MRSA bacteremia Source control with explantation of infected graft Continue vancomycin daily Afebrile Repeat blood cultures ordered LINES/IV ACCESS - PIV's intact DVT PROPHYLAXIS - Rivaroxaban 2.5 mg p.o. twice daily Disposition: Stable for downgrade Thank you for allowing us to participate in the care of this patient. Please refer to Dr. Valdez's documentation for any further recommendations. Supervising Physician Co-Signing Physician Notes Dr. Heller was resident physician during care of patient. I separately evaluated patient for koehler portions of the history and the exam. I was present during the critical portion of medical decision making, and I discussed the case with the resident. I generally agree with the findings and plan. Patient has MRSA bacteremia secondary to infected graft material. We will repeat blood cultures today, continue vancomycin, he may need advanced vascular access depending on total duration of treatment length. Vancomycin frequency increased to mildly low vancomycin trough. Patient will be stable for downgrade out of ICU. Subjective Patient reports his right leg feels improved today. He notes that it feels warm to him, whereas it was very cold last night. He denies pain in the right lower extremity. He is able to somewhat move his toes and foot, is not sure if his sensation to soft touch has changed. He reports he is concerned at the extent of his surgery as he notes surgical dressings on his lower, mid, and upper right lower extremity and his left calf but denies postsurgical pain at those sites. Denies fevers, chills, sweats overnight. Denies chest pain, chest pressure, shortness of breath, difficulty breathing, vision change, vision, headache, nausea, vomiting, diarrhea today. He reports he has not had a bowel movement recently. Review of Systems Review of Systems: Constitutional: Denies fever, chills, malaise Eyes: Denies double vision, vision change ENT: Denies cough, sore throat, sinus pain Cardiovascular: Denies chest pain, chest pressure, palpitations, extremity swelling Respiratory: Denies shortness of breath, sputum production, difficulty breathing Gastrointestinal: Denies abdominal pain, nausea, vomiting, constipation, diarrhea Genitourinary: Denies pain with urination Musculoskeletal: Right lower extremity with postsurgical incisions as noted in HPI. Denies new weakness, joint pain, muscle pain. Integumentary: Endorses surgical incisions in right and left lower extremities as noted in HPI. Physical Exam Physical Exam: General: A&Ox3. NAD. Cooperative. HEENT: Atraumatic, normocephalic. No scleral icterus. Pupils equal reactive to light and accommodation. EOM intact, no nystagmus. Acuity grossly intact. Pulm: CTAB A&P. -wheezes, -rales, -rhonchi. Symmetrical chest rise. No increase work of breathing. No respiratory distress. Cardiac: RRR, -mrg. Radial pulses intact and symmetrical. Abdominal: Nontender, nondistended, soft. BS present. Extremity: Right proximal upper leg, right distal upper leg, right lower leg, and left lower leg surgical incisions present covered in surgical dressings. C/D/I. Nontender. No surrounding warmth, erythema, or purulence/discharge. Sensation in left foot intact, left PT pulse palpable. Ankle plantarflexion/dorsiflexion 5/5 strength Right foot: Warm, dry. Sensation diminished, some proprioception present in fourth digit. Posterior tibialis pulse intact to Doppler. Nontender. 5/5 strength to ankle dorsiflexion and plantarflexion. Results & Data Vital Signs (Past 12 Hours) Vital Signs Temp Pulse Pulse Resp BP BP Pulse Ox 02/08/19 05:00 95 H 16 109/64 92 02/08/19 04:00 37.2 C 103 H 19 117/72 96 02/08/19 03:00 105 H 18 105/77 94 02/08/19 02:00 82 15 102/60 93 02/08/19 01:00 87 17 95/68 L 95 02/08/19 00:00 37.4 C 103 H 22 132/80 98 02/07/19 23:00 99 H 15 122/76 96 02/07/19 22:00 76 15 105/62 93 02/07/19 21:00 73 15 110/63 95 02/07/19 20:00 37.0 C 76 15 85/60 L 99 02/07/19 19:01 111 H 18 96 02/07/19 19:00 110 H 21 120/77 96 02/07/19 18:40 73 19 100/71 96 02/07/19 18:35 79 15 112/63 99 02/07/19 18:30 71 18 121/68 99 02/07/19 18:25 37.0 C 76 71 14 120/64 120/64 100 02/07/19 18:20 82 16 111/70 97 02/07/19 18:15 75 71 15 117/66 120/70 99 02/07/19 18:10 86 19 122/68 90 02/07/19 18:05 74 81 13 125/67 125/67 100 02/07/19 18:00 71 18 128/68 100 02/07/19 17:56 77 20 130/75 92 02/07/19 17:55 73 14 130/75 97 PG Care Time/CCT Total # of Minutes Spent Total Time Spent with Patient: Total time spent is greater than 50% in coordination of care (as documented) at patient's floor/unit and/or counseling patient: Resident Activity Tracking Resident Involvement: Resident Care Provided Care Provided: Adult [facility] Medicine
[2019-02-08] MEDS: LISINOPRIL/HCTZ 10/12.5MG TAB PO SCH (07:28)
[2019-02-08] MEDS: ASPIRIN 81 MG CHEW PO SCH (07:30)
[2019-02-08] MEDS: DOCUSATE SODIUM 100 MG CAP PO SCH ×2 (07:30→19:49)
[2019-02-08] MEDS ORDERED: MINERAL OIL 30 ML UDC PO ONE (09:00)
[2019-02-08 09:57] LABS: INR 2.9 (0.9-1.1); Prothrombin Time 27.4 Seconds (9.0-12.0)
[2019-02-08] MEDS: PSYLLIUM 58.6% POWDER PACKET PO SCH ×2 (12:24→14:48)
[2019-02-08] MEDS ORDERED: VANCOMYCIN TROUGH ONE (13:30)
--- NOTE | 2019-02-08 14:07 | Surgery Progress Note ---
Date of Service February 08, 2019 Assessment & Plan (1) S/P femoral-tibial bypass: Pt doing well POD #1. Foot viable, with excellent doppler signals. Pt also seen by Dr Huerta today. d/c heparin and coumadin, start plavix and low dose xarelto. transfer to PCU today. Will remove dressings tomorrow. Continue to monitor. Subjective 68 yo m POD #1 after RLE redo transposed extraanatomical common fem to peroneal saphenous vein bypass and LLE saphenous vein harvest, seen in f/u today. Pt states 4th and 5th toes still slightly cool/numb, but denies foot or toe pain. Admits severe incisional pain in BLE, but states is controlled with medications. Denies N/V, chest pain, SOB, other complaints. Review of Systems Review of Systems: All systems reviewed & are unremarkable except as noted in HPI & below Physical Exam Constitutional: well developed, well nourished and cooperative; not in distress Respiratory: normal respiratory effort, lungs clear to auscultation Cardiovascular: Rate/Rhythm: regular rate and regular rhythm Vessels: femoral pulses present, posterior tibial pulses present (BLE with doppler) and dorsalis pedis pulses present (BLE with doppler) Extremities: normal capillary refill Gastrointestinal (Abdomen): normal bowel sounds, soft, nontender, no hepatosplenomegaly Musculoskeletal: no cyanosis or clubbing, extremities motor strength 5/5 Skin: + incision (surgical incisions covered, no significant shadowing. ) Neurologic: moves all extremities; no focal motor deficits Psychiatric: A+Ox3, euthymic affect Results & Data Vital Signs (Past 12 Hours) Vital Signs Temp Pulse Resp BP Pulse Ox 02/08/19 11:56 117 H 02/08/19 08:00 98 H 02/08/19 06:00 74 13 110/58 L 94 02/08/19 05:00 95 H 16 109/64 92 02/08/19 04:00 37.2 C 103 H 19 117/72 96 02/08/19 03:00 105 H 18 105/77 94 02/08/19 02:00 82 15 102/60 93
[2019-02-08] MEDS: CLOPIDOGREL BISULFATE 75 MG TAB PO SCH (14:46)
--- NOTE | 2019-02-08 14:58 | Pharmacy Report ---
Pharmacy Abx Dose Short Note - Date of Service February 08, 2019 - Assessment & Plan Assessment 68 year old M receiving vancomycin/cefepime for treatment of Bacteremia/graft infection Day # 5 of antimicrobial therapy. Plan Vancomycin * Trough level of 19.8 mcg/mL is therapeutic, drawn 9.5 hours from previous * Given Bacteremia and TREVIN of 2 prefer to be in upper end of dosing range, therefore will continue current dose * Continue dose of 1500 mg q10hrs * Goal trough level 15-20mcg/mL * Trough ordered for 02/10 @ 0530 Pharmacy will continue to follow and will adjust dose/frequency as necessary. Thank you.
--- NOTE | 2019-02-08 15:11 | Infectious Disease Progress Nt ---
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 Blood cultures were positive for MRSA, wound culture positive for MRSA and Pseudomonas. To continue on vancomycin and cefepime. Will likely need several weeks of IV antibiotics. Will follow. (2) Infection of vascular bypass graft: Subjective Patient seen in follow-up for MRSA sepsis with infected graft status post removal. Patient hemodynamically stable overnight. Remains afebrile. Follow- up blood cultures negative. Cultures from wound growing MRSA and pseudomonas aeruginosa. Mycin and cefepime, tolerating without apparent difficulty. Review of Systems Review of Systems: All systems reviewed & are unremarkable except as noted in HPI & below Physical Exam Constitutional: WD/WN, vitals as above comfortable; no acute distress Eyes: PERRL, conjunctivae normal, anicteric sclerae ENMT: external ear and nose normal, oropharynx normal Neck: trachea midline, no thyromegaly neck nontender Respiratory: normal respiratory effort, lungs clear to auscultation normal percussion; does not use accessory muscles Cardiovascular: Rate/Rhythm: regular rate and regular rhythm Heart Sounds: normal S1 and normal S2; no gallop, no murmur and no cardiac rub Vessels: normal peripheral pulses and popliteal pulses present; no JVD Gastrointestinal (Abdomen): normal bowel sounds, soft, nontender, no hepatosplenomegaly Musculoskeletal: no cyanosis or clubbing, extremities motor strength 5/5 Spine: thoracic spine normal to inspection and lumbar spine normal to inspection; no cervical spinal tenderness Skin: no rashes, warm and dry normal turgor, + lesion and + wound (surical dressing intact) Neurologic: patellar DTR's 2+ bilat, sensation intact no focal motor deficits Psychiatric: A+Ox3, euthymic affect Orientation: cooperative Lymphatic: no cervical or axillary lymphadenopathy no inguinal lymphadenopathy Results & Data Vital Signs (Past 12 Hours) Vital Signs Temp Pulse Resp BP Pulse Ox 02/08/19 11:56 117 H 02/08/19 11:30 94 H 21 106/65 94 02/08/19 11:01 120 H 20 81 L 02/08/19 11:00 116 H 23 122/67 91 02/08/19 10:30 104 H 26 H 104/67 93 02/08/19 10:01 92 H 20 93 02/08/19 10:00 99 H 16 113/79 96 02/08/19 09:30 101 H 16 112/79 95 02/08/19 09:01 100 H 17 94 02/08/19 09:00 100 H 16 118/70 95 02/08/19 08:30 96 H 15 116/62 93 02/08/19 08:01 115 H 15 93 02/08/19 08:00 37.2 C 108 H 17 105/68 94 02/08/19 07:31 112 H 15 109/70 95 02/08/19 07:01 83 22 98 02/08/19 07:00 108 H 21 135/65 96 02/08/19 06:00 74 13 110/58 L 94 02/08/19 05:00 95 H 16 109/64 92 02/08/19 04:00 37.2 C 103 H 19 117/72 96 Laboratory Results Short CBC 02/07/19 02/08/19 Range/Units 18:43 01:34 WBC 13.55 H 12.11 H (4.8-10.8) K/uL Hgb 9.7 L 9.1 L (14.0-18.0) g/dL Hct 29.4 L 27.6 L (42-52) % Plt Count 357 336 (130-400) K/uL BMP 02/07/19 02/08/19 18:43 01:34 Sodium 140 138 Potassium 4.3 4.1 Chloride 108 H 106 Carbon Dioxide 25 25 BUN 12 12 Creatinine 1.15 1.10 Glucose 161 H 123 H Calcium 8.1 L 7.8 L Diagnostic Findings Name: DINAH SCHWARTZ [id number] Acct: [id number] Status: ADM IN : 1950 [facility] Date: 02/04/19 Age: 68 Sex: M Dis Date: Loc: Telemetry 2 [facility] Rm/Bed: E218-1 Spec: [id number] Collected: 02/06/19-UNK Received: 02/06/19-[address]: Robinson Huerta M.D. Source: Leg,Right OV Order: Ordered: Aer/Latoya Cult/Sm Comments: Comment Culture 1. Right Lower Extremity Bypass graft Procedure Result Verified Site Gram Stain Final 02/06/19-1216 Gram Stain Result Moderate WBCs Seen Few Gram Positive Cocci Aero/Latoya Cult Preliminary 02/08/19-0848 Organism 1 Pseudomonas aeruginosa Quantity Rare Sens Sensitivities to Follow Organism 2 Staph aureus MRSA Quantity Moderate Sens Sensitivities to Follow Sensitivity results indicate a Methicillin-Resistant Staph aureus. Phoned to DIGNA DOHERTY on 02/08/19 at 0738 by Onur Tolliver. Results were verbalized back. P aerugino MRSA RX M.I.C. RX M.I.C. --- --------- --- --------- Amikacin S <=16 Aztreonam S <=4 Cefepime S <=4 Ceftazidime S 4 Ciprofloxacin S <=1 Clindamycin R >4 Daptomycin S 1 Erythromycin R >4 Gentamicin I 8 Imipenem S 2 Levofloxacin S <=2 Oxacillin R >2 Rifampin S <=1 Tetracycline S <=4 Tobramycin S <=4 Trimeth/Sulfa S <=0.5/9.5 Pip/Tazo S <=16 Vancomycin S 2 S = SENSITIVE I = INTERMEDIATE R = RESISTANT Name: DINAH SCHWARTZ [id number] : 1950 PAGE 1 Printed: 02/08/19 9709 END OF REPORT PG Care Time/CCT Total # of Minutes Spent Total Time Spent with Patient: Total time spent is greater than 50% in coordination of care (as documented) at patient's floor/unit and/or counseling patient:
--- NOTE | 2019-02-08 15:33 | Surgery Progress Note ---
Date of Service February 08, 2019 Assessment & Plan (1) S/P femoral-tibial bypass: At this point the graft is failing.There is no further intervention could be done on this.If his pain is uncontrolled and his foot worsens then either below the knee are most likely an [id number] amputation will be needed. I have discussed the risks options and benefits of the procedure with the patient. The patient understands the risks options and benefits and agrees to the procedure. Subjective Who was called to see the patient due to pain in his left foot which is started recently. There is been unable to obtain Doppler signals in the dorsalis pedis or posterior tibial of the right bypass leg. Physical Exam Physical Exam: On exam his right foot is mottled and cool. There is no dorsalis pedis or posterior tibial to Doppler. The graft is still patent however the Doppler signals have a waterhammer thump Results & Data Vital Signs (Past 12 Hours) Vital Signs Temp Pulse Resp BP Pulse Ox 02/08/19 11:56 117 H 02/08/19 11:30 94 H 21 106/65 94 02/08/19 11:01 120 H 20 81 L 02/08/19 11:00 116 H 23 122/67 91 02/08/19 10:30 104 H 26 H 104/67 93 02/08/19 10:01 92 H 20 93 02/08/19 10:00 99 H 16 113/79 96 02/08/19 09:30 101 H 16 112/79 95 02/08/19 09:01 100 H 17 94 02/08/19 09:00 100 H 16 118/70 95 02/08/19 08:30 96 H 15 116/62 93 02/08/19 08:01 115 H 15 93 02/08/19 08:00 37.2 C 108 H 17 105/68 94 02/08/19 07:31 112 H 15 109/70 95 02/08/19 07:01 83 22 98 02/08/19 07:00 108 H 21 135/65 96 02/08/19 06:00 74 13 110/58 L 94 02/08/19 05:00 95 H 16 109/64 92 02/08/19 04:00 37.2 C 103 H 19 117/72 96
[2019-02-08] MEDS: HYDROmorphone INJ 1 MG/ML SYRINGE IV PRN ×5 (15:44→23:48)
[2019-02-08] MEDS ORDERED: HYDROmorphone INJ 1 MG/ML SYRINGE IV STA (16:18)
[2019-02-08] MEDS: HEPARIN SODIUM/DEXTROSE 25,000 UNITS/500 ML BAG IV SCH (18:16)
[2019-02-08] MEDS: ATORVASTATIN 40 MG TAB PO SCH (19:45)
[2019-02-08] MEDS ORDERED: RIVAROXABAN 2.5 MG TAB PO SCH (21:00)
[2019-02-09] MEDS: HYDROmorphone INJ 1 MG/ML SYRINGE IV PRN ×11 (01:55→23:34)
[2019-02-09] MEDS: CEFEPIME 2,000 MG in SYRINGE 7.5 ML IV SCH ×3 (03:55→19:22)
[2019-02-09 06:53] LABS: INR 1.9 (0.9-1.1); Partial Thromboplastin Ratio 1.4; Partial Thromboplastin Time 38.9 Seconds (21.0-31.0); Prothrombin Time 18.8 Seconds (9.0-12.0)
[2019-02-09 07:19] LABS: Creatinine Clr Calc Pharmacy 78.8 ml/min; Est GFR (Non-African American) 69.9
[2019-02-09] MEDS: LISINOPRIL/HCTZ 10/12.5MG TAB PO SCH (07:50)
[2019-02-09] MEDS: CLOPIDOGREL BISULFATE 75 MG TAB PO SCH (07:50)
[2019-02-09] MEDS: PSYLLIUM 58.6% POWDER PACKET PO SCH (07:50)
[2019-02-09] MEDS: DOCUSATE SODIUM 100 MG CAP PO SCH ×2 (07:53→20:37)
[2019-02-09] MEDS: ASPIRIN 81 MG CHEW PO SCH (07:53)
[2019-02-09] MEDS: VANCOMYCIN HCL 1,500 MG in SODIUM CHLORIDE 0.9% 500 ML IV SCH ×2 (10:09→19:22)
--- NOTE | 2019-02-09 14:21 | Surgery Progress Note ---
Date of Service February 09, 2019 Assessment & Plan (1) Pain of right lower extremity due to ischemia: Failed attempt at limb salvage due to right leg graft infection. Will plan on right AKA tomorrow I have discussed the risks options and benefits of the procedure with the patient. The patient understands the risks options and benefits and agrees to the procedure. Subjective Patient complaining of right foot pain Physical Exam Physical Exam: Right foot mottled and painful. Cold to touch No pulse in graft. No dopplers on foot. Results & Data Vital Signs (Past 12 Hours) Vital Signs Temp Pulse Pulse Resp BP Pulse Ox 02/09/19 11:59 111 H 02/09/19 11:41 36.8 C 114 H 18 142/77 H 94 02/09/19 08:00 103 H 02/09/19 07:24 37.4 C 120 H 18 114/74 96 02/09/19 02:45 37.1 C 124 H 18 116/77 95
--- NOTE | 2019-02-09 17:24 | Anesthesiology Consultation ---
Date of Service February 09, 2019 Assessment & Plan (1) Encounter for pre-operative examination: Chart Review Chart Review: Acceptable Risk for Surgery History Surgery Operation Date: 02/06/19 07:10 Proposed Procedures p Incision and Drainage Right Calf Wound - Robinson Huerta MD Operation Date: 02/07/19 12:00 Proposed Procedures p Left Greater Saphenous Vein Harvesting; - Robinson Huerta MD s Right Redo Femoral to Distal Anterior Tibial Extraanatomical Bypass - Robinson Huerta MD Operation Date: 02/10/19 12:40 Proposed Procedures p Right Above Knee Amputation - Robinson Huerta MD Height/Weight Height: 6 ft Weight: 95.4 kg Allergies Allergy/AdvReac Type Severity Reaction Status Date / Time codeine Allergy Unknown Unknown Verified 02/03/19 11:53 Medications Home Medications Medication Instructions Recorded Confirmed Last Taken aspirin 81 mg PO QAM 08/20/18 02/03/19 01/24/19 07:00 atorvastatin 80 mg PO HS 08/20/18 02/03/19 01/24/19 18:30 lisinopril-hydrochlorothiazide 1 tab PO QAM 08/20/18 02/03/19 01/25/19 07:00 acetaminophen [Tylenol Extra 1,000 mg PO TID 12/25/18 02/03/19 01/24/19 07:00 Strength] sodium chloride [Deep Sea Nasal] 2 spray INTRANASAL QID PRN 12/25/18 02/03/19 Unknown docusate sodium 250 mg PO BID 01/19/19 02/03/19 01/24/19 18:30 warfarin [Coumadin] 5 mg PO DAILY #30 tab 01/27/19 02/03/19 Unknown Active Medications Generic Name Dose Route Start Last Admin Trade Name Freq PRN Reason Stop Dose Admin Acetaminophen 325 mg 02/03/19 18:05 02/03/19 20:13 Tylenol PO 03/05/19 18:04 325 mg Q4H PRN Administration Headache Aspirin 81 mg 02/04/19 09:00 02/09/19 07:53 Aspirin Chew PO 03/06/19 08:59 81 mg QAM TOOTIE Administration Atorvastatin Calcium 80 mg 02/03/19 21:00 02/08/19 19:45 Lipitor PO 03/05/19 20:59 80 mg HS TOOTIE Administration Clopidogrel Bisulfate 75 mg 02/08/19 13:45 02/09/19 07:50 Plavix PO 03/10/19 13:44 75 mg QAM TOOTIE Administration Docusate Sodium 200 mg 02/03/19 21:00 02/09/19 07:53 Colace PO 03/05/19 20:59 200 mg BID TOOTIE Administration Lisinopril/HCTZ 1 tab 02/04/19 09:00 02/09/19 07:50 Prinzide 10/12.5mg PO 03/06/19 08:59 1 tab QAM TOOTIE Administration Hydromorphone HCl 1 mg 02/09/19 10:36 02/09/19 16:00 Dilaudid IV 02/22/19 15:34 1 mg Q1HWA PRN Administration Pain Vancomycin HCl 1,500 mg/ 530 mls @ 200 mls/hr 02/07/19 18:00 02/09/19 12:49 Sodium Chloride IV 02/21/19 17:59 Infused Q10H TOOTIE Infusion Cefepime HCl 2,000 mg/ Syringe 20 mls @ 5.5 mls/min 02/07/19 11:00 02/09/19 11:34 IV 02/17/19 10:59 5.5 mls/min Q8H TOOTIE Administration Protocol Magnesium Hydroxide 30 ml 02/04/19 09:08 02/04/19 14:55 Milk Of Magnesia PO 03/06/19 09:07 30 ml Q6H PRN Administration Constipation Psyllium Hydrophilic Mucilloid 1 pkt 02/08/19 09:00 02/09/19 07:50 Metamucil PO 03/10/19 08:59 1 pkt DAILY TOOTIE Administration Tramadol HCl 50 - 100 mg 02/06/19 12:38 02/07/19 21:40 Ultram PO 03/08/19 12:37 100 mg Q6H PRN Administration Moderate Pain NPO Date Last Intake of Fluids: 02/06/19 Time Last Intake of Fluids: 23:00 Date Last Intake of Solids: 02/06/19 Time Last Intake of Solids: 23:00 Past Medical History Medical History Bacteremia with infected graft Hematoma (Acute) right leg x2 HLD (hyperlipidemia) (Chronic) COPD (chronic obstructive pulmonary disease) CVA (cerebral vascular accident) HTN (hypertension) Hernia PVD (peripheral vascular disease) Smoker Past Family History Family History Other Family history non-contributory Past Surgical History Surgical History H/O vasectomy History of femoropopliteal bypass Rt History of incision and drainage 02/06/2019 History of surgery History of vascular surgery R SFA stent, Right leg thrombectomy, fem-pop. 08/2018. GETA with a-line. Right leg open thrombectomy 12/22/2018 [facility] Removal infected graft then fem distal bypass with saphenous vein graft Social History Smoking Status: Former smoker tobacco type: cigarettes Smoking cigarettes per day: 12/12/2018 Do You Dip or Chew Tobacco: No Hx Alcohol Use: No Hx Substance Use: No Physical Exam Vital Signs Last Vital Signs Temp 36.6 C 02/09/19 15:25 Pulse 102 H 02/09/19 15:25 Resp 20 02/09/19 15:25 BP 124/75 02/09/19 15:25 Pulse Ox 96 02/09/19 15:25 Testing Laboratory Results 02/08/19 01:34 02/09/19 06:33 PT 18.8 Seconds (9.0-12.0) H 02/09/19 06:33 INR 1.9 (0.9-1.1) H 02/09/19 06:33 APTT 38.9 Seconds (21.0-31.0) H 02/09/19 06:33 Urine Color Yellow 02/03/19 14:50 Urine Appearance Clear (Clear) 02/03/19 14:50 Urine pH 5.0 (4.5-7.5) 02/03/19 14:50 Ur Specific [place] > 1.045 (1.000-1.030) H 02/03/19 14:50 Urine Protein Negative (Negative) 02/03/19 14:50 Urine Glucose (UA) Negative (Negative) 02/03/19 14:50 Urine Ketones Negative (Negative) 02/03/19 14:50 Urine Nitrite Negative (Negative) 02/03/19 14:50 Ur Leukocyte Esterase Negative (Negative) 02/03/19 14:50 Blood Type O Positive 02/06/19 19:36 Antibody Screen NEGATIVE 02/06/19 19:36 02/06/19 Unknown Gram Stain - Final Leg,Right Aerobic and Anaerobic Culture - Preliminary Pseudomonas aeruginosa Staph aureus MRSA 02/08/19 09:32 Aerobic Blood Culture - Preliminary Blood No growth in Aerobic bottle after 24 hours. Anaerobic Blood Culture - Preliminary No growth in Anaerobic bottle after 24 hours. 02/08/19 09:30 Aerobic Blood Culture - Preliminary Blood No growth in Aerobic bottle after 24 hours. Anaerobic Blood Culture - Preliminary No growth in Anaerobic bottle after 24 hours. 02/07/19 Unknown Gram Stain - Final Thigh,Right Aerobic and Anaerobic Culture - Preliminary No growth to date. 02/03/19 12:04 Aerobic Blood Culture - Final Blood Staph aureus MRSA Anaerobic Blood Culture - Final Staph aureus MRSA 02/03/19 11:55 Aerobic Blood Culture - Final Blood Staph aureus MRSA Anaerobic Blood Culture - Final Staph aureus MRSA Laboratory Tests 02/08/19 02/09/19 02/09/19 01:34 06:33 06:33 INR 1.9 H APTT 38.9 H Sodium 138 Potassium 4.1 Chloride 106 Carbon Dioxide 25 BUN 12 Creatinine 1.09 Electrocardiogram Date: 02/08/19 Findings: + NSR @ (99) and + NSST changes
--- NOTE | 2019-02-09 18:32 | Infectious Disease Progress Nt ---
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 Blood cultures were positive for MRSA, wound culture positive for MRSA and Pseudomonas. To continue on vancomycin and cefepime. Will likely need several weeks of IV antibiotics. Will follow. (2) Infection of vascular bypass graft: Subjective Patient seen in follow-up for MRSA sepsis and graft infection. Patient complaining of right foot pain. Remains afebrile, hemodynamically stable overnight. Cultures from wound growing MRSA and Pseudomonas. Review of Systems Review of Systems: All systems reviewed & are unremarkable except as noted in HPI & below Physical Exam Constitutional: WD/WN, vitals as above comfortable; no acute distress Eyes: PERRL, conjunctivae normal, anicteric sclerae ENMT: external ear and nose normal, oropharynx normal Neck: trachea midline, no thyromegaly neck nontender Respiratory: normal respiratory effort, lungs clear to auscultation normal percussion; does not use accessory muscles Cardiovascular: Rate/Rhythm: regular rate and regular rhythm Heart Sounds: normal S1 and normal S2; no gallop, no murmur and no cardiac rub Vessels: normal peripheral pulses and popliteal pulses present; no JVD Gastrointestinal (Abdomen): normal bowel sounds, soft, nontender, no he patosplenomegaly Musculoskeletal: no cyanosis or clubbing, extremities motor strength 5/5 Spine: thoracic spine normal to inspection and lumbar spine normal to inspection; no cervical spinal tenderness Skin: no rashes, warm and dry normal turgor, + lesion and + wound (surical dressing intact) Neurologic: patellar DTR's 2+ bilat, sensation intact no focal motor deficits Psychiatric: A+Ox3, euthymic affect Orientation: cooperative Lymphatic: no cervical or axillary lymphadenopathy no inguinal lymphadenopathy Results & Data Vital Signs (Past 12 Hours) Vital Signs Temp Pulse Pulse Resp BP Pulse Ox 02/09/19 15:25 36.6 C 102 H 20 124/75 96 02/09/19 11:59 111 H 02/09/19 11:41 36.8 C 114 H 18 142/77 H 94 02/09/19 08:00 103 H 02/09/19 07:24 37.4 C 120 H 18 114/74 96 Laboratory Results [facility] 02/09/19 06:33 Creatinine 1.09 Diagnostic Findings Microbiology 02/06/19 Unknown Leg,Right Gram Stain - Final 02/06/19 Unknown Leg,Right Aerobic and Anaerobic Culture - Preliminary Pseudomonas aeruginosa Staph aureus MRSA 02/08/19 09:32 Blood Aerobic Blood Culture - Preliminary No growth in Aerobic bottle after 24 hours. 02/08/19 09:32 Blood Anaerobic Blood Culture - Preliminary No growth in Anaerobic bottle after 24 hours. 02/08/19 09:30 Blood Aerobic Blood Culture - Preliminary No growth in Aerobic bottle after 24 hours. 02/08/19 09:30 Blood Anaerobic Blood Culture - Preliminary No growth in Anaerobic bottle after 24 hours. 02/07/19 Unknown Thigh,Right Gram Stain - Final 02/07/19 Unknown Thigh,Right Aerobic and Anaerobic Culture - Preliminary No growth to date. 02/03/19 12:04 Blood Aerobic Blood Culture - Final Staph aureus MRSA 02/03/19 12:04 Blood Anaerobic Blood Culture - Final Staph aureus MRSA 02/03/19 11:55 Blood Aerobic Blood Culture - Final Staph aureus MRSA 02/03/19 11:55 Blood Anaerobic Blood Culture - Final Staph aureus MRSA PG Care Time/CCT Total # of Minutes Spent Total Time Spent with Patient: Total time spent is greater than 50% in coordination of care (as documented) at patient's floor/unit and/or counseling patient:
[2019-02-09] MEDS: ATORVASTATIN 40 MG TAB PO SCH (19:24)
[2019-02-09] MEDS: TRAMADOL HCL 50 MG TABLET PO PRN ×2 (19:24→20:39)
[2019-02-10] MEDS: HYDROmorphone INJ 1 MG/ML SYRINGE IV PRN ×6 (02:14→22:38)
[2019-02-10] MEDS: CEFEPIME 2,000 MG in SYRINGE 7.5 ML IV SCH ×3 (02:14→18:09)
[2019-02-10] MEDS: VANCOMYCIN HCL 1,500 MG in SODIUM CHLORIDE 0.9% 500 ML IV SCH ×2 (05:18→17:00)
[2019-02-10] MEDS ORDERED: VANCOMYCIN TROUGH ONE (05:30)
[2019-02-10 05:58] LABS: INR 1.4 (0.9-1.1); Prothrombin Time 13.6 Seconds (9.0-12.0)
[2019-02-10 06:07] LABS: Creatinine Clr Calc Pharmacy 76.4 ml/min; Est GFR (African American) 86.7; Est GFR (Non-African American) 74.8
[2019-02-10] MEDS: ASPIRIN 81 MG CHEW PO SCH (09:06)
[2019-02-10] MEDS: LISINOPRIL/HCTZ 10/12.5MG TAB PO SCH (09:07)
[2019-02-10] MEDS: CLOPIDOGREL BISULFATE 75 MG TAB PO SCH (09:07)
[2019-02-10] MEDS: DOCUSATE SODIUM 100 MG CAP PO SCH ×2 (09:10→20:12)
[2019-02-10] MEDS: PSYLLIUM 58.6% POWDER PACKET PO SCH (09:11)
[2019-02-10] MEDS ORDERED: MIDAZOLAM HCL 1 MG/ML 2ML VIAL ONE (12:49)
[2019-02-10] MEDS ORDERED: fentaNYL citrate 100 MCG/2 ML VIAL ONE ×3 (12:49→14:12)
[2019-02-10] MEDS ORDERED: HYDROmorphone INJ 2 MG/ML SYR/VIAL ONE ×2 (12:50→14:12)
[2019-02-10] MEDS ORDERED: LIDOCAINE HCL 1% 20 ML VIAL ONE (13:23)
[2019-02-10] MEDS ORDERED: BUPIVACAINE/EPINEPHRINE 0.5% MPF 1:200,000 30 ML VIAL ONE (13:23)
--- NOTE | 2019-02-10 13:32 | History & Physical Bridge Note ---
Date of Service February 10, 2019 History & Physical Bridge Note Patient for a right AKA. I have discussed the risks options and benefits of the procedure with the patient. The patient understands the risks options and benefits and agrees to the procedure. I have examined the patient, reviewed the History & Physical and in the interval since the performance of the History & Physical I have noted the following changes of clinical significance: no changes noted
[2019-02-10] MEDS ORDERED: DEXAMETHASONE SOD INJ 4 MG/ML VIAL ONE (14:16)
[2019-02-10] MEDS ORDERED: ONDANSETRON INJ 2 MG/ML 2 ML VIAL ONE (14:16)
[2019-02-10] MEDS ORDERED: PROPOFOL IV EMULSION 10 MG/ML 20 ML VIAL IV ONE (14:16)
[2019-02-10] MEDS ORDERED: LIDOCAINE HCL 2% 2 ML VIAL/AMP(20MG/ML) INFIL ONE (14:16)
[2019-02-10] MEDS ORDERED: ROCURONIUM BROMIDE 10 MG/ML 5 ML VIAL ONE (14:16)
[2019-02-10] MEDS ORDERED: NEOSTIGMINE METHYLSULFATE 1 MG/ML 10ML VIAL ONE (14:16)
[2019-02-10] MEDS ORDERED: GLYCOPYRROLATE 0.2 MG/ML VIAL ONE (14:16)
[2019-02-10] MEDS ORDERED: PHENYLEPHRINE 100MCG/ML 5ML SYR ONE (14:31)
[2019-02-10] MEDS ORDERED: PHENYLEPHRINE HCL 10 MG/ML VIAL ONE (14:31)
[2019-02-10] MEDS ORDERED: HYDROmorphone INJ 2 MG/ML SYR/VIAL IV PRN (14:36)
[2019-02-10] MEDS ORDERED: ATROPINE SULFATE 0.1 MG/ML 10ML SYR IV PRN (14:36)
[2019-02-10] MEDS ORDERED: ePHEDrine sulfate 50 MG/ML AMP IV PRN (14:36)
[2019-02-10] MEDS ORDERED: ONDANSETRON INJ 2 MG/ML 2 ML VIAL IV PRN (14:36)
--- NOTE | 2019-02-10 14:53 | Pharmacy Report ---
Pharmacy Abx Dose Short Note - Date of Service February 10, 2019 - Assessment & Plan Assessment 68 year old M receiving vancomycin/cefepime for treatment of Bacteremia/infected prosthetic bypass graft status post removal. * BC positive for MRSA, wound culture positive for MRSA and Pseudomonas * today is Day # 7 of antimicrobial therapy Plan Vancomycin * Trough level of 21 mcg/mL is therapeutic for severe infection with elevated vanc TREVIN * Continue dose of 1500 mg (17 mg/kg) q10hrs * Goal trough level: 20mcg/mL * Will repeat trough on 02/12 @0730 to ensure level does not continue to rise Pharmacy will continue to follow and will adjust dose/frequency as necessary. Thank you.
--- NOTE | 2019-02-10 15:09 | Operative Report ---
Post Operative Report Pre & Post Diagnosis Operation Date: 02/06/19 07:10 Pre-Op Diagnosis: Right Lower Extremity Infection Post-Op Diagnosis: Right Lower Extremity Infection Operation Date: 02/07/19 12:00 Pre-Op Diagnosis: Infection of Vascular Bypass Graft Post-Op Diagnosis: Infection of Vascular Bypass Graft Operation Date: 02/10/19 12:40 Pre-Op Diagnosis: Pain of right lower extremity due to ischemia Post-Op Diagnosis: Pain of right lower extremity due to ischemia Procedure Operation Date: 02/06/19 07:10 Actual Procedures p Incision and Drainage Right Calf Wound, Removal of Infected Prosthetic Graft(Right) - Robinson Huerta MD Operation Date: 02/07/19 12:00 Actual Procedures s Left Greater Saphenous Vein Harvesting;(Left) - Robinson Huerta MD p Partial fibulectomy Right leg ,Right Femoral to Distal peroneal transposed- Extraanatomical insitu Bypass with completion angiogram(Right) - Robinson Huerta MD Operation Date: 02/10/19 12:40 Actual Procedures p Right Above Knee Amputation(Right) - Robinson Huerta MD Surgeon Robinson Huerta MD [employer] Driver KINDRA Pinon MD Estimated Blood Loss 40 Findings Consistent with Post-Op Diagnosis Fluids 1L Specimens Right leg AKA Drains none Anesthesia Type General Complications none Disposition Accompanied Patient To Recovery: No Disposition: Recovery Room Indications Right lower extremity ischemia Description of Procedure The patient was taken to the operating room and placed in the supine position. The patient's identity and surgical site were identified. The right leg was prepped and draped in the usual sterile fashion. A timeout was performed. A circumferential fishmouth incision was made on the mid-right leg. This was carried down through the subcutaneous tissue and muscle to the femur. A periosteal elevator was used to clean the soft tissue attachments off the bone. A gigli saw was used to cut through the bone. A knife was used to cut the soft tissue and muscle on the posterior aspect to create a flap. The bone was filed so that it was smooth. The femoral vein was identified and suture ligated with a 3-0 vicryl. Hemostasis was obtained. The fascia was closed with interrupted 2-0 vicryl sutures. The skin was closed with axel. The stump was dressed with xeroform, 4x4 gauze, and tubigrip. The patient tolerated the procedure well. At the conclusion of the procedure all sponge, needle, and instrument counts were correct. The patient was taken to the recovery room in satisfactory condition. Dr. Huerta was present and scrubbed for the entire procedure. I attest to the content of the Intraoperative Record and any orders documented therein. Any exceptions are noted below.
[2019-02-10] MEDS: fentaNYL citrate 100 MCG/2 ML VIAL IV PRN ×2 (15:16→15:21)
--- NOTE | 2019-02-10 15:16 | Post Operative Brief Note ---
Immediate Post Op Note v1 Date of Surgery February 10, 2019 Pre & Post Diagnosis Operation Date: 02/06/19 07:10 Pre-Op Diagnosis: Right Lower Extremity Infection Post-Op Diagnosis: Right Lower Extremity Infection Operation Date: 02/07/19 12:00 Pre-Op Diagnosis: Infection of Vascular Bypass Graft Post-Op Diagnosis: Infection of Vascular Bypass Graft Operation Date: 02/10/19 12:40 Pre-Op Diagnosis: Pain of right lower extremity due to ischemia Post-Op Diagnosis: Pain of right lower extremity due to ischemia Procedure Operation Date: 02/06/19 07:10 Actual Procedures p Incision and Drainage Right Calf Wound, Removal of Infected Prosthetic Graft(Right) - Robinson Huerta MD Operation Date: 02/07/19 12:00 Actual Procedures s Left Greater Saphenous Vein Harvesting;(Left) - Robinson Huerta MD p Partial fibulectomy Right leg ,Right Femoral to Distal peroneal transposed- Extraanatomical insitu Bypass with completion angiogram(Right) - Robinson Lu i, MD Operation Date: 02/10/19 12:40 Actual Procedures p Right Above Knee Amputation(Right) - Robinson Huerta MD Surgeon Robinson Huerta MD Belt Machine Operator KINDRA Pinon MD Estimated Blood Loss 40 Findings Consistent with Post-Op Diagnosis Drains Govea Catheter (pt came to OR with govea in place) Anesthesia Type General Complications none Disposition Accompanied Patient To Recovery: No Disposition: Recovery Room
--- NOTE | 2019-02-10 16:05 | Infectious Disease Progress Nt ---
Date of Service February 10, 2019 Assessment & Plan (1) MRSA bacteremia: Patient with infected bypass graft with MRSA bacteremia, now status post AKA amputation. Previous wound culture also with Pseudomonas. To continue IV antibiotics for now with length to be determined by healing of wound. Will follow. (2) Infection of vascular bypass graft: Subjective Patient seen in follow-up for MRSA sepsis and graft infection. Now status post AKA amputation. Review of Systems Review of Systems: All systems reviewed & are unremarkable except as noted in HPI & below Physical Exam Constitutional: WD/WN, vitals as above comfortable; no acute distress Eyes: PERRL, conjunctivae normal, anicteric sclerae ENMT: external ear and nose normal, oropharynx normal Neck: trachea midline, no thyromegaly neck nontender Respiratory: normal respiratory effort, lungs clear to auscultation normal percussion; does not use accessory muscles Cardiovascular: Rate/Rhythm: regular rate and regular rhythm Heart Sounds: normal S1 and normal S2; no gallop, no murmur and no cardiac rub Vessels: normal peripheral pulses; no JVD Gastrointestinal (Abdomen): normal bowel sounds, soft, nontender, no h epatosplenomegaly Musculoskeletal: no cyanosis or clubbing, extremities motor strength 5/5 Spine: thoracic spine normal to inspection and lumbar spine normal to inspection; no cervical spinal tenderness Skin: no rashes, warm and dry normal turgor and + wound (Dressing intact right leg) Neurologic: patellar DTR's 2+ bilat, sensation intact no focal motor deficits Psychiatric: A+Ox3, euthymic affect Orientation: cooperative Lymphatic: no cervical or axillary lymphadenopathy no inguinal lymphadenopathy Results & Data Vital Signs (Past 12 Hours) Vital Signs Temp Pulse Pulse Resp BP BP Pulse Ox 02/10/19 15:55 36.6 C 89 18 114/62 96 02/10/19 15:45 36.6 C 88 18 122/74 96 02/10/19 15:35 82 18 122/68 98 02/10/19 15:25 87 18 134/78 98 02/10/19 15:15 86 18 125/70 99 02/10/19 15:08 37.2 C 95 H 18 121/74 98 02/10/19 13:07 36.8 C 98 H 18 120/84 98 02/10/19 11:25 36.9 C 87 16 124/80 97 02/10/19 07:15 36.9 C 102 H 18 138/90 100 Laboratory Results BMP 02/10/19 05:26 Creatinine 1.03 Diagnostic Findings Microbiology 02/08/19 09:30 Blood Aerobic Blood Culture - Preliminary No growth in Aerobic bottle after 48 hours. 02/08/19 09:30 Blood Anaerobic Blood Culture - Preliminary No growth in Anaerobic bottle after 48 hours. 02/08/19 09:32 Blood Aerobic Blood Culture - Preliminary No growth in Aerobic bottle after 48 hours. 02/08/19 09:32 Blood Anaerobic Blood Culture - Preliminary No growth in Anaerobic bottle after 48 hours. 02/06/19 Unknown Leg,Right Gram Stain - Final 02/06/19 Unknown Leg,Right Aerobic and Anaerobic Culture - Preliminary Pseudomonas aeruginosa Staph aureus MRSA 02/07/19 Unknown Thigh,Right Gram Stain - Final 02/07/19 Unknown Thigh,Right Aerobic and Anaerobic Culture - Preliminary No growth to date. 02/03/19 12:04 Blood Aerobic Blood Culture - Final Staph aureus MRSA 02/03/19 12:04 Blood Anaerobic Blood Culture - Final Staph aureus MRSA 02/03/19 11:55 Blood Aerobic Blood Culture - Final Staph aureus MRSA 02/03/19 11:55 Blood Anaerobic Blood Culture - Final Staph aureus MRSA PG Care Time/CCT Total # of Minutes Spent Total Time Spent with Patient: Total time spent is greater than 50% in coordination of care (as documented) at patient's floor/unit and/or counseling patient:
[2019-02-10] MEDS: LACTATED RINGER'S 1,000 ML IV SCH (16:45)
--- NOTE | 2019-02-10 17:30 | Anesthesiology Progress Note ---
Date of Service February 10, 2019 Anesthesia Post Procedure Vital Signs Vital Signs: Temp Pulse Pulse Pulse Resp BP BP 02/10/19 17:18 36.8 C 100 H 16 98/67 L 02/10/19 16:55 36.7 C 108 H 18 101/67 02/10/19 16:15 36.6 C 88 16 108/66 02/10/19 15:55 36.6 C 89 18 114/62 02/10/19 15:45 36.6 C 88 18 122/74 02/10/19 15:35 82 18 122/68 02/10/19 15:25 87 18 134/78 02/10/19 15:15 86 18 125/70 02/10/19 15:08 37.2 C 95 H 18 121/74 02/10/19 13:07 36.8 C 98 H 18 120/84 02/10/19 11:25 36.9 C 87 16 124/80 02/10/19 07:15 36.9 C 102 H 18 138/90 02/10/19 03:04 36.8 C 98 H 19 139/81 02/09/19 23:28 37.0 C 102 H 15 138/77 02/09/19 23:16 104 H 02/09/19 19:08 37.3 C 99 H 20 131/77 Pulse Ox 02/10/19 17:18 95 02/10/19 16:55 92 02/10/19 16:15 93 02/10/19 15:55 96 02/10/19 15:45 96 02/10/19 15:35 98 02/10/19 15:25 98 02/10/19 15:15 99 02/10/19 15:08 98 02/10/19 13:07 98 02/10/19 11:25 97 02/10/19 07:15 100 02/10/19 03:04 95 02/09/19 23:28 95 02/09/19 23:16 02/09/19 19:08 95 Pain Intensity Left Calf: Pain Intensity: 0 Right Foot: Pain Intensity: 6 Transfer of Care Handoff Completed per policy Notes Mental Status: alert / awake / arousable and participated in evaluation Patient Amnestic to Procedure: Yes Nausea / Vomiting: adequately controlled Pain: adequately controlled Airway Patency, RR, SpO2: stable & adequate BP & HR: stable & adequate Hydration State: stable & adequate Anesthetic Complications: no major complications apparent and Pt Satisfied with anesthetic care
[2019-02-10] MEDS: ATORVASTATIN 40 MG TAB PO SCH (20:11)
[2019-02-10] MEDS: TRAMADOL HCL 50 MG TABLET PO PRN (20:12)
[2019-02-10] MEDS ORDERED: COUGH DROP (SUGAR FREE) LOZ 24 LOZ/1 BOX BUCCAL PRN (22:29)
[2019-02-11] MEDS: HYDROmorphone INJ 1 MG/ML SYRINGE IV PRN ×5 (00:14→20:31)
[2019-02-11] MEDS: VANCOMYCIN HCL 1,500 MG in SODIUM CHLORIDE 0.9% 500 ML IV SCH ×3 (01:34→23:00)
[2019-02-11] MEDS: CEFEPIME 2,000 MG in SYRINGE 7.5 ML IV SCH ×3 (03:14→18:21)
[2019-02-11] MEDS: TRAMADOL HCL 50 MG TABLET PO PRN ×3 (05:41→23:03)
[2019-02-11 06:17] LABS: Basophils # (auto) 0.03 K/uL (0-0.2); Basophils % (auto) 0.2 %; Eosinophils # (auto) 0.01 K/uL (0-0.5); Eosinophils % (auto) 0.1 %; Hematocrit (blood only) 23.6 % (42-52); Hemoglobin 7.7 g/dL (14.0-18.0); Immature Granulocytes # (auto) 0.08 K/uL (0.00-0.02); Immature Granulocytes % (auto) 0.6 %; Lymphocytes # (auto) 1.73 K/uL (1.2-3.4); Lymphocytes % (auto) 12.4 %; Mean Corpuscular Hgb Conc 32.6 g/dL (32-36); Mean Corpuscular Volume 92.9 fL (80-100); Mean Platelet Volume 9.1 fL (7.4-10.4); Monocytes # (auto) 2.25 K/uL (0.11-0.59); Monocytes % (auto) 16.2 %; Neutrophils # (auto) 9.81 K/uL (1.4-6.5); Neutrophils % (auto) 70.5 %; Nucleated RBC # (auto) 0.02 K/uL (0-0); Nucleated RBC % (auto) 0.2 %; Platelet Count 526 K/uL (130-400); RDW Coefficient of Variation 14.8 % (11.5-14.5); Red Blood Count 2.54 M/uL (4.7-6.1); White Blood Count 13.91 K/uL (4.8-10.8)
[2019-02-11 06:26] LABS: INR 1.2 (0.9-1.1); Prothrombin Time 12.2 Seconds (9.0-12.0)
[2019-02-11 06:43] LABS: Creatinine Clr Calc Pharmacy 72.8 ml/min; Est GFR (African American) 81.9; Est GFR (Non-African American) 70.6
[2019-02-11 06:51] LABS: Polychromasia 1+
--- NOTE | 2019-02-11 09:38 | Surgery Progress Note ---
Date of Service February 11, 2019 Assessment & Plan (1) Unilateral AKA: Doing well post op. Will remove dressing tomorrow. Hopefully can be d/c'd early this coming week Subjective No complaints. Tolerating post op pain. Trying to use oral pain meds. Physical Exam Physical Exam: Stump dressing intact. No drainage noted. Constitutional: WD/WN, vitals as above Psychiatric: Orientation: alert and oriented x 3 Results & Data Vital Signs (Past 12 Hours) Vital Signs Temp Pulse Pulse Resp BP Pulse Ox 02/11/19 06:25 37.0 C 103 H 19 120/77 93 02/11/19 03:49 37.0 C 110 H 19 124/78 92 02/10/19 23:26 37.2 C 109 H 20 127/81 94 02/10/19 22:42 112 H 93
[2019-02-11] MEDS: LISINOPRIL/HCTZ 10/12.5MG TAB PO SCH (09:57)
[2019-02-11] MEDS: PSYLLIUM 58.6% POWDER PACKET PO SCH (09:57)
[2019-02-11] MEDS: ASPIRIN 81 MG CHEW PO SCH (10:34)
[2019-02-11] MEDS: DOCUSATE SODIUM 100 MG CAP PO SCH ×2 (10:35→20:59)
[2019-02-11] MEDS: MAGNESIUM HYDROXIDE SUSP 30 ML UDC PO PRN ×2 (13:16→20:05)
[2019-02-11] MEDS: LACTATED RINGER'S 1,000 ML IV SCH (14:47)
--- NOTE | 2019-02-11 16:53 | Infectious Disease Progress Nt ---
Date of Service February 11, 2019 Assessment & Plan (1) MRSA bacteremia: Patient with infected bypass graft with MRSA bacteremia, now status post AKA amputation. Previous wound culture also with Pseudomonas. To continue IV antibiotics for now with length to be determined by healing of wound. Will follow. (2) Infection of vascular bypass graft: Subjective No complaints. Tolerating post op pain. Trying to use oral pain meds. Review of Systems Review of Systems: All systems reviewed & are unremarkable except as noted in HPI & below Physical Exam Constitutional: WD/WN, vitals as above comfortable; no acute distress Eyes: PERRL, conjunctivae normal, anicteric sclerae ENMT: external ear and nose normal, oropharynx normal Neck: trachea midline, no thyromegaly neck nontender Respiratory: normal respiratory effort, lungs clear to auscultation normal percussion; does not use accessory muscles Cardiovascular: Rate/Rhythm: regular rate and regular rhythm Heart Sounds: normal S1 and normal S2; no gallop, no murmur and no cardiac rub Vessels: normal peripheral pulses and popliteal pulses present; no JVD Gastrointestinal (Abdomen): normal bowel sounds, soft, nontender, no hepatosplenomegaly Musculoskeletal: no cyanosis or clubbing, extremities motor strength 5/5 Spine: thoracic spine normal to inspection and lumbar spine normal to inspection; no cervical spinal tenderness Skin: no rashes, warm and dry normal turgor, + lesion and + wound (surical dressing intact) Neurologic: patellar DTR's 2+ bilat, sensation intact no focal motor deficits Psychiatric: A+Ox3, euthymic affect Orientation: cooperative Lymphatic: no cervical or axillary lymphadenopathy no inguinal lymphadenopathy Results & Data Vital Signs (Past 12 Hours) Vital Signs Temp Pulse Pulse Resp BP Pulse Ox 02/11/19 15:38 37.3 C 94 H 16 112/75 94 02/11/19 11:11 36.6 C 78 16 107/64 95 02/11/19 06:25 37.0 C 103 H 19 120/77 93 Laboratory Results Short CBC 02/11/19 Range/Units 05:57 WBC 13.91 H (4.8-10.8) K/uL Hgb 7.7 L (14.0-18.0) g/dL Hct 23.6 L (42-52) % Plt Count 526 H (130-400) K/uL BMP 02/11/19 05:57 Creatinine 1.08 Diagnostic Findings Microbiology 02/06/19 Unknown Leg,Right Gram Stain - Final 02/06/19 Unknown Leg,Right Aerobic and Anaerobic Culture - Final Pseudomonas aeruginosa Staph aureus MRSA 02/07/19 Unknown Thigh,Right Gram Stain - Final 02/07/19 Unknown Thigh,Right Aerobic and Anaerobic Culture - Preliminary No growth to date. 02/08/19 09:30 Blood Aerobic Blood Culture - Preliminary No growth in Aerobic bottle after 48 hours. 02/08/19 09:30 Blood Anaerobic Blood Culture - Preliminary No growth in Anaerobic bottle after 48 hours. 02/08/19 09:32 Blood Aerobic Blood Culture - Preliminary No growth in Aerobic bottle after 48 hours. 02/08/19 09:32 Blood Anaerobic Blood Culture - Preliminary No growth in Anaerobic bottle after 48 hours. 02/03/19 12:04 Blood Aerobic Blood Culture - Final Staph aureus MRSA 02/03/19 12:04 Blood Anaerobic Blood Culture - Final Staph aureus MRSA 02/03/19 11:55 Blood Aerobic Blood Culture - Final Staph aureus MRSA 02/03/19 11:55 Blood Anaerobic Blood Culture - Final Staph aureus MRSA PG Care Time/CCT Total # of Minutes Spent Total Time Spent with Patient: Total time spent is greater than 50% in coordination of care (as documented) at patient's floor/unit and/or counseling patient:
--- NOTE | 2019-02-11 16:56 | Anesthesiology Progress Note ---
Date of Service February 11, 2019 Anesthesia Post Procedure Vital Signs Vital Signs: Temp Pulse Pulse Resp BP Pulse Ox 02/11/19 15:38 37.3 C 94 H 16 112/75 94 02/11/19 11:11 36.6 C 78 16 107/64 95 02/11/19 06:25 37.0 C 103 H 19 120/77 93 02/11/19 03:49 37.0 C 110 H 19 124/78 92 02/10/19 23:26 37.2 C 109 H 20 127/81 94 02/10/19 22:42 112 H 93 02/10/19 19:22 36.9 C 95 H 18 110/67 94 02/10/19 18:09 36.4 C L 98 H 18 122/69 95 02/10/19 17:18 36.8 C 100 H 16 98/67 L 95 Pain Intensity Left Calf: Pain Intensity: 0 Right Foot: Pain Intensity: 5 Transfer of Care Handoff Completed per policy Notes Mental Status: alert / awake / arousable and participated in evaluation Patient Amnestic to Procedure: Yes Nausea / Vomiting: adequately controlled Pain: adequately controlled Airway Patency, RR, SpO2: stable & adequate BP & HR: stable & adequate Hydration State: stable & adequate Anesthetic Complications: no major complications apparent and Pt Satisfied with anesthetic care
[2019-02-11] MEDS: ACETAMINOPHEN 325 MG TAB PO PRN (18:31)
[2019-02-11] MEDS: ATORVASTATIN 40 MG TAB PO SCH (20:59)
[2019-02-12] MEDS: ACETAMINOPHEN 325 MG TAB PO PRN (01:46)
[2019-02-12] MEDS: CEFEPIME 2,000 MG in SYRINGE 7.5 ML IV SCH ×3 (01:49→18:18)
[2019-02-12] MEDS: HYDROmorphone INJ 1 MG/ML SYRINGE IV PRN ×2 (05:01→10:29)
[2019-02-12] MEDS ORDERED: VANCOMYCIN TROUGH ONE (07:30)
[2019-02-12] MEDS: TRAMADOL HCL 50 MG TABLET PO PRN ×2 (08:05→19:55)
--- NOTE | 2019-02-12 09:30 | Surgery Progress Note ---
Date of Service February 12, 2019 Assessment & Plan (1) Unilateral AKA: Doing well post op. Will be able to transfer him back to the correctional institution once he is off his narcotics for his postoperative pain. Subjective No complaints. Tolerating post op pain. Trying to use oral pain meds self off the IV narcotics per. Physical Exam Physical Exam: Patient is awake and oriented x3. The stump incision is well approximated. There is no redness or drainage. Appears to be healing well. Constitutional: WD/WN, vitals as above Results & Data Vital Signs (Past 12 Hours) Vital Signs Temp Pulse Resp BP Pulse Ox 02/12/19 07:43 36.6 C 89 17 119/76 96 02/11/19 23:25 36.6 C 94 H 16 126/74 96
[2019-02-12] MEDS: PSYLLIUM 58.6% POWDER PACKET PO SCH (10:12)
[2019-02-12] MEDS: LISINOPRIL/HCTZ 10/12.5MG TAB PO SCH (10:12)
[2019-02-12] MEDS: MAGNESIUM HYDROXIDE SUSP 30 ML UDC PO PRN ×2 (10:29→19:55)
--- NOTE | 2019-02-12 10:38 | Pharmacy Report ---
Pharmacy Abx Dose Short Note - Date of Service February 12, 2019 - Assessment & Plan Assessment 68 year old M receiving IV Vancomycin and Cefepime (not a consult) for treatment of MRSA bacteremia and MRSA/Pseudomonas infected prosthetic bypass graft status post removal Day # 9 of antimicrobial therapy. Plan Vancomycin * Trough level of 26 mcg/mL (appropriately drawn) is supratherapeutic. Patient appears to be accumulating Vancomycin. He was previously subtherapeutic with q12 dosing regimen, therefore will decr' dose by ~33% and maintain same dosing interval to target a lower trough. * Change to 1000 mg (~11 mg/kg) IV every 10 hours * Goal trough level for bacteremia : 15 to 20 mcg/mL * Trough level ordered for: 02/13/19 @ 0930 (prior to 3rd dose and therefore not reflective of steady state, but would like to assess dosing regimen earlier due to recent supratherapeutic level and severity of infection) Pharmacy will continue to follow and will adjust dose/frequency as necessary. Thank you.
[2019-02-12] MEDS: DOCUSATE SODIUM 100 MG CAP PO SCH ×2 (11:01→19:57)
[2019-02-12] MEDS: ASPIRIN 81 MG CHEW PO SCH (11:01)
[2019-02-12] MEDS: LACTATED RINGER'S 1,000 ML IV SCH (13:42)
[2019-02-12] MEDS: VANCOMYCIN HCL 1,000 MG in SODIUM CHLORIDE 0.9% 250 ML IV SCH (13:58)
[2019-02-12] MEDS: VANCOMYCIN HCL 1,500 MG in SODIUM CHLORIDE 0.9% 500 ML IV SCH (15:25)
[2019-02-12] MEDS: FERROUS SULFATE 325 MG TAB PO SCH (16:32)
--- NOTE | 2019-02-12 19:27 | Infectious Disease Progress Nt ---
Date of Service February 12, 2019 Assessment & Plan (1) MRSA bacteremia: Patient with infected bypass graft with MRSA bacteremia, now status post AKA amputation. Previous wound culture also with Pseudomonas. To continue IV antibiotics for now with length to be determined by healing of wound. Will follow. (2) Infection of vascular bypass graft: Subjective No complaints. Tolerating post op pain. Trying to use oral pain meds self off the IV narcotics per. Review of Systems Review of Systems: All systems reviewed & are unremarkable except as noted in HPI & below Physical Exam Constitutional: WD/WN, vitals as above comfortable; no acute distress Eyes: PERRL, conjunctivae normal, anicteric sclerae ENMT: external ear and nose normal, oropharynx normal Neck: trachea midline, no thyromegaly neck nontender Respiratory: normal respiratory effort, lungs clear to auscultation normal percussion; does not use accessory muscles Cardiovascular: Rate/Rhythm: regular rate and regular rhythm Heart Sounds: normal S1 and normal S2; no gallop, no murmur and no cardiac rub Vessels: normal peripheral pulses and popliteal pulses present; no JVD Gastrointestinal (Abdomen): normal bowel sounds, soft, nontender, no hepatosplenomegaly Musculoskeletal: no cyanosis or clubbing, extremities motor strength 5/5 Spine: thoracic spine normal to inspection and lumbar spine normal to inspection; no cervical spinal tenderness Skin: no rashes, warm and dry normal turgor and + wound (Dressing intact right leg) Neurologic: patellar DTR's 2+ bilat, sensation intact no focal motor deficits Psychiatric: A+Ox3, euthymic affect Orientation: cooperative Lymphatic: no cervical or axillary lymphadenopathy no inguinal lymphadenopathy Results & Data Vital Signs (Past 12 Hours) Vital Signs Temp Pulse Resp BP Pulse Ox Pulse Ox Pulse Ox 02/12/19 15:49 36.9 C 85 18 121/76 96 02/12/19 12:24 96 95 02/12/19 07:43 36.6 C 89 17 119/76 96 Laboratory Results Laboratory Results - last 48 hr 02/11/19 02/11/19 02/11/19 05:57 05:57 05:57 WBC 13.91 H RBC 2.54 L Hgb 7.7 L Hct 23.6 L MCV 92.9 MCH 30.3 MCHC 32.6 RDW Std Deviation 51.0 H RDW Coeff of Rinku 14.8 H Plt Count 526 H MPV 9.1 Immature Gran % (Auto) 0.6 Neut % (Auto) 70.5 Lymph % (Auto) 12.4 Williamson % (Auto) 16.2 Eos % (Auto) 0.1 Baso % (Auto) 0.2 Immature Gran # (Auto) 0.08 H Neut # (Auto) 9.81 H Lymph # (Auto) 1.73 Williamson # (Auto) 2.25 H Eos # (Auto) 0.01 Baso # (Auto) 0.03 Absolute Nucleated RBC 0.02 H Nucleated RBC % (auto) 0.2 Polychromasia 1+ PT 12.2 H INR 1.2 H Creatinine 1.08 Est Cr Clr Drug Dosing 72.8 Est GFR ( Amer) 81.9 Est GFR (Non-Af Amer) 70.6 Vancomycin Trough 02/12/19 07:19 WBC RBC Hgb Hct MCV MCH MCHC RDW Std Deviation RDW Coeff of Rinku Plt Count MPV Immature Gran % (Auto) Neut % (Auto) Lymph % (Auto) Williamson % (Auto) Eos % (Auto) Baso % (Auto) Immature Gran # (Auto) Neut # (Auto) Lymph # (Auto) Williamson # (Auto) Eos # (Auto) Baso # (Auto) Absolute Nucleated RBC Nucleated RBC % (auto) Polychromasia PT INR Creatinine Est Cr Clr Drug Dosing Est GFR ( Amer) Est GFR (Non-Af Amer) Vancomycin Trough 26.0 Diagnostic Findings Microbiology 02/07/19 Unknown Thigh,Right Gram Stain - Final 02/07/19 Unknown Thigh,Right Aerobic and Anaerobic Culture - Final No growth 02/06/19 Unknown Leg,Right Gram Stain - Final 02/06/19 Unknown Leg,Right Aerobic and Anaerobic Culture - Final Pseudomonas aeruginosa Staph aureus MRSA 02/08/19 09:30 Blood Aerobic Blood Culture - Preliminary No growth in Aerobic bottle after 48 hours. 02/08/19 09:30 Blood Anaerobic Blood Culture - Preliminary No growth in Anaerobic bottle after 48 hours. 02/08/19 09:32 Blood Aerobic Blood Culture - Preliminary No growth in Aerobic bottle after 48 hours. 02/08/19 09:32 Blood Anaerobic Blood Culture - Preliminary No growth in Anaerobic bottle after 48 hours. 02/03/19 12:04 Blood Aerobic Blood Culture - Final Staph aureus MRSA 02/03/19 12:04 Blood Anaerobic Blood Culture - Final Staph aureus MRSA 02/03/19 11:55 Blood Aerobic Blood Culture - Final Staph aureus MRSA 02/03/19 11:55 Blood Anaerobic Blood Culture - Final Staph aureus MRSA PG Care Time/CCT Total # of Minutes Spent Total Time Spent with Patient: Total time spent is greater than 50% in coordination of care (as documented) at patient's floor/unit and/or counseling patient:
[2019-02-12] MEDS: ATORVASTATIN 40 MG TAB PO SCH (19:56)
[2019-02-13] MEDS: VANCOMYCIN HCL 1,000 MG in SODIUM CHLORIDE 0.9% 250 ML IV SCH (00:21)
[2019-02-13] MEDS: HYDROmorphone INJ 1 MG/ML SYRINGE IV PRN ×2 (00:21→07:07)
[2019-02-13] MEDS: CEFEPIME 2,000 MG in SYRINGE 7.5 ML IV SCH (02:40)
[2019-02-13] MEDS ORDERED: TRAMADOL HCL 50 MG TABLET PO PRN (07:48)
[2019-02-13] MEDS ORDERED: HYDROmorphone INJ 1 MG/ML SYRINGE IV PRN (07:49)
--- NOTE | 2019-02-13 07:51 | Surgery Progress Note ---
Date of Service February 13, 2019 Assessment & Plan (1) Unilateral AKA: Doing well post op. Continue PT/OT and wean off narcotics. Subjective No complaints. Tolerating post op pain. Doing slightly better on pain meds. Physical Exam Physical Exam: Stump dry and clean without erythema Constitutional: WD/WN, vitals as above Psychiatric: Orientation: alert and oriented x 3 Results & Data Vital Signs (Past 12 Hours) Vital Signs Temp Pulse Resp BP Pulse Ox 02/13/19 07:02 36.9 C 92 H 18 142/76 H 96 02/12/19 23:45 37.1 C 98 H 18 119/73 96
[2019-02-13] MEDS: DOCUSATE SODIUM 100 MG CAP PO SCH ×2 (09:26→20:02)
[2019-02-13] MEDS: LISINOPRIL/HCTZ 10/12.5MG TAB PO SCH (09:27)
[2019-02-13] MEDS: ASPIRIN 81 MG CHEW PO SCH (09:27)
[2019-02-13] MEDS: FERROUS SULFATE 325 MG TAB PO SCH ×2 (09:27→18:08)
[2019-02-13] MEDS: PSYLLIUM 58.6% POWDER PACKET PO SCH (09:27)
[2019-02-13] MEDS ORDERED: VANCOMYCIN TROUGH ONE (09:30)
[2019-02-13] MEDS: FLUOCINONIDE 0.05% CR 60 GM TUBE EXT SCH ×2 (13:46→20:02)
[2019-02-13] MEDS: IBUPROFEN 600 MG TAB PO PRN (16:15)
[2019-02-13] MEDS: ACETAMINOPHEN 325 MG TAB PO PRN ×2 (18:08→23:30)
[2019-02-13] MEDS: ATORVASTATIN 40 MG TAB PO SCH (20:01)
[2019-02-14] MEDS: IBUPROFEN 600 MG TAB PO PRN ×3 (07:22→19:31)
[2019-02-14] MEDS: DOCUSATE SODIUM 100 MG CAP PO SCH ×2 (08:32→20:02)
[2019-02-14] MEDS: FERROUS SULFATE 325 MG TAB PO SCH ×2 (08:32→16:50)
[2019-02-14] MEDS: PSYLLIUM 58.6% POWDER PACKET PO SCH (08:33)
[2019-02-14] MEDS: ASPIRIN 81 MG CHEW PO SCH (08:33)
[2019-02-14] MEDS: LISINOPRIL/HCTZ 10/12.5MG TAB PO SCH (08:33)
[2019-02-14] MEDS: FLUOCINONIDE 0.05% CR 60 GM TUBE EXT SCH ×2 (08:33→20:02)
--- NOTE | 2019-02-14 08:50 | Surgery Progress Note ---
Date of Service February 14, 2019 Assessment & Plan (1) Unilateral AKA: This point we will continue PT OT. His antibiotics were stopped. We will plan on discharging him back to the correctional institution tomorrow. Subjective Patient is only complaint today other than the discomfort in his amputation site was the episode of sweating during the night. He says this was associated with chills. Physical Exam Physical Exam: Patient's been afebrile for the last 24 hours. The right above-knee amputation stump is dry and clean with no evidence er ythema. Constitutional: WD/WN, vitals as above Results & Data Vital Signs (Past 12 Hours) Vital Signs Temp Pulse Resp BP Pulse Ox 02/14/19 07:10 37.1 C 71 18 148/78 H 95 02/14/19 01:12 36.8 C 79 158/84 H 95 02/13/19 23:40 36.8 C 84 18 164/86 H 97
[2019-02-14] MEDS ORDERED: TRAMADOL HCL 50 MG TABLET PO PRN (08:51)
[2019-02-14] MEDS: ACETAMINOPHEN 325 MG TAB PO PRN ×2 (16:50→23:59)
[2019-02-14] MEDS: ATORVASTATIN 40 MG TAB PO SCH (20:02)
[2019-02-15] MEDS: IBUPROFEN 600 MG TAB PO PRN (07:31)
[2019-02-15] MEDS: FLUOCINONIDE 0.05% CR 60 GM TUBE EXT SCH (07:33)
[2019-02-15] MEDS: LISINOPRIL/HCTZ 10/12.5MG TAB PO SCH (07:33)
[2019-02-15] MEDS: PSYLLIUM 58.6% POWDER PACKET PO SCH (07:34)
[2019-02-15] MEDS: FERROUS SULFATE 325 MG TAB PO SCH (07:34)
[2019-02-15] MEDS: DOCUSATE SODIUM 100 MG CAP PO SCH (07:34)
[2019-02-15] MEDS: ASPIRIN 81 MG CHEW PO SCH (07:34)
[2019-02-15 08:22] LABS: Basophils # (auto) 0.03 K/uL (0-0.2); Basophils % (auto) 0.4 %; Eosinophils # (auto) 0.35 K/uL (0-0.5); Eosinophils % (auto) 4.1 %; Hematocrit (blood only) 24.2 % (42-52); Hemoglobin 7.5 g/dL (14.0-18.0); Immature Granulocytes # (auto) 0.03 K/uL (0.00-0.02); Immature Granulocytes % (auto) 0.4 %; Lymphocytes # (auto) 1.59 K/uL (1.2-3.4); Lymphocytes % (auto) 18.6 %; Mean Corpuscular Volume 93.8 fL (80-100); Mean Platelet Volume 8.6 fL (7.4-10.4); Monocytes # (auto) 1.06 K/uL (0.11-0.59); Monocytes % (auto) 12.4 %; Neutrophils # (auto) 5.51 K/uL (1.4-6.5); Neutrophils % (auto) 64.1 %; Platelet Count 589 K/uL (130-400); RDW Coefficient of Variation 15.3 % (11.5-14.5); Red Blood Count 2.58 M/uL (4.7-6.1); White Blood Count 8.57 K/uL (4.8-10.8)
[2019-02-15 08:44] LABS: Polychromasia 1+
[2019-02-15] MEDS: ACETAMINOPHEN 325 MG TAB PO PRN (11:10)
--- NOTE | 2019-02-15 11:47 | Surgery Progress Note ---
Date of Service February 15, 2019 Assessment & Plan (1) Unilateral AKA: Pt s/p RLE AKA. Doing well. Hgb Anemic but stable and asymptomatic. D/C back to half-way today. Will see in office in 2-3 weeks for staple removal. Subjective 68 yo m POD # 5 after RLE AKA d/t ischemia, seen in f/u today. Pt admits mild discomfort, controlled with medications. Denies any new complaints. Review of Systems Review of Systems: All systems reviewed & are unremarkable except as noted in HPI & below Physical Exam Constitutional: WD/WN, vitals as above healthy appearing and cooperative; not in distress Respiratory: normal respiratory effort, lungs clear to auscultation no cough Cardiovascular: Rate/Rhythm: regular rate and regular rhythm Gastrointestinal (Abdomen): normal bowel sounds, soft, nontender, no hepatosplenomegaly Inspection/Auscultation: abdomen normal to inspection Musculoskeletal: no cyanosis or clubbing, extremities motor strength 5/5 Skin: no rashes, warm and dry + incision (BLE incisions C/D/I w axel. No erythema or ecchymosis) Neurologic: moves all extremities and awake; no focal motor deficits Psychiatric: A+Ox3, euthymic affect Orientation: alert, oriented x 3 and cooperative Cognition: recent memory grossly intact, remote memory grossly intact, attention grossly intact and language grossly intact Estimated Intelligence: average estimated intelligence Results & Data Vital Signs (Past 12 Hours) Vital Signs Temp Pulse Pulse Pulse Resp BP BP 02/15/19 11:36 36.5 C 89 80 71 18 120/84 153/79 H 02/15/19 07:01 36.5 C 71 18 153/79 H Pulse Ox 02/15/19 11:36 94 02/15/19 07:01 94
--- NOTE | 2019-02-15 11:58 | Discharge Summary ---
Date of Service February 15, 2019 Admission HPI Per Admitting Provider Reason for Consultation: bleeding from RLE, cold foot Attending Physician: Robinson Yates MD History of Present Illness 68 yo incarcerated male with multiple medical problems, known to Dr Yates for previous surgeries, seen in consultation today for bleeding from R lower leg wound. Pt had RLE fem-pop BPG performed at a different facility in remote past, and then underwent emergent thrombectomy in 09/[address] Yates d/t acute occlusion of his BPG. Pt did well until about 1 month ago when he suffered another acute occlusion of his BPG despite being therapeutic on coumadin. He had a second thrombectomy at that time and had recommendations to keep his therapeutic range higher (INR 2.5-3.5) upon discharge. D/T requiring significant anticoagulation, pt developed large hematomas at incisions in groin and lower leg and required evacuation of his calf hematoma by Dr Yates last week. He had a wound vac placed and was discharged. According to pt, his wound vac was removed yesterday d/t blood noted under the dressing. Staff noted increased bleeding from wound this morning and placed multi-layered pressure dressing to area. Pt then developed severe pain and coolness to his R foot and was sent to ED. Pt currently states 10/10 pain in R lower leg and foot. Also admits mild nausea. Denies fever, chills, chest pain, SOB, abd pain, vomiting, other complaints. Admission Exam Per Admitting Provider Constitutional: WD/WN, vitals as above well developed, well nourished, healthy appearing, well groomed, + disheveled, cooperative and + in distress (mild distress d/t anxiety and pain); not combative Eyes: PERRL, conjunctivae normal, anicteric sclerae ENMT: external ear and nose normal, oropharynx normal Ears: no hearing impairment Throat: no posterior oropharynx abnormality Neck: trachea midline, no thyromegaly Respiratory: normal respiratory effort, lungs clear to auscultation no cough Cardiovascular: Rate/Rhythm: regular rhythm and + tachycardic Vessels: femoral pulses present, posterior tibial pulses present (with doppler after dressing removal), dorsalis pedis pulses present (with doppler after dressing removal), brachial pulses present and radial pulses present; + abnormal peripheral pulses Extremities: normal capillary refill (after dressing removal) Gastrointestinal (Abdomen): normal bowel sounds, soft, nontender, no hepatosplenomegaly Inspection/Auscultation: abdomen normal to inspection Musculoskeletal: Head/Neck/Chest: normocephalic and head atraumatic Extremities: + foot abnormality Skin: no rashes, warm and dry normal turgor, + mottling (while dressing in place, resolved with dressing removal) and + incision (see below); no rashes, no lesions and no ulcers Neurologic: moves all extremities and awake; no focal motor deficits Motor/Sensory: no sensory deficit Psychiatric: Orientation: alert, oriented x 3 and cooperative Apperance: appropriately dressed Affect: + anxious affect Thought Process: goal directed thought process and linear/logical thought process Cognition: recent memory grossly intact, remote memory grossly intact, attention grossly intact and language grossly intact Estimated Intelligence: average estimated intelligence Principal Diagnosis 1. s/p RLE AKA 2. RLE ischemia d/t occluded fem-distal BPG 3. s/p RLE fem-distal peroneal transposed extra anatomical vein bypass with partial RLE fibulectomy and LLE GSV harvest 4. Infected prosthetic RLE fem-pop BPG Discharge Exam Constitutional WD/WN, vitals as above well developed, well nourished, healthy appearing, well groomed, + disheveled and cooperative; not in distress and not combative Eyes PERRL, conjunctivae normal, anicteric sclerae ENMT external ear and nose normal, oropharynx normal Ears: no hearing impairment Throat: no posterior oropharynx abnormality Neck trachea midline, no thyromegaly Respiratory normal respiratory effort, lungs clear to auscultation no cough Cardiovascular Rate/Rhythm: regular rate, regular rhythm and + tachycardic Vessels: femoral pulses present, posterior tibial pulses present (BLE with doppler), dorsalis pedis pulses present (BLE with doppler), brachial pulses present and radial pulses present; + abnormal peripheral pulses Extremities: normal capillary refill Gastrointestinal (Abdomen) normal bowel sounds, soft, nontender, no hepatosplenomegaly Inspection/Auscultation: abdomen normal to inspection Musculoskeletal no cyanosis or clubbing, extremities motor strength 5/5 Head/Neck/Chest: normocephalic and head atraumatic Extremities: + foot abnormality Skin no rashes, warm and dry normal turgor, + mottling (while dressing in place, resolved with dressing removal) and + incision (BLE incisions C/D/I w axel. No erythema or ecchymosis); no rashes, no lesions and no ulcers Neurologic moves all extremities and awake; no focal motor deficits Motor/Sensory: no sensory deficit Psychiatric A+Ox3, euthymic affect Orientation: alert, oriented x 3 and cooperative Apperance: appropriately dressed Affect: + anxious affect Thought Process: goal directed thought process and linear/logical thought process Cognition: recent memory grossly intact, remote memory grossly intact, attention grossly intact and language grossly intact Estimated Intelligence: average estimated intelligence Discharge Data Allergies Allergy/AdvReac Type Severity Reaction Status Date / Time codeine Allergy Unknown Unknown Verified 02/10/19 13:08 Consultations 02/03/19 16:03 ED Decision to Admit Stat 02/04/19 09:05 Consult Infectious Diseases Routine 02/06/19 14:47 Consult Inspector Bicycle Routine 02/08/19 08:00 Consult Case Management - Discharge Planning Routine Procedures Performed Operation Date: 02/06/19 07:10 Actual Procedures p Incision and Drainage Right Calf Wound, Removal of Infected Prosthetic Graft(Right) - Robinson Yates MD Operation Date: 02/07/19 12:00 Actual Procedures s Left Greater Saphenous Vein Harvesting;(Left) - Robinson Yates MD p Partial fibulectomy Right leg ,Right Femoral to Distal peroneal transposed- Extraanatomical insitu Bypass with completion angiogram(Right) - Robinson Yates MD Operation Date: 02/10/19 12:40 Actual Procedures p Right Above Knee Amputation(Right) - Robinson Yates MD Ordered Studies 02/03/19 11:11 US arterial duplex LE RT Stat 02/03/19 11:59 CT angio LE RT w inc wo if don Stat 02/04/19 09:08 US venous mapping LE BI Routine 02/07/19 11:27 EV angio LE BI Routine Hospital Course (1) Unilateral AKA: Pt initially admitted 02/03 d/t bleeding from RLE calf wound. Blood cx taken were positive for MRSA. Exploration of RLE calf wound and removal of the prosthetic BPG was done 02/06. D/T ischemia of RLE, fem-distal peroneal extra anatomical transposed vein bypass with LLE GSV harvest was done 02/07. This occluded within 48 hrs and pt then underwent RLE AKA on 02/10 d/t lack of options for revascularization of the RLE. Pt s/p RLE AKA. Doing well. Hgb Anemic but stable and asymptomatic. D/C back to [facility] today. Will see in office in 2-3 weeks for staple removal. Total Time Total Time Spent Total Time Spent (In Minutes): 15 minutes Total Time Includes: Examination of the Patient, Discharge Planning and Medication Reconciliation Discharge Plan Discharge Items [facility] Disposition: [facility] Reason For Visit: RLE BLEEDING Discharge Diagnosis: 1. s/p RLE AKA 2. s/p RLE fem- peroneal transposed vein bypass with harvest of LLE saphenous vein, now occluded 3. Infection of prosthetic fem-pop bypass, s/p removal of bypass Condition: Good Discharge Goals: Therapeutic intervention Activity: Per 'Additional Instructions' section Non-emergency contact: Primary Care Provider and Surgeon Call non-emergency contact if: you have any medication questions, your temperature is above 101.5, your wound has increased redness and your wound has increased drainage Follow-up/Referrals: Wilda Veras PA-C [Physician Flatwork Supervisor] - (Follow up appt with Dr Yates or Wilda Veras PA-C, in 2-3 weeks for staple removal) [facility] [Primary Care Provider] - Diet: Heart Healthy Add Provider Instructions: 1. May shower and dry wounds gently, no bathing or soaking of wounds in water. 2. No dressings required unless drainage occurs, then dry dressing. 3. Activity restricted by amputation, may ambulate with walker or crutches Prescriptions: New ibuprofen 600 mg Tablet 600 mg PO Q6H PRN (Reason: Pain) Qty: 30 RF: 0 ferrous sulfate 325 mg (65 mg iron) Tablet,Delayed Release (Dr/Ec) 325 mg PO BIDM Qty: 60 RF: 0 Continued acetaminophen [Tylenol Extra Strength] 500 mg Tablet 1,000 mg PO TID RF: 0 sodium chloride [Deep Sea Nasal] 0.65 % Aerosol,[place] 2 spray INTRANASAL QID PRN (Reason: Dry Nasal Passages) RF: 0 docusate sodium 250 mg Capsule 250 mg PO BID RF: 0 atorvastatin 80 mg Tablet 80 mg PO HS RF: 0 aspirin 81 mg Tablet,Chewable 81 mg PO QAM RF: 0 lisinopril-hydrochlorothiazide 10-12.5 mg Tablet 1 tab PO QAM RF: 0 Discontinued warfarin [Coumadin] 5 mg tablet 5 mg PO DAILY Qty: 30 RF: 0 Stand-Alone Forms: [facility] Discharge Orders: Discharge Order (Routine); Ordered 02/15/19 Ordered By: Wilda Veras Admission Data Admit Date/Time: 02/04/19 09:11 Attending Provider: Robinson Yates Admit Provider: Robinson Yates Primary Care Provider: Hernesto SIN Other Providers: Robinson Yates ; Gonzalo Machado ; Luiza James ; Fabian Valdez Service: Medical Other Interventions: Discharge Summary Assessment (RN) Last Done: 02/15/19 11:36
--- NOTE | 2019-03-01 14:34 | Operative Report ---
Post Operative Report Pre & Post Diagnosis Operation Date: 02/06/19 07:10 Pre-Op Diagnosis: Right Lower Extremity Infection Post-Op Diagnosis: Right Lower Extremity Infection Operation Date: 02/07/19 12:00 Pre-Op Diagnosis: Infection of Vascular Bypass Graft Post-Op Diagnosis: Infection of Vascular Bypass Graft Operation Date: 02/10/19 12:40 Pre-Op Diagnosis: Pain of right lower extremity due to ischemia Post-Op Diagnosis: Pain of right lower extremity due to ischemia Procedure Operation Date: 02/06/19 07:10 Actual Procedures p Incision and Drainage Right Calf Wound, Removal of Infected Prosthetic Graft(Right) - Robinson Huerta MD Operation Date: 02/07/19 12:00 Actual Procedures s Left Greater Saphenous Vein Harvesting;(Left) - Robinson Huerta MD p Partial fibulectomy Right leg ,Right Femoral to Distal peroneal transposed- Extraanatomical insitu Bypass with completion angiogram(Right) - Robinson Huerta MD Operation Date: 02/10/19 12:40 Actual Procedures p Right Above Knee Amputation(Right) - Robinson Huerta MD Surgeon Robinson Huerta MD Marketing Team Lead Kathrin,PAC Estimated Blood Loss 150 Findings Consistent with Post-Op Diagnosis Specimens None Anesthesia Type General Disposition Accompanied Patient To Recovery: No Disposition: Recovery Room Indications This is a 68-year-old male who yesterday underwent a removal of infected femoral to posterior tibial artery bypass graft. This morning he was found to have his foot to be fairly ischemic with decreased sensation. Redo bypass was recommended. He understood the risks options benefits agreed to this procedure. Description of Procedure The patient was taken to the operating room and placed in the supine position. Both lower extremities were prepped and draped in a sterile manner. A timeout was performed and the patient was identified. This was done after general anesthesia was accomplished. Longitudinal incision was made in the left leg coursing from the groin down to the ankle and the greater saphenous vein was unroofed. It was of good caliber throughout. All side branches were ligated and divided. The vein was then harvested. The first valve of the proximal portion of the vein was then trimmed with the under direct vision. We then made a longitudinal incision in the right groin. Dissection was carried down to where the distal common femoral artery was identified. We then made an incision over the anterior compartment the lower third of the leg. We isolated the fibula at that level and resected a partial segment of fibular exposing the peroneal artery below. Peroneal artery was soft and appeared to be usable. We then heparinized the patient. The common femoral arteries clamped proximally distally. A longitudinal arteriotomy was started on the femoral artery. The vein was then beveled and anastomosed to the common femoral artery using a running 5-0 Prolene suture. Once this was completed the LeMaitre valve cutters were passed from the distal segment of the vein. Valves were then cut. Good flow was seen distally. We then made a counterincision just above the knee and the separately was tunneled through the thigh. Using the tunneling we then made a tunnel from the cauterization down to the lower leg incision again passed the saphenous vein. The tunneler was removed. Good flow was seen through the saphenous vein. We then made a longitudinal arteriotomy in the peroneal artery and using the Florastor the flow was occluded. The saphenous vein was then beveled the appropriate length and in the usual fashion. An end-to-side anastomosis was accomplished between the saphenous vein and the peroneal artery using a 7-0 Prolene suture in the usual vascular fashion. Prior to completing the closure backbleeding and fore bleeding was allowed to occur. The final few sutures were then placed and securely tied. Clamps were then removed. Good flow was seen in the saphenous vein graft. There was a posterior tibial faintly heard at the foot level. The vein graft in the groin was then punctured using micropuncture technique and an arteriogram was performed. This showed that there were no retained valves in the graft. There was good flow through the graft and through the distal anastomosis however approximately 10 cm beyond there is total occlusion of the peroneal with only faint small collateral branches seen feeding the foot. No named vessel could be seen on the foot. We cannot extend the bypass any further down onto the foot. This point was decided that we should just heparinized the patient and see if the graft maintains patency. The wounds were then inspected. Adequate hemostasis was obtained. The harvest site wound was closed with a running 3-0 Vicryl suture for the subcutaneous layer and axel for the skin. The right leg incision in the groin was closed using running 2-0 Vicryl for the fascial layer, 3-0 Vicryl for subcutaneous layer and axel for the skin. The other 2 incisions were closed with 3-0 Vicryl subtendinous layer and axel for the skin. Sterile dressings were applied to the leg wounds. The patient left the operation room in satisfactory condition and tolerated the procedure well. All needle and sponge counts were correct at the end of the procedure. We could still hear a faint Doppler in the posterior tibial artery at the time he left the operating room and the toes did have some mild capillary refill present. I attest to the content of the Intraoperative Record and any orders documented therein. Any exceptions are noted below.
== END 2019-02-15 15:33 | DRG 908 ==
LOC: ED 10:55 → 3W 10:55 → 2S 16:57 → 1E 02-06 12:33 → 2S 02-08 12:00 → 3N 02-10 16:43

== ENCOUNTER 2023-01-18 04:09 | Inpatient (IN) ==
[2023-01-18] MEDS ORDERED: PIPERACILLIN/TAZOBACTAM 4.5 GM/120 ML BAG IV ONE (04:47)
--- NOTE | 2023-01-18 05:01 | Emergency Department Note ---
Impression & Plan Septic shock, Supratherapeutic INR, Appendicitis Admit to the ICU ED Provider Note NAME: DINAH [id number] LANA AGE: 72 SEX: M ARRIVES VIA: Walk-In INFORMANT: Patient ED PROVIDER(S): Gabby Diallo DO CHIEF COMPLAINT: Right lower quadrant abdominal pain PLAN: Disposition: Admit to the ICU Condition: Critical MEDICAL DECISION MAKING: This is a 72-year-old male patient who presents to the emergency department with severe right lower quadrant abdominal pain. Patient developed this pain 3 days ago. It has escalated since that time and is now associated with nausea, diarrhea and coffee-ground emesis. Patient does take Coumadin for previous blood clot in his leg. INR from last week was 2.5 according to the patient. On presentation today the patient's systolic blood pressure was in the 60s and 70s. He was found to be in septic shock. 2 large-bore IV locks were initiated and he was bolused with IV normal saline solution under pressure to support his blood pressure. He was stabilized and went for a noncontrasted CT scan which showed evidence of acute appendicitis. The patient's INR was greater than 4 as well as his creatinine. I discussed the case with critical care medicine, gener al surgery, and the hospitalist service. The patient was started on IV antibiotics, fluids were continued and he will go to the ICU. Triage Nursing notes reviewed and agree with them. External medical records reviewed from the correction Vital Signs: reviewed and remarkable for severe hypotension and tachycardia Differential diagnosis: Septic shock, sepsis, perforated viscus, ruptured appendicitis, obstructive uropathy, ER treatment provided: Cardiac monitoring Supplemental O2 Trendelenburg position 2 large-bore IVs IV normal saline bolus x2 on pressure bag IV Zosyn Gutierrez catheter placement Diagnostics interpreted by me: ECG: Sinus tachycardia at [address] segment elevation or signs of ischemia. There is no ectopy. Cardiac Monitoring: Sinus tachycardia at 122 Laboratory studies: See below Imaging studies: As per stat rad CT scan of the abdomen/pelvis: See report Consultation(s): Dr. Nilam Blake HPI: 72/M arrives for evaluation of right lower quadrant pain. Patient developed right lower quadrant pain 3 days ago and thought it was secondary to a kidney stone. He has an extensive history of kidney stones. Patient became more concerned when the pain intensified and he developed vomiti ng and diarrhea and noticed there was some coffee-ground look to the vomit and the diarrhea was bloody PAST MEDICAL HISTORY:See Below PAST SURGICAL HISTORY:See Below FAMILY HISTORY:See Below SOCIAL HISTORY:See Below HOME MEDICATIONS:See Below ALLERGIES:See Below VITALS:See Below PHYSICAL EXAMINATION: HEENT: Head - normocephalic and atraumatic. Pupils are equal, round, and r eactive to light. Extraocular eye muscles are intact, and sclera are anicteric. Nose - moist nasal mucosa without discharge. Mouth - moist buccal mucosa. Oropharynx is nonerythematous and there is no tonsillar exudate or edema noted. Neck: Supple; no cervical lymphadenopathy or JVD Heart: Tachycardic rate and regular rhythm there is a normal S1 and S2 with no murmurs, clicks, or gallops appreciated. Lungs: Clear to auscultation bilaterally with no wheezes, rales, or rhonchi. Abdomen: Soft, completely nontender, nondistended, with good bowel sounds. There are no palpable pulsatile masses or hepatosplenomegaly. There is no guarding, rigidity, or rebound noted. Extremities: Right lower extremity- AKA Skin: Pale; slightly cyanotic ED COURSE: Times/Reassessments: 425 the patient was evaluated in room C10. A complete history and physical was performed. 2 large-bore IV locks were initiated and labs were drawn as above. The patient had 2 L of saline hung immediately under pressure as the patient was significantly hypotensive. An i-STAT was performed. Patient was placed on supplemental oxygen. He was placed in the Trendelenburg position. He went for CT scan of the abdomen/pelvis. He was started on IV piperacillin- tazobactam. I discussed the case with Dr. Demarco from general surgery. I then discussed the case with critical care medicine and the hospitalist service. I reviewed the results of the labs and CT scan with the patient and the correction guards. I have personally spent greater than 65 minutes of critical care time in the direct management of this patient. This includes bedside care, interpretation of diagnostic studies, and testing, discussion with consultants, patient, and family members, and other required patient management activities. This 65 minutes is in excess of all separately billable procedures. Gabby Diallo DO Past Med/Surg History Medical History Bacteremia with infected graft COPD (chronic obstructive pulmonary disease) CVA (cerebral vascular accident) Hematoma right leg x2 Hernia HLD (hyperlipidemia) HTN (hypertension) PVD (peripheral vascular disease) Smoker Surgical History H/O vasectomy History of femoropopliteal bypass Rt History of incision and drainage 02/06/2019 History of surgery History of vascular surgery R SFA stent, Right leg thrombectomy, fem-pop. 08/2018. GETA with a-line. Right leg open thrombectomy 12/22/2018 [facility] Removal infected graft then fem distal bypass with saphenous vein graft Family History Other Family history non-contributory Social History Smoking Status: Never smoker Cigarettes Per Day: 12/12/2018; Second Hand Exposure: No; Do You Dip or Chew Tobacco: No; Hx Alcohol Use: No Hx Substance Use: No Preferred Language: Armenian Communication Ability: Unable Campus Coordinator Required: No Beliefs That Will Affect Care: None Current Living Situation: Other Current Living Situation Comment: resides at [facility] Feels Safe at Home: Yes Safety Concerns: Feels Safe At This Time Assistive Devices: None Allergies Allergies Allergy/AdvReac Type Severity Reaction Status Date / Time codeine Allergy Unknown Unknown Verified 02/10/19 13:08 Home Meds Home Medications Medication Instructions Recorded Confirmed aspirin 81 mg chewable tablet 81 mg PO QAM 08/20/18 02/03/19 atorvastatin 80 mg tablet 80 mg PO HS 08/20/18 02/03/19 lisinopril 10 1 tab PO QAM 08/20/18 02/03/19 mg-hydrochlorothiazide 12.5 mg tablet acetaminophen 500 mg tablet 1,000 mg PO TID 12/25/18 02/03/19 (Tylenol Extra Strength) sodium chloride 0.65 % nasal spray 2 spray intranasal QID PRN Dry 12/25/18 02/03/19 aerosol (Deep Sea Nasal) Nasal Passages docusate sodium 250 mg capsule 250 mg PO BID 01/19/19 02/03/19 Previous Rx's Medication Instructions Recorded ferrous sulfate 325 mg (65 mg 325 mg PO BIDM #60 tabs 02/15/19 iron) tablet,delayed release ibuprofen 600 mg tablet 600 mg PO Q6H PRN Pain #30 tabs 02/15/19 Results & Data (ED) Vital Signs Vital Signs - 24 hr 01/18/23 04:14 01/18/23 05:06 01/18/23 04:37 Temperature 36.5 C Temperature Source Temporal Artery Scan Pulse Rate 135 H 106 H 95 H Pulse Rate from SpO2 Sensor 96 H Pulse Rhythm Regular Respiratory Rate 18 21 Respiratory Depth Normal Blood Pressure 74/53 L 66/50 L Blood Pressure Mean 60 55 Pulse Oximetry 92 96 89 L Oxygen Delivery Method Room Air Nasal Cannula Room Air Oxygen Flow Rate 3 Sepsis Recent Fever Within 48 Hours No Sepsis New/Unexplained Change in Mental Status N/A Sepsis Action Taken by Nursing Physician Notified 01/18/23 04:45 01/18/23 05:03 01/18/23 05:03 Temperature Temperature Source Pulse Rate 121 H 111 H Pulse Rate from SpO2 Sensor 112 H Pulse Rhythm Respiratory Rate 20 21 Respiratory Depth Blood Pressure 103/61 104/68 Blood Pressure Mean 75 77 Pulse Oximetry 96 95 Oxygen Delivery Method Nasal Cannula Nasal Cannula Oxygen Flow Rate 3 3 Sepsis Recent Fever Within 48 Hours Sepsis New/Unexplained Change in Mental Status Sepsis Action Taken by Nursing Laboratory Data 01/18/23 04:32 01/18/23 04:32 Lab Results 01/18/23 01/18/23 01/18/23 Range/Units 04:32 04:32 04:32 WBC 17.86 H (4.8-10.8) K/ul RBC 4.99 (4.70-6.10) M/uL Hgb 15.8 (14.0-18.0) g/dl POC Hgb (14.0-18.0) g/dl Hct 46.6 (42.0-52.0) % POC Hct (42-52) % MCV 93.4 (80.0-100.0) fL MCH 31.7 (25.0-34.0) pg MCHC 33.9 (32.0-36.0) g/dL RDW Std Deviation 46.2 (36.4-46.3) fL RDW Coeff of Rinku 13.5 (11.5-14.5) % Plt Count 280 (130-400) K/uL MPV 11.1 (9.4-12.4) fL Immature Gran % (Auto) 2.0 % Neut % (Auto) 87.6 % Lymph % (Auto) 3.0 % [place] % (Auto) 5.9 % Eos % (Auto) 1.2 % Baso % (Auto) 0.3 % Neut # (Auto) 15.63 H (1.40-6.50) K/uL Lymph # (Auto) 0.54 L (1.2-3.4) K/uL [place] # (Auto) 1.06 H (0.11-0.59) K/uL Eos # (Auto) 0.21 (0-0.50) K/uL Baso # (Auto) 0.06 (0-0.2) K/uL Immature Gran # (Auto) 0.36 H (0.01-0.20) K/uL PT (9.0-12.0) Seconds INR (0.9-1.1) POC Sodium (135-144) mmol/L Sodium 135 L (136-145) mmol/L POC Potassium (3.3-5.0) mmol/L Potassium 4.0 (3.5-5.1) mmol/L POC Chloride (101-112) mmol/L Chloride 99 (98-107) mmol/L Carbon Dioxide 18 L (21-32) mmol/L POC Total CO2 (24-31) mmol/L Anion Gap 18 H (3-11) POC Anion Gap (16-25) mmol/L POC BUN (7-18) mg/dl BUN 48 H (6-23) mg/dl Creatinine 4.53 H* (0.6-1.4) mg/dl POC Creatinine (0.6-1.3) mg/dl Est Cr Clr Drug Dosing 16.9 ml/min Est GFR ( Amer) 14.1 ml/min Est GFR (Non-Af Amer) 12.1 ml/min BUN/Creatinine Ratio 10.6 (10-20) Glucose 197 H (70-99(Fasting)) mg/dl POC Glucose (other) (70-99) mg/dl Lactate 4.9 H* (0.4-2.0) mmol/L Calcium 9.2 (8.6-10.3) mg/dl POC Ioniz Calcium Rodrigo (1.12-1.32) mmol/l Magnesium 1.5 L (1.7-2.4) mg/dl Total Bilirubin 0.7 (0.2-1.0) mg/dl Direct Bilirubin 0.1 (0-0.2) mg/dl AST 22 (13-39) U/L ALT 29 (7-52) U/L Alkaline Phosphatase 89 (34-104) U/L Troponin I High Sens 15.0 (0-20) pg/ml Total Protein 6.9 (6.0-8.3) gm/dl Albumin 3.7 (3.4-5.0) gm/dl Procalcitonin (0-0.5) ng/ml Urine Color Urine Appearance Urine pH Ur Specific [place] Urine Protein Urine Glucose (UA) Urine Ketones Urine Blood Urine Nitrite Urine Bilirubin Urine Urobilinogen Ur Leukocyte Esterase Urine WBC (Auto) Urine RBC (Auto) U Hyaline Cast (Auto) U Epithel Cells (Auto) Urine Bacteria (Auto) Urine RBC Urine WBC Ur Epithelial Cells Ur Renal Epithelial Cell Urine Crystals Calcium Oxalate Crystal Uric Acid Crystals Triple Phos Crystals Other Crystals Amorphous Sediment Urine Bacteria Hyaline Casts Granular Casts Waxy Casts RBC Casts WBC Casts Other Casts Urine Mucus Urine Other Urine Trichomonas Urine Yeast Urine Sperm Ur Oval Fat Bodies 01/18/23 01/18/23 01/18/23 Range/Units 04:32 04:32 04:39 WBC (4.8-10.8) K/ul RBC (4.70-6.10) M/uL Hgb (14.0-18.0) g/dl POC Hgb 12.9 L (14.0-18.0) g/dl Hct (42.0-52.0) % POC Hct 38 L (42-52) % MCV (80.0-100.0) fL MCH (25.0-34.0) pg MCHC (32.0-36.0) g/dL RDW Std Deviation (36.4-46.3) fL RDW Coeff of Rinku (11.5-14.5) % Plt Count (130-400) K/uL MPV (9.4-12.4) fL Immature Gran % (Auto) % Neut % (Auto) % Lymph % (Auto) % [place] % (Auto) % Eos % (Auto) % Baso % (Auto) % Neut # (Auto) (1.40-6.50) K/uL Lymph # (Auto) (1.2-3.4) K/uL [place] # (Auto) (0.11-0.59) K/uL Eos # (Auto) (0-0.50) K/uL Baso # (Auto) (0-0.2) K/uL Immature Gran # (Auto) (0.01-0.20) K/uL PT 49.9 H (9.0-12.0) Seconds INR 5.0 H (0.9-1.1) POC Sodium 141 (135-144) mmol/L Sodium (136-145) mmol/L POC Potassium 3.3 (3.3-5.0) mmol/L Potassium (3.5-5.1) mmol/L POC Chloride 108 (101-112) mmol/L Chloride (98-107) mmol/L Carbon Dioxide (21-32) mmol/L POC Total CO2 16 L (24-31) mmol/L Anion Gap (3-11) POC Anion Gap 20.0 (16-25) mmol/L POC BUN 34 H (7-18) mg/dl BUN (6-23) mg/dl Creatinine (0.6-1.4) mg/dl POC Creatinine 3.9 H (0.6-1.3) mg/dl Est Cr Clr Drug Dosing ml/min Est GFR ( Amer) ml/min Est GFR (Non-Af Amer) ml/min BUN/Creatinine Ratio (10-20) Glucose (70-99(Fasting)) mg/dl POC Glucose (other) 160 H (70-99) mg/dl Lactate (0.4-2.0) mmol/L Calcium (8.6-10.3) mg/dl POC Ioniz Calcium Rodrigo 0.94 L (1.12-1.32) mmol/l Magnesium (1.7-2.4) mg/dl Total Bilirubin (0.2-1.0) mg/dl Direct Bilirubin (0-0.2) mg/dl AST (13-39) U/L ALT (7-52) U/L Alkaline Phosphatase (34-104) U/L Troponin I High Sens (0-20) pg/ml Total Protein (6.0-8.3) gm/dl Albumin (3.4-5.0) gm/dl Procalcitonin 79.46 H (0-0.5) ng/ml Urine Color Urine Appearance Urine pH Ur Specific [place] Urine Protein Urine Glucose (UA) Urine Ketones Urine Blood Urine Nitrite Urine Bilirubin Urine Urobilinogen Ur Leukocyte Esterase Urine WBC (Auto) Urine RBC (Auto) U Hyaline Cast (Auto) U Epithel Cells (Auto) Urine Bacteria (Auto) Urine RBC Urine WBC Ur Epithelial Cells Ur Renal Epithelial Cell Urine Crystals Calcium Oxalate Crystal Uric Acid Crystals Triple Phos Crystals Other Crystals Amorphous Sediment Urine Bacteria Hyaline Casts Granular Casts Waxy Casts RBC Casts WBC Casts Other Casts Urine Mucus Urine Other Urine Trichomonas Urine Yeast Urine Sperm Ur Oval Fat Bodies 01/18/23 01/18/23 01/18/23 Range/Units 04:46 04:46 06:40 WBC (4.8-10.8) K/ul RBC (4.70-6.10) M/uL Hgb (14.0-18.0) g/dl POC Hgb (14.0-18.0) g/dl Hct (42.0-52.0) % POC Hct (42-52) % MCV (80.0-100.0) fL MCH (25.0-34.0) pg MCHC (32.0-36.0) g/dL RDW Std Deviation (36.4-46.3) fL RDW Coeff of Rinku (11.5-14.5) % Plt Count (130-400) K/uL MPV (9.4-12.4) fL Immature Gran % (Auto) % Neut % (Auto) % Lymph % (Auto) % [place] % (Auto) % Eos % (Auto) % Baso % (Auto) % Neut # (Auto) (1.40-6.50) K/uL Lymph # (Auto) (1.2-3.4) K/uL [place] # (Auto) (0.11-0.59) K/uL Eos # (Auto) (0-0.50) K/uL Baso # (Auto) (0-0.2) K/uL Immature Gran # (Auto) (0.01-0.20) K/uL PT (9.0-12.0) Seconds INR (0.9-1.1) POC Sodium (135-144) mmol/L Sodium (136-145) mmol/L POC Potassium (3.3-5.0) mmol/L Potassium (3.5-5.1) mmol/L POC Chloride (101-112) mmol/L Chloride (98-107) mmol/L Carbon Dioxide (21-32) mmol/L POC Total CO2 (24-31) mmol/L Anion Gap (3-11) POC Anion Gap (16-25) mmol/L POC BUN (7-18) mg/dl BUN (6-23) mg/dl Creatinine (0.6-1.4) mg/dl POC Creatinine (0.6-1.3) mg/dl Est Cr Clr Drug Dosing ml/min Est GFR ( Amer) ml/min Est GFR (Non-Af Amer) ml/min BUN/Creatinine Ratio (10-20) Glucose (70-99(Fasting)) mg/dl POC Glucose (other) (70-99) mg/dl Lactate 1.9 (0.4-2.0) mmol/L Calcium (8.6-10.3) mg/dl POC Ioniz Calcium Rodrigo (1.12-1.32) mmol/l Magnesium (1.7-2.4) mg/dl Total Bilirubin (0.2-1.0) mg/dl Direct Bilirubin (0-0.2) mg/dl AST (13-39) U/L ALT (7-52) U/L Alkaline Phosphatase (34-104) U/L Troponin I High Sens (0-20) pg/ml Total Protein (6.0-8.3) gm/dl Albumin (3.4-5.0) gm/dl Procalcitonin (0-0.5) ng/ml Urine Color Cancelled Dark Yellow Urine Appearance Cancelled Turbid A Urine pH Cancelled 5.5 Ur Specific [place] Cancelled 1.017 Urine Protein Cancelled 3+ H Urine Glucose (UA) Cancelled 1+ H Urine Ketones Cancelled Trace H Urine Blood Cancelled 3+ H Urine Nitrite Cancelled Negative Urine Bilirubin Cancelled Negative Urine Urobilinogen Cancelled Negative Ur Leukocyte Esterase Cancelled Negative Urine WBC (Auto) Cancelled >30 H Urine RBC (Auto) Cancelled >30 H U Hyaline Cast (Auto) Cancelled 1-5 U Epithel Cells (Auto) Cancelled >30 H Urine Bacteria (Auto) Cancelled Negative Urine RBC Cancelled Urine WBC Cancelled Ur Epithelial Cells Cancelled Ur Renal Epithelial Cell Cancelled Urine Crystals Cancelled Calcium Oxalate Crystal Cancelled Uric Acid Crystals Cancelled Triple Phos Crystals Cancelled Other Crystals Cancelled Amorphous Sediment Cancelled Urine Bacteria Cancelled Hyaline Casts Cancelled Granular Casts Cancelled Waxy Casts Cancelled RBC Casts Cancelled WBC Casts Cancelled Other Casts Cancelled Urine Mucus Cancelled Urine Other Cancelled Urine Trichomonas Cancelled Urine Yeast Cancelled Not Reportable Urine Sperm Cancelled Ur Oval Fat Bodies Cancelled Administered Medications Hydromorphone HCl (Hydromorphone Inj 0.5 Mg/0.5 Ml Syr) 0.5 mg IV Q4H PRN PRN Reason: Pain Stop: 02/01/23 07:56 Last Admin: 01/18/23 19:56 Dose: 0.5 mg Documented By: RAMON Sodium Chloride (Nss 1000ml) 1,000 mls @ 200 mls/hr IV .Q5H TOOTIE Stop: 02/17/23 07:56 Last Admin: 01/19/23 06:31 Dose: 200 mls/hr Documented By: Infusion: 01/19/23 06:17 Dose: 200 mls/hr Documented By: Admin: 01/19/23 01:17 Dose: 200 mls/hr Documented By: Infusion: 01/19/23 00:55 Dose: 200 mls/hr Documented By: Admin: 01/18/23 19:55 Dose: 200 mls/hr Documented By: Infusion: 01/18/23 19:43 Dose: 200 mls/hr Documented By: Admin: 01/18/23 14:43 Dose: 200 mls/hr Documented By: Infusion: 01/18/23 14:25 Dose: 200 mls/hr Documented By: Admin: 01/18/23 09:25 Dose: 200 mls/hr Documented By: LENNOX Piperacillin Sod/Tazobactam (Sod 4.5 gm/ Dextrose) 120 mls @ 30 mls/hr IV Q12H [facility]; Protocol Stop: 01/28/23 13:29 Last Infusion: 01/19/23 06:50 Dose: 0 mls/hr Documented By: Admin: 01/19/23 01:17 Dose: 30 mls/hr Documented By: Infusion: 01/18/23 20:03 Dose: 0 mls/hr Documented By: Admin: 01/18/23 14:43 Dose: 30 mls/hr Documented By: LENNOX Insulin Aspart (Insulin Aspart Per Unit Charge) 0 units SC ACHS [facility] Stop: 02/17/23 11:29 Last Admin: 01/18/23 20:03 Dose: Not Given Documented By: Admin: 01/18/23 17:18 Dose: Not Given Documented By: Admin: 01/18/23 12:30 Dose: Not Given Documented By: LENNOX Miscellaneous (Icu Protocol For Hyperglycemia) 1 each N/A ACHS [facility] Stop: 01/20/23 07:56 Last Admin: 01/18/23 20:03 Dose: 1 each Documented By: Admin: 01/18/23 17:18 Dose: Not Given Documented By: Admin: 01/18/23 12:30 Dose: Not Given Documented By: Admin: 01/18/23 08:43 Dose: Not Given Documented By: LENNOX Discontinued Medications Sodium Chloride (Nss 1000ml) 1,000 mls @ 999 mls/hr IV .Q1H1M [facility] Stop: 01/18/23 06:45 Last Admin: 01/18/23 05:46 Dose: Not Given Documented By: Admin: 01/18/23 05:24 Dose: Not Given Documented By: MARA Piperacillin Sod/Tazobactam Sod (Zosyn) 4.5 gm in 120 mls @ 240 mls/hr IV NOW ONE Stop: 01/18/23 05:16 Last Infusion: 01/18/23 05:46 Dose: 0 mls/hr Documented By: Admin: 01/18/23 05:12 Dose: 240 mls/hr Documented By: MARA Sodium Chloride (Nss 1000ml) 2,000 mls @ 999 mls/hr IV .Q2H1M ONE Stop: 01/18/23 07:11 Last Infusion: 01/18/23 05:14 Dose: 0 mls/hr Documented By: Admin: 01/18/23 05:13 Dose: 999 mls/hr Documented By: MARA Sodium Chloride (Nss 1000ml) 1,000 mls @ 999 mls/hr IV .Q1H1M ONE Stop: 01/18/23 06:11 Last Infusion: 01/18/23 05:46 Dose: 0 mls/hr Documented By: Admin: 01/18/23 05:14 Dose: 999 mls/hr Documented By: MARA Magnesium Sulfate/Dextrose (Magnesium Sulfate / D5w) 1 gm in 100 mls @ 50 mls/hr IV Q2H [place] Stop: 01/18/23 12:59 Last Infusion: 01/18/23 15:07 Dose: 0 mls/hr Documented By: Admin: 01/18/23 11:54 Dose: 50 mls/hr Documented By: Infusion: 01/18/23 11:25 Dose: 50 mls/hr Documented By: Admin: 01/18/23 09:25 Dose: 50 mls/hr Documented By: Infusion: 01/18/23 09:11 Dose: 50 mls/hr Documented By: Admin: 01/18/23 07:11 Dose: 50 mls/hr Documented By: ES Discharge Plan Visit Data Chief Complaint: Flank Pain Stated Complaint: SEVERE PAIN AT APPENDIX SITE WHEN TOUCHED ED Provider: Gabby Diallo Discharge Problem: Septic shock, Supratherapeutic INR, Appendicitis Patient Disposition: Admitted As Inpatient Discharge Instructions Interventions: ED Discharge Assessment Last Done: 01/18/23 07:33
[2023-01-18 05:06] LABS: Basophils # (auto) 0.06 K/uL (0-0.2); Basophils % (auto) 0.3 %; Eosinophils # (auto) 0.21 K/uL (0-0.50); Eosinophils % (auto) 1.2 %; Hematocrit (blood only) 46.6 % (42.0-52.0); Hemoglobin 15.8 g/dl (14.0-18.0); Immature Granulocytes # (auto) 0.36 K/uL (0.01-0.20); Lymphocytes # (auto) 0.54 K/uL (1.2-3.4); Mean Corpuscular Hemoglobin 31.7 pg (25.0-34.0); Mean Corpuscular Hgb Conc 33.9 g/dL (32.0-36.0); Mean Corpuscular Volume 93.4 fL (80.0-100.0); Mean Platelet Volume 11.1 fL (9.4-12.4); Monocytes # (auto) 1.06 K/uL (0.11-0.59); Monocytes % (auto) 5.9 %; Neutrophils # (auto) 15.63 K/uL (1.40-6.50); Neutrophils % (auto) 87.6 %; Platelet Count 280 K/uL (130-400); RDW Coefficient of Variation 13.5 % (11.5-14.5); RDW Standard Deviation 46.2 fL (36.4-46.3); Red Blood Count 4.99 M/uL (4.70-6.10); White Blood Count 17.86 K/ul (4.8-10.8)
[2023-01-18] MEDS ORDERED: SODIUM CHLORIDE 0.9% 1000ML 1,000 ML IV ONE (05:11)
[2023-01-18] MEDS ORDERED: SODIUM CHLORIDE 0.9% 1000ML 2,000 ML IV ONE (05:11)
--- NOTE | 2023-01-18 05:18 | CT Scan Report ---
Exam(s): CT ABDOMEN + PELVIS Without Contrast EXAM: CT Abdomen and Pelvis Without Intravenous Contrast CLINICAL HISTORY: Reason for exam: eval for appy; right sided stone???; hypotensivie. TECHNIQUE: Axial computed tomography images of the abdomen and pelvis without intravenous contrast. Automated exposure control was utilized for the study. A dose lowering technique was utilized adhering to the principles of ALARA. COMPARISON: No relevant prior studies available. FINDINGS: Limitations: Limited evaluation in the absence of contrast. Lung bases: Dependent scarring at the lung bases with bronchiectasis. Findings likely relate to infection/aspiration changes. ABDOMEN: Liver: Unremarkable. Gallbladder and bile ducts: Unremarkable. No calcified stones. No ductal dilation. Pancreas: Unremarkable. No ductal dilation. Spleen: Unremarkable. No splenomegaly. Adrenals: Unremarkable. No mass. Kidneys and ureters: No evidence of radiopaque renal calculi or signs of collecting system dilatation. Nonobstructive renal calculi bilaterally, the largest within the interpolar right kidney measuring up to 9 mm. Stomach and bowel: Unremarkable. No obstruction. No mucosal thickening. PELVIS: Appendix: Acute appendicitis with a dilated and inflamed appendix measuring up to 1.8 cm in diameter. This issue with this is extensive adjacent inflammatory change. Consider repeat imaging with contrast. Subtle perforation or abscess is not excluded. Bladder: Diffuse bladder wall thickening with adjacent stranding. Findings may relate to cystitis. Consider correlation with laboratory values. Gutierrez within the bladder. No stones. Reproductive: Unremarkable as visualized. ABDOMEN and PELVIS: Intraperitoneal space: Unremarkable. No free air. No significant fluid collection. Bones/joints: Degenerative changes in the spine. No acute fracture. No dislocation. Soft tissues: Umbilical hernia containing fat. Vasculature: Unremarkable. No abdominal aortic aneurysm. Lymph nodes: Unremarkable. No enlarged lymph nodes. IMPRESSION: 1. Limited evaluation in the absence of contrast. 2. Acute appendicitis with a dilated and inflamed appendix measuring up to 1.8 cm in diameter. This issue with this is extensive adjacent inflammatory change. Consider repeat imaging with contrast. Subtle perforation or abscess is not excluded. 3. No evidence of radiopaque renal calculi or signs of collecting system dilatation. 4. Nonobstructive renal calculi bilaterally, the largest within the interpolar right kidney measuring up to 9 mm. 5. Diffuse bladder wall thickening with adjacent stranding. Findings may relate to cystitis. Consider correlation with laboratory values. Communications: Verify Receipt Electronically signed by: Canelo Mckinney MD 01/18/23 05:17 AM
[2023-01-18] MEDS: SODIUM CHLORIDE 0.9% 1000ML 1,000 ML IV SCH ×5 (05:24→19:55)
[2023-01-18 05:56] LABS: Albumin Level 3.7 gm/dl (3.4-5.0); BUN Creatinine Ratio 10.6 (10-20); Bilirubin Direct 0.1 mg/dl (0-0.2); Bilirubin,Total 0.7 mg/dl (0.2-1.0); Calcium 9.2 mg/dl (8.6-10.3); Creatinine Clr Calc Pharmacy 16.9 ml/min; Est GFR (African American) 14.1 ml/min; Est GFR (Non-African American) 12.1 ml/min; Magnesium 1.5 mg/dl (1.7-2.4); Total Protein 6.9 gm/dl (6.0-8.3)
[2023-01-18 06:24] LABS: Prothrombin Time 49.9 Seconds (9.0-12.0)
[2023-01-18 06:27] LABS: Appearance Urine Turbid (Clear); Bacteria Urine Automated Negative (Negative); Bilirubin Urine Negative (Negative); Blood Urine 3+ (Negative); Color Urine Dark Yellow; Epithelial Cell Urine Auto >30 /lpf (0-5); Glucose Urine UA 1+ (Negative); Ketones Urine Trace (Negative); Leukocyte Esterase Urine Negative (Negative); Nitrite Urine Negative (Negative); Protein Urine 3+ (Negative); RBC Urine Automated >30 /hpf (0-4); Specific Gravity Urine 1.017 (1.000-1.030); Urobilinogen Urine Negative (Negative); WBC Urine Automated >30 /hpf (0-5); pH Urine 5.5 (4.5-7.5)
--- NOTE | 2023-01-18 06:36 | Critical Care Consultation ---
Date of Consultation January 18, 2023 Assessment & Plan (1) Sepsis: (2) Acute appendicitis: (3) Acute renal failure: (4) Supratherapeutic INR: (5) Peripheral arterial disease: (6) Hypertension: (7) Hyperlipidemia: (8) Metabolic acidosis: Plan Reason Critically Ill: Sepsis which appears at this time secondary to acute appendicitis that can't rule out associated abscess. 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 with associated lactic acidosis and metabolic acidosis - received 3 liters crystalloid resulting in normo-tension and currently without vasopressor need - hold home BP medications until hemodynamics proven stable - Goal MAP >65, continue to trend lactate and urine output - bolus crystalloids and vasopressors as indicated - Hold Warfarin and other anti-platelets until surgical evaluation completed Respiratory - Previous smoker - Has mention of COPD on chart, but no records or PFTS available for review - reports no inhaler use GI - Acute Appendicitis - Surgical Consultation pending RENAL/LYTES - ARF (Non-Oliguric), Metabolic Acidosis, Lactic Acid Acidosis - 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 with MICROFILM CAMERA OPERATOR around 1.08- MICROFILM CAMERA OPERATOR currently 4.53- he is making adequate urine following crystalloid infusions - Obtain VBG for PH evaluation - Follow BMP and electrolytes - Replete Magnesium with 3 GM IV for mag of 1.5 - Gutierrez to gravity - continue to follow urine output in setting of septic shock ENDO - Hyperglycemia without diagnosis of DM - ICU hyperglycemia protocol HEME - Supratherapeutic INR - Patient reports he is on Coumadin 5mg for his previous PAD, however appears that this was possibly discontinued on his discharge summary from that time- clarification will be needed - reverse INR- discuss with surgical team consider - 4 factor PCC vs. Vitamin K ID - MRSA history, Acute Appendicitis - Continue with Zosyn - MRSA swab pending - escalate coverage as needed LINES/IV ACCESS - PIV, Gutierrez Continue use of these lines DVT PROPHYLAXIS - SCDS DISPO: ICU until hemodynamics proven stable and resolving shock and surgical determination obtained I have personally spent 50 minutes of critical care time in the direct management of this patient. This is a life/limb threatening event. This includes time spent evaluating patient, direct bedside care, chart review, placing orders, interpretation of diagnostic studies, discussion with consultants, patient, and family members, as well as other required patient management activities. This time is exclusive of all separately billable procedures, and teaching time and separate from and in addition to any other critical care service time. Thank you for allowing us to participate in the care of this patient. Please refer to my attending physician's documentation for any further recommendations. Supervising Physician Co-Signing Physician Notes Patient seen and examined. Discussed with critical care JONO. Agree with assessment plan as noted. Patient has acute peritonitis secondary to appendicitis. Continue antibiotics. His lactate is cleared. We will continue to follow for now. Await general surgery evaluation. Will likely need to reverse his anticoagulation. Will discuss with general surgery whether or not they would like FFP administered or PCC. Duration of antimicrobial agents will be determined based on findings at surgery. Will clarify with vascular surgery if the patient needs to continue with long- term anticoagulation. We will also clarify whether or not Coumadin or direct thrombin inhibitor might be appropriate in conjunction with the patient's antiplatelet agents. The above recommendations and plan were discussed with the patient at bedside. Questions were answered to the best my ability. Patient is critically ill. A total of 54 minutes combined critical care time was spent in evaluation management stabilization of this patient including time with the JONO as well as my bedside time. History of Present Illness Reason for Consultation: Sepsis Requesting Physician: Alex Blake Attending Physician: Palepu. 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 Patient reports to the EMD today for complaints of right lower quadrant abdominal pain. This started on Wednesday Evening following breakfast. He originally thought that this was related to a Kidney stone, as he has had these prior- this continued into Wednesday evening where he started getting worse fevers, chills, nausea with vomiting and diarrhea. He reports his diarrhea and vomiting being dark in color, but without dea blood. His last meal was Wednesday Morning and has not been able to keep water or food down. He arrived to the EMD to HR 135 and BP 66/50, he had routine labs performed to include blood cultures, lactate and procalcitonin. He was noted to have Leukocytosis wtih NLR of 7:1, NA of 135, HCO3 18, and [place] with MICROFILM CAMERA OPERATOR of 4.53. PCT, 79.46 and Lactate 4.9. He is on Coumadin and noted with an INR of 5.0 (his last dose was Wednesday Evening. He was resuscitated with 3 liters of crystalloid with improvement of BP to 120/70s currently with MAP of 91 and without vasopressors. He had non contrasted CT scan of his abdomen performed, which was interpreted as acute appendicitis with possible abscess and noted difficulty secondary to no-contrast. He was initiated on Zosyn by [facility] and Surgical Services was consulted via the [facility] physician, and requested ICU admission. Patient is FULL CODE Allergies Allergy/AdvReac Type Severity Reaction Status Date / Time codeine Allergy Unknown Unknown Verified 02/10/19 13:08 Home Medications Medication Instructions Recorded Confirmed Type aspirin 81 mg chewable tablet 81 mg PO QAM 08/20/18 02/03/19 History atorvastatin 80 mg tablet 80 mg PO HS 08/20/18 02/03/19 History lisinopril 10 1 tab PO QAM 08/20/18 02/03/19 History mg-hydrochlorothiazide 12.5 mg tablet acetaminophen 500 mg tablet 1,000 mg PO TID 12/25/18 02/03/19 History (Tylenol Extra Strength) sodium chloride 0.65 % nasal spray 2 spray intranasal QID PRN Dry 12/25/18 02/03/19 History aerosol (Deep Sea Nasal) Nasal Passages docusate sodium 250 mg capsule 250 mg PO BID 01/19/19 02/03/19 History ferrous sulfate 325 mg (65 mg 325 mg PO BIDM #60 tabs 02/15/19 Rx iron) tablet,delayed release ibuprofen 600 mg tablet 600 mg PO Q6H PRN Pain #30 tabs 02/15/19 Rx Patient History Medical History Bacteremia with infected graft COPD (chronic obstructive pulmonary disease) CVA (cerebral vascular accident) Hematoma right leg x2 Hernia HLD (hyperlipidemia) HTN (hypertension) PVD (peripheral vascular disease) Smoker Surgical History H/O vasectomy History of femoropopliteal bypass Rt History of incision and drainage 02/06/2019 History of surgery History of vascular surgery R SFA stent, Right leg thrombectomy, fem-pop. 08/2018. GETA with a-line. Right leg open thrombectomy 12/22/2018 [facility] Removal infected graft then fem distal bypass with saphenous vein graft Family History Other Family history non-contributory Social History Smoking Status: Never smoker Cigarettes Per Day: 12/12/2018; Second Hand Exposure: No; Do You Dip or Chew Tobacco: No; Hx Alcohol Use: No Hx Substance Use: No Preferred Language: Mohawk Communication Ability: Unable Accounting Recruiter Required: No Beliefs That Will Affect Care: None Current Living Situation: Other Current Living Situation Comment: resides at [facility] Feels Safe at Home: Yes Safety Concerns: Feels Safe At This Time Assistive Devices: None Review of Systems Review of Systems: REVIEW OF SYSTEMS: Constitutional: (+) fever, sweats or chills Eyes: No diplopia, no worsening or blurred vision ENT: normal hearing, no trouble swallowing Respiratory: No cough, sputum, dyspnea at rest or on exertion Cardiovascular: No chest pain, tightness or palpitations Abdomen: (+) pain, nausea, vomiting, diarrhea, NO constipation Musculoskeletal: (+) Right lower leg amputation, No joint pain, calf pain, swelling Neurologic: No weakness, numbness/tingling, or balance problems Psychiatric: No anxiety or depression Skin: No rash or itch Physical Exam Physical Exam: PHYSICAL EXAM: General: awake, alert, no apparent distress Head: Normocephalic, atraumatic ENT: PERRL, EOMI, no pharyngeal exudate, mucous membranes dry Neuro: AAO x 3, speech clear and appropriate, strength intact bilaterally 5/5, sensation intact and equal all extremities and dermatomes, no pronator drift, noted amputation of RT LE - without weakness Chest: equal rise and fall of the chest, no accessory muscle use, no heaves or thrills, Clear to auscultation, on room air, Cardiac: Regular rate and rhythm, telemetry reviewed- NSR, skin warm dry, cap refill <3 seconds, peripheral pulses +2 no JVD, no murmur, no edema GI: Abdomen, soft with guarding to right lower quadrant and midline, no vomiting at current : Gutierrez to gravity draining light yellow urine Extremities: Normal inspection, no peripheral edema or erythema, calfs nontender to palpation Psych: Normal mood and affect Skin: no rash or erythema Results & Data Results & Data Vital Signs (Past 12 Hours) Vital Signs Temp Pulse Resp BP Pulse Ox O2 Del Method O2 Flow Rate 01/18/23 05:45 105 H 24 104/71 94 Nasal Cannula 3 01/18/23 05:30 111 H 22 109/74 94 Nasal Cannula 3 01/18/23 05:15 113 H 19 94/66 L 97 Nasal Cannula 3 01/18/23 04:31 111 H 01/18/23 05:03 111 H 21 95 Nasal Cannula 3 01/18/23 05:03 104/68 01/18/23 04:45 121 H 20 103/61 96 Nasal Cannula 3 01/18/23 04:37 95 H 21 66/50 L 89 L Room Air 01/18/23 05:06 106 H 96 Nasal Cannula 3 01/18/23 04:14 36.5 C 135 H 18 74/53 L 92 Room Air Laboratory Results Abnormal lab results 01/18/23 01/18/23 01/18/23 Range/Units 04:32 04:32 04:32 WBC 17.86 H (4.8-10.8) K/ul Neut # (Auto) 15.63 H (1.40-6.50) K/uL Lymph # (Auto) 0.54 L (1.2-3.4) K/uL [place] # (Auto) 1.06 H (0.11-0.59) K/uL Immature Gran # (Auto) 0.36 H (0.01-0.20) K/uL PT (9.0-12.0) Seconds INR (0.9-1.1) Sodium 135 L (136-145) mmol/L Carbon Dioxide 18 L (21-32) mmol/L Anion Gap 18 H (3-11) BUN 48 H (6-23) mg/dl Creatinine 4.53 H* (0.6-1.4) mg/dl Glucose 197 H (70-99(Fasting)) mg/dl Lactate 4.9 H* (0.4-2.0) mmol/L Magnesium 1.5 L (1.7-2.4) mg/dl Procalcitonin (0-0.5) ng/ml Urine Appearance (Clear) Urine Protein (Negative) Urine Glucose (UA) (Negative) Urine Ketones (Negative) Urine Blood (Negative) Urine WBC (Auto) (0-5) /hpf Urine RBC (Auto) (0-4) /hpf U Epithel Cells (Auto) (0-5) /lpf 01/18/23 01/18/23 01/18/23 Range/Units 04:32 04:32 04:46 WBC (4.8-10.8) K/ul Neut # (Auto) (1.40-6.50) K/uL Lymph # (Auto) (1.2-3.4) K/uL [place] # (Auto) (0.11-0.59) K/uL Immature Gran # (Auto) (0.01-0.20) K/uL PT 49.9 H (9.0-12.0) Seconds INR 5.0 H (0.9-1.1) Sodium (136-145) mmol/L Carbon Dioxide (21-32) mmol/L Anion Gap (3-11) BUN (6-23) mg/dl Creatinine (0.6-1.4) mg/dl Glucose (70-99(Fasting)) mg/dl Lactate (0.4-2.0) mmol/L Magnesium (1.7-2.4) mg/dl Procalcitonin 79.46 H (0-0.5) ng/ml Urine Appearance Turbid A (Clear) Urine Protein 3+ H (Negative) Urine Glucose (UA) 1+ H (Negative) Urine Ketones Trace H (Negative) Urine Blood 3+ H (Negative) Urine WBC (Auto) >30 H (0-5) /hpf Urine RBC (Auto) >30 H (0-4) /hpf U Epithel Cells (Auto) >30 H (0-5) /lpf Diagnostic Findings Abdomen/Pelvis CT 01/18/23 04:43 CR Exam(s): CT ABDOMEN + PELVIS Without Contrast EXAM: CT Abdomen and Pelvis Without Intravenous Contrast CLINICAL HISTORY: Reason for exam: eval for appy; right sided stone???; hypotensivie. TECHNIQUE: Axial computed tomography images of the abdomen and pelvis without intravenous contrast. Automated exposure control was utilized for the study. A dose lowering technique was utilized adhering to the principles of ALARA. COMPARISON: No relevant prior studies available. FINDINGS: Limitations: Limited evaluation in the absence of contrast. Lung bases: Dependent scarring at the lung bases with bronchiectasis. Findings likely relate to infection/aspiration changes. ABDOMEN: Liver: Unremarkable. Gallbladder and bile ducts: Unremarkable. No calcified stones. No ductal dilation. Pancreas: Unremarkable. No ductal dilation. Spleen: Unremarkable. No splenomegaly. Adrenals: Unremarkable. No mass. Kidneys and ureters: No evidence of radiopaque renal calculi or signs of collecting system dilatation. Nonobstructive renal calculi bilaterally, the largest within the interpolar right kidney measuring up to 9 mm. Stomach and bowel: Unremarkable. No obstruction. No mucosal thickening. PELVIS: Appendix: Acute appendicitis with a dilated and inflamed appendix measuring up to 1.8 cm in diameter. This issue with this is extensive adjacent inflammatory change. Consider repeat imaging with contrast. Subtle perforation or abscess is not excluded. Bladder: Diffuse bladder wall thickening with adjacent stranding. Findings may relate to cystitis. Consider correlation with laboratory values. Gutierrez within the bladder. No stones. Reproductive: Unremarkable as visualized. ABDOMEN and PELVIS: Intraperitoneal space: Unremarkable. No free air. No significant fluid collection. Bones/joints: Degenerative changes in the spine. No acute fracture. No dislocation. Soft tissues: Umbilical hernia containing fat. Vasculature: Unremarkable. No abdominal aortic aneurysm. Lymph nodes: Unremarkable. No enlarged lymph nodes. IMPRESSION: 1. Limited evaluation in the absence of contrast. 2. Acute appendicitis with a dilated and inflamed appendix measuring up to 1.8 cm in diameter. This issue with this is extensive adjacent inflammatory change. Consider repeat imaging with contrast. Subtle perforation or abscess is not excluded. 3. No evidence of radiopaque renal calculi or signs of collecting system dilatation. 4. Nonobstructive renal calculi bilaterally, the largest within the interpolar right kidney measuring up to 9 mm. 5. Diffuse bladder wall thickening with adjacent stranding. Findings may relate to cystitis. Consider correlation with laboratory values. Communications: Verify Receipt Electronically signed by: Canelo Mckinney MD 01/18/23 05:17 AM Medications Administered Home Medications aspirin 81 mg chewable tablet 81 mg PO QAM 08/20/18 [History Confirmed 02/03/19] atorvastatin 80 mg tablet 80 mg PO HS 08/20/18 [History Confirmed 02/03/19] lisinopril 10 mg-hydrochlorothiazide 12.5 mg tablet 1 tab PO QAM 08/20/18 [History Confirmed 02/03/19] acetaminophen 500 mg tablet (Tylenol Extra Strength) 1,000 mg PO TID 12/25/18 [History Confirmed 02/03/19] sodium chloride 0.65 % nasal spray aerosol (Deep Sea Nasal) 2 spray intranasal QID PRN Dry Nasal Passages 12/25/18 [History Confirmed 02/03/19] docusate sodium 250 mg capsule 250 mg PO BID 01/19/19 [History Confirmed 02/03/19] ferrous sulfate 325 mg (65 mg iron) tablet,delayed release 325 mg PO BIDM #60 tabs 02/15/19 [Rx] ibuprofen 600 mg tablet 600 mg PO Q6H PRN Pain #30 tabs 02/15/19 [Rx] Active Medications Sodium Chloride (Nss 1000ml) 2,000 mls @ 999 mls/hr IV .Q2H1M ONE Stop: 01/18/23 07:11 Last Infusion: 01/18/23 05:14 Dose: Infused ECG Additional Comments: Sinus tachycardia Nonspecific ST abnormality Abnormal ECG When compared with ECG of 08-FEB-2019 11:39, Non-specific change in ST segment in Inferior leads Coding Level of Care Code 02476 CRITICAL CARE 1ST 30-74M Diagnoses Sepsis A41.9 Acute appendicitis K35.80 Acute renal failure N17.9 Supratherapeutic INR R79.1 Peripheral arterial disease I73.9 Hypertension I10 Hyperlipidemia E78.5 Metabolic acidosis E87.20
--- NOTE | 2023-01-18 07:05 | XRay Report ---
XR chest 1V portable CLINICAL HISTORY: Sepsis TECHNIQUE: Single frontal radiograph of the chest was obtained. Comparison: Comparison is made to CT abdomen pelvis 01/18/2023 FINDINGS: No lines and tubes are seen. Prominence of the bilateral priti may be secondary to mediastinal lymph n odes. Atelectasis is seen in the bilateral lower lungs, the lungs are underinflated. No evidence of p leural effusion or pneumothorax. IMPRESSION: Prominence of the bilateral priti may be secondary to mediastinal lymphadenopathy. Atelectasis is seen in the bilateral lungs without evidence of pneumonia. ACT 112: Negative or not required by law. Electronically signed by: Eloy Purvis M.D. 01/18/2023 7:03 AM
[2023-01-18 07:07] LABS: iSTAT Creatinine 3.9 mg/dl (0.6-1.3); iSTAT Hemoglobin 12.9 g/dl (14.0-18.0); iSTAT Ionized Calcium 0.94 mmol/l (1.12-1.32); iSTAT Potassium 3.3 mmol/L (3.3-5.0)
[2023-01-18] MEDS: MAGNESIUM SULFATE / D5W 1 GM/100 ML BAG IV SCH ×3 (07:11→11:54)
--- NOTE | 2023-01-18 07:51 | History & Physical Report ---
Date of Service January 18, 2023 Assessment & Plan (1) Acute appendicitis: Plan: 72-year-old male past medical significant for hypertension, peripheral artery disease history of femoral artery occlusion, hyperlipidemia, history of epistaxis comes from shelter because of severe right lower quadrant abdominal pain since last Wednesday and found to have septic shock from acute acute appendicitis, and [place] Septic shock Acute appendicitis Presented with hypotension systolic blood pressure 60s improved with aggressive IV fluids Lactate was 4.9 improved to 1.9. Tachycardia improved Received IV Zosyn Surgery notified by ER advised to admit to ICU N.p.o. IV fluids normal saline 200 mill per hour Continue IV Zosyn Close monitoring ICU Await surgery evaluation [place] Metabolic acidosis Presented with creatinine 4.5 From above Nephrology consult We will follow repeat labs Elevated INR Patient states is on Coumadin for prevention of clots and lower extremity ,looks like for peripheral vascular disease INR 5. Vitamin K/Kcentra as per ICU Hypomagnesia Will replace Hypertension Currently in sepsis We will hold home medications for now Hyperlipidemia Start statin when able to take p.o. Peripheral vascular disease S/p right below knee amputation Start aspirin and statin when able to take p.o. DVT prophylaxis SCDs for now Disposition ICU Full code (2) Acute renal failure: History of Present Illness Chief Complaint: Right lower quadrant abdominal pain Primary Care Provider: MERRICK Eric 72-year-old male past medical significant for hypertension, peripheral artery disease history of femoral artery occlusion, hyperlipidemia, history of epistaxis comes from shelter because of severe right lower quadrant abdominal pain since last Wednesday. Did not eat anything since last Wednesday. On and off fevers. Patient states vomited and seemed coffee-ground. 1 episode of diarrhea dark color. Says currently like laying down the pain is not bothering him. Denies any chest pain or shortness of breath. No headache. Vision is okay. No runny nose or sore throat. No cough. When he came in he was hypotensive with systolic blood pressure in 60s improved with the fluids. His WBC 17. INR 5. Creatinine 4.5. Procalcitonin 79. Lactate 4.9 improved to 1.9. He says he is on Coumadin because of his clots in lower extremities. His INR is 5. Currently hemodynamically stable. Surgery was notified by ER and advised for ICU admission for now. Allergies Allergy/AdvReac Type Severity Reaction Status Date / Time codeine Allergy Unknown Unknown Verified 02/10/19 13:08 Home Medications Medication Instructions Recorded Confirmed Type aspirin 81 mg chewable tablet 81 mg PO QAM 08/20/18 02/03/19 History atorvastatin 80 mg tablet 80 mg PO HS 08/20/18 02/03/19 History lisinopril 10 1 tab PO QAM 08/20/18 02/03/19 History mg-hydrochlorothiazide 12.5 mg tablet acetaminophen 500 mg tablet 1,000 mg PO TID 12/25/18 02/03/19 History (Tylenol Extra Strength) sodium chloride 0.65 % nasal spray 2 spray intranasal QID PRN Dry 12/25/18 02/03/19 History aerosol (Deep Sea Nasal) Nasal Passages docusate sodium 250 mg capsule 250 mg PO BID 01/19/19 02/03/19 History ferrous sulfate 325 mg (65 mg 325 mg PO BIDM #60 tabs 02/15/19 Rx iron) tablet,delayed release ibuprofen 600 mg tablet 600 mg PO Q6H PRN Pain #30 tabs 02/15/19 Rx Past Med/Surg History Medical History Bacteremia with infected graft COPD (chronic obstructive pulmonary disease) CVA (cerebral vascular accident) Hematoma right leg x2 Hernia HLD (hyperlipidemia) HTN (hypertension) PVD (peripheral vascular disease) Smoker Surgical History H/O vasectomy History of femoropopliteal bypass Rt History of incision and drainage 02/06/2019 History of surgery History of vascular surgery R SFA stent, Right leg thrombectomy, fem-pop. 08/2018. GETA with a-line. Right leg open thrombectomy 12/22/2018 [facility] Removal infected graft then fem distal bypass with saphenous vein graft Family History Other Family history non-contributory Social History Smoking Status: Former smoker Cigarettes Per Day: 12/12/2018; Second Hand Exposure: No; Do You Dip or Chew Tobacco: No; Hx Alcohol Use: No Hx Substance Use: No Preferred Language: Malagasy Communication Ability: Effective Piping Supervisor Required: No Beliefs That Will Affect Care: Sikh Sikh Beliefs: Temple Current Living Situation: Other Current Living Situation Comment: [facility] at [facility] Feels Safe at Home: Yes Assistive Devices: Glasses and Walker Review of Systems Review of Systems: All systems reviewed & are unremarkable except as noted in Subjective Physical Exam Physical Exam: General- Not in distress Head- atraumatic Eyes- PERRL. ENT- oropharynx clear Neck- supple, no JVD. Lungs- clear to auscultation and percussion, no added sounds Heart- regular rate and rhythm; no murmur, no gallop. Abdomen- sluggish bowel sounds. soft, RLQ tenderness. no distension Extremities- no pretibial edema, s/p right BKA.no erythema seen Neuro- alert, oriented x 3; PERRL, no facial palsy; no dysarthria. obeys commands. insight ok. moves extremities Skin- warm & dry Results & Data Results & Data Vital Signs (Past 12 Hours) Vital Signs Temp Pulse Resp BP Pulse Ox O2 Del Method O2 Flow Rate 01/18/23 07:33 106 H 20 138/96 95 Nasal Cannula 3 01/18/23 06:45 116 H 17 119/81 95 Nasal Cannula 3 01/18/23 06:30 109 H 19 104/69 93 Nasal Cannula 3 01/18/23 06:15 112 H 27 H 107/76 96 Nasal Cannula 3 01/18/23 06:00 108 H 21 128/91 100 Nasal Cannula 3 01/18/23 05:45 105 H 24 104/71 94 Nasal Cannula 3 01/18/23 05:30 111 H 22 109/74 94 Nasal Cannula 3 01/18/23 05:15 113 H 19 94/66 L 97 Nasal Cannula 3 01/18/23 04:31 111 H 01/18/23 05:03 111 H 21 95 Nasal Cannula 3 01/18/23 05:03 104/68 01/18/23 04:45 121 H 20 103/61 96 Nasal Cannula 3 01/18/23 04:37 95 H 21 66/50 L 89 L Room Air 01/18/23 05:06 106 H 96 Nasal Cannula 3 01/18/23 04:14 36.5 C 135 H 18 74/53 L 92 Room Air Diagnostic Findings Laboratory Results WBC 17.86 K/ul (4.8-10.8) H 01/18/23 04:32 RBC 4.99 M/uL (4.70-6.10) 01/18/23 04:32 Hgb 15.8 g/dl (14.0-18.0) 01/18/23 04:32 POC Hgb 12.9 g/dl (14.0-18.0) L 01/18/23 04:39 Hct 46.6 % (42.0-52.0) 01/18/23 04:32 POC Hct 38 % (42-52) L 01/18/23 04:39 MCV 93.4 fL (80.0-100.0) 01/18/23 04:32 MCH 31.7 pg (25.0-34.0) 01/18/23 04:32 MCHC 33.9 g/dL (32.0-36.0) 01/18/23 04:32 RDW Std Deviation 46.2 fL (36.4-46.3) 01/18/23 04:32 RDW Coeff of Rinku 13.5 % (11.5-14.5) 01/18/23 04:32 Plt Count 280 K/uL (130-400) 01/18/23 04:32 MPV 11.1 fL (9.4-12.4) 01/18/23 04:32 Immature Gran % (Auto) 2.0 % 01/18/23 04:32 Neut % (Auto) 87.6 % 01/18/23 04:32 Lymph % (Auto) 3.0 % 01/18/23 04:32 Hettinger % (Auto) 5.9 % 01/18/23 04:32 Eos % (Auto) 1.2 % 01/18/23 04:32 Baso % (Auto) 0.3 % 01/18/23 04:32 Neut # (Auto) 15.63 K/uL (1.40-6.50) H 01/18/23 04:32 Lymph # (Auto) 0.54 K/uL (1.2-3.4) L 01/18/23 04:32 [place] # (Auto) 1.06 K/uL (0.11-0.59) H 01/18/23 04:32 Eos # (Auto) 0.21 K/uL (0-0.50) 01/18/23 04:32 Baso # (Auto) 0.06 K/uL (0-0.2) 01/18/23 04:32 Immature Gran # (Auto) 0.36 K/uL (0.01-0.20) H 01/18/23 04:32 PT 49.9 Seconds (9.0-12.0) H 01/18/23 04:32 INR 5.0 (0.9-1.1) H 01/18/23 04:32 POC Sodium 141 mmol/L (135-144) 01/18/23 04:39 Sodium 135 mmol/L (136-145) L 01/18/23 04:32 POC Potassium 3.3 mmol/L (3.3-5.0) 01/18/23 04:39 Potassium 4.0 mmol/L (3.5-5.1) 01/18/23 04:32 POC Chloride 108 mmol/L (101-112) 01/18/23 04:39 Chloride 99 mmol/L (98-107) 01/18/23 04:32 Carbon Dioxide 18 mmol/L (21-32) L 01/18/23 04:32 POC Total CO2 16 mmol/L (24-31) L 01/18/23 04:39 Anion Gap 18 (3-11) H 01/18/23 04:32 POC Anion Gap 20.0 mmol/L (16-25) 01/18/23 04:39 POC BUN 34 mg/dl (7-18) H 01/18/23 04:39 BUN 48 mg/dl (6-23) H 01/18/23 04:32 Creatinine 4.53 mg/dl (0.6-1.4) H* 01/18/23 04:32 POC Creatinine 3.9 mg/dl (0.6-1.3) H 01/18/23 04:39 Est Cr Clr Drug Dosing 16.9 ml/min 01/18/23 04:32 Est GFR ( Amer) 14.1 ml/min 01/18/23 04:32 Est GFR (Non-Af Amer) 12.1 ml/min 01/18/23 04:32 BUN/Creatinine Ratio 10.6 (10-20) 01/18/23 04:32 Glucose 197 mg/dl (70-99(Fasting)) H 01/18/23 04:32 POC Glucose (other) 160 mg/dl (70-99) H 01/18/23 04:39 Lactate 1.9 mmol/L (0.4-2.0) 01/18/23 06:40 Calcium 9.2 mg/dl (8.6-10.3) 01/18/23 04:32 POC Ioniz Calcium Rodrigo 0.94 mmol/l (1.12-1.32) L 01/18/23 04:39 Magnesium 1.5 mg/dl (1.7-2.4) L 01/18/23 04:32 Total Bilirubin 0.7 mg/dl (0.2-1.0) 01/18/23 04:32 Direct Bilirubin 0.1 mg/dl (0-0.2) 01/18/23 04:32 AST 22 U/L (13-39) 01/18/23 04:32 ALT 29 U/L (7-52) 01/18/23 04:32 Alkaline Phosphatase 89 U/L (34-104) 01/18/23 04:32 Troponin I High Sens 15.0 pg/ml (0-20) 01/18/23 04:32 Total Protein 6.9 gm/dl (6.0-8.3) 01/18/23 04:32 Albumin 3.7 gm/dl (3.4-5.0) 01/18/23 04:32 Procalcitonin 79.46 ng/ml (0-0.5) H 01/18/23 04:32 Urine Color Cancelled 01/18/23 04:46 Urine Color Dark Yellow 01/18/23 04:46 Urine Appearance Cancelled 01/18/23 04:46 Urine Appearance Turbid (Clear) A 01/18/23 04:46 Urine pH 5.5 (4.5-7.5) 01/18/23 04:46 Urine pH Cancelled 01/18/23 04:46 Ur Specific [place] 1.017 (1.000-1.030) 01/18/23 04:46 Ur Specific [place] Cancelled 01/18/23 04:46 Urine Protein 3+ (Negative) H 01/18/23 04:46 Urine Protein Cancelled 01/18/23 04:46 Urine Glucose (UA) 1+ (Negative) H 01/18/23 04:46 Urine Glucose (UA) Cancelled 01/18/23 04:46 Urine Ketones Cancelled 01/18/23 04:46 Urine Ketones Trace (Negative) H 01/18/23 04:46 Urine Blood 3+ (Negative) H 01/18/23 04:46 Urine Blood Cancelled 01/18/23 04:46 Urine Nitrite Cancelled 01/18/23 04:46 Urine Nitrite Negative (Negative) 01/18/23 04:46 Urine Bilirubin Cancelled 01/18/23 04:46 Urine Bilirubin Negative (Negative) 01/18/23 04:46 Urine Urobilinogen Cancelled 01/18/23 04:46 Urine Urobilinogen Negative (Negative) 01/18/23 04:46 Ur Leukocyte Esterase Cancelled 01/18/23 04:46 Ur Leukocyte Esterase Negative (Negative) 01/18/23 04:46 Urine WBC (Auto) >30 /hpf (0-5) H 01/18/23 04:46 Urine WBC (Auto) Cancelled 01/18/23 04:46 Urine RBC (Auto) >30 /hpf (0-4) H 01/18/23 04:46 Urine RBC (Auto) Cancelled 01/18/23 04:46 U Hyaline Cast (Auto) 1-5 /lpf (0-5) 01/18/23 04:46 U Hyaline Cast (Auto) Cancelled 01/18/23 04:46 U Epithel Cells (Auto) >30 /lpf (0-5) H 01/18/23 04:46 U Epithel Cells (Auto) Cancelled 01/18/23 04:46 Urine Bacteria (Auto) Cancelled 01/18/23 04:46 Urine Bacteria (Auto) Negative (Negative) 01/18/23 04:46 Urine RBC Cancelled 01/18/23 04:46 Urine WBC Cancelled 01/18/23 04:46 Ur Epithelial Cells Cancelled 01/18/23 04:46 Ur Renal Epithelial Cell Cancelled 01/18/23 04:46 Urine Crystals Cancelled 01/18/23 04:46 Calcium Oxalate Crystal Cancelled 01/18/23 04:46 Uric Acid Crystals Cancelled 01/18/23 04:46 Triple Phos Crystals Cancelled 01/18/23 04:46 Other Crystals Cancelled 01/18/23 04:46 Amorphous Sediment Cancelled 01/18/23 04:46 Urine Bacteria Cancelled 01/18/23 04:46 Hyaline Casts Cancelled 01/18/23 04:46 Granular Casts Cancelled 01/18/23 04:46 Waxy Casts Cancelled 01/18/23 04:46 RBC Casts Cancelled 01/18/23 04:46 WBC Casts Cancelled 01/18/23 04:46 Other Casts Cancelled 01/18/23 04:46 Urine Mucus Cancelled 01/18/23 04:46 Urine Other Cancelled 01/18/23 04:46 Urine Trichomonas Cancelled 01/18/23 04:46 Urine Yeast Cancelled 01/18/23 04:46 Urine Yeast Not Reportable 01/18/23 04:46 Urine Sperm Cancelled 01/18/23 04:46 Ur Oval Fat Bodies Cancelled 01/18/23 04:46 Impressions Abdomen/Pelvis CT 01/18/23 04:43 CR Exam(s): CT ABDOMEN + PELVIS Without Contrast EXAM: CT Abdomen and Pelvis Without Intravenous Contrast CLINICAL HISTORY: Reason for exam: eval for appy; right sided stone???; hypotensivie. TECHNIQUE: Axial computed tomography images of the abdomen and pelvis without intravenous contrast. Automated exposure control was utilized for the study. A dose lowering technique was utilized adhering to the principles of ALARA. COMPARISON: No relevant prior studies available. FINDINGS: Limitations: Limited evaluation in the absence of contrast. Lung bases: Dependent scarring at the lung bases with bronchiectasis. Findings likely relate to infection/aspiration changes. ABDOMEN: Liver: Unremarkable. Gallbladder and bile ducts: Unremarkable. No calcified stones. No ductal dilation. Pancreas: Unremarkable. No ductal dilation. Spleen: Unremarkable. No splenomegaly. Adrenals: Unremarkable. No mass. Kidneys and ureters: No evidence of radiopaque renal calculi or signs of collecting system dilatation. Nonobstructive renal calculi bilaterally, the largest within the interpolar right kidney measuring up to 9 mm. Stomach and bowel: Unremarkable. No obstruction. No mucosal thickening. PELVIS: Appendix: Acute appendicitis with a dilated and inflamed appendix measuring up to 1.8 cm in diameter. This issue with this is extensive adjacent inflammatory change. Consider repeat imaging with contrast. Subtle perforation or abscess is not excluded. Bladder: Diffuse bladder wall thickening with adjacent stranding. Findings may relate to cystitis. Consider correlation with laboratory values. Gutierrez within the bladder. No stones. Reproductive: Unremarkable as visualized. ABDOMEN and PELVIS: Intraperitoneal space: Unremarkable. No free air. No significant fluid collection. Bones/joints: Degenerative changes in the spine. No acute fracture. No dislocation. Soft tissues: Umbilical hernia containing fat. Vasculature: Unremarkable. No abdominal aortic aneurysm. Lymph nodes: Unremarkable. No enlarged lymph nodes. IMPRESSION: 1. Limited evaluation in the absence of contrast. 2. Acute appendicitis with a dilated and inflamed appendix measuring up to 1.8 cm in diameter. This issue with this is extensive adjacent inflammatory change. Consider repeat imaging with contrast. Subtle perforation or abscess is not excluded. 3. No evidence of radiopaque renal calculi or signs of collecting system dilatation. 4. Nonobstructive renal calculi bilaterally, the largest within the interpolar right kidney measuring up to 9 mm. 5. Diffuse bladder wall thickening with adjacent stranding. Findings may relate to cystitis. Consider correlation with laboratory values. Communications: Verify Receipt Electronically signed by: Canelo Mckinney MD 01/18/23 05:17 AM Chest X-Ray 01/18/23 04:43 XR chest 1V portable CLINICAL HISTORY: Sepsis TECHNIQUE: Single frontal radiograph of the chest was obtained. Comparison: Comparison is made to CT abdomen pelvis 01/18/2023 FINDINGS: No lines and tubes are seen. Prominence of the bilateral priti may be secondary to mediastinal lymph nodes. Atelectasis is seen in the bilateral lower lungs, the lungs are underinflated. No evidence of pleural effusion or pneumothorax. IMPRESSION: Prominence of the bilateral priti may be secondary to mediastinal lymphadenopathy. Atelectasis is seen in the bilateral lungs without evidence of pneumonia. ACT 112: Negative or not required by law. Electronically signed by: Eloy Purvis M.D. 01/18/2023 7:03 AM ECG Additional Comments: ECG sinus tachycardia rate of 126. Nonspecific ST abnormalities Code Status & VTE Plan VTE Prophylaxis Plan VTE Prophylaxis will be ordered: Yes
[2023-01-18] MEDS ORDERED: HYDROmorphone INJ 0.5 MG/0.5 ML SYR IV PRN (07:57)
[2023-01-18 08:14] LABS: Influenza A virus by PCR Negative (Neg); Influenza B virus by PCR Negative (Neg); RSV by PCR Negative (Neg); SARS CoV2 RNA(COVID-19) Ceph NEGATIVE (Negative)
[2023-01-18 08:17] LABS: Base Excess VBG -2.4 mEq/L; HCO3 VBG 23 mmol/L; Oxygen Saturation VBG < 60.0 %; PCO2 VBG 42 mmHg (38-50); PO2 VBG 20 mmHg; pH VBG 7.35 (7.36-7.41)
[2023-01-18] MEDS: ICU Protocol for HYPERglycemia SCH ×4 (08:43→20:03)
--- NOTE | 2023-01-18 10:56 | Surgery Consultation ---
Date of Consultation January 18, 2023 Assessment & Plan (1) Acute appendicitis: (2) Supratherapeutic INR: (3) Sepsis: Plan 72 year-old male who presented to ED from senior care due to increasing RLQ abdominal pain, fevers and chills, and nausea and vomiting. Found to be severely hypotensive in ED with systolic BP in 60's, AUGUSTA with creatinine of 4, Supratherapeutic INR of 5, and elevated leukocytosis of 17k and procalcitonin. Lactic acid 4.9 --> 1.9 after aggressive fluid resuscitation. Currently hemodynamically stable and not requiring pressors. Plan: Discussed imaging findings with patient. Concern for acute appendicitis with significant inflammatory changes although CT scan can be limited as unable to give him contrast due to AUGUSTA. Likely has contained perforation with phlegmonous changes. No pneumoperitoneum. Given his AUGUSTA and supratherapeutic INR, would recommend conservative management with IV Zosyn and close monitoring. Given the extensive inflammatory change, surgery may be more extensive including right hemicolectomy. If he continues to clinically improve with conservative management, would consider elective interval appendectomy. Continue current ICU/medical management keep NPO repeat am labs will continue to follow Dr. Mukherjee has seen and examined pt, see addendum for further recommendations/plan. Supervising Physician Co-Signing Physician Notes I seen and examined the patient and agree with the above assessment plan. In brief 72-year-old gentleman with what appears to be acute appendicitis with significant inflammatory changes. He has a supratherapeutic INR and severe acute kidney injury. We would recommend conservative management with IV antibiotics and bowel rest. We will continue to monitor him. If he worsens he may require operative intervention. If he improves, we will plan for interval appendectomy at a later date. Will continue to follow while he is in the hospital. History of Present Illness Reason for Consultation: Acute appendicitis, septic shock Requesting Physician: Serg Blake MD Attending Physician: Nataly Aleman MD History of Present Illness Mr. Gonzalez is a 72 year-old male prisoner with past medical history of hypertension, peripheral artery disease history of femoral artery occlusion, hyperlipidemia, epistaxis, lower extremity blood clots, who comes from senior care because of severe right lower quadrant abdominal pain since Wednesday evening. Did not eat anything since Wednesday. On and off fevers. Patient states vomited and seemed coffee-ground yesterday. Denies any chest pain or shortness of breath. He was found to be severely hypotensive in the emergency room with systolic blood pressure in 60s, improved with IV fluids. His WBC was 17. INR 5. Creatinine 4.5. Procalcitonin 79. Lactate 4.9 improved to 1.9. On Coumadin for history of lower extremity blood clots. INR is 5. Currently hemodynamically stable. CT scan of abdomen and pelvis without contrast due to AUGUSTA showed dilated appendix at 1.8 cm with surrounding inflammatory change however no free air or free fluid. He currently states he is feeling much better than when he came to ER. blood pressure improved. Pain is still present but controlled and not severe when lying flat. Pain worse with movement. No persistent nausea and vomiting. History of left inguinal hernia repair but no other abdominal surgeries. On Coumadin for history of blood clots. Allergies Allergy/AdvReac Type Severity Reaction Status Date / Time codeine Allergy Unknown Unknown Verified 02/10/19 13:08 Home Medications Medication Instructions Recorded Confirmed Type aspirin 81 mg chewable tablet 81 mg PO QAM 08/20/18 02/03/19 History atorvastatin 80 mg tablet 80 mg PO HS 08/20/18 02/03/19 History lisinopril 10 1 tab PO QAM 08/20/18 02/03/19 History mg-hydrochlorothiazide 12.5 mg tablet acetaminophen 500 mg tablet 1,000 mg PO TID 12/25/18 02/03/19 History (Tylenol Extra Strength) sodium chloride 0.65 % nasal spray 2 spray intranasal QID PRN Dry 12/25/18 02/03/19 History aerosol (Deep Sea Nasal) Nasal Passages docusate sodium 250 mg capsule 250 mg PO BID 01/19/19 02/03/19 History ferrous sulfate 325 mg (65 mg 325 mg PO BIDM #60 tabs 02/15/19 Rx iron) tablet,delayed release ibuprofen 600 mg tablet 600 mg PO Q6H PRN Pain #30 tabs 02/15/19 Rx Patient History Medical History Bacteremia with infected graft COPD (chronic obstructive pulmonary disease) CVA (cerebral vascular accident) Hematoma right leg x2 Hernia HLD (hyperlipidemia) HTN (hypertension) PVD (peripheral vascular disease) Smoker Surgical History H/O vasectomy History of femoropopliteal bypass Rt History of incision and drainage 02/06/2019 History of surgery History of vascular surgery R SFA stent, Right leg thrombectomy, fem-pop. 08/2018. GETA with a-line. Right leg open thrombectomy 12/22/2018 [facility] Removal infected graft then fem distal bypass with saphenous vein graft Family History Other Family history non-contributory Social History Smoking Status: Never smoker Cigarettes Per Day: 12/12/2018; Second Hand Exposure: No; Do You Dip or Chew Tobacco: No; Hx Alcohol Use: No Hx Substance Use: No Preferred Language: Tamazight Communication Ability: Unable Surveying [employer] Rodman Required: No Beliefs That Will Affect Care: None Current Living Situation: Other Current Living Situation Comment: resides at [facility] Feels Safe at Home: Yes Safety Concerns: Feels Safe At This Time Assistive Devices: None Review of Systems Review of Systems: All systems reviewed & are unremarkable except as noted in HPI & below Physical Exam Constitutional: WD/WN, vitals as above cooperative and comfortable; no acute distress and not ill appearing Respiratory: normal respiratory effort, lungs clear to auscultation Cardiovascular: RRR, no murmur, no edema Gastrointestinal (Abdomen): Inspection/Auscultation: abdomen normal to inspection and + hypoactive bowel sounds; abdomen not distended, + abnormal bowel sounds and no abdominal surgical scar Percussion/Palpation: + abdomen tender (RLQ), + guarding (RLQ) and abdomen soft; abdomen not rigid and abdomen not firm No peritonitis Musculoskeletal: right AKA Skin: no rashes, warm and dry Psychiatric: Orientation: alert and oriented x 3 Results & Data Vital Signs (Past 12 Hours) Vital Signs Temp Pulse Pulse Resp BP BP Pulse Ox 01/18/23 10:15 107 H 16 95 01/18/23 10:15 95/59 L 01/18/23 10:00 104 H 17 92 01/18/23 10:00 94/60 L 01/18/23 09:45 114 H 33 H 95 01/18/23 09:45 106/74 01/18/23 09:30 116 H 24 96 01/18/23 09:30 92/72 L 01/18/23 09:28 116/65 01/18/23 09:00 104/68 01/18/23 08:45 104 H 4 L 91 01/18/23 08:45 93/62 L 01/18/23 08:30 110 H 12 91 01/18/23 08:30 109/76 01/18/23 08:15 110 H 21 93 01/18/23 08:15 147/89 H 01/18/23 08:06 137/97 01/18/23 08:00 01/18/23 08:00 01/18/23 07:57 113 H 01/18/23 07:50 36.6 C 107 H 18 94/54 L 94 01/18/23 07:33 106 H 20 138/96 95 01/18/23 06:45 116 H 17 119/81 95 01/18/23 06:30 109 H 19 104/69 93 01/18/23 06:15 112 H 27 H 107/76 96 01/18/23 06:00 108 H 21 128/91 100 01/18/23 05:45 105 H 24 104/71 94 01/18/23 05:30 111 H 22 109/74 94 01/18/23 05:15 113 H 19 94/66 L 97 01/18/23 04:31 111 H 01/18/23 05:03 111 H 21 95 01/18/23 05:03 104/68 01/18/23 04:45 121 H 20 103/61 96 01/18/23 04:37 95 H 21 66/50 L 89 L 01/18/23 05:06 106 H 96 01/18/23 04:14 36.5 C 135 H 18 74/53 L 92 O2 Del Method O2 Flow Rate 01/18/23 10:15 01/18/23 10:15 01/18/23 10:00 01/18/23 10:00 01/18/23 09:45 01/18/23 09:45 01/18/23 09:30 01/18/23 09:30 01/18/23 09:28 01/18/23 09:00 01/18/23 08:45 01/18/23 08:45 01/18/23 08:30 01/18/23 08:30 01/18/23 08:15 01/18/23 08:15 01/18/23 08:06 01/18/23 08:00 Room Air 01/18/23 08:00 Room Air 01/18/23 07:57 01/18/23 07:50 Room Air 01/18/23 07:33 Nasal Cannula 3 01/18/23 06:45 Nasal Cannula 3 01/18/23 06:30 Nasal Cannula 3 01/18/23 06:15 Nasal Cannula 3 01/18/23 06:00 Nasal Cannula 3 01/18/23 05:45 Nasal Cannula 3 01/18/23 05:30 Nasal Cannula 3 01/18/23 05:15 Nasal Cannula 3 01/18/23 04:31 01/18/23 05:03 Nasal Cannula 3 01/18/23 05:03 01/18/23 04:45 Nasal Cannula 3 01/18/23 04:37 Room Air 01/18/23 05:06 Nasal Cannula 3 01/18/23 04:14 Room Air Laboratory Results 01/18/23 01/18/23 01/18/23 Range/Units 08:05 08:00 07:25 WBC (4.8-10.8) K/ul RBC (4.70-6.10) M/uL Hgb (14.0-18.0) g/dl POC Hgb (14.0-18.0) g/dl Hct (42.0-52.0) % POC Hct (42-52) % MCV (80.0-100.0) fL MCH (25.0-34.0) pg MCHC (32.0-36.0) g/dL RDW Std Deviation (36.4-46.3) fL RDW Coeff of Rinku (11.5-14.5) % Plt Count (130-400) K/uL MPV (9.4-12.4) fL Immature Gran % (Auto) % Neut % (Auto) % Lymph % (Auto) % Gates % (Auto) % Eos % (Auto) % Baso % (Auto) % Neut # (Auto) (1.40-6.50) K/uL Lymph # (Auto) (1.2-3.4) K/uL Gates # (Auto) (0.11-0.59) K/uL Eos # (Auto) (0-0.50) K/uL Baso # (Auto) (0-0.2) K/uL Immature Gran # (Auto) (0.01-0.20) K/uL PT (9.0-12.0) Seconds INR (0.9-1.1) VBG pH 7.35 L (7.36-7.41) VBG pCO2 42 (38-50) mmHg VBG pO2 20 mmHg VBG HCO3 23 mmol/L VBG O2 Saturation < 60.0 % VBG Base Excess -2.4 mEq/L POC Sodium (135-144) mmol/L Sodium (136-145) mmol/L POC Potassium (3.3-5.0) mmol/L Potassium (3.5-5.1) mmol/L POC Chloride (101-112) mmol/L Chloride (98-107) mmol/L Carbon Dioxide (21-32) mmol/L POC Total CO2 (24-31) mmol/L Anion Gap (3-11) POC Anion Gap (16-25) mmol/L POC BUN (7-18) mg/dl BUN (6-23) mg/dl Creatinine (0.6-1.4) mg/dl POC Creatinine (0.6-1.3) mg/dl Est Cr Clr Drug Dosing ml/min Est GFR ( Amer) ml/min Est GFR (Non-Af Amer) ml/min BUN/Creatinine Ratio (10-20) Glucose (70-99(Fasting)) mg/dl POC Glucose 168 H (70-99) mg/dl POC Glucose (other) (70-99) mg/dl Lactate (0.4-2.0) mmol/L Calcium (8.6-10.3) mg/dl POC Ioniz Calcium Rodrigo (1.12-1.32) mmol/l Magnesium (1.7-2.4) mg/dl Total Bilirubin (0.2-1.0) mg/dl Direct Bilirubin (0-0.2) mg/dl AST (13-39) U/L ALT (7-52) U/L Alkaline Phosphatase (34-104) U/L Troponin I High Sens (0-20) pg/ml Total Protein (6.0-8.3) gm/dl Albumin (3.4-5.0) gm/dl Procalcitonin (0-0.5) ng/ml Urine Color Urine Appearance Urine pH Ur Specific [place] Urine Protein Urine Glucose (UA) Urine Ketones Urine Blood Urine Nitrite Urine Bilirubin Urine Urobilinogen Ur Leukocyte Esterase Urine WBC (Auto) Urine RBC (Auto) U Hyaline Cast (Auto) U Epithel Cells (Auto) Urine Bacteria (Auto) Urine RBC Urine WBC Ur Epithelial Cells Ur Renal Epithelial Cell Urine Crystals Calcium Oxalate Crystal Uric Acid Crystals Triple Phos Crystals Other Crystals Amorphous Sediment Urine Bacteria Hyaline Casts Granular Casts Waxy Casts RBC Casts WBC Casts Other Casts Urine Mucus Urine Other Urine Trichomonas Urine Yeast Urine Sperm Ur Oval Fat Bodies Nasal Screen MRSA (PCR) Negative (Negative) SARS-CoV-2 (PCR) (Negative) Influenza Type A (PCR) (Neg) Influenza Type B (PCR) (Neg) RSV (RT-PCR) (Neg) 01/18/23 01/18/23 01/18/23 Range/Units 07:13 06:40 04:46 WBC (4.8-10.8) K/ul RBC (4.70-6.10) M/uL Hgb (14.0-18.0) g/dl POC Hgb (14.0-18.0) g/dl Hct (42.0-52.0) % POC Hct (42-52) % MCV (80.0-100.0) fL MCH (25.0-34.0) pg MCHC (32.0-36.0) g/dL RDW Std Deviation (36.4-46.3) fL RDW Coeff of Rinku (11.5-14.5) % Plt Count (130-400) K/uL MPV (9.4-12.4) fL Immature Gran % (Auto) % Neut % (Auto) % Lymph % (Auto) % Gates % (Auto) % Eos % (Auto) % Baso % (Auto) % Neut # (Auto) (1.40-6.50) K/uL Lymph # (Auto) (1.2-3.4) K/uL Gates # (Auto) (0.11-0.59) K/uL Eos # (Auto) (0-0.50) K/uL Baso # (Auto) (0-0.2) K/uL Immature Gran # (Auto) (0.01-0.20) K/uL PT (9.0-12.0) Seconds INR (0.9-1.1) VBG pH (7.36-7.41) VBG pCO2 (38-50) mmHg VBG pO2 mmHg VBG HCO3 mmol/L VBG O2 Saturation % VBG Base Excess mEq/L POC Sodium (135-144) mmol/L Sodium (136-145) mmol/L POC Potassium (3.3-5.0) mmol/L Potassium (3.5-5.1) mmol/L POC Chloride (101-112) mmol/L Chloride (98-107) mmol/L Carbon Dioxide (21-32) mmol/L POC Total CO2 (24-31) mmol/L Anion Gap (3-11) POC Anion Gap (16-25) mmol/L POC BUN (7-18) mg/dl BUN (6-23) mg/dl Creatinine (0.6-1.4) mg/dl POC Creatinine (0.6-1.3) mg/dl Est Cr Clr Drug Dosing ml/min Est GFR ( Amer) ml/min Est GFR (Non-Af Amer) ml/min BUN/Creatinine Ratio (10-20) Glucose (70-99(Fasting)) mg/dl POC Glucose (70-99) mg/dl POC Glucose (other) (70-99) mg/dl Lactate 1.9 (0.4-2.0) mmol/L Calcium (8.6-10.3) mg/dl POC Ioniz Calcium Rodrigo (1.12-1.32) mmol/l Magnesium (1.7-2.4) mg/dl Total Bilirubin (0.2-1.0) mg/dl Direct Bilirubin (0-0.2) mg/dl AST (13-39) U/L ALT (7-52) U/L Alkaline Phosphatase (34-104) U/L Troponin I High Sens (0-20) pg/ml Total Protein (6.0-8.3) gm/dl Albumin (3.4-5.0) gm/dl Procalcitonin (0-0.5) ng/ml Urine Color Dark Yellow Urine Appearance Turbid A Urine pH 5.5 Ur Specific [place] 1.017 Urine Protein 3+ H Urine Glucose (UA) 1+ H Urine Ketones Trace H Urine Blood 3+ H Urine Nitrite Negative Urine Bilirubin Negative Urine Urobilinogen Negative Ur Leukocyte Esterase Negative Urine WBC (Auto) >30 H Urine RBC (Auto) >30 H U Hyaline Cast (Auto) 1-5 U Epithel Cells (Auto) >30 H Urine Bacteria (Auto) Negative Urine RBC Urine WBC Ur Epithelial Cells Ur Renal Epithelial Cell Urine Crystals Calcium Oxalate Crystal Uric Acid Crystals Triple Phos Crystals Other Crystals Amorphous Sediment Urine Bacteria Hyaline Casts Granular Casts Waxy Casts RBC Casts WBC Casts Other Casts Urine Mucus Urine Other Urine Trichomonas Urine Yeast Not Reportable Urine Sperm Ur Oval Fat Bodies Nasal Screen MRSA (PCR) (Negative) SARS-CoV-2 (PCR) NEGATIVE (Negative) Influenza Type A (PCR) Negative (Neg) Influenza Type B (PCR) Negative (Neg) RSV (RT-PCR) Negative (Neg) 01/18/23 01/18/23 01/18/23 Range/Units 04:46 04:39 04:32 WBC (4.8-10.8) K/ul RBC (4.70-6.10) M/uL Hgb (14.0-18.0) g/dl POC Hgb 12.9 L (14.0-18.0) g/dl Hct (42.0-52.0) % POC Hct 38 L (42-52) % MCV (80.0-100.0) fL MCH (25.0-34.0) pg MCHC (32.0-36.0) g/dL RDW Std Deviation (36.4-46.3) fL RDW Coeff of Rinku (11.5-14.5) % Plt Count (130-400) K/uL MPV (9.4-12.4) fL Immature Gran % (Auto) % Neut % (Auto) % Lymph % (Auto) % Gates % (Auto) % Eos % (Auto) % Baso % (Auto) % Neut # (Auto) (1.40-6.50) K/uL Lymph # (Auto) (1.2-3.4) K/uL Gates # (Auto) (0.11-0.59) K/uL Eos # (Auto) (0-0.50) K/uL Baso # (Auto) (0-0.2) K/uL Immature Gran # (Auto) (0.01-0.20) K/uL PT 49.9 H (9.0-12.0) Seconds INR 5.0 H (0.9-1.1) VBG pH (7.36-7.41) VBG pCO2 (38-50) mmHg VBG pO2 mmHg VBG HCO3 mmol/L VBG O2 Saturation % VBG Base Excess mEq/L POC Sodium 141 (135-144) mmol/L Sodium (136-145) mmol/L POC Potassium 3.3 (3.3-5.0) mmol/L Potassium (3.5-5.1) mmol/L POC Chloride 108 (101-112) mmol/L Chloride (98-107) mmol/L Carbon Dioxide (21-32) mmol/L POC Total CO2 16 L (24-31) mmol/L Anion Gap (3-11) POC Anion Gap 20.0 (16-25) mmol/L POC BUN 34 H (7-18) mg/dl BUN (6-23) mg/dl Creatinine (0.6-1.4) mg/dl POC Creatinine 3.9 H (0.6-1.3) mg/dl Est Cr Clr Drug Dosing ml/min Est GFR ( Amer) ml/min Est GFR (Non-Af Amer) ml/min BUN/Creatinine Ratio (10-20) Glucose (70-99(Fasting)) mg/dl POC Glucose (70-99) mg/dl POC Glucose (other) 160 H (70-99) mg/dl Lactate (0.4-2.0) mmol/L Calcium (8.6-10.3) mg/dl POC Ioniz Calcium Rodrigo 0.94 L (1.12-1.32) mmol/l Magnesium (1.7-2.4) mg/dl Total Bilirubin (0.2-1.0) mg/dl Direct Bilirubin (0-0.2) mg/dl AST (13-39) U/L ALT (7-52) U/L Alkaline Phosphatase (34-104) U/L Troponin I High Sens (0-20) pg/ml Total Protein (6.0-8.3) gm/dl Albumin (3.4-5.0) gm/dl Procalcitonin (0-0.5) ng/ml Urine Color Cancelled Urine Appearance Cancelled Urine pH Cancelled Ur Specific [place] Cancelled Urine Protein Cancelled Urine Glucose (UA) Cancelled Urine Ketones Cancelled Urine Blood Cancelled Urine Nitrite Cancelled Urine Bilirubin Cancelled Urine Urobilinogen Cancelled Ur Leukocyte Esterase Cancelled Urine WBC (Auto) Cancelled Urine RBC (Auto) Cancelled U Hyaline Cast (Auto) Cancelled U Epithel Cells (Auto) Cancelled Urine Bacteria (Auto) Cancelled Urine RBC Cancelled Urine WBC Cancelled Ur Epithelial Cells Cancelled Ur Renal Epithelial Cell Cancelled Urine Crystals Cancelled Calcium Oxalate Crystal Cancelled Uric Acid Crystals Cancelled Triple Phos Crystals Cancelled Other Crystals Cancelled Amorphous Sediment Cancelled Urine Bacteria Cancelled Hyaline Casts Cancelled Granular Casts Cancelled Waxy Casts Cancelled RBC Casts Cancelled WBC Casts Cancelled Other Casts Cancelled Urine Mucus Cancelled Urine Other Cancelled Urine Trichomonas Cancelled Urine Yeast Cancelled Urine Sperm Cancelled Ur Oval Fat Bodies Cancelled Nasal Screen MRSA (PCR) (Negative) SARS-CoV-2 (PCR) (Negative) Influenza Type A (PCR) (Neg) Influenza Type B (PCR) (Neg) RSV (RT-PCR) (Neg) 01/18/23 01/18/23 01/18/23 Range/Units 04:32 04:32 04:32 WBC (4.8-10.8) K/ul RBC (4.70-6.10) M/uL Hgb (14.0-18.0) g/dl POC Hgb (14.0-18.0) g/dl Hct (42.0-52.0) % POC Hct (42-52) % MCV (80.0-100.0) fL MCH (25.0-34.0) pg MCHC (32.0-36.0) g/dL RDW Std Deviation (36.4-46.3) fL RDW Coeff of Rinku (11.5-14.5) % Plt Count (130-400) K/uL MPV (9.4-12.4) fL Immature Gran % (Auto) % Neut % (Auto) % Lymph % (Auto) % Gates % (Auto) % Eos % (Auto) % Baso % (Auto) % Neut # (Auto) (1.40-6.50) K/uL Lymph # (Auto) (1.2-3.4) K/uL [place] # (Auto) (0.11-0.59) K/uL Eos # (Auto) (0-0.50) K/uL Baso # (Auto) (0-0.2) K/uL Immature Gran # (Auto) (0.01-0.20) K/uL PT (9.0-12.0) Seconds INR (0.9-1.1) VBG pH (7.36-7.41) VBG pCO2 (38-50) mmHg VBG pO2 mmHg VBG HCO3 mmol/L VBG O2 Saturation % VBG Base Excess mEq/L POC Sodium (135-144) mmol/L Sodium 135 L (136-145) mmol/L POC Potassium (3.3-5.0) mmol/L Potassium 4.0 (3.5-5.1) mmol/L POC Chloride (101-112) mmol/L Chloride 99 (98-107) mmol/L Carbon Dioxide 18 L (21-32) mmol/L POC Total CO2 (24-31) mmol/L Anion Gap 18 H (3-11) POC Anion Gap (16-25) mmol/L POC BUN (7-18) mg/dl BUN 48 H (6-23) mg/dl Creatinine 4.53 H* (0.6-1.4) mg/dl POC Creatinine (0.6-1.3) mg/dl Est Cr Clr Drug Dosing 16.9 ml/min Est GFR ( Amer) 14.1 ml/min Est GFR (Non-Af Amer) 12.1 ml/min BUN/Creatinine Ratio 10.6 (10-20) Glucose 197 H (70-99(Fasting)) mg/dl POC Glucose (70-99) mg/dl POC Glucose (other) (70-99) mg/dl Lactate 4.9 H* (0.4-2.0) mmol/L Calcium 9.2 (8.6-10.3) mg/dl POC Ioniz Calcium Rodrigo (1.12-1.32) mmol/l Magnesium 1.5 L (1.7-2.4) mg/dl Total Bilirubin 0.7 (0.2-1.0) mg/dl Direct Bilirubin 0.1 (0-0.2) mg/dl AST 22 (13-39) U/L ALT 29 (7-52) U/L Alkaline Phosphatase 89 (34-104) U/L Troponin I High Sens 15.0 (0-20) pg/ml Total Protein 6.9 (6.0-8.3) gm/dl Albumin 3.7 (3.4-5.0) gm/dl Procalcitonin 79.46 H (0-0.5) ng/ml Urine Color Urine Appearance Urine pH Ur Specific [place] Urine Protein Urine Glucose (UA) Urine Ketones Urine Blood Urine Nitrite Urine Bilirubin Urine Urobilinogen Ur Leukocyte Esterase Urine WBC (Auto) Urine RBC (Auto) U Hyaline Cast (Auto) U Epithel Cells (Auto) Urine Bacteria (Auto) Urine RBC Urine WBC Ur Epithelial Cells Ur Renal Epithelial Cell Urine Crystals Calcium Oxalate Crystal Uric Acid Crystals Triple Phos Crystals Other Crystals Amorphous Sediment Urine Bacteria Hyaline Casts Granular Casts Waxy Casts RBC Casts WBC Casts Other Casts Urine Mucus Urine Other Urine Trichomonas Urine Yeast Urine Sperm Ur Oval Fat Bodies Nasal Screen MRSA (PCR) (Negative) SARS-CoV-2 (PCR) (Negative) Influenza Type A (PCR) (Neg) Influenza Type B (PCR) (Neg) RSV (RT-PCR) (Neg) 01/18/23 Range/Units 04:32 WBC 17.86 H (4.8-10.8) K/ul RBC 4.99 (4.70-6.10) M/uL Hgb 15.8 (14.0-18.0) g/dl POC Hgb (14.0-18.0) g/dl Hct 46.6 (42.0-52.0) % POC Hct (42-52) % MCV 93.4 (80.0-100.0) fL MCH 31.7 (25.0-34.0) pg MCHC 33.9 (32.0-36.0) g/dL RDW Std Deviation 46.2 (36.4-46.3) fL RDW Coeff of Rinku 13.5 (11.5-14.5) % Plt Count 280 (130-400) K/uL MPV 11.1 (9.4-12.4) fL Immature Gran % (Auto) 2.0 % Neut % (Auto) 87.6 % Lymph % (Auto) 3.0 % Gates % (Auto) 5.9 % Eos % (Auto) 1.2 % Baso % (Auto) 0.3 % Neut # (Auto) 15.63 H (1.40-6.50) K/uL Lymph # (Auto) 0.54 L (1.2-3.4) K/uL [place] # (Auto) 1.06 H (0.11-0.59) K/uL Eos # (Auto) 0.21 (0-0.50) K/uL Baso # (Auto) 0.06 (0-0.2) K/uL Immature Gran # (Auto) 0.36 H (0.01-0.20) K/uL PT (9.0-12.0) Seconds INR (0.9-1.1) VBG pH (7.36-7.41) VBG pCO2 (38-50) mmHg VBG pO2 mmHg VBG HCO3 mmol/L VBG O2 Saturation % VBG Base Excess mEq/L POC Sodium (135-144) mmol/L Sodium (136-145) mmol/L POC Potassium (3.3-5.0) mmol/L Potassium (3.5-5.1) mmol/L POC Chloride (101-112) mmol/L Chloride (98-107) mmol/L Carbon Dioxide (21-32) mmol/L POC Total CO2 (24-31) mmol/L Anion Gap (3-11) POC Anion Gap (16-25) mmol/L POC BUN (7-18) mg/dl BUN (6-23) mg/dl Creatinine (0.6-1.4) mg/dl POC Creatinine (0.6-1.3) mg/dl Est Cr Clr Drug Dosing ml/min Est GFR ( Amer) ml/min Est GFR (Non-Af Amer) ml/min BUN/Creatinine Ratio (10-20) Glucose (70-99(Fasting)) mg/dl POC Glucose (70-99) mg/dl POC Glucose (other) (70-99) mg/dl Lactate (0.4-2.0) mmol/L Calcium (8.6-10.3) mg/dl POC Ioniz Calcium Rodrigo (1.12-1.32) mmol/l Magnesium (1.7-2.4) mg/dl Total Bilirubin (0.2-1.0) mg/dl Direct Bilirubin (0-0.2) mg/dl AST (13-39) U/L ALT (7-52) U/L Alkaline Phosphatase (34-104) U/L Troponin I High Sens (0-20) pg/ml Total Protein (6.0-8.3) gm/dl Albumin (3.4-5.0) gm/dl Procalcitonin (0-0.5) ng/ml Urine Color Urine Appearance Urine pH Ur Specific [place] Urine Protein Urine Glucose (UA) Urine Ketones Urine Blood Urine Nitrite Urine Bilirubin Urine Urobilinogen Ur Leukocyte Esterase Urine WBC (Auto) Urine RBC (Auto) U Hyaline Cast (Auto) U Epithel Cells (Auto) Urine Bacteria (Auto) Urine RBC Urine WBC Ur Epithelial Cells Ur Renal Epithelial Cell Urine Crystals Calcium Oxalate Crystal Uric Acid Crystals Triple Phos Crystals Other Crystals Amorphous Sediment Urine Bacteria Hyaline Casts Granular Casts Waxy Casts RBC Casts WBC Casts Other Casts Urine Mucus Urine Other Urine Trichomonas Urine Yeast Urine Sperm Ur Oval Fat Bodies Nasal Screen MRSA (PCR) (Negative) SARS-CoV-2 (PCR) (Negative) Influenza Type A (PCR) (Neg) Influenza Type B (PCR) (Neg) RSV (RT-PCR) (Neg) Diagnostic Findings Exam(s): CT ABDOMEN + PELVIS Without Contrast EXAM: CT Abdomen and Pelvis Without Intravenous Contrast CLINICAL HISTORY: Reason for exam: eval for appy; right sided stone???; hypotensivie. TECHNIQUE: Axial computed tomography images of the abdomen and pelvis without intravenous contrast. Automated exposure control was utilized for the study. A dose lowering technique was utilized adhering to the principles of ALARA. COMPARISON: No relevant prior studies available. FINDINGS: Limitations: Limited evaluation in the absence of contrast. Lung bases: Dependent scarring at the lung bases with bronchiectasis. Findings likely relate to infection/aspiration changes. ABDOMEN: Liver: Unremarkable. Gallbladder and bile ducts: Unremarkable. No calcified stones. No ductal dilation. Pancreas: Unremarkable. No ductal dilation. Spleen: Unremarkable. No splenomegaly. Adrenals: Unremarkable. No mass. Kidneys and ureters: No evidence of radiopaque renal calculi or signs of collecting system dilatation. Nonobstructive renal calculi bilaterally, the largest within the interpolar right kidney measuring up to 9 mm. Stomach and bowel: Unremarkable. No obstruction. No mucosal thickening. PELVIS: Appendix: Acute appendicitis with a dilated and inflamed appendix measuring up to 1.8 cm in diameter. This issue with this is extensive adjacent inflammatory change. Consider repeat imaging with contrast. Subtle perforation or abscess is not excluded. Bladder: Diffuse bladder wall thickening with adjacent stranding. Findings may relate to cystitis. Consider correlation with laboratory values. Gutierrez within the bladder. No stones. Reproductive: Unremarkable as visualized. ABDOMEN and PELVIS: Intraperitoneal space: Unremarkable. No free air. No significant fluid collection. Bones/joints: Degenerative changes in the spine. No acute fracture. No dislocation. Soft tissues: Umbilical hernia containing fat. Vasculature: Unremarkable. No abdominal aortic aneurysm. Lymph nodes: Unremarkable. No enlarged lymph nodes. IMPRESSION: 1. Limited evaluation in the absence of contrast. 2. Acute appendicitis with a dilated and inflamed appendix measuring up to 1.8 cm in diameter. This issue with this is extensive adjacent inflammatory change. Consider repeat imaging with contrast. Subtle perforation or abscess is not excluded. 3. No evidence of radiopaque renal calculi or signs of collecting system dilatation. 4. Nonobstructive renal calculi bilaterally, the largest within the interpolar right kidney measuring up to 9 mm. 5. Diffuse bladder wall thickening with adjacent stranding. Findings may relate to cystitis. Consider correlation with laboratory values.
[2023-01-18] MEDS ORDERED: DEXTROSE 50% 50 ML SYRINGE IV PRN (11:30)
[2023-01-18] MEDS ORDERED: GLUCAGON FOR INJ 1 MG VIAL IM PRN (11:30)
[2023-01-18] MEDS ORDERED: GLUCOSE 40% GEL 15 GM TUBE PO PRN (11:30)
[2023-01-18] MEDS ORDERED: CARBOHYDRATES FOR HYPOGLYCEMIA PO PRN (11:30)
[2023-01-18] MEDS ORDERED: GLUCOSE 10 TAB/TUBE PO PRN (11:30)
--- NOTE | 2023-01-18 11:31 | Nephrology Consultation ---
Date of Consultation January 18, 2023 Assessment & Plan (1) Acute renal failure: current creatinine 3.9 but unknown baseline so would assume this is acute renal failure. Most likely ATN in the setting of Sepsis caused by Acute Appendicitis with likely perforation.urine sediment very active with 3+ blood 3+ protein lots of epithelial cells and hyaline casts consistent with ATN.His blood pressure was very low at the time of admission which has since improved with the use of IV fluid. Lactic acid has also come down and he is starting to make urine. All of these are encouraging signs for renal recovery. However it is hard to tell as he is still in danger of decline. avoid nephrotoxic agents including contrast nephrotoxic antibiotics and significant hemodynamic instability. I do not have his baseline kidney function but according to the patient he has had kidney issues in the past mainly related with kidney stones most recently 4 years ago. even now on the CT scan he does have nonobstructive kidney stones. However kidney stones are not the cause of his acute renal failure. I am cautiously optimistic that he will have renal recovery and we will not have to do dialysis. this will be much more evident in the next 24 hour continue IV fluid. However I would recommend to cut down the IV fluid rate slightly. (2) Acute appendicitis: most likely perforated acute appendicitis with sepsis and hypotension. Reviewed surgery note about conservative management at this time mainly because of supratherapeutic INR and acute renal failure. patient is being monitored closely in the intensive care unit (3) Sepsis: his blood pressure has significantly improved and has increasing urine output which is very encouraging sign Plan case complexity high. 55 minutes were spent in total delivery of care History of Present Illness Reason for Consultation: AUGUSTA Attending Physician: Nataly Aleman MD History of Present Illness 72/M- with hypertension, peripheral artery disease history of femoral artery occlusion comes from retirement because of severe right lower quadrant abdominal pain for 3-4 days. Did not eat anything since last Wednesday. On and off fevers.Also had coffee ground emesis and 1 episode of diarrhea dark color. Denies any chest pain or shortness of breath. When he came in he was hypotensive with systolic blood pressure in 60s improved with iv fluids. His WBC 17. INR 5. Creatinine 4.5. Procalcitonin 79. Lactate 4.9 improved to 1.9. He says he is on Coumadin because of his clots in lower extremities. His INR was 5. Currently hemodynamically stable. Surgery was notified by ER and advised for ICU admission for now. As per surgery note---Given his AUGUSTA and supratherapeutic INR would recommend conservative management with IV Zosyn and close monitoring. Allergies Allergy/AdvReac Type Severity Reaction Status Date / Time codeine Allergy Unknown Unknown Verified 02/10/19 13:08 Home Medications Medication Instructions Recorded Confirmed Type aspirin 81 mg chewable tablet 81 mg PO QAM 08/20/18 02/03/19 History atorvastatin 80 mg tablet 80 mg PO HS 08/20/18 02/03/19 History lisinopril 10 1 tab PO QAM 08/20/18 02/03/19 History mg-hydrochlorothiazide 12.5 mg tablet acetaminophen 500 mg tablet 1,000 mg PO TID 12/25/18 02/03/19 History (Tylenol Extra Strength) sodium chloride 0.65 % nasal spray 2 spray intranasal QID PRN Dry 12/25/18 02/03/19 History aerosol (Deep Sea Nasal) Nasal Passages docusate sodium 250 mg capsule 250 mg PO BID 01/19/19 02/03/19 History ferrous sulfate 325 mg (65 mg 325 mg PO BIDM #60 tabs 02/15/19 Rx iron) tablet,delayed release ibuprofen 600 mg tablet 600 mg PO Q6H PRN Pain #30 tabs 02/15/19 Rx Patient History Medical History Bacteremia with infected graft COPD (chronic obstructive pulmonary disease) CVA (cerebral vascular accident) Hematoma right leg x2 Hernia HLD (hyperlipidemia) HTN (hypertension) PVD (peripheral vascular disease) Smoker Surgical History H/O vasectomy History of femoropopliteal bypass Rt History of incision and drainage 02/06/2019 History of surgery History of vascular surgery R SFA stent, Right leg thrombectomy, fem-pop. 08/2018. GETA with a-line. Right leg open thrombectomy 12/22/2018 [facility] Removal infected graft then fem distal bypass with saphenous vein graft Family History Other Family history non-contributory Social History Smoking Status: Never smoker Cigarettes Per Day: 12/12/2018; Second Hand Exposure: No; Do You Dip or Chew Tobacco: No; Hx Alcohol Use: No Hx Substance Use: No Preferred Language: Hungarian Communication Ability: Unable Assembler Faucets Required: No Beliefs That Will Affect Care: None Current Living Situation: Other Current Living Situation Comment: resides at [facility] Feels Safe at Home: Yes Safety Concerns: Feels Safe At This Time Assistive Devices: None Results & Data Vital Signs (Past 12 Hours) Vital Signs Temp Pulse Pulse Resp BP BP Pulse Ox 01/18/23 10:15 107 H 16 95 01/18/23 10:15 95/59 L 01/18/23 10:00 104 H 17 92 01/18/23 10:00 94/60 L 01/18/23 09:45 114 H 33 H 95 01/18/23 09:45 106/74 01/18/23 09:30 116 H 24 96 01/18/23 09:30 92/72 L 01/18/23 09:28 116/65 01/18/23 09:00 104/68 01/18/23 08:45 104 H 4 L 91 01/18/23 08:45 93/62 L 01/18/23 08:30 110 H 12 91 01/18/23 08:30 109/76 01/18/23 08:15 110 H 21 93 01/18/23 08:15 147/89 H 01/18/23 08:06 137/97 01/18/23 08:00 01/18/23 08:00 01/18/23 07:57 113 H 01/18/23 07:50 36.6 C 107 H 18 94/54 L 94 01/18/23 07:33 106 H 20 138/96 95 01/18/23 06:45 116 H 17 119/81 95 01/18/23 06:30 109 H 19 104/69 93 01/18/23 06:15 112 H 27 H 107/76 96 01/18/23 06:00 108 H 21 128/91 100 01/18/23 05:45 105 H 24 104/71 94 01/18/23 05:30 111 H 22 109/74 94 01/18/23 05:15 113 H 19 94/66 L 97 01/18/23 04:31 111 H 01/18/23 05:03 111 H 21 95 01/18/23 05:03 104/68 01/18/23 04:45 121 H 20 103/61 96 01/18/23 04:37 95 H 21 66/50 L 89 L 01/18/23 05:06 106 H 96 01/18/23 04:14 36.5 C 135 H 18 74/53 L 92 O2 Del Method O2 Flow Rate 01/18/23 10:15 01/18/23 10:15 01/18/23 10:00 01/18/23 10:00 01/18/23 09:45 01/18/23 09:45 01/18/23 09:30 01/18/23 09:30 01/18/23 09:28 01/18/23 09:00 01/18/23 08:45 01/18/23 08:45 01/18/23 08:30 01/18/23 08:30 01/18/23 08:15 01/18/23 08:15 01/18/23 08:06 01/18/23 08:00 Room Air 01/18/23 08:00 Room Air 01/18/23 07:57 01/18/23 07:50 Room Air 01/18/23 07:33 Nasal Cannula 3 01/18/23 06:45 Nasal Cannula 3 01/18/23 06:30 Nasal Cannula 3 01/18/23 06:15 Nasal Cannula 3 01/18/23 06:00 Nasal Cannula 3 01/18/23 05:45 Nasal Cannula 3 01/18/23 05:30 Nasal Cannula 3 01/18/23 05:15 Nasal Cannula 3 01/18/23 04:31 01/18/23 05:03 Nasal Cannula 3 01/18/23 05:03 01/18/23 04:45 Nasal Cannula 3 01/18/23 04:37 Room Air 01/18/23 05:06 Nasal Cannula 3 01/18/23 04:14 Room Air Laboratory Results all the blood and urine test done since admission reviewed. In summary unknown baseline creatinine current creatinine 3.9 BUN 34 admission lactic acid 4.9 repeat 1.9. urine sediment very active with 3+ blood 3+ protein lots of epithelial cells and hyaline casts consistent with ATN. Diagnostic Findings CT scan reviewed--- Findings of acute appendicitis + Nonobstructive renal calculi bilaterally, the largest within the interpolar right kidney measuring up to 9 mm.
--- NOTE | 2023-01-18 11:42 | Communication Note ---
Date of Service: January 18, 2023 Patient seen and examined Presented with RLQ pain, fever, chills, nausea, vomiting NOted to be hypotensive in ER with AUGUSTA, supratherapeutic INR, leukocytosis of 17k, lactate of 4.9 and procal of 79 Exam notable for RLQ tenderness, Rt AKA CT abd without contrast noted acute appendicitis with extensive adjacent inflammation, nonobstructive renal calculi bilaterally Continue IVF. Monitor renal function. Keep NPO Continue IV zosyn Surgery on board Nephro consulted Continue ICU care RN to get med list from correctional facility Monitor INR Pain control Follow up infectious workup Other plans as detailed in H/P this AM
--- NOTE | 2023-01-18 11:42 | Communication Note ---
Date of Service: January 18, 2023
[2023-01-18] MEDS: INSULIN ASPART PER UNIT CHARGE SC SCH ×3 (12:30→20:03)
[2023-01-18] MEDS: PIPERACILLIN/TAZOBACTAM 4.5 GM in DEXTROSE 5% 100 ML IV SCH (14:43)
--- NOTE | 2023-01-18 19:31 | Electrocardiogram Report ---
Test Reason : Blood Pressure : / mmHG Vent. Rate : 126 BPM Atrial Rate : 126 BPM P-R Int : 162 ms QRS Dur : 068 ms QT Int : 306 ms P-R-T Axes : 059 045 072 degrees QTc Int : 443 ms Sinus tachycardia Nonspecific ST abnormality Abnormal ECG When compared with ECG of 08-FEB-2019 11:39, Non-specific change in ST segment in Inferior leads Confirmed by Keenan Crisostomo ([id number]) on 01/18/2023 7:30:42 PM Referred By: [facility] Confirmed By:Jarek Crisostomo
[2023-01-18] MEDS ORDERED: ONDANSETRON INJ 2 MG/ML 2 ML VIAL IV PRN (20:24)
[2023-01-19] MEDS: SODIUM CHLORIDE 0.9% 1000ML 1,000 ML IV SCH ×2 (01:17→06:31)
[2023-01-19] MEDS: PIPERACILLIN/TAZOBACTAM 4.5 GM in DEXTROSE 5% 100 ML IV SCH ×3 (01:17→20:14)
[2023-01-19 04:54] LABS: Albumin Level 2.9 gm/dl (3.4-5.0); BUN Creatinine Ratio 16.3 (10-20); Bilirubin Direct 0.2 mg/dl (0-0.2); Bilirubin,Total 0.5 mg/dl (0.2-1.0); Calcium 7.4 mg/dl (8.6-10.3); Creatinine Clr Calc Pharmacy 32.9 ml/min; Est GFR (African American) 31.4 ml/min; Est GFR (Non-African American) 27.1 ml/min; Phosphorus 1.8 mg/dl (2.5-4.9); Potassium 4.4 mmol/L (3.5-5.1); Total Protein 5.3 gm/dl (6.0-8.3)
[2023-01-19 05:09] LABS: Prothrombin Time 62.6 Seconds (9.0-12.0)
[2023-01-19 05:55] LABS: INR 6.4 (0.9-1.1)
[2023-01-19 06:11] LABS: Basophils # (auto) 0.03 K/uL (0-0.2); Basophils % (auto) 0.3 %; Eosinophils # (auto) 0.01 K/uL (0-0.50); Eosinophils % (auto) 0.1 %; Hematocrit (blood only) 34.8 % (42.0-52.0); Hemoglobin 11.9 g/dl (14.0-18.0); Immature Granulocytes # (auto) 0.07 K/uL (0.01-0.20); Immature Granulocytes % (auto) 0.7 %; Lymphocytes # (auto) 0.49 K/uL (1.2-3.4); Lymphocytes % (auto) 4.7 %; Mean Corpuscular Hemoglobin 31.6 pg (25.0-34.0); Mean Corpuscular Hgb Conc 34.2 g/dL (32.0-36.0); Mean Corpuscular Volume 92.6 fL (80.0-100.0); Mean Platelet Volume 10.8 fL (9.4-12.4); Monocytes # (auto) 0.81 K/uL (0.11-0.59); Monocytes % (auto) 7.7 %; Neutrophils % (auto) 86.5 %; Platelet Count 204 K/uL (130-400); RDW Coefficient of Variation 13.8 % (11.5-14.5); RDW Standard Deviation 46.9 fL (36.4-46.3); Red Blood Count 3.76 M/uL (4.70-6.10); White Blood Count 10.51 K/ul (4.8-10.8)
--- NOTE | 2023-01-19 07:24 | Critical Care Progress Note ---
Date of Service January 19, 2023 Assessment & Plan (1) Septic shock: Plan: Reason critically ill: Patient is a 72 yo here with a PMH significant for HTN, HLD, significant peripheral vascular disease s/p femoral-tibial bypass requiring subsequent AKA who presented with N/V and right sided abdominal pain x3 days who was subsequently admitted to the ICU for septic shock secondary to acute appendicitis with possible abscess formation. Neuro: Hx of CVA - No acute needs - CAM ICU: negative Cardiac: Septic shock w/ organ dysfunction, hx of HTN, HLD, and PVD - s/p aggressive fluid resuscitation (~4.5L) with LR running at 80 mL/hr; no vasopressor needs - lactate downtrended after fluid resuscitation - goal MAP >65 - continue to hold home meds (lisinopril/HCTZ, atorvastatin) Respiratory: Hx of tobacco use, ?COPD - no previous PFTs, no home medications - no acute concerns GI: Acute appendicitis, ?bleeding peptic ulcer - surg consulted; keep NPO, conservative management with zosyn - d/t episodes of melena and coffee ground emesis and ibuprofen use, pt may lexus efit from outpatient endoscopy Renal/electrolytes: AUGUSTA in the setting of septic shock - baseline Cr ~1.0-1.2; Cr 4.53 upon admission - Cr downtrending with fluid resuscitation and pt making adequate urine (2.5L out since admission, ~1.16 mL/kg/hr) - nephro consulted - will continue IVF with LR at 80 mL/hr - replace electrolytes as needed : Nonobstructive bilateral renal calculi - noncontributory to current situation Endo: No chronic concerns - Follow ICU hyperglycemic protocols Heme: Supratherapeutic INR, leukocytosis - 5.0 upon admission, increased to 6.4 today despite no further warfarin given; ordered 5 mg IV vit K with INR recheck this afternoon - Hgb dropped from 15.8 to 11.9- expect dilutional effect from aggressive fluid resuscitation; however, pt has had episodes of bloody BM/vomiting prior to admission; recheck Hgb/Hct this afternoon - continue to monitor Hgb, INR daily ID: No acute concerns - Blood cx neg - urine cx pending - Antibiotics for appendicitis as above Integumentary: No acute concerns Lines/IV access: - PIVs intact DVT ppx: - unnecessary as INR is supratherapeutic - SCDs ordered Patient is stable for downgrade from ICU. Please refer to Dr. Boyle's documentation for any further recommendations. (2) Acute appendicitis: (3) Acute renal failure: (4) Supratherapeutic INR: (5) Peripheral arterial disease: (6) Hyperlipidemia: (7) Hypertension: (8) Metabolic acidosis: Admission and Anticipated Discharge Date Admission Date: January 18, 2023 Supervising Physician Co-Signing Physician Notes Patient seen and examined. EMR reviewed. Discussed on multidisciplinary rounds and with bedside critical care nurse. Discussed with family practice resident and agree with assessment plan as noted. The patient continues to demonstrate peritoneal signs but his markers appear to be improving. Continue antimicrobial therapy. He has been started on ice chips by the general surgery service. He will require surgical intervention at some point. Continue antimicrobial therapy and follow kidney function. After discussion with the anticoagulation clinic, have elected to give vitamin K and repeat INR in the a.m.. His hemoglobin did drop a little bit but this may have been somewhat delusional. He had some melanotic stools but no overt bleeding. Would continue to follow serial hemoglobin and hematocrit with INR normalized. Can discuss reinitiation of anticoagulation once his acute abdominal issues are resolved. The patient is stable to transfer out of the intensive care unit. Critical care will sign off. Feel free to contact us with questions or concerns Subjective Pt explains his pain is slightly better today. It has moved more from the right side of his abdomen to around his umbilicus. He explains that he takes ibuprofen frequently because of headaches and leg pains. He states 50 (200 mg) pills will last him ~ a month. Sometimes when the pain is bad he will take 600 mg on top of a previous 400 mg. He had one small BM that was dark/soft yesterday morning. Otherwise, he denies chest pain, SOB, fevers, chills. Review of Systems Review of Systems: As per HPI Physical Exam Physical Exam: Constitutional: well appearing, pale, no acute distress HEENT: normocephalic, no conjunctival injection CV: regular rhythm, tachycardic, no murmur Respiratory: Clear to auscultation bilaterally. No rhonchi, wheezes, or crackles. No increased work of breathing GI: soft, nondistended, positive bowel sounds, tender to palpation of RUQ, RLQ, and umbilical area. MSK: right AKA noted Neuro: alert, oriented, no FND noted Results & Data Results & Data Vital Signs (Past 12 Hours) Vital Signs Temp Pulse Resp BP Pulse Ox O2 Del Method O2 Del Method 01/19/23 05:00 Room Air 01/19/23 01:00 90 19 103/62 92 01/19/23 00:00 89 18 94/66 L 93 01/19/23 00:00 87 01/18/23 23:00 93 H 18 111/64 93 01/18/23 23:38 36.9 C 01/18/23 22:00 97 H 18 96/66 L 92 01/18/23 21:01 99 H 22 91/60 L 94 01/18/23 21:00 106 H 18 92 01/18/23 20:00 102 H 23 127/81 95 01/18/23 20:54 36.8 C 01/18/23 19:37 Room Air Resident Activity Tracking Resident Involvement: Resident Care Provided Care Provided: Adult Hospital Medicine (ICU)
[2023-01-19] MEDS ORDERED: Nursing to Pharmacy Communication SCH (07:45)
[2023-01-19] MEDS: INSULIN ASPART PER UNIT CHARGE SC SCH ×4 (08:05→18:11)
[2023-01-19] MEDS: ICU Protocol for HYPERglycemia SCH ×4 (08:05→21:21)
[2023-01-19] MEDS: LACTATED RINGER'S 1,000 ML IV SCH ×2 (09:04→22:25)
[2023-01-19] MEDS ORDERED: PHYTONADIONE 5 MG in DEXTROSE 5% 50 ML IV ONE (09:30)
[2023-01-19] MEDS ORDERED: traMADol HCL 50 MG TABLET PO ONE (09:37)
--- NOTE | 2023-01-19 09:53 | Nephrology Progress Note ---
Date of Service January 19, 2023 Assessment & Plan Admission and Anticipated Discharge Date Admission Date: January 18, 2023 Subjective Assessment & Plan (1) Acute renal failure: current creatinine 3.9 but unknown baseline so would assume this is acute renal failure. Most likely ATN in the setting of Sepsis caused by Acute Appendicitis with likely perforation.urine sediment very active with 3+ blood 3+ protein lots of epithelial cells and hyaline casts consistent with ATN.His blood pressure was very low at the time of admission which has since improved with the use of IV fluid. Lactic acid has also come down and he is starting to make urine. All of these are encouraging signs for renal recovery. However it is hard to tell as he is still in danger of decline. avoid nephrotoxic agents including contrast nephrotoxic antibiotics and significant hemodynamic instability. I do not have his baseline kidney function but according to the patient he has had kidney issues in the past mainly related with kidney stones most recently 4 years ago. even now on the CT scan he does have nonobstructive kidney stones. However kidney stones are not the cause of his acute renal failure. Overnight Very prompt renal recovery--urine good ,vital signs good and labs better. we will not have to do dialysis. continue IV fluid.Still NPO S---Overall better. Lot of urine 2500 ml. Labs better. BP is also better. Exam: Awake and alert. NO distress. Chest b/l clear. CVS--RRR. No edema. Abd--soft some tenderness. Skin--no rash neuro--able to give detailed history. Normal speech Results & Data Vital Signs (Past 12 Hours) Vital Signs Temp Pulse Resp BP Pulse Ox O2 Del Method O2 Del Method 01/19/23 08:00 Room Air 01/19/23 08:00 90 23 94 01/19/23 08:00 134/72 01/19/23 08:00 37.3 C 01/19/23 06:00 97 H 22 112/65 92 01/19/23 05:00 98 H 20 124/71 93 01/19/23 04:00 100 H 21 119/72 92 01/19/23 03:00 96 H 19 114/67 92 01/19/23 02:00 103 H 19 103/65 95 01/19/23 05:00 Room Air 01/19/23 01:00 90 19 103/62 92 01/19/23 00:00 89 18 94/66 L 93 01/19/23 00:00 87 01/18/23 23:00 93 H 18 111/64 93 01/18/23 23:38 36.9 C 01/18/23 22:00 97 H 18 96/66 L 92
[2023-01-19] MEDS: PANTOprazole 40 MG in SYRINGE 0 ML IV SCH (10:04)
--- NOTE | 2023-01-19 11:50 | Surgery Progress Note ---
Date of Service January 19, 2023 Assessment & Plan (1) Acute appendicitis: (2) Supratherapeutic INR: (3) Sepsis: Plan 72 year-old male who presented to ED from group home due to increasing RLQ abdominal pain, fevers and chills, and nausea and vomiting. Found to be severely hypotensive in ED with systolic BP in 60's, AUGUSTA with creatinine of 4, Supratherapeutic INR of 5, and elevated leukocytosis of 17k and procalcitonin. Lactic acid 4.9 --> 1.9 after aggressive fluid resuscitation. Currently hemodynamically stable and not requiring pressors. CT scan with appendicitis and significant surrounding inflammation. 01/19/2023: afebrile, vss leukocytosis resolved Hgb down to 11.9 from 15.8 but likely dilutional from aggressive fluids Creatinine down to 2.33, adequate urine output INR increased to 6.4 Plan: Continue conservative management for acute appendicitis with phlegmon changes with IV Zosyn, pain management as needed, IV fluids, antiemetics as needed Okay for ice chips sips of water/melinda swapnil Gutierrez per medicine team Encourage OOB to chair and ambulate repeat am labs will continue to follow Discussed with Dr. Mukherjee who agrees with above. Admission and Anticipated Discharge Date Admission Date: January 18, 2023 Subjective had more pain this morning than last evening but has not been moving much and slept well, pain controlled with medication no n,v +diarrhea, not much flatus though no fevers or chills Physical Exam Constitutional: WD/WN, vitals as above cooperative and comfortable; no acute distress and not ill appearing Respiratory: normal respiratory effort; no respiratory distress Gastrointestinal (Abdomen): Inspection/Auscultation: abdomen normal to inspection and + hypoactive bowel sounds; abdomen not distended and + abnormal bowel sounds Percussion/Palpation: + abdomen tender (RLQ), + guarding (voluntary RLQ) and abdomen soft; abdomen not rigid and abdomen not firm Musculoskeletal: Right AKA Skin: no rashes, warm and dry Psychiatric: Orientation: alert and oriented x 3 Results & Data Vital Signs (Past 12 Hours) Vital Signs Temp Pulse Resp BP Pulse Ox O2 Del Method O2 Del Method 01/19/23 08:00 Room Air 01/19/23 08:00 90 23 94 01/19/23 08:00 134/72 01/19/23 08:00 37.3 C 01/19/23 06:00 97 H 22 112/65 92 01/19/23 05:00 98 H 20 124/71 93 01/19/23 04:00 100 H 21 119/72 92 01/19/23 03:00 96 H 19 114/67 92 01/19/23 02:00 103 H 19 103/65 95 01/19/23 05:00 Room Air 01/19/23 01:00 90 19 103/62 92 01/19/23 00:00 89 18 94/66 L 93 01/19/23 00:00 87 Laboratory Results 01/19/23 01/19/23 01/19/23 Range/Units 07:20 04:14 04:14 WBC (4.8-10.8) K/ul RBC (4.70-6.10) M/uL Hgb (14.0-18.0) g/dl Hct (42.0-52.0) % MCV (80.0-100.0) fL MCH (25.0-34.0) pg MCHC (32.0-36.0) g/dL RDW Std Deviation (36.4-46.3) fL RDW Coeff of Rinku (11.5-14.5) % Plt Count (130-400) K/uL MPV (9.4-12.4) fL Immature Gran % (Auto) % Neut % (Auto) % Lymph % (Auto) % Yancey % (Auto) % Eos % (Auto) % Baso % (Auto) % Neut # (Auto) (1.40-6.50) K/uL Lymph # (Auto) (1.2-3.4) K/uL Yancey # (Auto) (0.11-0.59) K/uL Eos # (Auto) (0-0.50) K/uL Baso # (Auto) (0-0.2) K/uL Immature Gran # (Auto) (0.01-0.20) K/uL PT 62.6 H (9.0-12.0) Seconds INR 6.4 H* (0.9-1.1) Sodium 136 (136-145) mmol/L Potassium 4.4 (3.5-5.1) mmol/L Chloride 110 H (98-107) mmol/L Carbon Dioxide 20 L (21-32) mmol/L Anion Gap 6 (3-11) BUN 38 H (6-23) mg/dl Creatinine 2.33 H D (0.6-1.4) mg/dl Est Cr Clr Drug Dosing 32.9 ml/min Est GFR ( Amer) 31.4 ml/min Est GFR (Non-Af Amer) 27.1 ml/min BUN/Creatinine Ratio 16.3 (10-20) Glucose 136 H (70-99(Fasting)) mg/dl POC Glucose 110 H (70-99) mg/dl Calcium 7.4 L (8.6-10.3) mg/dl Phosphorus 1.8 L (2.5-4.9) mg/dl Magnesium 2.0 (1.7-2.4) mg/dl Total Bilirubin 0.5 (0.2-1.0) mg/dl Direct Bilirubin 0.2 (0-0.2) mg/dl AST 13 (13-39) U/L ALT 15 (7-52) U/L Alkaline Phosphatase 59 (34-104) U/L Total Protein 5.3 L D (6.0-8.3) gm/dl Albumin 2.9 L (3.4-5.0) gm/dl 01/19/23 01/19/23 01/18/23 Range/Units 04:14 03:17 19:59 WBC 10.51 (4.8-10.8) K/ul RBC 3.76 L (4.70-6.10) M/uL Hgb 11.9 L D (14.0-18.0) g/dl Hct 34.8 L (42.0-52.0) % MCV 92.6 (80.0-100.0) fL MCH 31.6 (25.0-34.0) pg MCHC 34.2 (32.0-36.0) g/dL RDW Std Deviation 46.9 H (36.4-46.3) fL RDW Coeff of Rinku 13.8 (11.5-14.5) % Plt Count 204 (130-400) K/uL MPV 10.8 (9.4-12.4) fL Immature Gran % (Auto) 0.7 % Neut % (Auto) 86.5 % Lymph % (Auto) 4.7 % Yancey % (Auto) 7.7 % Eos % (Auto) 0.1 % Baso % (Auto) 0.3 % Neut # (Auto) 9.10 H (1.40-6.50) K/uL Lymph # (Auto) 0.49 L (1.2-3.4) K/uL Yancey # (Auto) 0.81 H (0.11-0.59) K/uL Eos # (Auto) 0.01 (0-0.50) K/uL Baso # (Auto) 0.03 (0-0.2) K/uL Immature Gran # (Auto) 0.07 (0.01-0.20) K/uL PT (9.0-12.0) Seconds INR (0.9-1.1) Sodium (136-145) mmol/L Potassium (3.5-5.1) mmol/L Chloride (98-107) mmol/L Carbon Dioxide (21-32) mmol/L Anion Gap (3-11) BUN (6-23) mg/dl Creatinine (0.6-1.4) mg/dl Est Cr Clr Drug Dosing ml/min Est GFR ( Amer) ml/min Est GFR (Non-Af Amer) ml/min BUN/Creatinine Ratio (10-20) Glucose (70-99(Fasting)) mg/dl POC Glucose 134 H 119 H (70-99) mg/dl Calcium (8.6-10.3) mg/dl Phosphorus (2.5-4.9) mg/dl Magnesium (1.7-2.4) mg/dl Total Bilirubin (0.2-1.0) mg/dl Direct Bilirubin (0-0.2) mg/dl AST (13-39) U/L ALT (7-52) U/L Alkaline Phosphatase (34-104) U/L Total Protein (6.0-8.3) gm/dl Albumin (3.4-5.0) gm/dl 01/18/23 01/18/23 Range/Units 16:47 12:01 WBC (4.8-10.8) K/ul RBC (4.70-6.10) M/uL Hgb (14.0-18.0) g/dl Hct (42.0-52.0) % MCV (80.0-100.0) fL MCH (25.0-34.0) pg MCHC (32.0-36.0) g/dL RDW Std Deviation (36.4-46.3) fL RDW Coeff of Rinku (11.5-14.5) % Plt Count (130-400) K/uL MPV (9.4-12.4) fL Immature Gran % (Auto) % Neut % (Auto) % Lymph % (Auto) % Yancey % (Auto) % Eos % (Auto) % Baso % (Auto) % Neut # (Auto) (1.40-6.50) K/uL Lymph # (Auto) (1.2-3.4) K/uL Yancey # (Auto) (0.11-0.59) K/uL Eos # (Auto) (0-0.50) K/uL Baso # (Auto) (0-0.2) K/uL Immature Gran # (Auto) (0.01-0.20) K/uL PT (9.0-12.0) Seconds INR (0.9-1.1) Sodium (136-145) mmol/L Potassium (3.5-5.1) mmol/L Chloride (98-107) mmol/L Carbon Dioxide (21-32) mmol/L Anion Gap (3-11) BUN (6-23) mg/dl Creatinine (0.6-1.4) mg/dl Est Cr Clr Drug Dosing ml/min Est GFR ( Amer) ml/min Est GFR (Non-Af Amer) ml/min BUN/Creatinine Ratio (10-20) Glucose (70-99(Fasting)) mg/dl POC Glucose 123 H 135 H (70-99) mg/dl Calcium (8.6-10.3) mg/dl Phosphorus (2.5-4.9) mg/dl Magnesium (1.7-2.4) mg/dl Total Bilirubin (0.2-1.0) mg/dl Direct Bilirubin (0-0.2) mg/dl AST (13-39) U/L ALT (7-52) U/L Alkaline Phosphatase (34-104) U/L Total Protein (6.0-8.3) gm/dl Albumin (3.4-5.0) gm/dl
--- NOTE | 2023-01-19 13:26 | Hospitalist Progress Note ---
Date of Service January 19, 2023 Assessment & Plan (1) Acute appendicitis: Plan: 72-year-old male past medical significant for hypertension, peripheral artery disease history of femoral artery occlusion, hyperlipidemia, history of epistaxis comes from residential because of severe right lower quadrant abdominal pain since last Wednesday and found to have septic shock from acute acute appendicitis, and [place] Presented with RLQ pain, fever, chills, nausea, vomiting Noted to be hypotensive in ER with [place], supratherapeutic INR, leukocytosis of 17k, lactate of 4.9 and procal of 79 Exam notable for RLQ tenderness, Rt AKA CT abd without contrast noted acute appendicitis with extensive adjacent inflammation, nonobstructive renal calculi bilaterally Septic shock Acute appendicitis Presented with hypotension systolic blood pressure 60s improved with aggressive IV fluids Lactate was 4.9 improved to 1.9. Tachycardia resolved Continue IV Zosyn Surgery evaluation noted Hypotension resolved. Did not require pressors Continue pain management Continue NPO [place] Metabolic acidosis Presented with creatinine 4.5 Cr improving, down to 2.33 today Nephrology eval noted Good urine output Continue to monitor Elevated INR Patient on warfarin for PVD INR 5 on presentation INR is 6.4 today Got Vit K Monitor INR Hypomagnesia Mg was 1.5 on admission. Repleted. 2 today. Monitor Hypophosphatemia today at 1.8. Replete and monitor Hypertension Continue to hold home antihypertensives for now Hyperlipidemia Will start statin when able to take p.o. Peripheral vascular disease S/p right below knee amputation Start aspirin and statin when able to take p.o. Will need to resume home warfarin at some point DVT prophylaxis SCDs for now. INR supratherapeutic today Disposition: Downgrade to [email or web address] Full code I spent a total of 50 minutes coordinating, documenting and providing care for this patient excluding time spent in performance of separately billed services (2) Acute renal failure: Admission and Anticipated Discharge Date Admission Date: January 18, 2023 Subjective Patient seen and examined Hypotension has resolved Reports RLQ pain is better controlled Denied any nausea, vomiting today Reports small dark bowel movement earlier today Reports dry chronic cough, mild, unchanged Denied fevers. chills Physical Exam Constitutional: + well hydrated; no acute distress Eyes: PERRL, conjunctivae normal, anicteric sclerae ENMT: external ear and nose normal, oropharynx normal Respiratory: normal respiratory effort, lungs clear to auscultation Cardiovascular: Rate/Rhythm: regular rate and regular rhythm S1 S2 Gastrointestinal (Abdomen): Soft, RLQ tenderness, no guarding, +bowel sounds Musculoskeletal: Right AKA No pedal edema Neurologic: PERRL, EOMI, accommodation nl, no face palsy, no dysarthria Psychiatric: A+Ox3, euthymic affect Genitourinary: Gutierrez in situ with clear urine Results & Data Results & Data Vital Signs (Past 12 Hours) Vital Signs Temp Pulse Resp BP Pulse Ox O2 Del Method O2 Del Method 01/19/23 12:00 86 22 93 01/19/23 12:00 126/81 01/19/23 11:00 98 H 21 94 01/19/23 11:00 120/74 01/19/23 10:00 102 H 17 95 01/19/23 10:00 107/70 01/19/23 09:00 91 H 21 94 01/19/23 09:00 126/76 01/19/23 08:00 Room Air 01/19/23 08:00 90 23 94 01/19/23 08:00 134/72 01/19/23 08:00 37.3 C 01/19/23 06:00 97 H 22 112/65 92 01/19/23 05:00 98 H 20 124/71 93 01/19/23 04:00 100 H 21 119/72 92 01/19/23 03:00 96 H 19 114/67 92 01/19/23 02:00 103 H 19 103/65 95 01/19/23 05:00 Room Air Laboratory Results Abnormal lab results 01/18/23 01/18/23 01/19/23 Range/Units 16:47 19:59 03:17 RBC (4.70-6.10) M/uL Hgb (14.0-18.0) g/dl Hct (42.0-52.0) % RDW Std Deviation (36.4-46.3) fL Neut # (Auto) (1.40-6.50) K/uL Lymph # (Auto) (1.2-3.4) K/uL [place] # (Auto) (0.11-0.59) K/uL PT (9.0-12.0) Seconds INR (0.9-1.1) Chloride (98-107) mmol/L Carbon Dioxide (21-32) mmol/L BUN (6-23) mg/dl Creatinine (0.6-1.4) mg/dl Glucose (70-99(Fasting)) mg/dl POC Glucose 123 H 119 H 134 H (70-99) mg/dl Calcium (8.6-10.3) mg/dl Phosphorus (2.5-4.9) mg/dl Total Protein (6.0-8.3) gm/dl Albumin (3.4-5.0) gm/dl 01/19/23 01/19/23 01/19/23 Range/Units 04:14 04:14 04:14 RBC 3.76 L (4.70-6.10) M/uL Hgb 11.9 L D (14.0-18.0) g/dl Hct 34.8 L (42.0-52.0) % RDW Std Deviation 46.9 H (36.4-46.3) fL Neut # (Auto) 9.10 H (1.40-6.50) K/uL Lymph # (Auto) 0.49 L (1.2-3.4) K/uL [place] # (Auto) 0.81 H (0.11-0.59) K/uL PT 62.6 H (9.0-12.0) Seconds INR 6.4 H* (0.9-1.1) Chloride 110 H (98-107) mmol/L Carbon Dioxide 20 L (21-32) mmol/L BUN 38 H (6-23) mg/dl Creatinine 2.33 H D (0.6-1.4) mg/dl Glucose 136 H (70-99(Fasting)) mg/dl POC Glucose (70-99) mg/dl Calcium 7.4 L (8.6-10.3) mg/dl Phosphorus 1.8 L (2.5-4.9) mg/dl Total Protein 5.3 L D (6.0-8.3) gm/dl Albumin 2.9 L (3.4-5.0) gm/dl 01/19/23 01/19/23 Range/Units 07:20 11:53 RBC (4.70-6.10) M/uL Hgb (14.0-18.0) g/dl Hct (42.0-52.0) % RDW Std Deviation (36.4-46.3) fL Neut # (Auto) (1.40-6.50) K/uL Lymph # (Auto) (1.2-3.4) K/uL [place] # (Auto) (0.11-0.59) K/uL PT (9.0-12.0) Seconds INR (0.9-1.1) Chloride (98-107) mmol/L Carbon Dioxide (21-32) mmol/L BUN (6-23) mg/dl Creatinine (0.6-1.4) mg/dl Glucose (70-99(Fasting)) mg/dl POC Glucose 110 H 112 H (70-99) mg/dl Calcium (8.6-10.3) mg/dl Phosphorus (2.5-4.9) mg/dl Total Protein (6.0-8.3) gm/dl Albumin (3.4-5.0) gm/dl
[2023-01-19] MEDS ORDERED: SODIUM PHOSPHATE 3 MMOL/1 ML INFUSION IV STA (13:36)
[2023-01-19] MEDS ORDERED: SODIUM PHOSPHATE 21 MMOL in DEXTROSE 5% 500 ML IV ONE (13:45)
--- NOTE | 2023-01-19 15:39 | Billing Data ---
Date of Service January 19, 2023 Coding Level of Care Code 46255 SUB INP/OBS CARE MIN
[2023-01-19 16:03] LABS: Hematocrit (blood only) 36.2 % (42.0-52.0); Hemoglobin 12.3 g/dl (14.0-18.0)
[2023-01-19 16:39] LABS: INR 1.7 (0.9-1.1); Prothrombin Time 18.4 Seconds (9.0-12.0)
[2023-01-19 19:46] LABS: A calco-baum cmplx NotReported Not Detected (NotDetected); Bact fragilis Not Reported Not Detected (NotDetected); C auris Not Reported Not Detected (NotDetected); Calbicans Not Reported Not Detected (NotDetected); Candida glabrata Not Reported Not Detected (NotDetected); Candida krusei Not Reported Not Detected (NotDetected); Cneoformans/gatti Not Reported Not Detected (NotDetected); Cparapsilosis Not Reported Not Detected (NotDetected); Ctropicalis Not Reported Not Detected (NotDetected); E cloacae compx Not Reported Not Detected (NotDetected); Efaecalis Not Reported Not Detected (NotDetected); Efaecium Not Reported Not Detected (NotDetected); Enterobacterales Not Reported Not Detected (NotDetected); Escherichia coli Not Reported Not Detected (NotDetected); H influenzae Not Reported Not Detected (NotDetected); K aerogenes Not Reported Not Detected (NotDetected); Koxytoca Not Reported Not Detected (NotDetected); Kpneumoniae grp Not Reported Not Detected (NotDetected); Lmonocyt Not Reported Not Detected (NotDetected); N meningitidis Not Reported Not Detected (NotDetected); P aeruginosa Not Reported Not Detected (NotDetected); Proteus spp Not Reported Not Detected (NotDetected); Salmonella spp Not Reported Not Detected (NotDetected); Smarcescens Not Reported Not Detected (NotDetected); Staph lugdunensis Not Reported Not Detected (NotDetected); Staph spp. Not Reported Not Detected (NotDetected); Staphaureus Not Reported Not Detected (NotDetected); Staphepi Not Reported Not Detected (NotDetected); Stenmaltophilia Not Reported Not Detected (NotDetected); Strep agal(GrpB) Not Reported Not Detected (NotDetected); Strep pneum Not Reported Not Detected (NotDetected); Strep pyog (GrpA) Not Reported Not Detected (NotDetected); Strep spp Not Reported Not Detected (NotDetected)
[2023-01-20] MEDS: INSULIN ASPART PER UNIT CHARGE SC SCH ×5 (00:09→21:34)
[2023-01-20] MEDS: PIPERACILLIN/TAZOBACTAM 4.5 GM in DEXTROSE 5% 100 ML IV SCH ×3 (03:01→18:32)
[2023-01-20 07:54] LABS: Basophils # (auto) 0.02 K/uL (0-0.2); Basophils % (auto) 0.2 %; Eosinophils # (auto) 0.07 K/uL (0-0.50); Eosinophils % (auto) 0.7 %; Hematocrit (blood only) 36.8 % (42.0-52.0); Hemoglobin 12.8 g/dl (14.0-18.0); Immature Granulocytes # (auto) 0.04 K/uL (0.01-0.20); Immature Granulocytes % (auto) 0.4 %; Lymphocytes # (auto) 0.68 K/uL (1.2-3.4); Lymphocytes % (auto) 7.3 %; Mean Corpuscular Hemoglobin 31.7 pg (25.0-34.0); Mean Corpuscular Hgb Conc 34.8 g/dL (32.0-36.0); Mean Corpuscular Volume 91.1 fL (80.0-100.0); Mean Platelet Volume 10.6 fL (9.4-12.4); Monocytes % (auto) 9.6 %; Neutrophils # (auto) 7.65 K/uL (1.40-6.50); Neutrophils % (auto) 81.8 %; Platelet Count 226 K/uL (130-400); RDW Coefficient of Variation 13.6 % (11.5-14.5); RDW Standard Deviation 46.2 fL (36.4-46.3); Red Blood Count 4.04 M/uL (4.70-6.10); White Blood Count 9.36 K/ul (4.8-10.8)
[2023-01-20 08:21] LABS: INR 1.1 (0.9-1.1); Prothrombin Time 12.4 Seconds (9.0-12.0)
[2023-01-20 08:30] LABS: Albumin Level 2.9 gm/dl (3.4-5.0); Bilirubin Direct 0.3 mg/dl (0-0.2); Bilirubin,Total 1.2 mg/dl (0.2-1.0); Calcium 8.3 mg/dl (8.6-10.3); Creatinine Clr Calc Pharmacy 49.7 ml/min; Est GFR (African American) 51.8 ml/min; Est GFR (Non-African American) 44.7 ml/min; Magnesium 1.6 mg/dl (1.7-2.4); Phosphorus 1.7 mg/dl (2.5-4.9); Potassium 3.3 mmol/L (3.5-5.1); Total Protein 5.9 gm/dl (6.0-8.3)
[2023-01-20] MEDS ORDERED: POTASSIUM CHLORIDE CRTAB 20 MEQ TABCR PO STA (09:16)
[2023-01-20] MEDS: PANTOprazole 40 MG in SYRINGE 0 ML IV SCH (11:39)
--- NOTE | 2023-01-20 12:21 | Surgery Progress Note ---
Date of Service January 20, 2023 Assessment & Plan (1) Acute appendicitis: (2) Supratherapeutic INR: Plan: INR 1.1 today (3) Sepsis: Plan 72 year-old male who presented to ED from detention due to increasing RLQ abdominal pain, fevers and chills, and nausea and vomiting. Found to be severely hypotensive in ED with systolic BP in 60's, [place] with creatinine of 4, Supratherapeutic INR of 5, and elevated leukocytosis of 17k and procalcitonin. Lactic acid 4.9 --> 1.9 after aggressive fluid resuscitation. Currently hemodynamically stable and not requiring pressors. CT scan with appendicitis and significant surrounding inflammation. 01/20/2023 afebrile, vss leukocytosis resolved Hgb stable at 12.8 Creatinine continues to improve INR down to 1.1 1/2 blood cultures positive for gram negative bacilli Plan: Continue conservative management for acute appendicitis with phlegmon changes with IV Zosyn, pain management as needed, IV fluids, antiemetics as needed Okay for clear liquids Gutierrez per medicine team Encourage OOB to chair and ambulate repeat am labs will continue to follow Dr. Mukherjee has seen and examined pt , agrees with above. Admission and Anticipated Discharge Date Admission Date: January 18, 2023 Subjective feeling better today pain is less severe today in RLQ able to move a little more without pain no n,v diarrhea this morning, dark/black no fevers or chills Physical Exam Constitutional: WD/WN, vitals as above cooperative and comfortable; no acute distress and not ill appearing Respiratory: normal respiratory effort; no respiratory distress Gastrointestinal (Abdomen): Inspection/Auscultation: abdomen normal to inspection; abdomen not distended Percussion/Palpation: + abdomen tender (RLQ on deep palpation,improving), + guarding (voluntary RLQ, improving) and abdomen soft; abdomen not rigid and abdomen not firm Skin: no rashes, warm and dry Psychiatric: A+Ox3, euthymic affect Results & Data Vital Signs (Past 12 Hours) Vital Signs Temp Pulse Pulse Pulse Resp BP Pulse Ox 01/20/23 11:33 37.7 C H 91 H 16 153/87 H 93 01/20/23 10:02 81 01/20/23 07:23 36.6 C 82 16 139/79 93 01/20/23 05:00 01/20/23 04:10 37.5 C 79 20 128/77 93 O2 Del Method O2 Del Method 01/20/23 11:33 Room Air 01/20/23 10:02 01/20/23 07:23 Room Air 01/20/23 05:00 Room Air 01/20/23 04:10 Room Air Laboratory Results 01/20/23 01/20/23 01/20/23 Range/Units 11:59 07:26 07:26 WBC (4.8-10.8) K/ul RBC (4.70-6.10) M/uL Hgb (14.0-18.0) g/dl Hct (42.0-52.0) % MCV (80.0-100.0) fL MCH (25.0-34.0) pg MCHC (32.0-36.0) g/dL RDW Std Deviation (36.4-46.3) fL RDW Coeff of Rinku (11.5-14.5) % Plt Count (130-400) K/uL MPV (9.4-12.4) fL Immature Gran % (Auto) % Neut % (Auto) % Lymph % (Auto) % [place] % (Auto) % Eos % (Auto) % Baso % (Auto) % Neut # (Auto) (1.40-6.50) K/uL Lymph # (Auto) (1.2-3.4) K/uL [place] # (Auto) (0.11-0.59) K/uL Eos # (Auto) (0-0.50) K/uL Baso # (Auto) (0-0.2) K/uL Immature Gran # (Auto) (0.01-0.20) K/uL PT 12.4 H (9.0-12.0) Seconds INR 1.1 (0.9-1.1) Sodium 136 (136-145) mmol/L Potassium 3.3 L D (3.5-5.1) mmol/L Chloride 106 (98-107) mmol/L Carbon Dioxide 21 (21-32) mmol/L Anion Gap 9 (3-11) BUN 20 (6-23) mg/dl Creatinine 1.54 H D (0.6-1.4) mg/dl Est Cr Clr Drug Dosing 49.7 ml/min Est GFR ( Amer) 51.8 ml/min Est GFR (Non-Af Amer) 44.7 ml/min BUN/Creatinine Ratio 13.0 (10-20) Glucose 109 H (70-99(Fasting)) mg/dl POC Glucose 78 (70-99) mg/dl Calcium 8.3 L (8.6-10.3) mg/dl Phosphorus 1.7 L (2.5-4.9) mg/dl Magnesium 1.6 L (1.7-2.4) mg/dl Total Bilirubin 1.2 H D (0.2-1.0) mg/dl Direct Bilirubin 0.3 H (0-0.2) mg/dl AST 15 (13-39) U/L ALT 14 (7-52) U/L Alkaline Phosphatase 75 (34-104) U/L Total Protein 5.9 L (6.0-8.3) gm/dl Albumin 2.9 L (3.4-5.0) gm/dl Bld Cult ID Panel PCR (NotDetected) 01/20/23 01/20/23 01/20/23 Range/Units 07:26 06:21 00:03 WBC 9.36 (4.8-10.8) K/ul RBC 4.04 L (4.70-6.10) M/uL Hgb 12.8 L (14.0-18.0) g/dl Hct 36.8 L (42.0-52.0) % MCV 91.1 (80.0-100.0) fL MCH 31.7 (25.0-34.0) pg MCHC 34.8 (32.0-36.0) g/dL RDW Std Deviation 46.2 (36.4-46.3) fL RDW Coeff of Rinku 13.6 (11.5-14.5) % Plt Count 226 (130-400) K/uL MPV 10.6 (9.4-12.4) fL Immature Gran % (Auto) 0.4 % Neut % (Auto) 81.8 % Lymph % (Auto) 7.3 % [place] % (Auto) 9.6 % Eos % (Auto) 0.7 % Baso % (Auto) 0.2 % Neut # (Auto) 7.65 H (1.40-6.50) K/uL Lymph # (Auto) 0.68 L (1.2-3.4) K/uL [place] # (Auto) 0.90 H (0.11-0.59) K/uL Eos # (Auto) 0.07 (0-0.50) K/uL Baso # (Auto) 0.02 (0-0.2) K/uL Immature Gran # (Auto) 0.04 (0.01-0.20) K/uL PT (9.0-12.0) Seconds INR (0.9-1.1) Sodium (136-145) mmol/L Potassium (3.5-5.1) mmol/L Chloride (98-107) mmol/L Carbon Dioxide (21-32) mmol/L Anion Gap (3-11) BUN (6-23) mg/dl Creatinine (0.6-1.4) mg/dl Est Cr Clr Drug Dosing ml/min Est GFR ( Amer) ml/min Est GFR (Non-Af Amer) ml/min BUN/Creatinine Ratio (10-20) Glucose (70-99(Fasting)) mg/dl POC Glucose 98 126 H (70-99) mg/dl Calcium (8.6-10.3) mg/dl Phosphorus (2.5-4.9) mg/dl Magnesium (1.7-2.4) mg/dl Total Bilirubin (0.2-1.0) mg/dl Direct Bilirubin (0-0.2) mg/dl AST (13-39) U/L ALT (7-52) U/L Alkaline Phosphatase (34-104) U/L Total Protein (6.0-8.3) gm/dl Albumin (3.4-5.0) gm/dl Bld Cult ID Panel PCR (NotDetected) 01/19/23 01/19/23 01/19/23 Range/Units 17:58 15:42 15:42 WBC (4.8-10.8) K/ul RBC (4.70-6.10) M/uL Hgb 12.3 L (14.0-18.0) g/dl Hct 36.2 L (42.0-52.0) % MCV (80.0-100.0) fL MCH (25.0-34.0) pg MCHC (32.0-36.0) g/dL RDW Std Deviation (36.4-46.3) fL RDW Coeff of Rinku (11.5-14.5) % Plt Count (130-400) K/uL MPV (9.4-12.4) fL Immature Gran % (Auto) % Neut % (Auto) % Lymph % (Auto) % [place] % (Auto) % Eos % (Auto) % Baso % (Auto) % Neut # (Auto) (1.40-6.50) K/uL Lymph # (Auto) (1.2-3.4) K/uL [place] # (Auto) (0.11-0.59) K/uL Eos # (Auto) (0-0.50) K/uL Baso # (Auto) (0-0.2) K/uL Immature Gran # (Auto) (0.01-0.20) K/uL PT 18.4 H (9.0-12.0) Seconds INR 1.7 H (0.9-1.1) Sodium (136-145) mmol/L Potassium (3.5-5.1) mmol/L Chloride (98-107) mmol/L Carbon Dioxide (21-32) mmol/L Anion Gap (3-11) BUN (6-23) mg/dl Creatinine (0.6-1.4) mg/dl Est Cr Clr Drug Dosing ml/min Est GFR ( Amer) ml/min Est GFR (Non-Af Amer) ml/min BUN/Creatinine Ratio (10-20) Glucose (70-99(Fasting)) mg/dl POC Glucose 125 H (70-99) mg/dl Calcium (8.6-10.3) mg/dl Phosphorus (2.5-4.9) mg/dl Magnesium (1.7-2.4) mg/dl Total Bilirubin (0.2-1.0) mg/dl Direct Bilirubin (0-0.2) mg/dl AST (13-39) U/L ALT (7-52) U/L Alkaline Phosphatase (34-104) U/L Total Protein (6.0-8.3) gm/dl Albumin (3.4-5.0) gm/dl Bld Cult ID Panel PCR (NotDetected) 01/18/23 Range/Units 04:32 WBC (4.8-10.8) K/ul RBC (4.70-6.10) M/uL Hgb (14.0-18.0) g/dl Hct (42.0-52.0) % MCV (80.0-100.0) fL MCH (25.0-34.0) pg MCHC (32.0-36.0) g/dL RDW Std Deviation (36.4-46.3) fL RDW Coeff of Rinku (11.5-14.5) % Plt Count (130-400) K/uL MPV (9.4-12.4) fL Immature Gran % (Auto) % Neut % (Auto) % Lymph % (Auto) % [place] % (Auto) % Eos % (Auto) % Baso % (Auto) % Neut # (Auto) (1.40-6.50) K/uL Lymph # (Auto) (1.2-3.4) K/uL [place] # (Auto) (0.11-0.59) K/uL Eos # (Auto) (0-0.50) K/uL Baso # (Auto) (0-0.2) K/uL Immature Gran # (Auto) (0.01-0.20) K/uL PT (9.0-12.0) Seconds INR (0.9-1.1) Sodium (136-145) mmol/L Potassium (3.5-5.1) mmol/L Chloride (98-107) mmol/L Carbon Dioxide (21-32) mmol/L Anion Gap (3-11) BUN (6-23) mg/dl Creatinine (0.6-1.4) mg/dl Est Cr Clr Drug Dosing ml/min Est GFR ( Amer) ml/min Est GFR (Non-Af Amer) ml/min BUN/Creatinine Ratio (10-20) Glucose (70-99(Fasting)) mg/dl POC Glucose (70-99) mg/dl Calcium (8.6-10.3) mg/dl Phosphorus (2.5-4.9) mg/dl Magnesium (1.7-2.4) mg/dl Total Bilirubin (0.2-1.0) mg/dl Direct Bilirubin (0-0.2) mg/dl AST (13-39) U/L ALT (7-52) U/L Alkaline Phosphatase (34-104) U/L Total Protein (6.0-8.3) gm/dl Albumin (3.4-5.0) gm/dl Bld Cult ID Panel PCR PCR Panel Negative (NotDetected)
[2023-01-20] MEDS ORDERED: Nursing to Pharmacy Communication SCH (12:30)
[2023-01-20] MEDS: WARFARIN SOD 3 MG TAB PO ONE ×2 (13:12→14:36)
--- NOTE | 2023-01-20 13:12 | Nephrology Progress Note ---
Date of Service January 20, 2023 Assessment & Plan Admission and Anticipated Discharge Date Admission Date: January 18, 2023 Subjective Assessment & Plan (1) Acute renal failure: current creatinine 3.9 but unknown baseline so would assume this is acute renal failure. Most likely ATN in the setting of Sepsis caused by Acute Appendicitis with likely perforation.urine sediment very active with 3+ blood 3+ protein lots of epithelial cells and hyaline casts consistent with ATN.His blood pressure was very low at the time of admission which has since improved with the use of IV fluid. Lactic acid has also come down and he is starting to make urine. All of these are encouraging signs for renal recovery.However it is hard to tell as he is still in danger of decline. avoid nephrotoxic agents including contrast nephrotoxic antibiotics and significant hemodynamic instability. I do not have his baseline kidney function but according to the patient he has had kidney issues in the past mainly related with kidney stones most recently 4 years ago. even now on the CT scan he does have nonobstructive kidney stones. However kidney stones are not the cause of his acute renal failure. OvernightVery prompt renal recovery--urine good, vital signs good and labs better. Creat down to 1.5. Unknown baseline continue IV fluid till regular diet estbalished. S---Overall better. Lot of urine. Labs better. BP is also better. Awake and alert. No distress. Chest b/l clear. CVS--RRR. No edema. Abd--soft some tenderness. Skin--no rash neuro--able to give detailed history. Normal speech Results & Data Vital Signs (Past 12 Hours) Vital Signs Temp Pulse Pulse Pulse Resp BP Pulse Ox 01/20/23 11:33 37.7 C H 91 H 16 153/87 H 93 01/20/23 10:02 81 01/20/23 07:23 36.6 C 82 16 139/79 93 01/20/23 05:00 01/20/23 04:10 37.5 C 79 20 128/77 93 O2 Del Method O2 Del Method 01/20/23 11:33 Room Air 01/20/23 10:02 01/20/23 07:23 Room Air 01/20/23 05:00 Room Air 01/20/23 04:10 Room Air
[2023-01-20] MEDS: ACETAMINOPHEN 325 MG TAB PO PRN (13:14)
[2023-01-20] MEDS: LACTATED RINGER'S 1,000 ML IV SCH (13:15)
[2023-01-20] MEDS ORDERED: POTASSIUM PHOS 3 MMOL/1 ML INFUSION IV STA (16:46)
--- NOTE | 2023-01-20 17:00 | Hospitalist Progress Note ---
Date of Service January 20, 2023 Assessment & Plan (1) Acute appendicitis: Plan: 72-year-old male past medical significant for hypertension, peripheral artery disease history of femoral artery occlusion, hyperlipidemia, history of epistaxis comes from [facility] because of severe right lower quadrant abdominal pain since last Wednesday [employer] and found to have septic shock from acute acute appendicitis, and [place]. He is being managed for the following: Acute appendicitis gram-negative bacteremia: 1 of 4 bottles positive from 01/18/2023, repeat blood culture, follow final results. Septic shock Presented with RLQ pain, fever, chills, nausea, vomiting Noted to be hypotensive (SBP in 60s, improved w/ aggresive IVF) in ER with [place], supratherapeutic INR, leukocytosis of 17k, lactate of 4.9 and procal of [address] abd without contrast noted acute appendicitis with extensive adjacent inflammation, nonobstructive renal calculi bilaterally Status post IV fluid, blood pressure/lactate/heart rate/renal function improved. Continue with Zosyn 01/19, follow-up on final results of blood culture. Surgery on board, appreciate recommendation, plan for conservative management for now. Pain management, advance diet as tolerated per surgery. Acute kidney injury/metabolic acidosis: Getting IV fluids, creatinine improving, metabolic acidosis resolved. Nephrology on board, appreciate recommendation. Elevated INR: Patient on warfarin for PVD, INR 5 on presentation -up trended to 6.4 next day. Got vitamin K. Since no plan for surgical intervention, will resume warfarin at a lower dose from today, monitor INR. Electrolyte abnormalities [magnesium/phosphorus]: Monitor replete as appropriate. Hypertension: Continue home antihypertensives Hyperlipidemia: Continue home statin Peripheral vascular disease: Status post right above-knee amputation. Continue with aspirin and statin. Continue with home warfarin. DVT prophylaxis: Patient on warfarin, SCDs until INR therapeutic. Full code Disposition: Await final results on blood cultures. Await nephrology and surgery clearance. Likely in next 1 to 2 days. (2) Acute renal failure: Admission and Anticipated Discharge Date Admission Date: January 18, 2023 Subjective Patient seen and examined at bedside as a follow-up of acute appendicitis, septic shock, likely gram-negative bacteremia, [place]. Patient was lying in bed, on room air, reports 1-2 loose bowels a day, reports feeling better, denies any new acute event overnight, has been started on clear liquid diet per surgery today, reports improving abdominal pain, denies nausea or vomiting. Physical Exam Physical Exam: GENERAL: Alert and oriented x3. NAD, on RA. HEENT: No pallor, no icterus. Pupils equal, round and reactive to light. Oral mucosa moist. NECK: No JVD, no neck masses. HEART: S1 and S2 heard. Regular rate and rhythm. No murmur, no gallop. RESPIRATORY SYSTEM: Normal AP diameter. No accessory muscle use. No wheezing, no crackles. ABDOMEN: Soft, bowel sounds present, mildly tender RLQ, no distention. CENTRAL NERVOUS SYSTEM: No facial droop. Speech is clear. Obeys simple commands. Moves extremities. EXTREMITIES: No edema, no erythema seen. Right above-knee amputation noted. Results & Data Results & Data Vital Signs (Past 12 Hours) Vital Signs Temp Pulse Pulse Resp BP Pulse Ox O2 Del Method 01/20/23 15:57 36.6 C 88 20 158/82 H 93 Room Air 01/20/23 15:08 92 H 01/20/23 11:33 37.7 C H 91 H 16 153/87 H 93 Room Air 01/20/23 10:02 81 01/20/23 07:23 36.6 C 82 16 139/79 93 Room Air 01/20/23 05:00 O2 Del Method 01/20/23 15:57 01/20/23 15:08 01/20/23 11:33 01/20/23 10:02 01/20/23 07:23 01/20/23 05:00 Room Air
[2023-01-20] MEDS ORDERED: POTASSIUM PHOSPHATE 21 MMOL in SODIUM CHLORIDE 0.9% 500 ML IV ONE (17:15)
[2023-01-20] MEDS: MAGNESIUM SULFATE / D5W 1 GM/100 ML BAG IV SCH ×2 (17:57→19:46)
[2023-01-20] MEDS ORDERED: WARFARIN SOD 5 MG TAB PO SCH (21:00)
[2023-01-20] MEDS: ATORVASTATIN 40 MG TAB PO SCH (21:34)
[2023-01-20] MEDS: WARFARIN SOD 3 MG TAB PO SCH (21:34)
[2023-01-21] MEDS: LACTATED RINGER'S 1,000 ML IV SCH ×2 (00:12→13:54)
[2023-01-21] MEDS: PIPERACILLIN/TAZOBACTAM 4.5 GM in DEXTROSE 5% 100 ML IV SCH ×3 (03:56→18:45)
[2023-01-21] MEDS: ACETAMINOPHEN 325 MG TAB PO PRN (06:49)
[2023-01-21 07:08] LABS: Basophils # (auto) 0.03 K/uL (0-0.2); Basophils % (auto) 0.3 %; Eosinophils # (auto) 0.09 K/uL (0-0.50); Eosinophils % (auto) 0.8 %; Hemoglobin 11.4 g/dl (14.0-18.0); Immature Granulocytes # (auto) 0.06 K/uL (0.01-0.20); Immature Granulocytes % (auto) 0.6 %; Lymphocytes % (auto) 7.5 %; Mean Corpuscular Hemoglobin 31.5 pg (25.0-34.0); Mean Corpuscular Hgb Conc 34.5 g/dL (32.0-36.0); Mean Corpuscular Volume 91.2 fL (80.0-100.0); Mean Platelet Volume 10.8 fL (9.4-12.4); Monocytes # (auto) 1.18 K/uL (0.11-0.59); Monocytes % (auto) 11.1 %; Neutrophils # (auto) 8.46 K/uL (1.40-6.50); Neutrophils % (auto) 79.7 %; Platelet Count 202 K/uL (130-400); RDW Coefficient of Variation 13.2 % (11.5-14.5); RDW Standard Deviation 44.5 fL (36.4-46.3); Red Blood Count 3.62 M/uL (4.70-6.10); White Blood Count 10.62 K/ul (4.8-10.8)
[2023-01-21 07:26] LABS: Albumin Level 2.6 gm/dl (3.4-5.0); BUN Creatinine Ratio 11.2 (10-20); Bilirubin Direct 0.2 mg/dl (0-0.2); Bilirubin,Total 0.9 mg/dl (0.2-1.0); Calcium 7.8 mg/dl (8.6-10.3); Magnesium 1.6 mg/dl (1.7-2.4); Phosphorus 1.6 mg/dl (2.5-4.9); Potassium 3.7 mmol/L (3.5-5.1); Total Protein 5.2 gm/dl (6.0-8.3)
[2023-01-21 07:51] LABS: INR 1.4 (0.9-1.1); Prothrombin Time 14.7 Seconds (9.0-12.0)
[2023-01-21] MEDS: ASPIRIN 81 MG CHEW PO SCH (08:03)
[2023-01-21] MEDS: INSULIN ASPART PER UNIT CHARGE SC SCH ×4 (08:10→20:38)
[2023-01-21] MEDS ORDERED: POTASSIUM PHOS 3 MMOL/1 ML INFUSION IV STA (08:28)
[2023-01-21] MEDS ORDERED: POTASSIUM PHOSPHATE 21 MMOL in SODIUM CHLORIDE 0.9% 500 ML IV ONE (09:00)
[2023-01-21] MEDS: MAGNESIUM SULFATE / D5W 1 GM/100 ML BAG IV SCH ×2 (09:19→11:13)
[2023-01-21] MEDS: PANTOprazole 40 MG in SYRINGE 0 ML IV SCH (11:35)
--- NOTE | 2023-01-21 11:48 | Surgery Progress Note ---
Date of Service January 21, 2023 Assessment & Plan (1) Acute appendicitis: (2) Supratherapeutic INR: Plan: resolved INR 1.4 today (3) Sepsis: Plan: Leukocytosis resolved Plan 72 year-old male who presented to ED from [facility] due to increasing RLQ abdominal pain, fevers and chills, and nausea and vomiting. Found to be severely hypotensive in ED with systolic BP in 60's, [place] with creatinine of 4, Supratherapeutic INR of 5, and elevated leukocytosis of 17k and procalcitonin. Lactic acid 4.9 --> 1.9 after aggressive fluid resuscitation. Currently hemodynamically stable and not requiring pressors. CT scan with appendicitis and significant surrounding inflammation. 01/21/2023 afebrile, vss leukocytosis resolved 1/2 blood cultures positive for gram negative bacilli, repeat blood cultures on 01/20/23 pending Plan: Continue conservative management for acute appendicitis with phlegmon changes with IV Zosyn, pain management as needed, IV fluids, antiemetics as needed advance to low fiber diet Gutierrez management per medicine team Encourage OOB to chair and ambulate From surgical standpoint could consider transition to oral antibiotics for total 14 day course and will need outpatient follow-up in 2 weeks to discuss timing for elective interval appendectomy Dr. Mukherjee has seen and examined pt , agrees with above. Admission and Anticipated Discharge Date Admission Date: January 18, 2023 Subjective feeling much better today not having much abdominal pain no n,v tolerated clear liquids no fevers or chills Physical Exam Constitutional: WD/WN, vitals as above cooperative and comfortable; no acute distress and not ill appearing Respiratory: normal respiratory effort; no respiratory distress Gastrointestinal (Abdomen): Inspection/Auscultation: abdomen normal to inspection; abdomen not distended Percussion/Palpation: + abdomen tender (minimal tenderness in RLQ on deep palpation, significantly improved) and abdomen soft; no guarding, abdomen not rigid and abdomen not firm Skin: no rashes, warm and dry Psychiatric: A+Ox3, euthymic affect Results & Data Vital Signs (Past 12 Hours) Vital Signs Temp Pulse Pulse Pulse Resp BP Pulse Ox 01/21/23 11:00 36.7 C 80 18 144/80 H 94 01/21/23 11:04 01/21/23 07:40 36.9 C 85 18 148/83 H 95 01/21/23 07:22 89 01/21/23 04:56 37.5 C 96 H 20 151/85 H 93 01/21/23 02:09 01/21/23 00:20 37.1 C 84 20 131/75 94 O2 Del Method 01/21/23 11:00 Room Air 01/21/23 11:04 Room Air 01/21/23 07:40 Room Air 01/21/23 07:22 01/21/23 04:56 Room Air 01/21/23 02:09 Room Air 01/21/23 00:20 Room Air Laboratory Results 01/21/23 01/21/23 01/21/23 Range/Units 11:35 07:39 06:32 WBC (4.8-10.8) K/ul RBC (4.70-6.10) M/uL Hgb (14.0-18.0) g/dl Hct (42.0-52.0) % MCV (80.0-100.0) fL MCH (25.0-34.0) pg MCHC (32.0-36.0) g/dL RDW Std Deviation (36.4-46.3) fL RDW Coeff of Rinku (11.5-14.5) % Plt Count (130-400) K/uL MPV (9.4-12.4) fL Immature Gran % (Auto) % Neut % (Auto) % Lymph % (Auto) % [place] % (Auto) % Eos % (Auto) % Baso % (Auto) % Neut # (Auto) (1.40-6.50) K/uL Lymph # (Auto) (1.2-3.4) K/uL [place] # (Auto) (0.11-0.59) K/uL Eos # (Auto) (0-0.50) K/uL Baso # (Auto) (0-0.2) K/uL Immature Gran # (Auto) (0.01-0.20) K/uL PT (9.0-12.0) Seconds INR (0.9-1.1) Sodium 136 (136-145) mmol/L Potassium 3.7 (3.5-5.1) mmol/L Chloride 107 (98-107) mmol/L Carbon Dioxide 22 (21-32) mmol/L Anion Gap 7 (3-11) BUN 13 (6-23) mg/dl Creatinine 1.16 D (0.6-1.4) mg/dl Est Cr Clr Drug Dosing 66.0 ml/min Est GFR ( Amer) 73.0 ml/min Est GFR (Non-Af Amer) 63.0 ml/min BUN/Creatinine Ratio 11.2 (10-20) Glucose 96 (70-99(Fasting)) mg/dl POC Glucose 115 H 105 H (70-99) mg/dl Calcium 7.8 L (8.6-10.3) mg/dl Phosphorus 1.6 L (2.5-4.9) mg/dl Magnesium 1.6 L (1.7-2.4) mg/dl Total Bilirubin 0.9 (0.2-1.0) mg/dl Direct Bilirubin 0.2 (0-0.2) mg/dl AST 15 (13-39) U/L ALT 13 (7-52) U/L Alkaline Phosphatase 63 (34-104) U/L Total Protein 5.2 L (6.0-8.3) gm/dl Albumin 2.6 L (3.4-5.0) gm/dl Stl C. diff Tox B Gene (Neg) 01/21/23 01/21/23 01/20/23 Range/Units 06:32 06:32 21:40 WBC 10.62 (4.8-10.8) K/ul RBC 3.62 L (4.70-6.10) M/uL Hgb 11.4 L (14.0-18.0) g/dl Hct 33.0 L (42.0-52.0) % MCV 91.2 (80.0-100.0) fL MCH 31.5 (25.0-34.0) pg MCHC 34.5 (32.0-36.0) g/dL RDW Std Deviation 44.5 (36.4-46.3) fL RDW Coeff of Rinku 13.2 (11.5-14.5) % Plt Count 202 (130-400) K/uL MPV 10.8 (9.4-12.4) fL Immature Gran % (Auto) 0.6 % Neut % (Auto) 79.7 % Lymph % (Auto) 7.5 % [place] % (Auto) 11.1 % Eos % (Auto) 0.8 % Baso % (Auto) 0.3 % Neut # (Auto) 8.46 H (1.40-6.50) K/uL Lymph # (Auto) 0.80 L (1.2-3.4) K/uL [place] # (Auto) 1.18 H (0.11-0.59) K/uL Eos # (Auto) 0.09 (0-0.50) K/uL Baso # (Auto) 0.03 (0-0.2) K/uL Immature Gran # (Auto) 0.06 (0.01-0.20) K/uL PT 14.7 H (9.0-12.0) Seconds INR 1.4 H (0.9-1.1) Sodium (136-145) mmol/L Potassium (3.5-5.1) mmol/L Chloride (98-107) mmol/L Carbon Dioxide (21-32) mmol/L Anion Gap (3-11) BUN (6-23) mg/dl Creatinine (0.6-1.4) mg/dl Est Cr Clr Drug Dosing ml/min Est GFR ( Amer) ml/min Est GFR (Non-Af Amer) ml/min BUN/Creatinine Ratio (10-20) Glucose (70-99(Fasting)) mg/dl POC Glucose (70-99) mg/dl Calcium (8.6-10.3) mg/dl Phosphorus (2.5-4.9) mg/dl Magnesium (1.7-2.4) mg/dl Total Bilirubin (0.2-1.0) mg/dl Direct Bilirubin (0-0.2) mg/dl AST (13-39) U/L ALT (7-52) U/L Alkaline Phosphatase (34-104) U/L Total Protein (6.0-8.3) gm/dl Albumin (3.4-5.0) gm/dl Stl C. diff Tox B Gene Negative Cdiff Gene (Neg) 01/20/23 01/20/23 01/20/23 Range/Units 20:40 17:26 11:59 WBC (4.8-10.8) K/ul RBC (4.70-6.10) M/uL Hgb (14.0-18.0) g/dl Hct (42.0-52.0) % MCV (80.0-100.0) fL MCH (25.0-34.0) pg MCHC (32.0-36.0) g/dL RDW Std Deviation (36.4-46.3) fL RDW Coeff of Rinku (11.5-14.5) % Plt Count (130-400) K/uL MPV (9.4-12.4) fL Immature Gran % (Auto) % Neut % (Auto) % Lymph % (Auto) % [place] % (Auto) % Eos % (Auto) % Baso % (Auto) % Neut # (Auto) (1.40-6.50) K/uL Lymph # (Auto) (1.2-3.4) K/uL [place] # (Auto) (0.11-0.59) K/uL Eos # (Auto) (0-0.50) K/uL Baso # (Auto) (0-0.2) K/uL Immature Gran # (Auto) (0.01-0.20) K/uL PT (9.0-12.0) Seconds INR (0.9-1.1) Sodium (136-145) mmol/L Potassium (3.5-5.1) mmol/L Chloride (98-107) mmol/L Carbon Dioxide (21-32) mmol/L Anion Gap (3-11) BUN (6-23) mg/dl Creatinine (0.6-1.4) mg/dl Est Cr Clr Drug Dosing ml/min Est GFR ( Amer) ml/min Est GFR (Non-Af Amer) ml/min BUN/Creatinine Ratio (10-20) Glucose (70-99(Fasting)) mg/dl POC Glucose 97 103 H 78 (70-99) mg/dl Calcium (8.6-10.3) mg/dl Phosphorus (2.5-4.9) mg/dl Magnesium (1.7-2.4) mg/dl Total Bilirubin (0.2-1.0) mg/dl Direct Bilirubin (0-0.2) mg/dl AST (13-39) U/L ALT (7-52) U/L Alkaline Phosphatase (34-104) U/L Total Protein (6.0-8.3) gm/dl Albumin (3.4-5.0) gm/dl Stl C. diff Tox B Gene (Neg) Microbiology 01/18/23 04:32 Aerobic Blood Culture - Preliminary Blood No growth in Aerobic bottle after 48 hours. Anaerobic Blood Culture - Preliminary No growth in Anaerobic bottle after 48 hours. 01/18/23 04:46 Urine Culture - Final Urine,Clean Catch No growth - less than 1,000 colonies/mL.
--- NOTE | 2023-01-21 17:15 | Hospitalist Progress Note ---
Date of Service January 21, 2023 Assessment & Plan (1) Acute appendicitis: Plan: 72-year-old male past medical significant for hypertension, peripheral artery disease history of femoral artery occlusion, hyperlipidemia, history of epistaxis comes from group home because of severe right lower quadrant abdominal pain since last Wednesday [employer] and found to have septic shock from acute acute appendicitis, and [place]. He is being managed for the following: Acute appendicitis gram-negative bacteremia: 1 of 4 bottles positive from 01/18/2023, repeat blood culture, follow final results. Septic shock Presented with RLQ pain, fever, chills, nausea, vomiting Noted to be hypotensive (SBP in 60s, improved w/ aggresive IVF) in ER with [place], supratherapeutic INR, leukocytosis of 17k, lactate of 4.9 and procal of [address] CT abd without contrast noted acute appendicitis with extensive adjacent inflammation, nonobstructive renal calculi bilaterally Status post IV fluid, blood pressure/lactate/heart rate/renal function improved. Continue with Zosyn 01/19, follow-up on final results of blood culture. Surgery on board, appreciate recommendation, plan for conservative management for now. Diet advanced to low fiber today. Pain management, switch to p.o. antibiotic in the next 1 to 2 days. Follow-up with surgery in 2 weeks to discuss timing for elective interval appendectomy Acute kidney injury/metabolic acidosis: status post IV fluids, resolved. Elevated INR: Patient on warfarin for PVD, INR 5 on presentation -up trended to 6.4 next day. Got vitamin K. Since no plan for surgical intervention, resumed warfarin 01/20 at a lower dose from, monitor INR. Electrolyte abnormalities [magnesium/phosphorus]: Monitor replete as appropriate. Hypertension: Continue home antihypertensives Hyperlipidemia: Continue home statin Peripheral vascular disease: Status post right above-knee amputation. Continue with aspirin and statin. Continue with home warfarin. DVT prophylaxis: Patient on warfarin, SCDs until INR therapeutic. Full code Disposition: Await final results on blood cultures. Likely in next 1 to 2 days. (2) Acute renal failure: Admission and Anticipated Discharge Date Admission Date: January 18, 2023 Subjective Patient seen and examined at bedside as a follow-up of acute appendicitis, septic shock, likely gram-negative bacteremia, [place]. Patient was lying in bed, on room air, reports 1-2 loose bowels a day, reports feeling better, denies any new acute event overnight, has been tolerating clear liquid diet, discussed with surgery, plan to advance diet today, reports significantly improving abdominal pain, denies nausea or vomiting. Has been afebrile. Will discontinue IV fluid today. Physical Exam Physical Exam: GENERAL: Alert and oriented x3. NAD, on RA. HEENT: No pallor, no icterus. Pupils equal, round and reactive to light. Oral mucosa moist. NECK: No JVD, no neck masses. HEART: S1 and S2 heard. Regular rate and rhythm. No murmur, no gallop. RESPIRATORY SYSTEM: Normal AP diameter. No accessory muscle use. No wheezing, no crackles. ABDOMEN: Soft, bowel sounds present, nontender, no distention. CENTRAL NERVOUS SYSTEM: No facial droop. Speech is clear. Obeys simple commands. Moves extremities. EXTREMITIES: No edema, no erythema seen. Right above-knee amputation noted. Results & Data Results & Data Vital Signs (Past 12 Hours) Vital Signs Temp Pulse Pulse Pulse Resp BP Pulse Ox 01/21/23 16:17 37.0 C 89 18 147/87 H 95 01/21/23 16:14 88 01/21/23 11:00 36.7 C 80 18 144/80 H 94 01/21/23 11:04 01/21/23 07:40 36.9 C 85 18 148/83 H 95 01/21/23 07:22 89 O2 Del Method 01/21/23 16:17 Room Air 01/21/23 16:14 01/21/23 11:00 Room Air 01/21/23 11:04 Room Air 01/21/23 07:40 Room Air 01/21/23 07:22
[2023-01-21] MEDS: ATORVASTATIN 40 MG TAB PO SCH (21:04)
[2023-01-21] MEDS: WARFARIN SOD 3 MG TAB PO SCH (22:59)
[2023-01-22] MEDS: LACTATED RINGER'S 1,000 ML IV SCH (01:22)
[2023-01-22] MEDS: PIPERACILLIN/TAZOBACTAM 4.5 GM in DEXTROSE 5% 100 ML IV SCH ×3 (03:33→18:37)
[2023-01-22] MEDS ORDERED: COUGH DROP (SUGAR FREE) LOZ 24 LOZ/1 BOX BUCCAL PRN (03:51)
--- NOTE | 2023-01-22 06:48 | Surgery Progress Note ---
Date of Service January 22, 2023 Assessment & Plan (1) Acute appendicitis: (2) Supratherapeutic INR: Plan: resolved INR 1.4 today (3) Sepsis: Plan: Leukocytosis resolved Plan 72 year-old male who presented to ED from [facility] due to increasing RLQ abdominal pain, fevers and chills, and nausea and vomiting. Found to be severely hypotensive in ED with systolic BP in 60's, [place] with creatinine of 4, Supratherapeutic INR of 5, and elevated leukocytosis of 17k and procalcitonin. Lactic acid 4.9 --> 1.9 after aggressive fluid resuscitation. Currently hemodynamically stable and not requiring pressors. CT scan with appendicitis and significant surrounding inflammation. 01/21/2023 afebrile, vss leukocytosis resolved 1/2 blood cultures positive for gram negative bacilli, repeat blood cultures on 01/20/23 pending Plan: Continue conservative management for acute appendicitis with phlegmon changes with IV Zosyn, pain management as needed, IV fluids, antiemetics as needed advance to low fiber diet Gutierrez management per medicine team Encourage OOB to chair and ambulate From surgical standpoint could consider transition to oral antibiotics for total 14 day course and will need outpatient follow-up in 2 weeks to discuss timing for elective interval appendectomy Okay to discharge from surgical standpoint Admission and Anticipated Discharge Date Admission Date: January 18, 2023 Subjective Minimal abdominal pain. Passing flatus, bowel movements. Tolerated diet yesterday. No fevers overnight. Complaining of cough since yesterday afternoon. Physical Exam Constitutional: WD/WN, vitals as above cooperative and comfortable; no acute distress and not ill appearing Respiratory: normal respiratory effort; no respiratory distress Gastrointestinal (Abdomen): Inspection/Auscultation: abdomen normal to inspection; abdomen not distended Percussion/Palpation: + abdomen tender (minimal tenderness in RLQ on deep palpation, significantly improved) and abdomen soft; no guarding, abdomen not rigid and abdomen not firm Skin: no rashes, warm and dry Psychiatric: A+Ox3, euthymic affect Results & Data Vital Signs (Past 12 Hours) Vital Signs Temp Pulse Pulse Resp BP Pulse Ox O2 Del Method 01/22/23 00:31 83 01/21/23 23:00 37.5 C 67 16 109/64 93 Room Air 01/21/23 19:00 36.9 C 84 18 142/76 H 96 Room Air
[2023-01-22 07:38] LABS: BUN Creatinine Ratio 8.3 (10-20); Calcium 7.8 mg/dl (8.6-10.3); Creatinine Clr Calc Pharmacy 63.3 ml/min; Est GFR (African American) 69.4 ml/min; Est GFR (Non-African American) 59.9 ml/min; Potassium 3.3 mmol/L (3.5-5.1)
[2023-01-22 07:46] LABS: Magnesium 1.6 mg/dl (1.7-2.4); Phosphorus 1.5 mg/dl (2.5-4.9)
[2023-01-22] MEDS ORDERED: POTASSIUM CHLORIDE CRTAB 20 MEQ TABCR PO STA (08:09)
[2023-01-22] MEDS ORDERED: POTASSIUM PHOS 3 MMOL/1 ML INFUSION IV STA (08:09)
[2023-01-22] MEDS: INSULIN ASPART PER UNIT CHARGE SC SCH ×4 (08:27→20:53)
[2023-01-22] MEDS ORDERED: POTASSIUM PHOSPHATE 21 MMOL in SODIUM CHLORIDE 0.9% 500 ML IV ONE (08:30)
[2023-01-22] MEDS: MAGNESIUM SULFATE / D5W 1 GM/100 ML BAG IV SCH ×2 (09:16→11:08)
[2023-01-22] MEDS: ASPIRIN 81 MG CHEW PO SCH (09:16)
[2023-01-22] MEDS: LISINOPRIL/HCTZ 20/25MG 1 TAB PO SCH (11:08)
[2023-01-22] MEDS: PANTOprazole 40 MG in SYRINGE 0 ML IV SCH (12:30)
[2023-01-22] MEDS: PANTOprazole 40 MG TAB PO SCH (12:53)
--- NOTE | 2023-01-22 15:28 | Hospitalist Progress Note ---
Date of Service January 22, 2023 Assessment & Plan (1) Acute appendicitis: Plan: 72-year-old male past medical significant for hypertension, peripheral artery disease history of femoral artery occlusion, hyperlipidemia, history of epistaxis comes from senior care because of severe right lower quadrant abdominal pain since last Wednesday [employer] and found to have septic shock from acute acute appendicitis, and [place]. He is being managed for the following: Acute appendicitis gram-negative bacteremia: 1 of 4 bottles positive from 01/18/2023, repeat blood culture, follow final results. Septic shock Presented with RLQ pain, fever, chills, nausea, vomiting Noted to be hypotensive (SBP in 60s, improved w/ aggresive IVF) in ER with [place], supratherapeutic INR, leukocytosis of 17k, lactate of 4.9 and procal of [address] abd without contrast noted acute appendicitis with extensive adjacent inflammation, nonobstructive renal calculi bilaterally Status post IV fluid, blood pressure/lactate/heart rate/renal function improved. Continue with Zosyn 01/19, follow-up on final results of blood culture. Surgery on board, appreciate recommendation, plan for conservative management for now. Diet advanced to low fiber, patient tolerating diet, has minimal abdominal pain. Pain management, switch to p.o. antibiotic tomorrow. Follow-up with surgery in 2 weeks to discuss timing for elective interval appendectomy Acute kidney injury/metabolic acidosis: status post IV fluids, resolved. Elevated INR: Patient on warfarin for PVD, INR 5 on presentation -up trended to 6.4 next day. Got vitamin K. Since no plan for surgical intervention, resumed warfarin 01/20 at a lower dose, monitor INR. Electrolyte abnormalities [magnesium/phosphorus]: Monitor replete as appropriate. Hypertension: Continue home antihypertensives Hyperlipidemia: Continue home statin Peripheral vascular disease: Status post right above-knee amputation. Continue with aspirin and statin. Continue with home warfarin. DVT prophylaxis: Patient on warfarin, SCDs until INR therapeutic. Full code Disposition: Await final results on blood cultures. Likely tomorrow DC. (2) Acute renal failure: Admission and Anticipated Discharge Date Admission Date: January 18, 2023 Subjective Patient seen and examined at bedside as a follow-up of acute appendicitis, septic shock, likely gram-negative bacteremia, [place]. Patient was lying in bed, on room air, reports moving bowels okay, reports feeling better, denies any new acute event overnight, has been tolerating low fiber diet, reports significantly improving abdominal pain, denies nausea or vomiting. Has been afebrile. Physical Exam Physical Exam: GENERAL: Alert and oriented x3. NAD, on RA. HEENT: No pallor, no icterus. Pupils equal, round and reactive to light. Oral mucosa moist. NECK: No JVD, no neck masses. HEART: S1 and S2 heard. Regular rate and rhythm. No murmur, no gallop. RESPIRATORY SYSTEM: Normal AP diameter. No accessory muscle use. No wheezing, no crackles. ABDOMEN: Soft, bowel sounds present, nontender, no distention. CENTRAL NERVOUS SYSTEM: No facial droop. Speech is clear. Obeys simple commands. Moves extremities. EXTREMITIES: No edema, no erythema seen. Right above-knee amputation noted. Results & Data Results & Data Vital Signs (Past 12 Hours) Vital Signs Temp Pulse Pulse Resp BP Pulse Ox O2 Del Method 01/22/23 12:08 37.1 C 81 18 158/84 H 94 Room Air 01/22/23 08:15 Room Air 01/22/23 07:15 79 01/22/23 08:32 37.3 C 73 18 151/81 H 94 Room Air
[2023-01-22] MEDS ORDERED: TAMSULOSIN HCL 0.4 MG CAP PO ONE (15:41)
[2023-01-22 16:30] LABS: BUN Creatinine Ratio 7.6 (10-20); Calcium 7.9 mg/dl (8.6-10.3); Creatinine Clr Calc Pharmacy 64.3 ml/min; Est GFR (African American) 70.8 ml/min; Est GFR (Non-African American) 61.1 ml/min; Magnesium 1.9 mg/dl (1.7-2.4); Phosphorus 2.1 mg/dl (2.5-4.9)
[2023-01-22] MEDS: WARFARIN SOD 3 MG TAB PO SCH (21:45)
[2023-01-22] MEDS: ATORVASTATIN 40 MG TAB PO SCH (21:46)
[2023-01-23] MEDS: PIPERACILLIN/TAZOBACTAM 4.5 GM in DEXTROSE 5% 100 ML IV SCH (02:03)
[2023-01-23] MEDS: ACETAMINOPHEN 325 MG TAB PO PRN (02:08)
[2023-01-23 06:59] LABS: Creatinine Clr Calc Pharmacy 65.4 ml/min; Est GFR (African American) 72.3 ml/min; Est GFR (Non-African American) 62.4 ml/min; Magnesium 1.7 mg/dl (1.7-2.4); Potassium 3.5 mmol/L (3.5-5.1)
[2023-01-23 07:13] LABS: INR 2.1 (0.9-1.1); Prothrombin Time 21.7 Seconds (9.0-12.0)
[2023-01-23] MEDS: INSULIN ASPART PER UNIT CHARGE SC SCH ×2 (08:53→12:02)
[2023-01-23] MEDS ORDERED: POTASSIUM CHLORIDE CRTAB 20 MEQ TABCR PO STA (08:55)
[2023-01-23] MEDS ORDERED: POTASSIUM PHOS 3 MMOL/1 ML INFUSION IV STA (08:55)
[2023-01-23] MEDS ORDERED: ADVANCED PROBIOTIC 1250 MG CAPSULE PO SCH (09:00)
[2023-01-23] MEDS ORDERED: TAMSULOSIN HCL 0.4 MG CAP PO SCH (09:00)
[2023-01-23] MEDS ORDERED: AMOXICILLIN/CLAVULANATE 875 MG TAB PO SCH (09:00)
[2023-01-23] MEDS ORDERED: POTASSIUM PHOSPHATE 21 MMOL in SODIUM CHLORIDE 0.9% 500 ML IV ONE (09:15)
[2023-01-23] MEDS: ASPIRIN 81 MG CHEW PO SCH (09:29)
[2023-01-23] MEDS: PANTOprazole 40 MG TAB PO SCH (09:29)
[2023-01-23] MEDS: LISINOPRIL/HCTZ 20/25MG 1 TAB PO SCH (09:29)
--- NOTE | 2023-01-23 10:01 | Surgery Progress Note ---
Date of Service January 23, 2023 Assessment & Plan (1) Acute appendicitis: Plan: Doing well. Okay for discharge from our standpoint. Follow-up with [facility] in 1 to 2 weeks Admission and Anticipated Discharge Date Admission Date: January 18, 2023 Subjective Patient seen. Feeling great. No complaints. Tolerating diet. No pain Physical Exam Constitutional: WD/WN, vitals as above no acute distress and not ill appearing Eyes: PERRL, conjunctivae normal, anicteric sclerae EOM intact bilaterally ENMT: external ear and nose normal, oropharynx normal Ears: no hearing impairment Neck: trachea midline, no thyromegaly Respiratory: normal respiratory effort; no respiratory distress and does not use accessory muscles Cardiovascular: Rate/Rhythm: regular rate and regular rhythm Gastrointestinal (Abdomen): Soft. Nontender. No guarding. Skin: no rashes, warm and dry Psychiatric: Orientation: alert, oriented x 3 and cooperative Results & Data Vital Signs (Past 12 Hours) Vital Signs Temp Pulse Resp BP Pulse Ox O2 Del Method 01/23/23 07:46 36.6 C 95 H 18 146/77 H 97 Room Air 01/23/23 03:21 36.8 C 89 18 135/81 94 Room Air 01/22/23 23:18 36.7 C 110 H 18 149/81 H 98 Room Air PG Care Time/CCT Total # of Minutes Spent Total Time Spent with Patient: Total time spent is greater than 50% in coordination of care (as documented) at patient's floor/unit and/or counseling patient: Coding Level of Care Code 51222 SUB INP/OBS CARE 2/35MIN Diagnoses Acute appendicitis K35.80
--- NOTE | 2023-01-23 12:55 | Discharge Summary ---
Date of Service January 23, 2023 Admission HPI Per Admitting Provider 72-year-old male past medical significant for hypertension, peripheral artery disease history of femoral artery occlusion, hyperlipidemia, history of epistaxis [facility] because of severe right lower quadrant abdominal pain since last Wednesday. Did not eat anything since last Wednesday. On and off fevers. Patient states vomited and seemed coffee-ground. 1 episode of diarrhea dark color. Says currently like laying down the pain is not bothering him. Denies any chest pain or shortness of breath. No headache. Vision is okay. No runny nose or sore throat. No cough. When he came in he was hypotensive with systolic blood pressure in 60s improved with the fluids. His WBC 17. INR 5. Creatinine 4.5. Procalcitonin 79. Lactate 4.9 improved to 1.9. He says he is on Coumadin because of his clots in lower extremities. His INR is 5. Currently hemodynamically stable. Surgery was notified by ER and advised for ICU admission for now. Admission Exam Per Admitting Provider General- Not in distress Head- atraumatic Eyes- PERRL. ENT- oropharynx clear Neck- supple, no JVD. Lungs- clear to auscultation and percussion, no added sounds Heart- regular rate and rhythm; no murmur, no gallop. Abdomen- sluggish bowel sounds. soft, RLQ tenderness. no distension Extremities- no pretibial edema, s/p right BKA.no erythema seen Neuro- alert, oriented x 3; PERRL, no facial palsy; no dysarthria. obeys commands. insight ok. moves extremities Skin- warm & dry Principal Diagnosis Acute appendicitis Septic shock Acute kidney injury/metabolic acidosis Electrolyte abnormalities Elevated INR Discharge Exam GENERAL: Alert and oriented x3. NAD, on RA. HEENT: No pallor, no icterus. Pupils equal, round and reactive to light. Oral mucosa moist. NECK: No JVD, no neck masses. HEART: S1 and S2 heard. Regular rate and rhythm. No murmur, no gallop. RESPIRATORY SYSTEM: Normal AP diameter. No accessory muscle use. No wheezing, no crackles. ABDOMEN: Soft, bowel sounds present, nontender, no distention. CENTRAL NERVOUS SYSTEM: No facial droop. Speech is clear. Obeys simple commands. Moves extremities. EXTREMITIES: No edema, no erythema seen. Right above-knee amputation noted. Discharge Data Allergies Allergy/AdvReac Type Severity Reaction Status Date / Time codeine Allergy Unknown Unknown Verified 02/10/19 13:08 Consultations 01/18/23 05:56 ED Decision to Admit Stat 01/18/23 07:57 Consult General Surgery Routine Consult Brokerage Office Manager Routine Consult Nephrology Routine Ordered Studies 01/18/23 04:43 CT abd pelvis wo con Stat Hospital Course (1) Acute appendicitis: 72-year-old male past medical significant for hypertension, peripheral artery disease history of femoral artery occlusion, hyperlipidemia, history of epistaxis [facility] because of severe right lower quadrant abdominal pain since last Wednesday [employer] and found to have septic shock from acute acute appendicitis, and [place]. He was managed for the following: Acute appendicitis gram-negative bacteremia: 1 of 4 bottles positive from 01/18/2023, repeat blood culture, follow final results. Septic shock Presented with RLQ pain, fever, chills, nausea, vomiting Noted to be hypotensive (SBP in 60s, improved w/ aggressive IVF) in ER with [place], supratherapeutic INR, leukocytosis of 17k, lactate of 4.9 [address] procal of [address] abd without contrast noted acute appendicitis with extensive adjacent inflammation, nonobstructive renal calculi bilaterally Status post IV fluid, blood pressure/lactate/heart rate/renal function improved. Continue with Zosyn 01/19, follow-up on final results of blood culture --> to augmentin on DC to complete 14 days course per Sx recs. Surgery on board, appreciate recommendation, plan for conservative management for now. Diet advanced to low fiber, patient tolerating diet, has minimal abdominal pain. Follow-up with surgery in 2 weeks to discuss timing for elective interval append ectomy. Pt is made aware. Acute kidney injury/metabolic acidosis: status post IV fluids, resolved. Elevated INR: Patient on warfarin for PVD, INR 5 on presentation -up trended to 6.4 next day. Got vitamin K. Since no plan for surgical intervention, resumed warfarin 01/20 at a lower dose, monitor INR. Will need close pt/inr monitor for 2- 3 weeks on discharge. Electrolyte abnormalities [magnesium/phosphorus]: Monitor replete as appropriate. Has been improving slowly as patient has been picking up on diet. Will need retested in 3 days and in 1 week time upon discharge for further management. Same has been signed out to [facility] healthcare provider. Hypertension: Continue home antihypertensives Hyperlipidemia: Continue home statin Peripheral vascular disease: Status post right above-knee amputation. Continue with aspirin and statin. Continue with home warfarin. DVT prophylaxis: Patient on warfarin, SCDs until INR therapeutic. Full code Disposition: Await final results on blood cultures. Likely tomorrow DC. Patient being [facility] to [facility] with following instruction of the point of discharge: Follow-up with your primary care physician within a week time and likely you will need labs CBC/CMP/magnesium/phosphorus. For your appendicitis, you were managed conservatively. You will need to follow-up with surgery in 1 to 2 weeks to determine timing for appendectomy. You will be discharged on Augmentin to complete 14-day course of antibiotic therapy. Your INR was elevated at presentation. Your warfarin dose has been reduced to 3 mg daily from 5 mg daily. You will need PT/INR every 2 to 3 days for 2 to 3 weeks to closely monitor your warfarin dose requirement. Your electrolytes were abnormal/low likely secondary to poor appetite due to appendicitis. This has been improving slowly. You will need electrolytes level tested in 3 days time and then in 1 week's time with follow evaluation by health care provider afterwards. Take your medications as prescribed. Please make sure that you are able to get your medications today by calling your pharmacy before you leave the hospital so that your treatment continuity is not broken. (2) Acute renal failure: Home Health Attestation I certify that this patient is under my care and that I, or a physicians assistant dean of students working with me, had a face to-face encounter that meets the home health [id number] encounter requirements with this patient. The encounter with the patient was in whole, or in part, for the following medical condition, which is the primary reason for home health care (list medi marva condition): I certify that, based on my findings, the following services are medically necessary home health services: My clinical findings support the need for the above services because: Further, I certify that my clinical findings support that this patient is homebound (i.e. absences from home require considerable and taxing effort and are for medical reasons or [employer]ec[employer] services or infrequently or of short duration when for other reasons) because: Certification for Home Health Services: Based on the above findings, I certify that this patient is confined to the home and needs intermittent group home care, physical therapy and/or speech therapy or continues to need occupational therapy. The patient is under my care, and I have initiated the establishment of the plan of care. This patient will be followed by a physician who will periodically review the plan of care. Total Time Total Time Spent Total Time Spent (In Minutes): 45 Discharge Plan Discharge Items [facility] Disposition[facility] Reason For Visit: ACUTE APPENDICITIS, SEPTIC SHOCK Discharge Diagnosis: Acute appendicitis Septic shock Acute kidney injury/metabolic acidosis Electrolyte abnormalities Elevated INR Activity: Resume your previous activity Non-emergency contact: Primary Care Provider Call non-emergency contact if: you have any medication questions Follow-up/Referrals: Macho Mukherjee MD [Physician] - (call to schedule follow up in 2 weeks for future surgical planning ) Hernesto SIN [Primary Care Provider] - Diet: Carb Consistent or DM2 and Low Fiber Addtl Attending Provider Instructions: Follow-up with your primary care physician within a week time and likely you will need labs CBC/CMP/magnesium/phosphorus. For your appendicitis, you were managed conservatively. You will need to follow-up with surgery in 1 to 2 weeks to determine timing for appendectomy. You will be discharged on Augmentin to complete 14-day course of antibiotic therapy. Your INR was elevated at presentation. Your warfarin dose has been reduced to 3 mg daily from 5 mg daily. You will need PT/INR every 2 to 3 days for 2 to 3 weeks to closely monitor your warfarin dose requirement. Your electrolytes were abnormal/low likely secondary to poor appetite due to appendicitis. This has been improving slowly. You will need electrolytes level tested in 3 days time and then in 1 week's time with follow evaluation by health care provider afterwards. Take your medications as prescribed. Please make sure that you are able to get your medications today by calling your pharmacy before you leave the hospital so that your treatment continuity is not broken. Pending Studies at Discharge: Yes Stand-Alone Forms: My [facility] Skilled Items Patient informed of condition?: Yes Discharge Level of Care: Skilled Communicable Disease: No Discharge Prognosis: Stable Lines: None Urinary Catheter: No Medications and DC Order Prescriptions: New amoxicillin-pot clavulanate 875-125 mg Tablet 1 tab PO BIDM 10 Days Qty: 20 0RF tamsulosin 0.4 mg Capsule 0.4 mg PO QAM Qty: 30 0RF warfarin 3 mg Tablet 3 mg PO HS Qty: 30 0RF Advanced Probiotic 625 mg (10 billion cell) Capsule 2 cap PO DAILY 14 Days Qty: 28 0RF pantoprazole 40 mg Tablet,Delayed Release (Dr/Ec) 40 mg PO DAILY Qty: 30 0RF Continued atorvastatin 80 mg Tablet 80 mg PO HS aspirin 81 mg Tablet,Chewable 81 mg PO QAM hydroxyzine pamoate 50 mg Capsule 50 mg PO QPM PRN (Reason: Itching) lisinopril-hydrochlorothiazide 20-25 mg Tablet 1 tab PO DAILY Discontinued warfarin 5 mg Tablet 5 mg PO HS Discharge Orders: Discharge Order (Routine); Ordered 01/23/23 Ordered By: Berenice Yee Admission Data Admit Date/Time: 01/18/23 07:01 Attending Provider: Berenice Yee Admit Provider: Alex Blake Primary Care Provider: Hernesto SIN Other Providers: Daniela Velarde ; Alex Blake ; Arik Demarco ; Kobi Boyle ; Nickie Barajas
== END 2023-01-23 13:00 | DRG 871 ==
LOC: ED 04:09 → 1E 07:01 → SUATTDRO 07:01 → 1E 07:33 → 2W 01-19 15:37